=== PATIENT | male | born 1975 | race Caucasian/White ===

== ENCOUNTER 2020-07-27 11:56 | Outpatient (REF) | payer OTHER, SELFPAY ==
[2020-07-27 12:49] LABS: MANUAL DIFF FLAG NO
[2020-07-27 13:02] LABS: Basophils Percent Auto 0.4 % (0-2); Eosinophils Absolute Auto 0.1 X10*3/uL (0.0-0.4); Eosinophils Percent Auto 1.9 % (0-4); Hematocrit 42.8 % (42-52); Hemoglobin 14.6 g/dl (14.0-18.0); Imm Gran Abs Auto 0.04 X10*3/uL (0.00-0.03); Imm Gran Pct Auto 0.5 % (0.0-0.4); Lymphocytes Absolute Auto 2.7 X10*3/uL (1.2-4.9); Lymphocytes Percent Auto 37.3 % (20-40); Mean Corpuscular HGB Conc 34.1 g/dl (31.0-36.0); Mean Corpuscular Hemoglobin 28.8 pg (27.0-33.0); Mean Corpuscular Volume 84.4 fL (80-98); Mean Platelet Volume 9.4 fL (9.4-12.4); Monocytes Absolute Auto 0.5 X10*3/uL (0.1-1.2); Monocytes Percent Auto 7.2 % (2-11); Neutrophils Absolute Auto 3.9 X10*3/uL (2.0-8.3); Neutrophils Percent Auto 52.7 % (45-73); Platelet Count 234 X10*3/uL (160-400); Red Blood Count 5.07 X10*6/uL (4.60-5.80); Red Cell Distribution Width 13.2 % (11.0-16.0); White Blood Count 7.3 X10*3/uL (4.8-10.8)
== END 2020-07-27 11:57 | disposition home or self-care (01) ==
LOC: HO.LABR 11:56
PROVIDERS: PCP Internal Medicine; Visit Provider Clinical Nurse Specialist Psychiatric/Mental Health, Adult
DX: Z79.899 Other long term (current) drug therapy (principal)
CPT/HCPCS: 36415; 85025

== ENCOUNTER 2020-08-26 11:42 | Outpatient (REF) | payer OTHER, SELFPAY ==
[2020-08-26 12:32] LABS: MANUAL DIFF FLAG NO
[2020-08-26 12:43] LABS: Basophils Absolute Auto 0.1 X10*3/uL (0.0-0.2); Basophils Percent Auto 0.6 % (0-2); Eosinophils Absolute Auto 0.1 X10*3/uL (0.0-0.4); Eosinophils Percent Auto 1.5 % (0-4); Hematocrit 42.8 % (42-52); Hemoglobin 14.9 g/dl (14.0-18.0); Imm Gran Abs Auto 0.04 X10*3/uL (0.00-0.03); Imm Gran Pct Auto 0.5 % (0.0-0.4); Lymphocytes Absolute Auto 2.9 X10*3/uL (1.2-4.9); Lymphocytes Percent Auto 36.7 % (20-40); Mean Corpuscular HGB Conc 34.8 g/dl (31.0-36.0); Mean Corpuscular Volume 83.3 fL (80-98); Mean Platelet Volume 9.4 fL (9.4-12.4); Monocytes Absolute Auto 0.4 X10*3/uL (0.1-1.2); Monocytes Percent Auto 5.6 % (2-11); Neutrophils Absolute Auto 4.3 X10*3/uL (2.0-8.3); Neutrophils Percent Auto 55.1 % (45-73); Platelet Count 221 X10*3/uL (160-400); Red Blood Count 5.14 X10*6/uL (4.60-5.80); Red Cell Distribution Width 12.8 % (11.0-16.0); White Blood Count 7.9 X10*3/uL (4.8-10.8)
== END 2020-08-26 11:43 | disposition home or self-care (01) ==
LOC: HO.LAB 11:42
PROVIDERS: PCP Internal Medicine; Visit Provider Internal Medicine
DX: Z79.899 Other long term (current) drug therapy (principal)
CPT/HCPCS: 36415; 85025

== ENCOUNTER 2020-09-26 12:37 | Outpatient (REF) | payer OTHER, SELFPAY ==
[2020-09-26 13:06] LABS: MANUAL DIFF FLAG NO
[2020-09-26 13:22] LABS: Basophils Absolute Auto 0.1 X10*3/uL (0.0-0.2); Basophils Percent Auto 0.7 % (0-2); Eosinophils Absolute Auto 0.1 X10*3/uL (0.0-0.4); Hematocrit 44.1 % (42-52); Hemoglobin 15.5 g/dl (14.0-18.0); Imm Gran Abs Auto 0.04 X10*3/uL (0.00-0.03); Imm Gran Pct Auto 0.5 % (0.0-0.4); Lymphocytes Absolute Auto 2.3 X10*3/uL (1.2-4.9); Lymphocytes Percent Auto 31.9 % (20-40); Mean Corpuscular HGB Conc 35.1 g/dl (31.0-36.0); Mean Corpuscular Hemoglobin 29.4 pg (27.0-33.0); Mean Corpuscular Volume 83.5 fL (80-98); Mean Platelet Volume 9.4 fL (9.4-12.4); Monocytes Absolute Auto 0.4 X10*3/uL (0.1-1.2); Monocytes Percent Auto 5.3 % (2-11); Neutrophils Absolute Auto 4.4 X10*3/uL (2.0-8.3); Neutrophils Percent Auto 60.6 % (45-73); Platelet Count 212 X10*3/uL (160-400); Red Blood Count 5.28 X10*6/uL (4.60-5.80); Red Cell Distribution Width 12.7 % (11.0-16.0); White Blood Count 7.3 X10*3/uL (4.8-10.8)
[2020-09-26 13:40] LABS: Alanine Aminotransferase 47 U/L (0-40); Anion Gap 12 (12-20); Aspartate Amino Transferase 22 U/L (5-37); Blood Urea Nitrogen 15 mg/dL (9-16); Calcium 9.1 mg/dL (8.4-10.2); Carbon Dioxide 27 mmol/L (22-29); Chloride 105 mmol/L (96-108); Cholesterol 182 mg/dL; Estimated Glomerular Filt Rate > 60; Glucose Fasting 151 mg/dL (60-99); HDL Cholesterol 36 mg/dL; LDL Cholesterol Calculated 108 mg/dl; Potassium 4.1 mmol/l (3.3-5.1); Sodium 140 mmol/L (135-145); Triglycerides 194 mg/dL
== END 2020-09-26 12:38 | disposition home or self-care (01) ==
LOC: HO.LABR 12:37
PROVIDERS: PCP Internal Medicine; Visit Provider Clinical Nurse Specialist Psychiatric/Mental Health, Adult
DX: Z00.01 Encounter for general adult medical examination with abnormal findings (principal); E78.1 Pure hyperglyceridemia; R73.01 Impaired fasting glucose; I10 Essential (primary) hypertension; Z79.899 Other long term (current) drug therapy
CPT/HCPCS: 36415; 80048; 80061; 84450; 84460; 85025

== ENCOUNTER 2020-10-28 08:51 | Outpatient (REF) | payer OTHER, SELFPAY ==
[2020-10-28 09:47] LABS: MANUAL DIFF FLAG NO
[2020-10-28 09:54] LABS: Basophils Absolute Auto 0.1 X10*3/uL (0.0-0.2); Basophils Percent Auto 0.6 % (0-2); Eosinophils Absolute Auto 0.1 X10*3/uL (0.0-0.4); Eosinophils Percent Auto 1.4 % (0-4); Imm Gran Abs Auto 0.04 X10*3/uL (0.00-0.03); Imm Gran Pct Auto 0.5 % (0.0-0.4); Lymphocytes Absolute Auto 3.1 X10*3/uL (1.2-4.9); Lymphocytes Percent Auto 36.8 % (20-40); Mean Corpuscular HGB Conc 34.9 g/dl (31.0-36.0); Mean Corpuscular Hemoglobin 29.3 pg (27.0-33.0); Mean Platelet Volume 9.7 fL (9.4-12.4); Monocytes Absolute Auto 0.5 X10*3/uL (0.1-1.2); Monocytes Percent Auto 6.2 % (2-11); Neutrophils Absolute Auto 4.7 X10*3/uL (2.0-8.3); Neutrophils Percent Auto 54.5 % (45-73); Platelet Count 228 X10*3/uL (160-400); Red Blood Count 5.12 X10*6/uL (4.60-5.80); Red Cell Distribution Width 12.6 % (11.0-16.0); White Blood Count 8.5 X10*3/uL (4.8-10.8)
[2020-10-28 10:25] LABS: Estimated Average Glucose 97 mg/dL
== END 2020-10-28 08:52 | disposition home or self-care (01) ==
LOC: HO.LABR 08:51
PROVIDERS: PCP Internal Medicine; Visit Provider Clinical Nurse Specialist Psychiatric/Mental Health, Adult
DX: R73.01 Impaired fasting glucose (principal); Z79.899 Other long term (current) drug therapy
CPT/HCPCS: 36415; 83036; 85025

== ENCOUNTER 2020-11-24 12:51 | Outpatient (REF) | payer OTHER, SELFPAY ==
[2020-11-24 13:48] LABS: MANUAL DIFF FLAG NO
[2020-11-24 13:57] LABS: Basophils Percent Auto 0.5 % (0-2); Eosinophils Absolute Auto 0.1 X10*3/uL (0.0-0.4); Eosinophils Percent Auto 1.2 % (0-4); Hematocrit 41.7 % (42-52); Hemoglobin 14.4 g/dl (14.0-18.0); Imm Gran Abs Auto 0.04 X10*3/uL (0.00-0.03); Imm Gran Pct Auto 0.5 % (0.0-0.4); Lymphocytes Absolute Auto 3.1 X10*3/uL (1.2-4.9); Lymphocytes Percent Auto 40.4 % (20-40); Mean Corpuscular HGB Conc 34.5 g/dl (31.0-36.0); Mean Corpuscular Hemoglobin 28.7 pg (27.0-33.0); Mean Corpuscular Volume 83.1 fL (80-98); Monocytes Absolute Auto 0.5 X10*3/uL (0.1-1.2); Monocytes Percent Auto 7.1 % (2-11); Neutrophils Absolute Auto 3.8 X10*3/uL (2.0-8.3); Neutrophils Percent Auto 50.3 % (45-73); Platelet Count 229 X10*3/uL (160-400); Red Blood Count 5.02 X10*6/uL (4.60-5.80); Red Cell Distribution Width 12.8 % (11.0-16.0); White Blood Count 7.6 X10*3/uL (4.8-10.8)
== END 2020-11-24 12:52 | disposition home or self-care (01) ==
LOC: HO.LABR 12:51
PROVIDERS: PCP Orthopaedic Surgery; Visit Provider Clinical Nurse Specialist Psychiatric/Mental Health, Adult
DX: Z79.899 Other long term (current) drug therapy (principal)
CPT/HCPCS: 36415; 85025

== ENCOUNTER 2020-12-21 11:02 | Outpatient (REF) | payer OTHER, SELFPAY ==
[2020-12-21 11:58] LABS: MANUAL DIFF FLAG NO
[2020-12-21 12:11] LABS: Basophils Absolute Auto 0.1 X10*3/uL (0.0-0.2); Basophils Percent Auto 0.8 % (0-2); Eosinophils Absolute Auto 0.1 X10*3/uL (0.0-0.4); Eosinophils Percent Auto 1.9 % (0-4); Hematocrit 43.3 % (42-52); Hemoglobin 14.9 g/dl (14.0-18.0); Imm Gran Abs Auto 0.02 X10*3/uL (0.00-0.03); Imm Gran Pct Auto 0.3 % (0.0-0.4); Lymphocytes Absolute Auto 3.5 X10*3/uL (1.2-4.9); Mean Corpuscular HGB Conc 34.4 g/dl (31.0-36.0); Mean Corpuscular Hemoglobin 28.9 pg (27.0-33.0); Mean Corpuscular Volume 83.9 fL (80-98); Mean Platelet Volume 9.7 fL (9.4-12.4); Monocytes Absolute Auto 0.5 X10*3/uL (0.1-1.2); Monocytes Percent Auto 6.9 % (2-11); Neutrophils Percent Auto 41.1 % (45-73); Platelet Count 222 X10*3/uL (160-400); Red Blood Count 5.16 X10*6/uL (4.60-5.80); White Blood Count 7.2 X10*3/uL (4.8-10.8)
== END 2020-12-21 11:03 | disposition home or self-care (01) ==
LOC: HO.LABR 11:02
PROVIDERS: PCP Orthopaedic Surgery; Visit Provider Clinical Nurse Specialist Psychiatric/Mental Health, Adult
DX: Z79.899 Other long term (current) drug therapy (principal)
CPT/HCPCS: 36415; 85025

== ENCOUNTER 2021-01-24 11:22 | Outpatient (REF) | payer OTHER, SELFPAY ==
[2021-01-24 13:00] LABS: MANUAL DIFF FLAG NO
[2021-01-24 13:08] LABS: Basophils Absolute Auto 0.1 X10*3/uL (0.0-0.2); Basophils Percent Auto 0.6 % (0-2); Eosinophils Absolute Auto 0.2 X10*3/uL (0.0-0.4); Eosinophils Percent Auto 1.9 % (0-4); Hemoglobin 15.3 g/dl (14.0-18.0); Imm Gran Abs Auto 0.03 X10*3/uL (0.00-0.03); Imm Gran Pct Auto 0.4 % (0.0-0.4); Lymphocytes Absolute Auto 3.9 X10*3/uL (1.2-4.9); Lymphocytes Percent Auto 47.5 % (20-40); Mean Corpuscular HGB Conc 33.3 g/dl (31.0-36.0); Mean Corpuscular Volume 84.1 fL (80-98); Mean Platelet Volume 9.5 fL (9.4-12.4); Monocytes Absolute Auto 0.6 X10*3/uL (0.1-1.2); Monocytes Percent Auto 7.2 % (2-11); Neutrophils Absolute Auto 3.5 X10*3/uL (2.0-8.3); Neutrophils Percent Auto 42.4 % (45-73); Platelet Count 221 X10*3/uL (160-400); Red Blood Count 5.47 X10*6/uL (4.60-5.80); Red Cell Distribution Width 12.7 % (11.0-16.0); White Blood Count 8.2 X10*3/uL (4.8-10.8)
== END 2021-01-24 11:23 | disposition home or self-care (01) ==
LOC: HO.LABR 11:22
PROVIDERS: PCP Internal Medicine; Visit Provider Clinical Nurse Specialist Psychiatric/Mental Health, Adult
DX: Z79.899 Other long term (current) drug therapy (principal)
CPT/HCPCS: 36415; 85025

== ENCOUNTER 2021-02-20 10:56 | Outpatient (REF) | payer OTHER, SELFPAY ==
[2021-02-20 12:12] LABS: MANUAL DIFF FLAG NO
[2021-02-20 12:23] LABS: Basophils Percent Auto 0.4 % (0-2); Eosinophils Absolute Auto 0.1 X10*3/uL (0.0-0.4); Eosinophils Percent Auto 1.9 % (0-4); Hematocrit 45.3 % (42-52); Hemoglobin 15.7 g/dl (14.0-18.0); Imm Gran Abs Auto 0.02 X10*3/uL (0.00-0.03); Imm Gran Pct Auto 0.3 % (0.0-0.4); Lymphocytes Absolute Auto 2.9 X10*3/uL (1.2-4.9); Lymphocytes Percent Auto 39.5 % (20-40); Mean Corpuscular HGB Conc 34.7 g/dl (31.0-36.0); Mean Corpuscular Hemoglobin 28.7 pg (27.0-33.0); Mean Corpuscular Volume 82.8 fL (80-98); Mean Platelet Volume 9.8 fL (9.4-12.4); Monocytes Absolute Auto 0.5 X10*3/uL (0.1-1.2); Monocytes Percent Auto 6.5 % (2-11); Neutrophils Absolute Auto 3.8 X10*3/uL (2.0-8.3); Neutrophils Percent Auto 51.4 % (45-73); Platelet Count 236 X10*3/uL (160-400); Red Blood Count 5.47 X10*6/uL (4.60-5.80); Red Cell Distribution Width 12.9 % (11.0-16.0); White Blood Count 7.4 X10*3/uL (4.8-10.8)
== END 2021-02-20 10:57 | disposition home or self-care (01) ==
LOC: HO.LABR 10:56
PROVIDERS: PCP Internal Medicine; Visit Provider Clinical Nurse Specialist Psychiatric/Mental Health, Adult
DX: Z79.899 Other long term (current) drug therapy (principal)
CPT/HCPCS: 36415; 85025

== ENCOUNTER 2021-03-23 12:47 | Outpatient (REF) | payer OTHER, SELFPAY ==
[2021-03-23 14:01] LABS: MANUAL DIFF FLAG NO
[2021-03-23 14:10] LABS: Basophils Percent Auto 0.5 % (0-2); Eosinophils Absolute Auto 0.1 X10*3/uL (0.0-0.4); Eosinophils Percent Auto 1.1 % (0-4); Hematocrit 41.5 % (42-52); Hemoglobin 14.8 g/dl (14.0-18.0); Imm Gran Abs Auto 0.02 X10*3/uL (0.00-0.03); Imm Gran Pct Auto 0.3 % (0.0-0.4); Lymphocytes Absolute Auto 3.4 X10*3/uL (1.2-4.9); Lymphocytes Percent Auto 44.6 % (20-40); Mean Corpuscular HGB Conc 35.7 g/dl (31.0-36.0); Mean Corpuscular Hemoglobin 29.4 pg (27.0-33.0); Mean Corpuscular Volume 82.3 fL (80-98); Mean Platelet Volume 9.4 fL (9.4-12.4); Monocytes Absolute Auto 0.5 X10*3/uL (0.1-1.2); Monocytes Percent Auto 6.2 % (2-11); Neutrophils Absolute Auto 3.6 X10*3/uL (2.0-8.3); Neutrophils Percent Auto 47.3 % (45-73); Platelet Count 226 X10*3/uL (160-400); Red Blood Count 5.04 X10*6/uL (4.60-5.80); Red Cell Distribution Width 13.1 % (11.0-16.0); White Blood Count 7.6 X10*3/uL (4.8-10.8)
== END 2021-03-23 12:48 | disposition home or self-care (01) ==
LOC: HO.LABR 12:47
PROVIDERS: PCP Internal Medicine; Visit Provider Clinical Nurse Specialist Psychiatric/Mental Health, Adult
DX: Z79.899 Other long term (current) drug therapy (principal)
CPT/HCPCS: 36415; 85025

== ENCOUNTER 2021-04-24 10:21 | Outpatient (REF) | payer OTHER, SELFPAY ==
[2021-04-24 11:14] LABS: MANUAL DIFF FLAG NO
[2021-04-24 11:18] LABS: Basophils Absolute Auto 0.1 X10*3/uL (0.0-0.2); Basophils Percent Auto 0.6 % (0-2); Eosinophils Absolute Auto 0.1 X10*3/uL (0.0-0.4); Eosinophils Percent Auto 1.7 % (0-4); Hematocrit 42.7 % (42-52); Hemoglobin 15.3 g/dl (14.0-18.0); Imm Gran Abs Auto 0.03 X10*3/uL (0.00-0.03); Imm Gran Pct Auto 0.4 % (0.0-0.4); Lymphocytes Absolute Auto 3.3 X10*3/uL (1.2-4.9); Lymphocytes Percent Auto 39.6 % (20-40); Mean Corpuscular HGB Conc 35.8 g/dl (31.0-36.0); Mean Corpuscular Hemoglobin 29.8 pg (27.0-33.0); Mean Corpuscular Volume 83.1 fL (80-98); Mean Platelet Volume 9.6 fL (9.4-12.4); Monocytes Absolute Auto 0.5 X10*3/uL (0.1-1.2); Monocytes Percent Auto 6.3 % (2-11); Neutrophils Absolute Auto 4.2 X10*3/uL (2.0-8.3); Neutrophils Percent Auto 51.4 % (45-73); Platelet Count 208 X10*3/uL (160-400); Red Blood Count 5.14 X10*6/uL (4.60-5.80); Red Cell Distribution Width 13.1 % (11.0-16.0); White Blood Count 8.2 X10*3/uL (4.8-10.8)
== END 2021-04-24 10:22 | disposition home or self-care (01) ==
LOC: HO.LABR 10:21
PROVIDERS: PCP Internal Medicine; Visit Provider Clinical Nurse Specialist Psychiatric/Mental Health, Adult
DX: Z79.899 Other long term (current) drug therapy (principal)
CPT/HCPCS: 36415; 85025

== ENCOUNTER 2021-05-25 13:48 | Outpatient (REF) | payer OTHER, SELFPAY ==
[2021-05-25 13:12] LABS: MANUAL DIFF FLAG NO
[2021-05-25 13:16] LABS: Basophils Absolute Auto 0.1 X10*3/uL (0.0-0.2); Basophils Percent Auto 0.7 % (0-2); Eosinophils Absolute Auto 0.1 X10*3/uL (0.0-0.4); Eosinophils Percent Auto 0.9 % (0-4); Hematocrit 40.5 % (42-52); Imm Gran Abs Auto 0.03 X10*3/uL (0.00-0.03); Imm Gran Pct Auto 0.4 % (0.0-0.4); Lymphocytes Absolute Auto 3.2 X10*3/uL (1.2-4.9); Mean Corpuscular HGB Conc 34.6 g/dl (31.0-36.0); Mean Corpuscular Volume 83.9 fL (80-98); Mean Platelet Volume 9.5 fL (9.4-12.4); Monocytes Absolute Auto 0.5 X10*3/uL (0.1-1.2); Monocytes Percent Auto 6.2 % (2-11); Neutrophils Absolute Auto 3.8 X10*3/uL (2.0-8.3); Neutrophils Percent Auto 49.8 % (45-73); Platelet Count 222 X10*3/uL (160-400); Red Blood Count 4.83 X10*6/uL (4.60-5.80); Red Cell Distribution Width 12.9 % (11.0-16.0); White Blood Count 7.6 X10*3/uL (4.8-10.8)
== END 2021-05-25 13:49 | disposition home or self-care (01) ==
LOC: HO.LABR 13:48
PROVIDERS: PCP Internal Medicine; Visit Provider Clinical Nurse Specialist Psychiatric/Mental Health, Adult
DX: Z79.899 Other long term (current) drug therapy (principal)
CPT/HCPCS: 36415; 85025

== ENCOUNTER 2021-06-23 12:54 | Outpatient (REF) | payer OTHER, SELFPAY ==
[2021-06-23 13:43] LABS: MANUAL DIFF FLAG NO
[2021-06-23 13:47] LABS: Basophils Percent Auto 0.4 % (0-2); Eosinophils Absolute Auto 0.1 X10*3/uL (0.0-0.4); Eosinophils Percent Auto 0.9 % (0-4); Hematocrit 41.2 % (42-52); Hemoglobin 14.8 g/dl (14.0-18.0); Imm Gran Abs Auto 0.03 X10*3/uL (0.00-0.03); Imm Gran Pct Auto 0.4 % (0.0-0.4); Lymphocytes Absolute Auto 2.9 X10*3/uL (1.2-4.9); Lymphocytes Percent Auto 36.9 % (20-40); Mean Corpuscular HGB Conc 35.9 g/dl (31.0-36.0); Mean Corpuscular Hemoglobin 29.7 pg (27.0-33.0); Mean Corpuscular Volume 82.7 fL (80-98); Mean Platelet Volume 9.3 fL (9.4-12.4); Monocytes Absolute Auto 0.5 X10*3/uL (0.1-1.2); Monocytes Percent Auto 6.9 % (2-11); Neutrophils Absolute Auto 4.2 X10*3/uL (2.0-8.3); Neutrophils Percent Auto 54.5 % (45-73); Platelet Count 215 X10*3/uL (160-400); Red Blood Count 4.98 X10*6/uL (4.60-5.80); Red Cell Distribution Width 12.6 % (11.0-16.0); White Blood Count 7.7 X10*3/uL (4.8-10.8)
== END 2021-06-23 12:55 | disposition home or self-care (01) ==
LOC: HO.LABR 12:54
PROVIDERS: PCP Internal Medicine; Visit Provider Clinical Nurse Specialist Psychiatric/Mental Health, Adult
DX: Z79.899 Other long term (current) drug therapy (principal)
CPT/HCPCS: 36415; 85025

== ENCOUNTER 2021-07-25 11:33 | Outpatient (REF) | payer OTHER, SELFPAY ==
[2021-07-25 11:46] LABS: MANUAL DIFF FLAG NO
[2021-07-25 12:16] LABS: Basophils Percent Auto 0.5 % (0-2); Eosinophils Absolute Auto 0.1 X10*3/uL (0.0-0.4); Eosinophils Percent Auto 1.3 % (0-4); Hematocrit 43.2 % (42-52); Imm Gran Abs Auto 0.03 X10*3/uL (0.00-0.03); Imm Gran Pct Auto 0.4 % (0.0-0.4); Lymphocytes Absolute Auto 3.8 X10*3/uL (1.2-4.9); Lymphocytes Percent Auto 50.2 % (20-40); Mean Corpuscular HGB Conc 34.7 g/dl (31.0-36.0); Mean Corpuscular Hemoglobin 29.3 pg (27.0-33.0); Mean Corpuscular Volume 84.4 fL (80-98); Mean Platelet Volume 9.4 fL (9.4-12.4); Monocytes Absolute Auto 0.5 X10*3/uL (0.1-1.2); Monocytes Percent Auto 6.8 % (2-11); Neutrophils Absolute Auto 3.1 X10*3/uL (2.0-8.3); Neutrophils Percent Auto 40.8 % (45-73); Platelet Count 210 X10*3/uL (160-400); Red Blood Count 5.12 X10*6/uL (4.60-5.80); Red Cell Distribution Width 12.8 % (11.0-16.0); White Blood Count 7.7 X10*3/uL (4.8-10.8)
== END 2021-07-25 11:34 | disposition home or self-care (01) ==
LOC: HO.LABR 11:33
PROVIDERS: PCP Internal Medicine; Visit Provider Clinical Nurse Specialist Psychiatric/Mental Health, Adult
DX: Z79.899 Other long term (current) drug therapy (principal)
CPT/HCPCS: 36415; 85025

== ENCOUNTER 2021-08-28 10:07 | Outpatient (REF) | payer OTHER, SELFPAY ==
[2021-08-28 10:24] LABS: MANUAL DIFF FLAG NO
[2021-08-28 11:14] LABS: Basophils Percent Auto 0.5 % (0-2); Eosinophils Absolute Auto 0.1 X10*3/uL (0.0-0.4); Eosinophils Percent Auto 1.1 % (0-4); Hematocrit 42.8 % (42.0-52.0); Imm Gran Abs Auto 0.03 X10*3/uL (0.00-0.03); Imm Gran Pct Auto 0.4 % (0.0-0.4); Lymphocytes Absolute Auto 2.6 X10*3/uL (1.2-4.9); Lymphocytes Percent Auto 33.3 % (20-40); Mean Corpuscular Hemoglobin 29.1 pg (27.0-33.0); Mean Corpuscular Volume 82.9 fL (80.0-98.0); Mean Platelet Volume 9.7 fL (9.4-12.4); Monocytes Absolute Auto 0.5 X10*3/uL (0.1-1.2); Monocytes Percent Auto 6.6 % (2-11); Neutrophils Absolute Auto 4.6 x10*3/uL (2.0-8.3); Neutrophils Percent Auto 58.1 % (45-73); Platelet Count 240 X10*3/uL (160-400); Red Blood Count 5.16 X10*6/uL (4.60-5.80); White Blood Count 7.9 X10*3/uL (4.8-10.8)
[2021-08-28 12:19] LABS: Cholesterol 162 mg/dL; Glucose Fasting 151 mg/dL (60-99); HDL Cholesterol 37 mg/dL; LDL Cholesterol Calculated 95 mg/dl; Triglycerides 152 mg/dL
[2021-08-28 12:47] LABS: TSH reflex Free T4 3.42 uIU/mL (0.32-4.0); Vitamin D 25-OH Total 34.9 ng/mL (>30)
[2021-08-30 19:56] LABS: TS Negative Control Passed; TS Panel A 0; TS Panel B 0; TS Positive Control Passed; TSpotTB Negative (Negative)
== END 2021-08-28 10:08 | disposition home or self-care (01) ==
LOC: HO.LAB 10:07
PROVIDERS: PCP Internal Medicine; Visit Provider Clinical Nurse Specialist Psychiatric/Mental Health, Adult
DX: Z00.01 Encounter for general adult medical examination with abnormal findings (principal); Z11.1 Encounter for screening for respiratory tuberculosis; E78.1 Pure hyperglyceridemia; F20.0 Paranoid schizophrenia; K58.9 Irritable bowel syndrome, unspecified; R00.0 Tachycardia, unspecified; R73.01 Impaired fasting glucose; Z79.899 Other long term (current) drug therapy
CPT/HCPCS: 36415; 80061; 82306; 82947; 84443; 85025; 86481

== ENCOUNTER 2021-09-21 10:16 | Outpatient (REF) | payer OTHER, SELFPAY ==
[2021-09-21 10:27] LABS: MANUAL DIFF FLAG NO
[2021-09-21 10:55] LABS: Basophils Absolute Auto 0.1 X10*3/uL (0.0-0.2); Basophils Percent Auto 0.7 % (0-2); Eosinophils Absolute Auto 0.1 X10*3/uL (0.0-0.4); Eosinophils Percent Auto 1.6 % (0-4); Hematocrit 42.7 % (42.0-52.0); Hemoglobin 14.8 g/dl (14.0-18.0); Imm Gran Abs Auto 0.03 X10*3/uL (0.00-0.03); Imm Gran Pct Auto 0.4 % (0.0-0.4); Lymphocytes Absolute Auto 2.4 X10*3/uL (1.2-4.9); Lymphocytes Percent Auto 29.1 % (20-40); Mean Corpuscular HGB Conc 34.7 g/dl (31.0-36.0); Mean Corpuscular Hemoglobin 29.2 pg (27.0-33.0); Mean Corpuscular Volume 84.4 fL (80.0-98.0); Mean Platelet Volume 9.1 fL (9.4-12.4); Monocytes Absolute Auto 0.5 X10*3/uL (0.1-1.2); Neutrophils Absolute Auto 5.2 x10*3/uL (2.0-8.3); Neutrophils Percent Auto 62.2 % (45-73); Platelet Count 229 X10*3/uL (160-400); Red Blood Count 5.06 X10*6/uL (4.60-5.80); Red Cell Distribution Width 12.8 % (11.0-16.0); White Blood Count 8.3 X10*3/uL (4.8-10.8)
== END 2021-09-21 10:17 | disposition home or self-care (01) ==
LOC: HO.LABR 10:16
PROVIDERS: PCP Internal Medicine; Visit Provider Clinical Nurse Specialist Psychiatric/Mental Health, Adult
DX: Z79.899 Other long term (current) drug therapy (principal)
CPT/HCPCS: 36415; 85025

== ENCOUNTER 2022-05-20 09:01 | Inpatient (IN) | payer OTHER, SELFPAY ==
--- NOTE | ~2022-05-20 | XR_ITS ---
EXAMINATION: XR CHEST CLINICAL INFORMATION: Hypertension. COMPARISON: None TECHNIQUE: 2 views of the chest were obtained. FINDINGS: No significant abnormality is noted involving the heart, lungs, mediastinum, bony thorax or soft tissues. XR/XR chest 2V IMPRESSION: No acute cardiopulmonary process.
--- NOTE | ~2022-05-20 | CT_ITS ---
EXAMINATION: CT HEAD WITHOUT CONTRAST CLINICAL INFORMATION: High blood pressure and dizziness. COMPARISON: No relevant prior imaging. TECHNIQUE: Contiguous axial imaging was performed from the skull base to vertex without intravenous administration of contrast. This CT examination was performed using dose optimization techniques as appropriate, variously including the following: *Automated exposure control *Adjustment of mA and/or kV according to patient size (this includes techniques or standardized protocols for targeted exams where dose is matched to indication/reason for exam; i.e. extremities or head) *Use of iterative reconstruction technique DLP: 761 mGy-cm FINDINGS: There is no acute intracranial hemorrhage or abnormal extra-axial collection. No intracranial mass effect or midline shift. Lateral and third ventricles are normal. No hydrocephalus. Campos-white matter differentiation is preserved and there is no evidence of acute territorial infarct. The calvarium and skull base are intact. Mastoid air cells and middle ear cavities are well aerated. No active paranasal sinus disease. Globes and orbits are grossly symmetric. CT/CT head/brain wo con IMPRESSION: Unremarkable CT scan of the head. No evidence of acute territorial infarct or hemorrhage.
[2022-05-20 09:15] VITALS: BP 157/105; PULSE 124; RESP 18; O2SAT 99
[2022-05-20 09:21] VITALS: BP 157/105; BP 170/110; PULSE 119; PULSE 128; RESP 14; TEMP 36.8; O2SAT 100; O2SAT 99; BMI 27.8
--- NOTE | 2022-05-20 09:34 | ECG_ITS ---
Test Reason : hypertension Blood Pressure : / mmHG Vent. Rate : 123 BPM Atrial Rate : 123 BPM P-R Int : 160 ms QRS Dur : 094 ms QT Int : 310 ms P-R-T Axes : 028 071 -17 degrees QTc Int : 443 ms Sinus tachycardia Cannot rule out Anterior infarct , age undetermined T wave abnormality, consider inferior ischemia Abnormal ECG When compared with ECG of 03-OCT-2001 06:44, Non-specific change in ST segment in Anterior leads Nonspecific T wave abnormality, improved in Lateral leads Referred By: Adamaris Heller Electronically Signed By:ADEN HOLLIS
--- NOTE | 2022-05-20 09:43 | ED_ITS ---
HPI - Psych General Chief Complaint: Recheck/Abnormal Lab/Rx Stated Complaint: HYPERTENSION Time Seen by Provider: 05/20/22 09:34 Source: patient and EMS Mode of arrival: EMS Limitations: other (Poor historian) History of Present Illness HPI Narrative: 47-year-old male with a past medical history of paranoid schizophrenia, delusional disorder, IBS, impaired fasting glucose, hypertriglyceridemia, hypertension and eczema presenting to the ED via EMS after his custodial sent him here for further evaluation treatment for not taking his Blood Pressure medication of Cozaar 25 mg tablet once daily since he was discharged from [facility] on 05/17/2022. Patient reports that he initially went to [facility] on 05/11/2022 for dizziness and feeling off balance on his feet and he reports ?they did not take good care of me they were trying to get rid of me and they started me on a whole bunch of medications that I do not trust?. He reports while he is here in the emergency department he is willing to take his medications. He reports persistent intermittent dizziness and feeling off balance on his feet since 05/11/2022 although a little before that as well he reports. He denies any dizziness at this time, changes in vision, headaches, recent falls or head trauma, being on any blood thinners, nasal congestion/rhinorrhea, sore throat, cough, sputum production, nausea/vomiting/diarrhea constipation, black or bloody stools, chest pain or shortness of breath, dyspnea exertion, orthopnea, palpitations, paresthesias, lower extremity edema or calf tenderness, recent travel or sick contacts that he is aware of, rashes, SI/HI/visual hallucinations of thoughts of self-injury, drug usage or alcohol usage or any other symptoms complaints or concerns at this time. complaint: other (Delusions and not med compliant) Onset (ago): day(s) (For the past few days worse today) Duration: constant and getting worse History of same: Yes Relieving factors: none Exacerbating factors: other (See above) Context: not taking psychiatric medications (Or hypertensive medications) Associated psychiatric symptoms: delusions Associated symptoms: other (Intermittent dizziness and feeling lightheaded on his feet) Related Data Home Medications Medication Instructions Recorded Confirmed clozapine 100 mg tablet 400 mg PO BEDTIME 08/10/20 05/20/22 clozapine 50 mg tablet 50 mg PO BID 08/10/20 05/20/22 bisacodyl 5 mg tablet,delayed 1 tab PO DAILY PRN Constipation 05/20/22 05/20/22 release fludrocortisone 0.1 mg tablet 0.05 mg PO DAILY 05/20/22 05/20/22 losartan 25 mg tablet 1 tab PO DAILY 05/20/22 05/20/22 polyethylene glycol 3350 17 17 g PO DAILY PRN Constipation 05/20/22 05/20/22 gram/dose oral powder sennosides 8.6 mg-docusate sodium 2 tab PO BEDTIME 05/20/22 05/20/22 50 mg tablet (Senna Plus) Previous Rx's Medication Instructions Recorded docusate sodium 100 mg capsule 100 mg PO BID #180 caps 01/03/22 acetaminophen 325 mg tablet 325 mg PO Q6H PRN Pain or fever > 01/08/22 100.4 #30 tabs omeprazole 20 mg capsule,delayed 20 mg PO DAILY PRN heartburn #30 04/18/22 release caps Allergies Allergy/AdvReac Type Severity Reaction Status Date / Time latex Allergy Unknown swelling Verified 08/14/21 14:32 in lips penicillin V Allergy Unknown unknown Verified 08/14/21 14:32 Review of Systems Review of Systems: Constitutional : No Fever, No Chills ENT/Mouth : No Ear Pain, No Nasal Congestion, No sore throat Eyes: No Eye Pain, No Swelling, No Redness Cardiovascular : No Chest Pain, No SOB Respiratory : No Cough, No Sputum, No Dyspnea Gastrointestinal : No ingestions, No Nausea, No Vomiting, No Diarrhea, No H ematochezia, No Melena Genitourinary : No Dysuria, No Urinary Frequency, No Hematuria Musculoskeletal : No Myalgias Skin : No Skin Lesions, No rash Neuro : No Weakness, No Numbness, No Paresthesias, No Dizziness, No Headache Psych : + delusions/paranoia, No Anxiety, No Depression, No SI, No thoughts of self injury, No HI, + auditory hallucinations, no visual hallucinations Heme/Lymph: No Lymphadenopathy Endocrine : No Polyuria, No Polydipsia Yes all other systems are reviewed and are negative PMFSH Past Medical History Attestation statement: The following information was validated with the patient. Source: old records reviewed and nursing notes reviewed Medical History Annual visit for general adult medical examination with abnormal findings Delusional disorder Eczema Hypertriglyceridemia IBS (irritable bowel syndrome) Impaired fasting glucose Paranoid schizophrenia Surgical History No pertinent past surgical history Family History Family History Father Unknown family medical history Mother Breast cancer Maternal Grandfather No problems noted. Maternal Grandmother No problems noted. Paternal Grandfather No problems noted. Paternal Grandmother No problems noted. Brother Substance use disorder Mental health disorder Sister No problems noted. Social History Social History Housing Other:: custodial Alcohol intake: never Patient Tobacco Use Status: Never used Tobacco e-Cigarette/Vaping Use: Never Used Advance Directives: Yes Advance Directives Information Provided: Yes Advance Directives on File: No Guardian: No Current occupational status: disabled Physical Exam Vital Signs: Vital Signs: Last Vital Signs Temp 98.4 F 05/20/22 17:33 Pulse 108 H 05/20/22 17:33 Resp 15 05/20/22 17:33 BP 132/90 H 05/20/22 17:33 Pulse Ox 99 05/20/22 17:33 O2 Del Method 05/20/22 17:33 BMI result Body Mass Index 27.8 vital signs have been reviewed as normal and appeared to be correct. Blood pr essure 157/105. Heart rate 124. Respiration rate normal. Temperature normal. Oxygen saturation normal. Appearance: Alert. Oriented X3. No acute distress. Head: Normal external exam. Normocephalic. Atraumatic. Eyes: PERRLA. EOMI. Conjunctiva and sclera normal. Eyelids normal. ENT: EAC normal. TM's Normal. Pharynx normal. Uvula midline. Moist mucous membranes. No trismus noted. No drooling noted. No muffled voice noted. Neck: Normal inspection. Neck supple. FROM. No adenopathy. Thyroid Normal. No meningeal signs. No neck mass noted. CVS: Normal heart rate and rhythm. Heart sound normal. No murmurs noted. Pulses normal throughout. Respiratory: No respiratory distress. Painless inspiration. Breath sounds normal. No wheezes/rales/rhonchi noted. Chest nontender. No accessory muscle usage noted or decreased air movement noted. Abdomen: Soft and nontender. Bowel sounds normal in all 4 quadrants. No distention noted. No organomegaly noted. No visible injury noted. Back: No CVA tenderness. Full range of motion noted. Skin: Skin warm and dry. Normal skin color. Normal skin turgor. No rashes/lesions/lacerations noted. Extremities: No lower extremity edema. Extremities exhibit normal range of motion. Extremities nontender. Neuro: Oriented X 3. No motor deficit. No sensory deficit. Reflexes normal. CN's II-XII intact bilaterally? Psych: Appearance grossly normal, well-kept, mental status normal, speech and movement normal, speech clear, flat affect. Is cooperative. Although delusions reports that [facility] is trying to harm him with medications that he does not trust. Course Course Course Narrative: 9:35am - 47-year-old male with a past medical history of paranoid schizophrenia, delusional disorder, IBS, impaired fasting glucose, hypertriglyceridemia, hypertension and eczema presenting to the ED via EMS after his custodial sent him here for further evaluation treatment for not taking his Blood Pressure me dication of Cozaar 25 mg tablet once daily since he was discharged from [facility] on 05/17/2022. Patient reports that he initially went to [facility] on 05/11/2022 for dizziness and feeling off balance on his feet and he reports ?they did not take good care of me they were trying to get rid of me and they started me on a whole bunch of medications that I do not trust?. He reports while he is here in the emergency department he is willing to take his medications. He reports persistent intermittent dizziness and feeling off balance on his feet since 05/11/2022 although a little before that as well he reports. Plan: Labs, UA, drug urine screen, [place] swab, CT scan of brain, chest x-ray, EKG and restart the patient on his medications including his blood pressure me dication Cozaar 25 PO daily and Clozaril 50 PO BID and Clozaril 400 mg PO qhs and re-evaluate Reevaluation(s) Reevaluation #1: - labs reviewed and BUN 17. Random glucose 164. Otherwise all other labs are within normal limits. Patient negative for COVID. - CT scan of brain within normal limits no acute processes noted only chronic changes. - chest x-ray within normal limits no acute processes noted. - EKG is sinus tachycardia with ventricular rate of 123 with nonspecific T-wave abnormalities no acute ischemic change are noted. Similar when compared to prior EKG 10/03/2021 - therefore at this time will provide 5 mg of metoprolol IV for the patient's blood pressure and re-evaluate. Time: 12:04 Reevaluation #2: - patient's blood pressure still in the 150s over the 100s after receiving two doses of IV 5 mg of Lopressor and his PO 25 mg of Cozaar - will give 0.2 Clonidine PO at this time and re-evaluate. - patient was evaluated by the care team and she had psych input and they are recommending inpatient bed search. Patient is voluntary. Time: 15:28 Reevaluation #3: - blood pressure now 147/98 although patient continues to be tachycardic although he denies any chest pain shortness of breath/dyspnea on exertion or orthopnea he does not have any lower extremity edema or calf tenderness. He reports that he normally does have tachycardia and white coat syndrome. Reports this is not new. Therefore will continue to monitor as patient is a inpatient bed search voluntary. Will continue to monitor. Time: 16:23 [facility] - Psych Medical Records Attestation: I reviewed the patient's medical records. Lab Data Attestation: I reviewed the patient's lab results. Result diagrams: 05/20/22 09:47 05/20/22 09:47 Labs: Lab Results 05/20/22 05/20/22 05/20/22 Range/Units 09:47 09:47 09:47 WBC 6.9 (4.8-10.8) X10*3/uL RBC 4.97 (4.60-5.80) X10*6/uL Hgb 14.3 (14.0-18.0) g/dl Hct 41.0 L (42.0-52.0) % MCV 82.5 (80.0-98.0) fL MCH 28.8 (27.0-33.0) pg MCHC 34.9 (31.0-36.0) g/dl RDW 13.0 (11.0-16.0) % Plt Count 209 (160-400) X10*3/uL MPV 9.1 L (9.4-12.4) fL Immature Gran % (Auto) 0.6 H (0.0-0.4) % Neut % (Auto) 67.1 (45-73) % Lymph % (Auto) 26.5 (20-40) % Mayes % (Auto) 5.4 (2-11) % Eos % (Auto) 0.0 (0-4) % Baso % (Auto) 0.4 (0-2) % Lymph # (Auto) 1.8 (1.2-4.9) X10*3/uL Mayes # (Auto) 0.4 (0.1-1.2) X10*3/uL Eos # (Auto) 0.0 (0.0-0.4) X10*3/uL Baso # (Auto) 0.0 (0.0-0.2) X10*3/uL Abs Immat Gran (auto) 0.04 H (0.00-0.03) X10*3/uL Absolute Neuts (auto) 4.6 (2.0-8.3) x10*3/uL Absolute Nucleated RBC 0.000 (0.0-0.012) X10*3/uL Nucleated RBC % (auto) 0.0 (0.0-0.2) /100WBC Sodium 141 (135-145) mmol/L Potassium 3.9 (3.3-5.1) mmol/L Chloride 107 (96-108) mmol/L Carbon Dioxide 22 (22-29) mmol/L Anion Gap 16 (12-20) BUN 17 H (9-16) mg/dL Creatinine 0.95 (0.5-1.4) mg/dL Estim Creat Clear Calc 108.3 Estimated GFR > 60 Random Glucose 164 H (60-115) mg/dL Calcium 9.1 (8.4-10.2) mg/dL Magnesium 1.8 (1.6-2.6) mg/dL Total Bilirubin 0.4 (0.0-1.0) mg/dL AST 13 D (5-37) U/L ALT 19 (0-40) U/L Alkaline Phosphatase 81 (39-117) U/L Troponin I High Sens < 3.5 (<3.5-35.0) ng/L B-Natriuretic Peptide < 10 (<100) pg/mL Total Protein 6.9 (6.5-8.0) g/dL Albumin 4.3 (3.5-5.0) g/dL COVID-19 ([facility]) (Negative) COVID-19 Clin Com 05/20/22 Range/Units 09:47 WBC (4.8-10.8) X10*3/uL RBC (4.60-5.80) X10*6/uL Hgb (14.0-18.0) g/dl Hct (42.0-52.0) % MCV (80.0-98.0) fL MCH (27.0-33.0) pg MCHC (31.0-36.0) g/dl RDW (11.0-16.0) % Plt Count (160-400) X10*3/uL MPV (9.4-12.4) fL Immature Gran % (Auto) (0.0-0.4) % Neut % (Auto) (45-73) % Lymph % (Auto) (20-40) % Mayes % (Auto) (2-11) % Eos % (Auto) (0-4) % Baso % (Auto) (0-2) % Lymph # (Auto) (1.2-4.9) X10*3/uL Mayes # (Auto) (0.1-1.2) X10*3/uL Eos # (Auto) (0.0-0.4) X10*3/uL Baso # (Auto) (0.0-0.2) X10*3/uL Abs Immat Gran (auto) (0.00-0.03) X10*3/uL Absolute Neuts (auto) (2.0-8.3) x10*3/uL Absolute Nucleated RBC (0.0-0.012) X10*3/uL Nucleated RBC % (auto) (0.0-0.2) /100WBC Sodium (135-145) mmol/L Potassium (3.3-5.1) mmol/L Chloride (96-108) mmol/L Carbon Dioxide (22-29) mmol/L Anion Gap (12-20) BUN (9-16) mg/dL Creatinine (0.5-1.4) mg/dL Estim Creat Clear Calc Estimated GFR Random Glucose (60-115) mg/dL Calcium (8.4-10.2) mg/dL Magnesium (1.6-2.6) mg/dL Total Bilirubin (0.0-1.0) mg/dL AST (5-37) U/L ALT (0-40) U/L Alkaline Phosphatase (39-117) U/L Troponin I High Sens (<3.5-35.0) ng/L B-Natriuretic Peptide (<100) pg/mL Total Protein (6.5-8.0) g/dL Albumin (3.5-5.0) g/dL COVID-19 ([facility]) Negative (Negative) COVID-19 Clin Com See Note Imaging Data Chest x-ray: Attestation: I personally reviewed and interpreted this imaging study as follows: CT scan - head: Attestation: I personally reviewed and interpreted this imaging study as follows: ECG Data Attestation: I personally reviewed and interpreted this ECG as follows: ECG interpretation date: 05/20/22 ECG interpretation time: 11:24 Prior ECG tracings: available for review Interpretation: - EKG is sinus tachycardia with ventricular rate of 123 with nonspecific T-wave abnormalities no acute ischemic change are noted. Similar when compared to prior EKG 10/03/2021 Critical Care Time Critical Care Time Critical Care Time: Yes Total Critical Care Time: 60 Attestation: I personally attest to this time spent taking care of the patient Discharge Plan Discharge Clinical Impression: Noncompliance with medication regimen, Asymptomatic hypertensive urgency Patient Disposition: Still a Patient Prescriptions: No Action docusate sodium 100 mg capsule 100 mg PO BID Qty: 180 3RF acetaminophen 325 mg tablet 325 mg PO Q6H PRN (Reason: Pain or fever > 100.4) Qty: 30 0RF omeprazole 20 mg capsule,delayed release(DR/EC) 20 mg PO DAILY PRN (Reason: heartburn) Qty: 30 0RF sennosides-docusate sodium [Senna Plus] 8.6-50 mg tablet 2 tab PO BEDTIME losartan 25 mg tablet 1 tab PO DAILY bisacodyl 5 mg tablet,delayed release (DR/EC) 1 tab PO DAILY PRN (Reason: Constipation) polyethylene glycol 3350 17 gram/dose powder 17 g PO DAILY PRN (Reason: Constipation) fludrocortisone 0.1 mg tablet 0.05 mg PO DAILY clozapine 50 mg tablet 50 mg PO BID clozapine 100 mg tablet 400 mg PO BEDTIME
[2022-05-20] MEDS: Losartan Potassium 25 MG TABLET PO (09:52)
[2022-05-20 09:54] LABS: MANUAL DIFF FLAG NO
[2022-05-20 09:55] LABS: Basophils Percent Auto 0.4 % (0-2); Hemoglobin 14.3 g/dl (14.0-18.0); Imm Gran Abs Auto 0.04 X10*3/uL (0.00-0.03); Imm Gran Pct Auto 0.6 % (0.0-0.4); Lymphocytes Absolute Auto 1.8 X10*3/uL (1.2-4.9); Lymphocytes Percent Auto 26.5 % (20-40); Mean Corpuscular HGB Conc 34.9 g/dl (31.0-36.0); Mean Corpuscular Hemoglobin 28.8 pg (27.0-33.0); Mean Corpuscular Volume 82.5 fL (80.0-98.0); Mean Platelet Volume 9.1 fL (9.4-12.4); Monocytes Absolute Auto 0.4 X10*3/uL (0.1-1.2); Monocytes Percent Auto 5.4 % (2-11); Neutrophils Absolute Auto 4.6 x10*3/uL (2.0-8.3); Neutrophils Percent Auto 67.1 % (45-73); Platelet Count 209 X10*3/uL (160-400); Red Blood Count 4.97 X10*6/uL (4.60-5.80); White Blood Count 6.9 X10*3/uL (4.8-10.8)
[2022-05-20 10:10] LABS: COVID-19 Test Negative (Negative)
[2022-05-20 10:18] LABS: B Type Natriuretic Peptide < 10 pg/mL (<100); Troponin-I High Sensitivity < 3.5 ng/L (<3.5-35.0)
[2022-05-20 10:19] LABS: Alanine Aminotransferase 19 U/L (0-40); Albumin Level 4.3 g/dL (3.5-5.0); Alkaline Phosphatase 81 U/L (39-117); Anion Gap 16 (12-20); Aspartate Amino Transferase 13 U/L (5-37); Bilirubin Total 0.4 mg/dL (0.0-1.0); Blood Urea Nitrogen 17 mg/dL (9-16); Calcium 9.1 mg/dL (8.4-10.2); Carbon Dioxide 22 mmol/L (22-29); Chloride 107 mmol/L (96-108); Creatinine Clr Calc Pharmacy 108.3; Estimated Glomerular Filt Rate > 60; Glucose Random 164 mg/dL (60-115); Magnesium 1.8 mg/dL (1.6-2.6); Potassium 3.9 mmol/L (3.3-5.1); Sodium 141 mmol/L (135-145); Total Protein 6.9 g/dL (6.5-8.0)
[2022-05-20 11:06] VITALS: BP 198/113; PULSE 117; RESP 15; O2SAT 98
--- NOTE | 2022-05-20 11:18 | PHA.MEDREC ---
Pharmacy Consult ? Medication Reconciliation Pharmacy has completed the medication reconciliation. Patient took clozapine this AM
--- NOTE | 2022-05-20 11:22 | PC.NURSE ---
Re-checked pt blood pressure, now 198/113, MIKEL Bailon notified, will start an IV for additional medications. Pt resting comfortably in no apparent distress.
[2022-05-20] MEDS: Metoprolol Tartrate 5 MG/5 ML VIAL IVPUSH ×2 (11:42→14:17)
[2022-05-20] MEDS: Fludrocortisone Acetate 0.1 MG TABLET 0.05 MG PO (15:14)
[2022-05-20 15:16] VITALS: BP 152/111; PULSE 106; RESP 16; O2SAT 100
[2022-05-20] MEDS: cloNIDine HCL 0.2 MG TABLET PO (15:43)
[2022-05-20 16:02] VITALS: BP 147/98; PULSE 114; RESP 14; O2SAT 100
[2022-05-20 17:33] VITALS: BP 132/90; PULSE 108; RESP 15; TEMP 36.9; O2SAT 99
[2022-05-20 17:45] LABS: Appearance Urine Clear; Color Urine Yellow; Glucose Urine UA Negative (Negative); Leukocyte Esterase Urine Negative (Negative); Nitrite Urine Negative (Negative); PH 5.5 (5.0-8.0); Specific Gravity - Urine 1.025 (1.005-1.025); Urine Blood Negative (Negative); Urine Ketones 40 mg/dL (Negative); Urine Protein Trace mg/dL (Neg-Trace)
[2022-05-20 18:11] LABS: Amphetamine Screen Urine Not Detected (Not Detect); Barbiturates, Urine Not Detected (Not Detect); Benzodiazepines Screen Urine Not Detected (Not Detect); Cannabinoid Screen Urine Not Detected (Not Detect); Cocaine Screen Urine Not Detected (Not Detect); Fentanyl, urine Not Detected (Not Detect); Opiate Screen Urine Not Detected (Not Detect); Phencyclidine Screen Urine Not Detected (Not Detect)
--- NOTE | 2022-05-20 19:30 | PC.NURSE ---
THIS NURSE HAS NOW ASSUMED CARE OF PT
--- NOTE | 2022-05-20 23:43 | PC.NURSE ---
CHARGE NURSE RIA TEXTED IN MAKEUP EDITOR FOR CLOZAPINE. CLOZAPINE NOT LOADED IN ED ALFREDIT[facility]
[2022-05-21] MEDS: cloZAPine 25 MG TABLET 50 MG PO ×3 (01:10→21:41)
[2022-05-21] MEDS: Docusate Sodium 100 MG CAPSULE PO ×3 (01:11→21:41)
[2022-05-21] MEDS: cloZAPine 100 MG TABLET 400 MG PO ×2 (01:11→21:41)
[2022-05-21] MEDS: Sennosides/Docusate Sodium TABLET 2 TAB PO ×2 (01:12→21:41)
[2022-05-21 04:00] VITALS: BP 144/101; PULSE 90; O2SAT 97
[2022-05-21 09:08] VITALS: BP 136/102; PULSE 115; RESP 18; O2SAT 100
[2022-05-21] MEDS: Fludrocortisone Acetate 0.1 MG TABLET 0.05 MG PO (09:26)
[2022-05-21] MEDS: Losartan Potassium 50 MG TABLET PO (09:28)
[2022-05-21 12:01] VITALS: BP 134/93
--- NOTE | 2022-05-21 12:09 | PC.NURSE ---
PT HAS BEEN CALM AND COOPERATIVE, AMB WITH STEADY GAIT TO BR. TOLERATING PO AND TAKING MEDICATION
[2022-05-21 16:52] VITALS: BP 138/101; PULSE 100; RESP 17; TEMP 36.6; O2SAT 98
[2022-05-21 17:45] VITALS: BP 161/105; RESP 16; TEMP 36.6; O2SAT 100
[2022-05-21 18:00] VITALS: BP 136/100; PULSE 99; RESP 16; TEMP 36.6; O2SAT 98
--- NOTE | 2022-05-21 19:14 | PC.NURSE ---
THI NURSE HAS NOW ASSUMED CARE OF PT
--- NOTE | 2022-05-21 19:28 | PC.NURSE ---
[facility] FLOOR NURSE HERE NOW FOR TRANSPORT TO [facility] FLOOR, SECURITY CALLED FOR ESCORT
--- NOTE | 2022-05-21 21:57 | PC.NURSE ---
Pt is COVID-negative 47-year-old male admitted from [facility] after medication non-adherence and decompensation. Pt reports audio hallucinations he finds helpful, and which informed him of his sister?s , and refers to voices as spirits he is in communion with. He has had psychiatric care in the past but feels he did not have rapport with psychiatric provider. Pt is A&O, pleasant and cooperative. MedicalHx: Hypertension, elevated HR during admission assessment, reports IBS. PsycheHx: F29 Unspecified schizophrenia spectrum. Htn Medication non-adherence care team reports was result of command AH saying not to take medication. On Clozaril. Daryl. Signed CV. Has long hx of mental health treatment.
--- NOTE | 2022-05-21 23:00 | PC.NURSE ---
[employer] supervisor at patient's [facility]: Karla Diaz, .
[2022-05-22 09:11] VITALS: BP 134/85; PULSE 96; RESP 16; TEMP 36.6; O2SAT 100
[2022-05-22 09:16] LABS: Estimated Average Glucose 97 mg/dL
[2022-05-22 09:24] LABS: Alanine Aminotransferase 20 U/L (0-40); Albumin Level 4.5 g/dL (3.5-5.0); Alkaline Phosphatase 81 U/L (39-117); Anion Gap 15 (12-20); Aspartate Amino Transferase 13 U/L (5-37); Bilirubin Total 0.8 mg/dL (0.0-1.0); Blood Urea Nitrogen 15 mg/dL (9-16); Calcium 9.4 mg/dL (8.4-10.2); Carbon Dioxide 26 mmol/L (22-29); Chloride 104 mmol/L (96-108); Cholesterol 183 mg/dL; Creatinine Clr Calc Pharmacy 111.9; Estimated Glomerular Filt Rate > 60; Glucose Fasting 124 mg/dL (60-99); HDL Cholesterol 31 mg/dL; LDL Cholesterol Calculated 97 mg/dl; Sodium 141 mmol/L (135-145); Total Protein 7.4 g/dL (6.5-8.0); Triglycerides 276 mg/dL
[2022-05-22 09:45] LABS: Thyroid Stimulating Hormone 2.39 uIU/mL (0.32-4.0)
[2022-05-22 10:03] LABS: Folate 18.3 ng/mL (> or = 4.0); Vitamin B12 431 pg/mL (200-900)
[2022-05-22 10:20] VITALS: BP 122/75; PULSE 113
[2022-05-22] MEDS: Docusate Sodium 100 MG CAPSULE PO ×2 (10:21→21:27)
[2022-05-22] MEDS: Losartan Potassium 50 MG TABLET PO (10:21)
[2022-05-22] MEDS: cloZAPine 25 MG TABLET 50 MG PO ×2 (10:21→21:26)
[2022-05-22] MEDS: Fludrocortisone Acetate 0.1 MG TABLET 0.05 MG PO (10:22)
[2022-05-22 16:00] VITALS: BP 143/87; PULSE 106; TEMP 36.6; O2SAT 98
[2022-05-22] MEDS: Magnesium Hydrox/Alum Hydrox 30 ML ORAL.SUSP PO (18:35)
[2022-05-22 21:25] VITALS: BP 133/91; PULSE 108; RESP 16; TEMP 36.8; O2SAT 99
[2022-05-22] MEDS: Sennosides/Docusate Sodium TABLET 2 TAB PO (21:26)
[2022-05-22] MEDS: cloZAPine 100 MG TABLET 400 MG PO (21:26)
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
[2022-05-23] VITALS: RESP 14
[2022-05-23 08:00] VITALS: BP 175/98; PULSE 111; RESP 20; TEMP 36.6; O2SAT 98
[2022-05-23 08:46] VITALS: BP 175/98; PULSE 111; RESP 20; TEMP 36.6; O2SAT 98
[2022-05-23] MEDS: Docusate Sodium 100 MG CAPSULE PO ×2 (08:48→22:26)
[2022-05-23] MEDS: cloZAPine 25 MG TABLET 50 MG PO ×2 (08:48→22:26)
[2022-05-23] MEDS: Fludrocortisone Acetate 0.1 MG TABLET 0.05 MG PO (08:48)
[2022-05-23] MEDS: Losartan Potassium 50 MG TABLET PO (08:48)
--- NOTE | 2022-05-23 09:44 | HO.PSYCHPN ---
Subjective Subjective Date of Service: 05/23/22 Reason For Visit: HYPERTENSION PARANOIA Subjective Notes: Conditional Voluntary Healthcare Proxy: No Interim History: THE PATIENT IS PREOCCUPIED WITH THE FACT THAT SPIRITS TOLD HIM HIS SISTER DOES NOT RESPOND TO REASSURANCE. PATIENT HAD RECENT EPISODE OF SYNCOPE WAS PUT ON FLORINEF QUESTION SECONDARY HYPERTENSION FROM THIS PATIENT IN DISTRESS ANXIOUS COOPERATIVE IN INTERVIEW HAS BEEN ON CLOZARIL EXTENDED PERIOD OF TIME Medication Compliance: Yes Side effects from medications: Yes (? HTN FLORINEF) Review of Systems Acute medical concerns: Yes RECENT SYNCOPAL EPISODE QUESTION CONTRIBUTING TO INCREASE PARANOIA NOW HYPERTENSION Mental Status Exam Mental Status Exam Patient Appearance: Appropriate Patient Orientation: Person, Place, Time and Situation Level of Consciousness: Awake Patient Behavior: Appropriate, Guarded and Avoidant Behavior Comments: SAD AND ANXIOUS LOOKING Mood Description: Withdrawn, Constricted, Depressed and Apprehensive Affect Description: Depressed, Anxious, Blunted and Apprehensive Patient Cognition Impaired: No Ability to Follow Directions: Good Delusions: Being Controlled and Paranoid Ideation Thought Content: positive for Suicidal Ideation (NO PLAN) and negative for Homicidal Ideation Depressive Symptoms: Increased Anxiety and Thoughts of /Suicide Judgement: Fair Diagnostics Vital Signs (24Hr): Vital Signs - 24 hr 05/22/22 16:00 05/22/22 10:20 05/22/22 21:25 Temperature 97.9 F 98.3 F Pulse Rate 106 H 113 H 108 H Respiratory Rate 16 Blood Pressure 143/87 H 122/75 133/91 H Pulse Oximetry 98 99 Oxygen Delivery Method Room Air Room Air 05/23/22 00:00 05/23/22 08:46 Temperature 97.8 F Pulse Rate 111 H Respiratory Rate 14 20 Blood Pressure 175/98 H Pulse Oximetry 98 Oxygen Delivery Method Room Air BMI result Body Mass Index 27.8 Labs Results: 05/20/22 09:47 05/22/22 08:08 Labs: Laboratory Results - last 48 hr 05/22/22 05/22/22 05/22/22 08:08 08:08 08:08 Sodium 141 Potassium 4.0 Chloride 104 Carbon Dioxide 26 Anion Gap 15 BUN 15 Creatinine 0.92 Estim Creat Clear Calc 111.9 Estimated GFR > 60 Fasting Glucose 124 H Estimat Average Glucose 97 Hemoglobin A1c % 5.0 Calcium 9.4 Total Bilirubin 0.8 AST 13 ALT 20 Alkaline Phosphatase 81 Total Protein 7.4 Albumin 4.5 Triglycerides 276 Cholesterol 183 LDL Cholesterol, Calc 97 HDL Cholesterol 31 Vitamin B12 431 Folate 18.3 TSH 2.39 Imaging Radiology Impressions: ITS Impressions Chest X-Ray 05/20/22 09:56 IMPRESSION: No acute cardiopulmonary process. Head CT 05/20/22 10:07 IMPRESSION: Unremarkable CT scan of the head. No evidence of acute territorial infarct or hemorrhage. Medications Medications Current Medications Acetaminophen (Acetaminophen 325 Mg Tablet) 325 mg PO Q6H PRN PRN Reason: Pain or fever > 100.4 Acetaminophen (Acetaminophen 325 Mg Tablet) 650 mg PO Q6H PRN PRN Reason: Headache/Pain Mild Scale (1-3) Al Hydroxide/Mg Hydroxide (Magnesium Hydrox/Alum Hydrox 30 Ml Oral.Susp) 30 ml PO Q6H PRN PRN Reason: Heartburn/Nausea Last Admin: 05/22/22 18:35 Dose: 30 ml Bisacodyl (Bisacodyl 5 Mg Tablet.) 5 mg PO DAILY PRN PRN Reason: Constipation Clozapine (Clozapine 25 Mg Tablet) 50 mg PO BID [facility] Last Admin: 05/23/22 08:48 Dose: 50 mg Clozapine (Clozapine 100 Mg Tablet) 400 mg PO BEDTIME [facility] Last Admin: 05/22/22 21:26 Dose: 400 mg Docusate Sodium (Docusate Sodium 100 Mg Capsule) 100 mg PO BID [facility] Last Admin: 05/23/22 08:48 Dose: 100 mg Fludrocortisone Acetate (Fludrocortisone Acetate 0.1 Mg Tablet) 0.05 mg PO DAILY [facility] Last Admin: 05/23/22 08:48 Dose: 0.05 mg Hydroxyzine HCl (Hydroxyzine Hcl 25 Mg Tablet) 25 mg PO Q6H PRN PRN Reason: Anxiety Losartan Potassium (Losartan Potassium 50 Mg Tablet) 50 mg PO DAILY [facility]; Protocol Last Admin: 05/23/22 08:48 Dose: 50 mg Magnesium Hydroxide (Milk Of Magnesia 30 Ml Oral.Susp) 30 ml PO DAILY PRN PRN Reason: Constipation Omeprazole (Omeprazole 20 Mg Capsule.) 20 mg PO DAILY PRN PRN Reason: heartburn Polyethylene Glycol (Polyethylene Glycol 3350 17 Gm Powd.Pack) 17 gm PO DAILY PRN PRN Reason: Constipation Senna/Docusate Sodium (Sennosides/Docusate Sodium Tablet) 2 tab PO BEDTIME [facility] Last Admin: 05/22/22 21:26 Dose: 2 tab Trazodone HCl (Trazodone Hcl 50 Mg Tablet) 50 mg PO BEDTIME PRN PRN Reason: Insomnia Allergies Allergies Allergy/AdvReac Type Severity Reaction Status Date / Time latex Allergy Unknown swelling Verified 08/14/21 14:32 in lips penicillin V Allergy Unknown unknown Verified 08/14/21 14:32 Assessment & Plan Assessment & Plan (1) Paranoid schizophrenia: Status: Acute Code(s): F20.0 - Paranoid schizophrenia Assessment and Plan: CHECK CLOZARIL LEVEL CHECK RESPONSE TO PILAR BALANCING BETWEEN ORTHOSTATIC HYPOTENSION VERSUS FLUID RETENTION (2) Depressive disorder: Status: Acute Code(s): F32.A - Depression, unspecified Plan continue clozaril. check level. collect collateral from outpt provider judi. T'C addition of anti-depressant agent, such as SSRI, SNRI, DNRI. I spent minutes with the patient and/or on the patient floor today, greater than?50% of which was spent counseling/coordinating care. Patient educated on: diagnosis Informed Consent: further education needed Reason for contiued inpatient stay Substantial Risk for: harm to self, rapid decompensation and med/psych decompensation
[2022-05-23 12:00] VITALS: BP 125/82; PULSE 121; RESP 20
[2022-05-23] MEDS: Omeprazole 20 MG CAPSULE.DR PO (12:44)
[2022-05-23] MEDS: Magnesium Hydrox/Alum Hydrox 30 ML ORAL.SUSP PO (12:44)
[2022-05-23 16:00] VITALS: BP 168/102; PULSE 112
[2022-05-23 22:22] VITALS: BP 128/94; PULSE 97; RESP 18; TEMP 36.3; O2SAT 97
[2022-05-23] MEDS: cloZAPine 100 MG TABLET 400 MG PO (22:26)
[2022-05-23] MEDS: Sennosides/Docusate Sodium TABLET 2 TAB PO (22:26)
[2022-05-24 00:43] VITALS: RESP 16
[2022-05-24 04:42] VITALS: RESP 16
[2022-05-24 06:00] VITALS: BP 157/100; PULSE 98; RESP 16; TEMP 36.7; O2SAT 98
[2022-05-24 07:00] VITALS: BMI 28.0
[2022-05-24 08:00] VITALS: RESP 16
[2022-05-24] MEDS: Fludrocortisone Acetate 0.1 MG TABLET 0.05 MG PO (08:42)
[2022-05-24] MEDS: cloZAPine 25 MG TABLET 50 MG PO ×2 (08:42→21:35)
[2022-05-24] MEDS: Docusate Sodium 100 MG CAPSULE PO ×2 (08:42→21:35)
[2022-05-24] MEDS: Losartan Potassium 50 MG TABLET PO (08:42)
[2022-05-24] MEDS: Omeprazole 20 MG CAPSULE.DR PO (08:43)
--- NOTE | 2022-05-24 14:43 | P.PNPSI_ITS ---
Subjective Subjective Date of Service: 05/24/22 Reason For Visit: HYPERTENSION PARANOIA Interim History: calm, cooperative. no change in presentation. depressed and anxious. feels it's all due to his sister's dying. states he was orphaned at 10 and his sister essentially raised him, he would talk to her three times a day, her loss was profoundly felt by him. states he has had ativan in the past for anxiety but did not feel it was very helpful, suspects the dose was too low. says she has also been on abilify, and risperidone. per staff, dep 2. +AH. flat. feeling OK. Mental Status Exam Mental Status Exam Narrative: calm, cooperative. adequately dressed and groomed. no PMA/PMR. speech nml in rate, amount, loudness, tone, latency. thoughts linear and logical. affect constricted, normo-intense, non-labile. mood depressed and anxious. no SI/HI/AVH expressed (has endorsed AH in the past 24H). Diagnostics Vital Signs (24Hr): Vital Signs - 24 hr 05/23/22 16:00 05/23/22 22:22 05/24/22 00:43 Temperature 97.4 F Pulse Rate 112 H 97 Respiratory Rate 18 16 Blood Pressure 168/102 H 128/94 H Pulse Oximetry 97 Oxygen Delivery Method Room Air 05/24/22 04:42 05/24/22 06:00 05/24/22 08:00 Temperature 98.0 F Pulse Rate 98 Respiratory Rate 16 16 16 Blood Pressure 157/100 H Pulse Oximetry 98 Oxygen Delivery Method Room Air BMI result Body Mass Index 28.0 Labs Results: 05/20/22 09:47 05/22/22 08:08 Imaging Radiology Impressions: ITS Impressions Chest X-Ray 05/20/22 09:56 IMPRESSION: No acute cardiopulmonary process. Head CT 05/20/22 10:07 IMPRESSION: Unremarkable CT scan of the head. No evidence of acute territorial infarct or hemorrhage. Medications Medications Current Medications Acetaminophen (Acetaminophen 325 Mg Tablet) 325 mg PO Q6H PRN PRN Reason: Pain or fever > 100.4 Acetaminophen (Acetaminophen 325 Mg Tablet) 650 mg PO Q6H PRN PRN Reason: Headache/Pain Mild Scale (1-3) Al Hydroxide/Mg Hydroxide (Magnesium Hydrox/Alum Hydrox 30 Ml Oral.Susp) 30 ml PO Q6H PRN PRN Reason: Heartburn/Nausea Last Admin: 05/23/22 12:44 Dose: 30 ml Bisacodyl (Bisacodyl 5 Mg Tablet.Dr) 5 mg PO DAILY PRN PRN Reason: Constipation Clozapine (Clozapine 25 Mg Tablet) 50 mg PO BID [facility] Last Admin: 05/24/22 08:42 Dose: 50 mg Clozapine (Clozapine 100 Mg Tablet) 400 mg PO BEDTIME [facility] Last Admin: 05/23/22 22:26 Dose: 400 mg Docusate Sodium (Docusate Sodium 100 Mg Capsule) 100 mg PO BID [facility] Last Admin: 05/24/22 08:42 Dose: 100 mg Fludrocortisone Acetate (Fludrocortisone Acetate 0.1 Mg Tablet) 0.05 mg PO DAILY [facility] Last Admin: 05/24/22 08:42 Dose: 0.05 mg Hydroxyzine HCl (Hydroxyzine Hcl 25 Mg Tablet) 25 mg PO Q6H PRN PRN Reason: Anxiety Losartan Potassium (Losartan Potassium 50 Mg Tablet) 50 mg PO DAILY [facility]; Protocol Last Admin: 05/24/22 08:42 Dose: 50 mg Magnesium Hydroxide (Milk Of Magnesia 30 Ml Oral.Susp) 30 ml PO DAILY PRN PRN Reason: Constipation Omeprazole (Omeprazole 20 Mg Capsule.Dr) 20 mg PO DAILY [facility] Last Admin: 05/24/22 08:43 Dose: 20 mg Polyethylene Glycol (Polyethylene Glycol 3350 17 Gm Powd.Pack) 17 gm PO DAILY PRN PRN Reason: Constipation Senna/Docusate Sodium (Sennosides/Docusate Sodium Tablet) 2 tab PO BEDTIME [facility] Last Admin: 05/23/22 22:26 Dose: 2 tab Trazodone HCl (Trazodone Hcl 50 Mg Tablet) 50 mg PO BEDTIME PRN PRN Reason: Insomnia Allergies Allergies Allergy/AdvReac Type Severity Reaction Status Date / Time latex Allergy Unknown swelling Verified 08/14/21 14:32 in lips penicillin V Allergy Unknown unknown Verified 08/14/21 14:32 Assessment & Plan Assessment & Plan (1) Paranoid schizophrenia: Status: Acute Code(s): F20.0 - Paranoid schizophrenia (2) Depressive disorder: Status: Acute Code(s): F32.A - Depression, unspecified Plan continue clozaril. check level. collect collateral from outpt provider [facility]; awaiting [facility] contract [facility]. T/C addition of anti-depressant agent; such as SSRI, SNRI, DNRI; versus increase in clozaril dosing. I spent ___35___ minutes with the patient and/or on the patient floor today, greater than?50% of which was spent counseling/coordinating care. Reason for contiued inpatient stay Substantial Risk for: inability to function and rapid decompensation
[2022-05-24] MEDS: cloZAPine 100 MG TABLET 400 MG PO (21:35)
[2022-05-24] MEDS: Sennosides/Docusate Sodium TABLET 2 TAB PO (21:36)
[2022-05-24 21:38] VITALS: BP 180/95; PULSE 116; RESP 16; TEMP 36.6; O2SAT 97
[2022-05-25 08:44] VITALS: BP 142/93; PULSE 120; TEMP 36.6; O2SAT 100
[2022-05-25] MEDS: Docusate Sodium 100 MG CAPSULE PO ×2 (09:27→20:09)
[2022-05-25] MEDS: Omeprazole 20 MG CAPSULE.DR PO (09:27)
[2022-05-25] MEDS: Fludrocortisone Acetate 0.1 MG TABLET 0.05 MG PO (09:28)
[2022-05-25] MEDS: Losartan Potassium 50 MG TABLET PO (09:29)
[2022-05-25] MEDS: cloZAPine 25 MG TABLET 50 MG PO ×2 (09:29→20:09)
--- NOTE | 2022-05-25 17:25 | HO.PSYCHPN ---
Subjective Subjective Date of Service: 05/25/22 Reason For Visit: HYPERTENSION PARANOIA Interim History: I spoke with pt's team and evaluated him this evening. Says he found out today she [referring to his sister] is alive and well. I feel better. Reports the voices as usual are lying to me. Says he feels disappointed in his sister because she didnt call him for almost a month, that's depressing. Says he didnt sleep well last night, up until 2am. Says he still feels anxious and depressed daily. Reviewed med hx, has only been on clozapine, ativan, and abilify, no hx of SSRIs. Denies manic or hypomanic episodes. Says clozapine puts me to sleep, has a powerful sedative effect, other than that doesnt do anything for me. Feels like his voices are much more cruel, malicious. Feels his depression stems from the voices. Sleep and energy are not good. Denies SI/SIB/HI, feels safe. Medication Compliance: Yes Side effects from medications: No Attending Groups: Intermittent Review of Systems Acute medical concerns: No Medical Review of Systems: unchanged Mental Status Exam Mental Status Exam Narrative: calm, cooperative.? adequately dressed and groomed.? no PMA/PMR.? speech nml in rate, amount, loudness, tone, latency.? thoughts linear and logical.? affect constricted/ flat, normo-intense, non-labile.? mood depressed and anxious.? no SI/HI/AVH expressed (has endorsed AH in the past 24H). Diagnostics Vital Signs (24Hr): Vital Signs - 24 hr 05/24/22 21:38 05/25/22 08:44 Temperature 97.8 F 97.9 F Pulse Rate 116 H 120 H Respiratory Rate 16 Blood Pressure 180/95 H 142/93 H Pulse Oximetry 97 100 Oxygen Delivery Method Room Air Room Air BMI result Body Mass Index 28.0 Labs Results: 05/20/22 09:47 05/22/22 08:08 Imaging Radiology Impressions: ITS Impressions Chest X-Ray 05/20/22 09:56 IMPRESSION: No acute cardiopulmonary process. Head CT 05/20/22 10:07 IMPRESSION: Unremarkable CT scan of the head. No evidence of acute territorial infarct or hemorrhage. Medications Medications Current Medications Acetaminophen (Acetaminophen 325 Mg Tablet) 650 mg PO Q6H PRN PRN Reason: Headache/Pain Mild Scale (1-3) Al Hydroxide/Mg Hydroxide (Magnesium Hydrox/Alum Hydrox 30 Ml Oral.Susp) 30 ml PO Q6H PRN PRN Reason: Heartburn/Nausea Last Admin: 05/23/22 12:44 Dose: 30 ml Bisacodyl (Bisacodyl 5 Mg Tablet.) 5 mg PO DAILY PRN PRN Reason: Constipation Clozapine (Clozapine 25 Mg Tablet) [address] [facility] Last Admin: 05/25/22 09:29 Dose: 50 mg Clozapine (Clozapine 100 Mg Tablet) [address] [facility] Last Admin: 05/24/22 21:35 Dose: 400 mg Docusate Sodium (Docusate Sodium 100 Mg Capsule) [address] [facility] Last Admin: 05/25/22 09:27 Dose: 100 mg Fludrocortisone Acetate (Fludrocortisone Acetate 0.1 Mg Tablet) 0.[address] [facility] Last Admin: 05/25/22 09:28 Dose: 0.05 mg Hydroxyzine HCl (Hydroxyzine Hcl 25 Mg Tablet) 25 mg PO Q6H PRN PRN Reason: Anxiety Losartan Potassium (Losartan Potassium 50 Mg Tablet) [address] [facility]; Protocol Last Admin: 05/25/22 09:29 Dose: 50 mg Magnesium Hydroxide (Milk Of Magnesia 30 Ml Oral.Susp) 30 ml PO DAILY PRN PRN Reason: Constipation Omeprazole (Omeprazole 20 Mg Capsule.) [address] [facility] Last Admin: 05/25/22 09:27 Dose: 20 mg Polyethylene Glycol (Polyethylene Glycol 3350 17 Gm Powd.Pack) 17 gm PO DAILY PRN PRN Reason: Constipation Senna/Docusate Sodium (Sennosides/Docusate Sodium Tablet) [address] [facility] Last Admin: 05/24/22 21:36 Dose: 2 tab Trazodone HCl (Trazodone Hcl 50 Mg Tablet) 50 mg PO BEDTIME PRN PRN Reason: Insomnia Allergies Allergies Allergy/AdvReac Type Severity Reaction Status Date / Time latex Allergy Unknown swelling Verified 08/14/21 14:32 in lips penicillin V Allergy Unknown unknown Verified 08/14/21 14:32 Assessment & Plan Assessment & Plan (1) Paranoid schizophrenia: Status: Acute Code(s): F20.0 - Paranoid schizophrenia (2) Depressive disorder: Status: Acute Code(s): F32.A - Depression, unspecified Plan continue clozaril. check level. collect collateral from outpt provider [facility]; awaiting return contract from [facility]. T/C addition of anti-depressant agent; such as SSRI, SNRI, DNRI; versus increase in clozaril dosing. 05/25: start lexapro 10 mg daily for depression, anxiety. clozapine level pending. I spent minutes with the patient and/or on the patient floor today, greater than?50% of which was spent counseling/coordinating care. Patient educated on: diagnosis, medication risk/benefits and therapeutic strategies Reason for contiued inpatient stay Substantial Risk for: med/psych decompensation
[2022-05-25] MEDS: Sennosides/Docusate Sodium TABLET 2 TAB PO (20:09)
[2022-05-25] MEDS: cloZAPine 100 MG TABLET 400 MG PO (20:10)
[2022-05-25 20:20] VITALS: BP 150/110; PULSE 107; RESP 18; TEMP 36.8; O2SAT 97
[2022-05-26] MEDS: Fludrocortisone Acetate 0.1 MG TABLET 0.05 MG PO (09:10)
[2022-05-26] MEDS: Escitalopram Oxalate 10 MG TABLET PO (09:10)
[2022-05-26] MEDS: Docusate Sodium 100 MG CAPSULE PO ×2 (09:10→20:30)
[2022-05-26] MEDS: Omeprazole 20 MG CAPSULE.DR PO (09:11)
[2022-05-26] MEDS: Losartan Potassium 50 MG TABLET PO (09:11)
--- NOTE | 2022-05-26 09:55 | P.PNPSI_ITS ---
Subjective Subjective Date of Service: 05/26/22 Reason For Visit: HYPERTENSION PARANOIA Subjective Notes: Conditional Voluntary Guardianship: No Medical Problems Affecting Mental Status: No Interim History: Patient was seen and discussed in rounds today. Records and plans were reviewed. He is on a Brito order. He continues to be anxious but less so after having her that his sister is okay. He is withdrawn. Some anxiety and depression reported. He does have auditory hallucinations. Not attending groups. Mostly isolative. No SI. No complaints. No changes were made today. He is tolerating Lexapro with no complaints or side effects Medication Compliance: Yes Side effects from medications: No Attending Groups: No Review of Systems Review of Systems Constitutional : No Fever, No Chills ENT/Mouth : No Ear Pain, No Nasal Congestion, No sore throat Eyes: No Eye Pain, No Swelling, No Redness Cardiovascular : No Chest Pain, No SOB Respiratory : No Cough, No Sputum, No Dyspnea Gastrointestinal : No ingestions, No Nausea, No Vomiting, No Diarrhea, No Hem atochezia, No Melena Genitourinary : No Dysuria, No Urinary Frequency, No Hematuria Musculoskeletal : No Myalgias Skin : No Skin Lesions, No rash Neuro : No Weakness, No Numbness, No Paresthesias, No Dizziness, No Headache Psych : + delusions/paranoia, No Anxiety, No Depression, No SI, No thoughts of self injury, No HI, + auditory hallucinations, no visual hallucinations Heme/Lymph: No Lymphadenopathy Endocrine : No Polyuria, No Polydipsia Yes all other systems are reviewed and are negative Mental Status Exam Mental Status Exam Narrative: In today's visit he is alert, oriented and pleasant. Normal speech. Good eye contact. Affect is appropriate and constricted. No overt delusions. Reports auditory hallucinations. Cognitively intact. Judgment is intact Diagnostics Vital Signs (24Hr): Vital Signs - 24 hr 05/25/22 20:20 Temperature 98.2 F Pulse Rate 107 H Respiratory Rate 18 Blood Pressure 150/110 H Pulse Oximetry 97 Oxygen Delivery Method Room Air BMI result Body Mass Index 28.0 Labs Results: 05/20/22 09:47 05/22/22 08:08 Imaging Radiology Impressions: ITS Impressions Chest X-Ray 05/20/22 09:56 IMPRESSION: No acute cardiopulmonary process. Head CT 05/20/22 10:07 IMPRESSION: Unremarkable CT scan of the head. No evidence of acute territorial infarct or hemorrhage. Medications Medications Current Medications Acetaminophen (Acetaminophen 325 Mg Tablet) 650 mg PO Q6H PRN PRN Reason: Headache/Pain Mild Scale (1-3) Al Hydroxide/Mg Hydroxide (Magnesium Hydrox/Alum Hydrox 30 Ml Oral.Susp) 30 ml PO Q6H PRN PRN Reason: Heartburn/Nausea Last Admin: 05/23/22 12:44 Dose: 30 ml Bisacodyl (Bisacodyl 5 Mg Tablet.) 5 mg PO DAILY PRN PRN Reason: Constipation Clozapine (Clozapine 25 Mg Tablet) 50 mg PO BID [facility] Last Admin: 05/25/22 20:09 Dose: 50 mg Clozapine (Clozapine 100 Mg Tablet) 400 mg PO BEDTIME [facility] Last Admin: 05/25/22 20:10 Dose: 400 mg Docusate Sodium (Docusate Sodium 100 Mg Capsule) 100 mg PO BID [facility] Last Admin: 05/26/22 09:10 Dose: 100 mg Escitalopram Oxalate (Escitalopram Oxalate 10 Mg Tablet) 10 mg PO DAILY [facility] Last Admin: 05/26/22 09:10 Dose: 10 mg Fludrocortisone Acetate (Fludrocortisone Acetate 0.1 Mg Tablet) 0.05 mg PO DAILY [facility] Last Admin: 05/26/22 09:10 Dose: 0.05 mg Hydroxyzine HCl (Hydroxyzine Hcl 25 Mg Tablet) 25 mg PO Q6H PRN PRN Reason: Anxiety Losartan Potassium (Losartan Potassium 50 Mg Tablet) 50 mg PO DAILY [facility]; Protocol Last Admin: 05/26/22 09:11 Dose: 50 mg Magnesium Hydroxide (Milk Of Magnesia 30 Ml Oral.Susp) 30 ml PO DAILY PRN PRN Reason: Constipation Omeprazole (Omeprazole 20 Mg Capsule.) 20 mg PO DAILY [facility] Last Admin: 05/26/22 09:11 Dose: 20 mg Polyethylene Glycol (Polyethylene Glycol 3350 17 Gm Powd.Pack) 17 gm PO DAILY PRN PRN Reason: Constipation Senna/Docusate Sodium (Sennosides/Docusate Sodium Tablet) 2 tab PO BEDTIME [facility] Last Admin: 05/25/22 20:09 Dose: 2 tab Trazodone HCl (Trazodone Hcl 50 Mg Tablet) 50 mg PO BEDTIME PRN PRN Reason: Insomnia Allergies Allergies Allergy/AdvReac Type Severity Reaction Status Date / Time latex Allergy Unknown swelling Verified 11/15/21 14:32 in lips penicillin V Allergy Unknown unknown Verified 08/14/21 14:32 Assessment & Plan Assessment & Plan (1) Paranoid schizophrenia: Status: Acute Code(s): F20.0 - Paranoid schizophrenia (2) Depressive disorder: Status: Acute Code(s): F32.A - Depression, unspecified Plan continue clozaril. check level. collect collateral from outpt provider [facility]; awaiting return contract from [facility]. T/C addition of anti-depressant agent; such as SSRI, SNRI, DNRI; versus increase in clozaril dosing. 05/25: start lexapro 10 mg daily for depression, anxiety. clozapine level pending. 05/26: Continue current regimen and plans. I spent minutes with the patient and/or on the patient floor today, greater than?50% of which was spent counseling/coordinating care. Reason for contiued inpatient stay Substantial Risk for: med/psych decompensation
[2022-05-26] MEDS: cloZAPine 25 MG TABLET 50 MG PO ×2 (09:57→20:30)
[2022-05-26 10:36] VITALS: BP 131/71; PULSE 90; RESP 16; TEMP 36.9; O2SAT 98
[2022-05-26 18:55] VITALS: BP 181/103; BP 187/110; PULSE 109; RESP 16; TEMP 36.6; O2SAT 99
[2022-05-26] MEDS: Acetaminophen 325 MG TABLET 650 MG PO (19:21)
[2022-05-26] MEDS: cloNIDine HCL 0.1 MG TABLET PO (20:29)
[2022-05-26] MEDS: cloZAPine 100 MG TABLET 400 MG PO (20:30)
[2022-05-26] MEDS: Sennosides/Docusate Sodium TABLET 2 TAB PO (20:30)
[2022-05-26 21:25] VITALS: BP 157/91; BP 161/93
[2022-05-26] MEDS: Ibuprofen 400 MG TABLET PO (22:08)
--- NOTE | 2022-05-27 08:11 | P.PNPSI_ITS ---
Subjective Subjective Date of Service: 05/27/22 Reason For Visit: HYPERTENSION PARANOIA Subjective Notes: Conditional Voluntary Healthcare Proxy: No Guardianship: No Medical Problems Affecting Mental Status: No Interim History: Patient was seen and discussed in rounds today. Records and plans were reviewed. He continues to be somewhat guarded and depressed. Some auditory hallucinations reported. He is responding to internal stimuli. Eating and sleeping adequately. His blood pressures continue to be on the high side and was started on losartan and Klonopin when he was at [facility]. I will raise the losartan to 75 mg. Made today. No SI. No other changes were Medication Compliance: Yes Side effects from medications: No Attending Groups: No Review of Systems Review of Systems Constitutional : No Fever, No Chills ENT/Mouth : No Ear Pain, No Nasal Congestion, No sore throat Eyes: No Eye Pain, No Swelling, No Redness Cardiovascular : No Chest Pain, No SOB Respiratory : No Cough, No Sputum, No Dyspnea Gastrointestinal : No ingestions, No Nausea, No Vomiting, No Diarrhea, No Hematochezia, No Melena Genitourinary : No Dysuria, No Urinary Frequency, No Hematuria Musculoskeletal : No Myalgias Skin : No Skin Lesions, No rash Neuro : No Weakness, No Numbness, No Paresthesias, No Dizziness, No Headache Psych : + delusions/paranoia, No Anxiety, No Depression, No SI, No thoughts of self injury, No HI, + auditory hallucinations, no visual hallucinations Heme/Lymph: No Lymphadenopathy Endocrine : No Polyuria, No Polydipsia Yes all other systems are reviewed and are negative Mental Status Exam Mental Status Exam Narrative: In today's visit he is alert, oriented and pleasant. Normal speech. Good eye contact. Affect is appropriate and constricted. No overt delusions. Reports auditory hallucinations. No SI/HI. Cognitively intact. Judgment is intact Diagnostics Vital Signs (24Hr): Vital Signs - 24 hr 05/26/22 10:36 05/26/22 18:55 05/26/22 18:55 Temperature 98.4 F 97.9 F Pulse Rate 90 109 H Respiratory Rate 16 16 Blood Pressure 131/71 187/110 H 181/103 H Pulse Oximetry 98 99 Oxygen Delivery Method Room Air Room Air 05/26/22 21:25 05/26/22 21:25 Temperature Pulse Rate Respiratory Rate Blood Pressure 161/93 H 157/91 H Pulse Oximetry Oxygen Delivery Method BMI result Body Mass Index 28.0 Labs Results: 05/20/22 09:47 05/22/22 08:08 Imaging Radiology Impressions: ITS Impressions Chest X-Ray 05/20/22 09:56 IMPRESSION: No acute cardiopulmonary process. Head CT 05/20/22 10:07 IMPRESSION: Unremarkable CT scan of the head. No evidence of acute territorial infarct or hemorrhage. Medications Medications Current Medications Acetaminophen (Acetaminophen 325 Mg Tablet) 650 mg PO Q6H PRN PRN Reason: Headache/Pain Mild Scale (1-3) Last Admin: 05/26/22 19:21 Dose: 650 mg Al Hydroxide/Mg Hydroxide (Magnesium Hydrox/Alum Hydrox 30 Ml Oral.Susp) 30 ml PO Q6H PRN PRN Reason: Heartburn/Nausea Last Admin: 05/23/22 12:44 Dose: 30 ml Bisacodyl (Bisacodyl 5 Mg Tablet.) 5 mg PO DAILY PRN PRN Reason: Constipation Clozapine (Clozapine 25 Mg Tablet) 50 mg PO BID [facility] Last Admin: 05/26/22 20:30 Dose: 50 mg Clozapine (Clozapine 100 Mg Tablet) 400 mg PO BEDTIME [facility] Last Admin: 05/26/22 20:30 Dose: 400 mg Docusate Sodium (Docusate Sodium 100 Mg Capsule) 100 mg PO BID [facility] Last Admin: 05/26/22 20:30 Dose: 100 mg Escitalopram Oxalate (Escitalopram Oxalate 10 Mg Tablet) 10 mg PO DAILY [facility] Last Admin: 05/26/22 09:10 Dose: 10 mg Fludrocortisone Acetate (Fludrocortisone Acetate 0.1 Mg Tablet) 0.05 mg PO DAILY [facility] Last Admin: 05/26/22 09:10 Dose: 0.05 mg Hydroxyzine HCl (Hydroxyzine Hcl 25 Mg Tablet) 25 mg PO Q6H PRN PRN Reason: Anxiety Losartan Potassium (Losartan Potassium 50 Mg Tablet) 50 mg PO DAILY [facility]; Protocol Last Admin: 05/26/22 09:11 Dose: 50 mg Magnesium Hydroxide (Milk Of Magnesia 30 Ml Oral.Susp) 30 ml PO DAILY PRN PRN Reason: Constipation Omeprazole (Omeprazole 20 Mg Capsule.) 20 mg PO DAILY [facility] Last Admin: 05/26/22 09:11 Dose: 20 mg Polyethylene Glycol (Polyethylene Glycol 3350 17 Gm Powd.Pack) 17 gm PO DAILY PRN PRN Reason: Constipation Senna/Docusate Sodium (Sennosides/Docusate Sodium Tablet) 2 tab PO BEDTIME [facility] Last Admin: 05/26/22 20:30 Dose: 2 tab Trazodone HCl (Trazodone Hcl 50 Mg Tablet) 50 mg PO BEDTIME PRN PRN Reason: Insomnia Allergies Allergies Allergy/AdvReac Type Severity Reaction Status Date / Time latex Allergy Unknown swelling Verified 08/14/21 14:32 in lips penicillin V Allergy Unknown unknown Verified 08/14/21 14:32 Assessment & Plan Assessment & Plan (1) Paranoid schizophrenia: Status: Acute Code(s): F20.0 - Paranoid schizophrenia (2) Depressive disorder: Status: Acute Code(s): F32.A - Depression, unspecified Plan continue clozaril. check level. collect collateral from outpt provider [facility]; awaiting return contract from [facility]. T/C addition of anti-depressant agent; such as SSRI, SNRI, DNRI; versus increase in clozaril dosing. 05/25: start lexapro 10 mg daily for depression, anxiety. clozapine level pending. 05/26: Continue current regimen and plans. 05/27: Continue current regimen and plans with increase of losartan to 75 mg I spent minutes with the patient and/or on the patient floor today, greater than?50% of which was spent counseling/coordinating care. Guardian/Caregiver educated on: medication risk/benefits Reason for contiued inpatient stay Substantial Risk for: med/psych decompensation
[2022-05-27 08:19] LABS: Neut%MD 49.1 %; Neutrophils Absolute Auto 3.3 x10*3/uL (2.0-8.3); WBCANC 6.8 X10*3/uL
[2022-05-27 08:29] VITALS: BP 139/78; PULSE 98; RESP 14; TEMP 36.6; O2SAT 98
[2022-05-27] MEDS: Omeprazole 20 MG CAPSULE.DR PO (08:40)
[2022-05-27] MEDS: Escitalopram Oxalate 10 MG TABLET PO (08:40)
[2022-05-27] MEDS: Losartan Potassium 25 MG TABLET 75 MG PO (08:40)
[2022-05-27] MEDS: Fludrocortisone Acetate 0.1 MG TABLET 0.05 MG PO (08:40)
[2022-05-27] MEDS: Docusate Sodium 100 MG CAPSULE PO ×2 (08:40→20:50)
[2022-05-27] MEDS: cloZAPine 25 MG TABLET 50 MG PO ×2 (08:40→20:50)
[2022-05-27 20:05] VITALS: BP 172/100; PULSE 100; RESP 16; TEMP 36.6; O2SAT 97
[2022-05-27] MEDS: Sennosides/Docusate Sodium TABLET 2 TAB PO (20:50)
[2022-05-27] MEDS: cloNIDine HCL 0.2 MG TABLET PO (20:50)
[2022-05-27] MEDS: cloZAPine 100 MG TABLET 400 MG PO (20:50)
[2022-05-27 23:00] VITALS: BP 126/81
[2022-05-28 06:00] VITALS: BP 148/82; PULSE 92; RESP 16; TEMP 36.7; O2SAT 97
[2022-05-28] MEDS: Losartan Potassium 25 MG TABLET 75 MG PO (10:00)
[2022-05-28] MEDS: Docusate Sodium 100 MG CAPSULE PO ×2 (10:00→21:12)
[2022-05-28] MEDS: Omeprazole 20 MG CAPSULE.DR PO (10:00)
[2022-05-28] MEDS: cloZAPine 25 MG TABLET 50 MG PO ×2 (10:00→21:12)
[2022-05-28] MEDS: Fludrocortisone Acetate 0.1 MG TABLET 0.05 MG PO (10:00)
[2022-05-28] MEDS: Escitalopram Oxalate 10 MG TABLET PO (10:00)
--- NOTE | 2022-05-28 16:55 | HO.PSYCHPN ---
Subjective Subjective Date of Service: 05/28/22 Reason For Visit: HYPERTENSION PARANOIA Subjective Notes: [place] Warning and Conditional Voluntary Healthcare Proxy: No Guardianship: No Medical Problems Affecting Mental Status: No Interim History: I spoke with pt's team. I evaluated pt and upon interview he reports he is feeling better, says his voices better as he is hearing more positive ones than negative ones. Daytime energy has been low, but says this has been chronic and he does not attribute it to medication. Says he feels much better on the lexapro and that in general I have a feeling of less depression. He spoke with his sister who noticed I sound better. Sleep is excellent. Feels safe. Medication Compliance: Yes Side effects from medications: No Attending Groups: Yes Review of Systems Acute medical concerns: No Medical Review of Systems: unchanged Mental Status Exam Mental Status Exam Narrative: calm, cooperative.? adequately dressed and groomed.? no PMA/PMR.? speech nml in rate, amount, loudness, tone, latency.? thoughts linear and logical.? affect constricted/ flat, normo-intense, non-labile.? mood improving.? no SI/HI. Has AH at baseline. Diagnostics Vital Signs (24Hr): Vital Signs - 24 hr 05/27/22 20:05 05/27/22 23:00 05/28/22 06:00 Temperature 97.9 F 98.1 F Pulse Rate 100 92 Respiratory Rate 16 16 Blood Pressure 172/100 H 126/81 148/82 H Pulse Oximetry 97 97 Oxygen Delivery Method Room Air Room Air BMI result Body Mass Index 28.0 Labs Results: 05/20/22 09:47 05/22/22 08:08 Labs: Laboratory Results - last 48 hr 05/27/22 07:57 Absolute Neuts (auto) 3.3 Imaging Radiology Impressions: ITS Impressions Chest X-Ray 05/20/22 09:56 IMPRESSION: No acute cardiopulmonary process. Head CT 05/20/22 10:07 IMPRESSION: Unremarkable CT scan of the head. No evidence of acute territorial infarct or hemorrhage. Medications Medications Current Medications Acetaminophen (Acetaminophen 325 Mg Tablet) 650 mg PO Q6H PRN PRN Reason: Headache/Pain Mild Scale (1-3) Last Admin: 05/26/22 19:21 Dose: 650 mg Al Hydroxide/Mg Hydroxide (Magnesium Hydrox/Alum Hydrox 30 Ml Oral.Susp) 30 ml PO Q6H PRN PRN Reason: Heartburn/Nausea Last Admin: 05/23/22 12:44 Dose: 30 ml Bisacodyl (Bisacodyl 5 Mg Tablet.Dr) 5 mg PO DAILY PRN PRN Reason: Constipation Clozapine (Clozapine 25 Mg Tablet) 50 mg PO BID [facility] Last Admin: 05/28/22 10:00 Dose: 50 mg Clozapine (Clozapine 100 Mg Tablet) 400 mg PO BEDTIME [facility] Last Admin: 05/27/22 20:50 Dose: 400 mg Docusate Sodium (Docusate Sodium 100 Mg Capsule) 100 mg PO BID [facility] Last Admin: 05/28/22 10:00 Dose: 100 mg Escitalopram Oxalate (Escitalopram Oxalate 10 Mg Tablet) 10 mg PO DAILY [facility] Last Admin: 05/28/22 10:00 Dose: 10 mg Fludrocortisone Acetate (Fludrocortisone Acetate 0.1 Mg Tablet) 0.05 mg PO DAILY [facility] Last Admin: 05/28/22 10:00 Dose: 0.05 mg Hydroxyzine HCl (Hydroxyzine Hcl 25 Mg Tablet) 25 mg PO Q6H PRN PRN Reason: Anxiety Losartan Potassium (Losartan Potassium 25 Mg Tablet) 75 mg PO DAILY [facility]; Protocol Last Admin: 05/28/22 10:00 Dose: 75 mg Magnesium Hydroxide (Milk Of Magnesia 30 Ml Oral.Susp) 30 ml PO DAILY PRN PRN Reason: Constipation Omeprazole (Omeprazole 20 Mg Capsule.) 20 mg PO DAILY [facility] Last Admin: 05/28/22 10:00 Dose: 20 mg Polyethylene Glycol (Polyethylene Glycol 3350 17 Gm Powd.Pack) 17 gm PO DAILY PRN PRN Reason: Constipation Senna/Docusate Sodium (Sennosides/Docusate Sodium Tablet) 2 tab PO BEDTIME [facility] Last Admin: 05/27/22 20:50 Dose: 2 tab Trazodone HCl (Trazodone Hcl 50 Mg Tablet) 50 mg PO BEDTIME PRN PRN Reason: Insomnia Allergies Allergies Allergy/AdvReac Type Severity Reaction Status Date / Time latex Allergy Unknown swelling Verified 08/14/21 14:32 in lips penicillin V Allergy Unknown unknown Verified 08/14/21 14:32 Assessment & Plan Assessment & Plan (1) Paranoid schizophrenia: Status: Acute Code(s): F20.0 - Paranoid schizophrenia (2) Depressive disorder: Status: Acute Code(s): F32.A - Depression, unspecified Plan continue clozaril. check level. collect collateral from outpt provider [facility]; awaiting return contract from [facility]. T/C addition of anti-depressant agent; such as SSRI, SNRI, DNRI; versus increase in clozaril dosing. 05/25: start lexapro 10 mg daily for depression, anxiety. clozapine level pending. 05/26: Continue current regimen and plans. 05/27: Continue current regimen and plans with increase of losartan to 75 mg 05/28: Will continue on lexapro due to reported benefit, HTN despite increase in losartan I spent minutes with the patient and/or on the patient floor today, greater than?50% of which was spent counseling/coordinating care. Patient educated on: diagnosis, medication risk/benefits and therapeutic strategies Reason for contiued inpatient stay Substantial Risk for: med/psych decompensation
[2022-05-28 21:08] VITALS: BP 151/97; PULSE 92; RESP 16; TEMP 36.6; O2SAT 98
[2022-05-28] MEDS: cloZAPine 100 MG TABLET 400 MG PO (21:11)
[2022-05-28] MEDS: Sennosides/Docusate Sodium TABLET 2 TAB PO (21:11)
[2022-05-29 08:45] VITALS: BP 157/99; PULSE 105; RESP 18; TEMP 36.7; O2SAT 96
[2022-05-29] MEDS: Losartan Potassium 25 MG TABLET 75 MG PO (08:46)
[2022-05-29] MEDS: Docusate Sodium 100 MG CAPSULE PO ×2 (08:46→20:07)
[2022-05-29] MEDS: Omeprazole 20 MG CAPSULE.DR PO (08:46)
[2022-05-29] MEDS: cloZAPine 25 MG TABLET 50 MG PO (08:47)
[2022-05-29] MEDS: Fludrocortisone Acetate 0.1 MG TABLET 0.05 MG PO (08:48)
[2022-05-29 14:56] LABS: Norclozapine 623 mcg/L (25-400)
[2022-05-29 20:04] VITALS: BP 186/111; PULSE 114; TEMP 36.4; O2SAT 96
[2022-05-29] MEDS: Sennosides/Docusate Sodium TABLET 2 TAB PO (20:07)
[2022-05-29] MEDS: Escitalopram Oxalate 10 MG TABLET PO (20:08)
[2022-05-29] MEDS: cloNIDine HCL 0.1 MG TABLET PO (20:34)
--- NOTE | 2022-05-29 21:51 | HO.PSYCHPN ---
Subjective Subjective Date of Service: 05/29/22 Reason For Visit: HYPERTENSION PARANOIA Subjective Notes: [place] Warning and Conditional Voluntary Healthcare Proxy: No Guardianship: No Medical Problems Affecting Mental Status: No Interim History: I spoke with pt's team, he had critical lab values of clozapine 1054, norclozapine 623. Will order EKG, hold clozapine dose and lower dose to 25 mg BID and 300mg HS tomorrow, will recheck clozapine level after a few days. Pt is hypertensive, will discontinue fludrocortisone, as pt says he has only had one episode of postural hypotension and does not want to continue on it. Pt says he feels stable, no physical health complaints. Sleep is good. Medication Compliance: Yes Side effects from medications: No Attending Groups: Intermittent Review of Systems Acute medical concerns: No Medical Review of Systems: unchanged Mental Status Exam Mental Status Exam Narrative: calm, cooperative.? adequately dressed and groomed.? no PMA/PMR.? speech nml in rate, amount, loudness, tone, latency.? thoughts linear and logical.? affect constricted/ flat, normo-intense, non-labile.? mood improving.? no SI/HI. Has AH at baseline. Diagnostics Vital Signs (24Hr): Vital Signs - 24 hr 05/29/22 08:45 05/29/22 20:04 Temperature 98.1 F 97.5 F Pulse Rate 105 H 114 H Respiratory Rate 18 Blood Pressure 157/99 H 186/111 H Pulse Oximetry 96 96 Oxygen Delivery Method Room Air Room Air BMI result Body Mass Index 28.0 Labs Results: 05/20/22 09:47 05/22/22 08:08 Labs: Laboratory Results - last 48 hr 05/24/22 11:24 Norclozapine 623 H Imaging Radiology Impressions: ITS Impressions Chest X-Ray 05/20/22 09:56 IMPRESSION: No acute cardiopulmonary process. Head CT 05/20/22 10:07 IMPRESSION: Unremarkable CT scan of the head. No evidence of acute territorial infarct or hemorrhage. Medications Medications Current Medications Acetaminophen (Acetaminophen 325 Mg Tablet) 650 mg PO Q6H PRN PRN Reason: Headache/Pain Mild Scale (1-3) Last Admin: 05/26/22 19:21 Dose: 650 mg Al Hydroxide/Mg Hydroxide (Magnesium Hydrox/Alum Hydrox 30 Ml Oral.Susp) 30 ml PO Q6H PRN PRN Reason: Heartburn/Nausea Last Admin: 05/23/22 12:44 Dose: 30 ml Bisacodyl (Bisacodyl 5 Mg Tablet.Dr) 5 mg PO DAILY PRN PRN Reason: Constipation Clonidine HCl (Clonidine Hcl 0.1 Mg Tablet) 0.1 mg PO BID PRN; Protocol PRN Reason: hyperarousal, high BP Clozapine (Clozapine 25 Mg Tablet) 25 mg PO BID [facility] Clozapine (Clozapine 100 Mg Tablet) 300 mg PO BEDTIME [facility] Docusate Sodium (Docusate Sodium 100 Mg Capsule) 100 mg PO BID [facility] Last Admin: 05/29/22 20:07 Dose: 100 mg Escitalopram Oxalate (Escitalopram Oxalate 10 Mg Tablet) 10 mg PO BEDTIME [facility] Last Admin: 05/29/22 20:08 Dose: 10 mg Hydroxyzine HCl (Hydroxyzine Hcl 25 Mg Tablet) 25 mg PO Q6H PRN PRN Reason: Anxiety Losartan Potassium (Losartan Potassium 25 Mg Tablet) 75 mg PO DAILY [facility]; Protocol Last Admin: 05/29/22 08:46 Dose: 75 mg Magnesium Hydroxide (Milk Of Magnesia 30 Ml Oral.Susp) 30 ml PO DAILY PRN PRN Reason: Constipation Omeprazole (Omeprazole 20 Mg Capsule.Dr) 20 mg PO DAILY [facility] Last Admin: 05/29/22 08:46 Dose: 20 mg Polyethylene Glycol (Polyethylene Glycol 3350 17 Gm Powd.Pack) 17 gm PO DAILY PRN PRN Reason: Constipation Senna/Docusate Sodium (Sennosides/Docusate Sodium Tablet) 2 tab PO BEDTIME [facility] Last Admin: 05/29/22 20:07 Dose: 1 tab Trazodone HCl (Trazodone Hcl 50 Mg Tablet) 50 mg PO BEDTIME PRN PRN Reason: Insomnia Allergies Allergies Allergy/AdvReac Type Severity Reaction Status Date / Time latex Allergy Unknown swelling Verified 08/14/21 14:32 in lips penicillin V Allergy Unknown unknown Verified 08/14/21 14:32 Assessment & Plan Assessment & Plan (1) Paranoid schizophrenia: Status: Acute Code(s): F20.0 - Paranoid schizophrenia (2) Depressive disorder: Status: Acute Code(s): F32.A - Depression, unspecified Plan continue clozaril. check level. collect collateral from outpt provider [facility]; awaiting return contract from [facility]. T/C addition of anti-depressant agent; such as SSRI, SNRI, DNRI; versus increase in clozaril dosing. 05/25: start lexapro 10 mg daily for depression, anxiety. clozapine level pending. 05/26: Continue current regimen and plans. 05/27: Continue current regimen and plans with increase of losartan to 75 mg 05/28: Will continue on lexapro due to reported benefit, HTN despite increase in losartan 05/29: Pt is hypertensive, has critical lab value for clozapine/ norclozapine. Will hold and lower dose to 25 mg BID and 300 mg QHS. Will order EKG. D/C fludrocortisone. Start clonidine 0.1 mg BID PRN for hyperarousal. Otherwise, he reports he is progressing back to baseline. Pt has been on current clozapine dose since at least 2011. Will monitor for worsening psychosis. I spent minutes with the patient and/or on the patient floor today, greater than?50% of which was spent counseling/coordinating care. Patient educated on: diagnosis, medication risk/benefits and therapeutic strategies Reason for contiued inpatient stay Substantial Risk for: med/psych decompensation
--- NOTE | 2022-05-30 | ECG_ITS ---
Test Reason : cp Blood Pressure : / mmHG Vent. Rate : 096 BPM Atrial Rate : 096 BPM P-R Int : 154 ms QRS Dur : 092 ms QT Int : 354 ms P-R-T Axes : 053 066 012 degrees QTc Int : 447 ms Normal sinus rhythm Nonspecific T wave abnormality Abnormal ECG When compared with ECG of 20-MAY-2022 11:24, Nonspecific T wave abnormality has replaced inverted T waves in Inferior leads Heart rate has decreased Referred By: Jannet Bailey Electronically Signed By:ADEN HOLLIS
[2022-05-30] MEDS: Docusate Sodium 100 MG CAPSULE PO ×2 (09:22→21:36)
[2022-05-30] MEDS: Losartan Potassium 25 MG TABLET 75 MG PO (09:22)
[2022-05-30] MEDS: Omeprazole 20 MG CAPSULE.DR PO (09:22)
[2022-05-30 09:25] VITALS: BP 148/100; PULSE 101; RESP 20; TEMP 36.4; O2SAT 97
[2022-05-30 09:45] LABS: Clozapine (Clozaril) 1054
--- NOTE | 2022-05-30 16:42 | P.PNPSI_ITS ---
Subjective Subjective Date of Service: 05/30/22 Reason For Visit: HYPERTENSION PARANOIA Subjective Notes: [place] Warning and Conditional Voluntary Healthcare Proxy: No Guardianship: No Medical Problems Affecting Mental Status: No Interim History: I spoke with pt's team. Will obtain new clozapine level. Will decrease clozapine to 300 mg HS and continue 50 mg BID, pt is asymptomatic despite elevated levels. Pt says he has a hx of being maintained on 300 mg daily but this is remote. He agrees to trial the 300 mg HS, thinks the lower dose may be imperceptible as he says he lives with his voices and has only noticed clozapine helping with sleep. Says he is keeping his mind active, talks to his sister daily now, says she is his best friend. Hates boredom, likes to engage in hobbies.?Tomorrow he will have a [facility] team meeting. Mood is very good, improved immensely since isaac been here. Says right now his voices are therapeutic and healthy.? Medication Compliance: Yes Side effects from medications: No Attending Groups: Intermittent Review of Systems Acute medical concerns: No Medical Review of Systems: unchanged Mental Status Exam Mental Status Exam Narrative: calm, cooperative.? adequately dressed and groomed.? no PMA/PMR.? speech nml in rate, amount, loudness, tone, latency.? thoughts linear and logical.? affect constricted/ flat, normo-intense, non-labile.? mood is good.? no SI/HI. Has AH at baseline. Diagnostics Vital Signs (24Hr): Vital Signs - 24 hr 05/29/22 20:04 05/30/22 09:25 Temperature 97.5 F 97.6 F Pulse Rate 114 H 101 H Respiratory Rate 20 Blood Pressure 186/111 H 148/100 H Pulse Oximetry 96 97 Oxygen Delivery Method Room Air Room Air BMI result Body Mass Index 28.0 Labs Results: 05/20/22 09:47 05/22/22 08:08 Labs: Laboratory Results - last 48 hr 05/24/22 11:24 Clozapine 1054 Norclozapine 623 H Imaging Radiology Impressions: ITS Impressions Chest X-Ray 05/20/22 09:56 IMPRESSION: No acute cardiopulmonary process. Head CT 05/20/22 10:07 IMPRESSION: Unremarkable CT scan of the head. No evidence of acute territorial infarct or hemorrhage. Medications Medications Current Medications Acetaminophen (Acetaminophen 325 Mg Tablet) 650 mg PO Q6H PRN PRN Reason: Headache/Pain Mild Scale (1-3) Last Admin: 05/26/22 19:21 Dose: 650 mg Al Hydroxide/Mg Hydroxide (Magnesium Hydrox/Alum Hydrox 30 Ml Oral.Susp) 30 ml PO Q6H PRN PRN Reason: Heartburn/Nausea Last Admin: 05/23/22 12:44 Dose: 30 ml Bisacodyl (Bisacodyl 5 Mg Tablet.) 5 mg PO DAILY PRN PRN Reason: Constipation Clonidine HCl (Clonidine Hcl 0.1 Mg Tablet) 0.1 mg PO BID PRN; Protocol PRN Reason: hyperarousal, high BP Clozapine (Clozapine 25 Mg Tablet) 25 mg PO BID [facility] Clozapine (Clozapine 100 Mg Tablet) 300 mg PO BEDTIME [facility] Docusate Sodium (Docusate Sodium 100 Mg Capsule) 100 mg PO BID [facility] Last Admin: 05/30/22 09:22 Dose: 100 mg Escitalopram Oxalate (Escitalopram Oxalate 10 Mg Tablet) 10 mg PO BEDTIME [facility] Last Admin: 05/29/22 20:08 Dose: 10 mg Hydroxyzine HCl (Hydroxyzine Hcl 25 Mg Tablet) 25 mg PO Q6H PRN PRN Reason: Anxiety Losartan Potassium (Losartan Potassium 25 Mg Tablet) 75 mg PO DAILY [facility]; Protocol Last Admin: 05/30/22 09:22 Dose: 75 mg Magnesium Hydroxide (Milk Of Magnesia 30 Ml Oral.Susp) 30 ml PO DAILY PRN PRN Reason: Constipation Omeprazole (Omeprazole 20 Mg Capsule.) 20 mg PO DAILY [facility] Last Admin: 05/30/22 09:22 Dose: 20 mg Polyethylene Glycol (Polyethylene Glycol 3350 17 Gm Powd.Pack) 17 gm PO DAILY PRN PRN Reason: Constipation Senna/Docusate Sodium (Sennosides/Docusate Sodium Tablet) 2 tab PO BEDTIME [facility] Last Admin: 05/29/22 20:07 Dose: 1 tab Trazodone HCl (Trazodone Hcl 50 Mg Tablet) 50 mg PO BEDTIME PRN PRN Reason: Insomnia Allergies Allergies Allergy/AdvReac Type Severity Reaction Status Date / Time latex Allergy Unknown swelling Verified 08/14/21 14:32 in lips penicillin V Allergy Unknown unknown Verified 08/14/21 14:32 Assessment & Plan Assessment & Plan (1) Paranoid schizophrenia: Status: Acute Code(s): F20.0 - Paranoid schizophrenia (2) Depressive disorder: Status: Acute Code(s): F32.A - Depression, unspecified Plan continue clozaril. check level. collect collateral from outpt provider [facility]; awaiting return contract from [facility]. T/C addition of anti-depressant agent; such as SSRI, SNRI, DNRI; versus increase in clozaril dosing. 05/25: start lexapro 10 mg daily for depression, anxiety. clozapine level pending. 05/26: Continue current regimen and plans. 05/27: Continue current regimen and plans with increase of losartan to 75 mg 05/28: Will continue on lexapro due to reported benefit, HTN despite increase in losartan 05/29: Pt is hypertensive, has critical lab value for clozapine/ norclozapine. Will hold and lower dose to 25 mg BID and 300 mg QHS. Will order EKG. D/C fludrocortisone. Start clonidine 0.1 mg BID PRN for hyperarousal. Otherwise, he reports he is progressing back to baseline. Pt has been on current clozapine dose since at least 2011. Will monitor for worsening psychosis. 05/30: Will resume clozapine and obtain new level, no adverse effects. Will increase losartan to 100 mg for HTN. I spent minutes with the patient and/or on the patient floor today, greater than?50% of which was spent counseling/coordinating care. Patient educated on: diagnosis, medication risk/benefits and therapeutic s trategies Reason for contiued inpatient stay Substantial Risk for: rapid decompensation and med/psych decompensation
[2022-05-30 19:40] VITALS: BP 179/107; PULSE 112; RESP 16; TEMP 36.7; O2SAT 98
[2022-05-30] MEDS: cloNIDine HCL 0.1 MG TABLET PO ×2 (19:55→21:36)
[2022-05-30 21:17] VITALS: BP 163/103
[2022-05-30] MEDS: Sennosides/Docusate Sodium TABLET 2 TAB PO (21:36)
[2022-05-30] MEDS: Escitalopram Oxalate 10 MG TABLET PO (21:36)
[2022-05-30] MEDS: cloZAPine 100 MG TABLET 300 MG PO (21:37)
[2022-05-30] MEDS: cloZAPine 25 MG TABLET 50 MG PO (21:37)
--- NOTE | 2022-05-30 21:42 | PC.NURSE ---
Pt's BP at 1939 was 179/107. Administered PRN clonidine 0.1. At 2114, BP 163/103. Consulted with provider, and an additional clonidine 0.1 was administered. Effectiveness pending.
[2022-05-31 09:29] VITALS: BP 142/93; PULSE 106; RESP 17; TEMP 36.3; O2SAT 99
[2022-05-31] MEDS: Omeprazole 20 MG CAPSULE.DR PO (09:48)
[2022-05-31] MEDS: cloZAPine 25 MG TABLET 50 MG PO ×2 (09:48→22:09)
[2022-05-31] MEDS: Losartan Potassium 50 MG TABLET 100 MG PO (09:49)
[2022-05-31] MEDS: Docusate Sodium 100 MG CAPSULE PO ×2 (09:49→22:09)
--- NOTE | 2022-05-31 16:50 | HO.PSYCHPN ---
Subjective Subjective Date of Service: 05/31/22 Reason For Visit: HYPERTENSION PARANOIA Subjective Notes: [place] Warning and Conditional Voluntary Healthcare Proxy: No Guardianship: No Medical Problems Affecting Mental Status: No Interim History: I spoke with pt, he reports he has noticed nothing appreciable on lower clozapine dose. Says he had a [facility] meeting today that went well. Sleep is excellent. Has back and neck pain. Says he feels safe. No questions or concerns. Medication Compliance: Yes Side effects from medications: No Attending Groups: Yes Review of Systems Acute medical concerns: No Medical Review of Systems: unchanged Mental Status Exam Mental Status Exam Narrative: calm, cooperative.? adequately dressed and groomed.? no PMA/PMR.? speech nml in rate, amount, loudness, tone, latency.? thoughts linear and logical.? affect constricted/ flat, normo-intense, non-labile.? mood improved.? no SI/HI. Has AH at baseline. Diagnostics Vital Signs (24Hr): Vital Signs - 24 hr 05/30/22 19:40 05/30/22 21:17 05/31/22 09:29 Temperature 98.1 F 97.4 F Pulse Rate 112 H 106 H Respiratory Rate 16 17 Blood Pressure 179/107 H 163/103 H 142/93 H Pulse Oximetry 98 99 Oxygen Delivery Method Room Air Room Air BMI result Body Mass Index 28.0 Labs Results: 05/20/22 09:47 05/22/22 08:08 Labs: Laboratory Results - last 48 hr 05/24/22 11:24 Clozapine 1054 Imaging Radiology Impressions: ITS Impressions Chest X-Ray 05/20/22 09:56 IMPRESSION: No acute cardiopulmonary process. Head CT 05/20/22 10:07 IMPRESSION: Unremarkable CT scan of the head. No evidence of acute territorial infarct or hemorrhage. Medications Medications Current Medications Acetaminophen (Acetaminophen 325 Mg Tablet) 650 mg PO Q6H PRN PRN Reason: Headache/Pain Mild Scale (1-3) Last Admin: 05/26/22 19:21 Dose: 650 mg Al Hydroxide/Mg Hydroxide (Magnesium Hydrox/Alum Hydrox 30 Ml Oral.Susp) 30 ml PO Q6H PRN PRN Reason: Heartburn/Nausea Last Admin: 05/23/22 12:44 Dose: 30 ml Bisacodyl (Bisacodyl 5 Mg Tablet.Dr) 5 mg PO DAILY PRN PRN Reason: Constipation Clonidine HCl (Clonidine Hcl 0.1 Mg Tablet) 0.1 mg PO BID PRN; Protocol PRN Reason: hyperarousal, high BP Last Admin: 05/30/22 21:36 Dose: 0.1 mg Clozapine (Clozapine 100 Mg Tablet) 300 mg PO BEDTIME [facility] Last Admin: 05/30/22 21:37 Dose: 300 mg Clozapine (Clozapine 25 Mg Tablet) 50 mg PO BID [facility] Last Admin: 05/31/22 09:48 Dose: 50 mg Docusate Sodium (Docusate Sodium 100 Mg Capsule) 100 mg PO BID [facility] Last Admin: 05/31/22 09:49 Dose: 100 mg Escitalopram Oxalate (Escitalopram Oxalate 10 Mg Tablet) 10 mg PO BEDTIME [facility] Last Admin: 05/30/22 21:36 Dose: 10 mg Hydroxyzine HCl (Hydroxyzine Hcl 25 Mg Tablet) 25 mg PO Q6H PRN PRN Reason: Anxiety Losartan Potassium (Losartan Potassium 50 Mg Tablet) 100 mg PO DAILY [facility]; Protocol Last Admin: 05/31/22 09:49 Dose: 100 mg Magnesium Hydroxide (Milk Of Magnesia 30 Ml Oral.Susp) 30 ml PO DAILY PRN PRN Reason: Constipation Omeprazole (Omeprazole 20 Mg Capsule.Dr) 20 mg PO DAILY [facility] Last Admin: 05/31/22 09:48 Dose: 20 mg Polyethylene Glycol (Polyethylene Glycol 3350 17 Gm Powd.Pack) 17 gm PO DAILY PRN PRN Reason: Constipation Senna/Docusate Sodium (Sennosides/Docusate Sodium Tablet) 2 tab PO BEDTIME [facility] Last Admin: 05/30/22 21:36 Dose: 2 tab Trazodone HCl (Trazodone Hcl 50 Mg Tablet) 50 mg PO BEDTIME PRN PRN Reason: Insomnia Allergies Allergies Allergy/AdvReac Type Severity Reaction Status Date / Time latex Allergy Unknown swelling Verified 08/14/21 14:32 in lips penicillin V Allergy Unknown unknown Verified 08/14/21 14:32 Assessment & Plan Assessment & Plan (1) Paranoid schizophrenia: Status: Acute Code(s): F20.0 - Paranoid schizophrenia (2) Depressive disorder: Status: Acute Code(s): F32.A - Depression, unspecified Plan continue clozaril. check level. collect collateral from outpt provider [facility]; awaiting return contract from [facility]. T/C addition of anti-depressant agent; such as SSRI, SNRI, DNRI; versus increase in clozaril dosing. 05/25: start lexapro 10 mg daily for depression, anxiety. clozapine level pending. 05/26: Continue current regimen and plans. 05/27: Continue current regimen and plans with increase of losartan to 75 mg 05/28: Will continue on lexapro due to reported benefit, HTN despite increase in losartan 05/29: Pt is hypertensive, has critical lab value for clozapine/ norclozapine. Will hold and lower dose to 25 mg BID and 300 mg QHS. Will order EKG. D/C fludrocortisone. Start clonidine 0.1 mg BID PRN for hyperarousal. Otherwise, he reports he is progressing back to baseline. Pt has been on current clozapine dose since at least 2011. Will monitor for worsening psychosis. 05/30: Will resume clozapine and obtain new level, no adverse effects. Will increase losartan to 100 mg for HTN. 05/31: Pt denies adverse effects on lower clozapine, will monitor, clozapine level pending I spent minutes with the patient and/or on the patient floor today, greater than?50% of which was spent counseling/coordinating care. Patient educated on: diagnosis, medication risk/benefits and therapeutic strategies Reason for contiued inpatient stay Substantial Risk for: med/psych decompensation
[2022-05-31 22:04] VITALS: BP 135/85; PULSE 99; RESP 18; TEMP 36.1; O2SAT 100
[2022-05-31] MEDS: cloZAPine 100 MG TABLET 300 MG PO (22:09)
[2022-05-31] MEDS: Escitalopram Oxalate 10 MG TABLET PO (22:09)
[2022-05-31] MEDS: Sennosides/Docusate Sodium TABLET 2 TAB PO (22:09)
[2022-06-01 10:00] VITALS: BP 138/86; PULSE 102; RESP 16; TEMP 36.4; O2SAT 99
[2022-06-01] MEDS: cloZAPine 25 MG TABLET 50 MG PO ×2 (10:07→23:11)
[2022-06-01] MEDS: Losartan Potassium 50 MG TABLET 100 MG PO (10:08)
[2022-06-01] MEDS: Omeprazole 20 MG CAPSULE.DR PO (10:08)
[2022-06-01] MEDS: Docusate Sodium 100 MG CAPSULE PO ×2 (10:09→23:11)
--- NOTE | 2022-06-01 18:17 | P.PNPSI_ITS ---
Subjective Subjective Date of Service: 06/01/22 Reason For Visit: HYPERTENSION PARANOIA Subjective Notes: [place] Warning and Conditional Voluntary Healthcare Proxy: No Guardianship: No Medical Problems Affecting Mental Status: No Interim History: I spoke with pt. He sees His OP provider Kang Logan on the of this month. Has not noticed a difference on lower clozapine. HTN is improved. I spoke with Kang Logan, he is agreeable with plan for pt to trial lower clozapine dose as pt is pleasant, no behavioral concerns. Medication Compliance: Yes Side effects from medications: No Attending Groups: Intermittent Review of Systems Acute medical concerns: No Medical Review of Systems: unchanged Mental Status Exam Mental Status Exam Narrative: calm, cooperative.? adequately dressed and groomed.? no PMA/PMR.? speech nml in rate, amount, loudness, tone, latency.? thoughts linear and logical.? affect constricted/ flat, normo-intense, non-labile.? mood improved.? no SI/HI. Has AH at baseline. Diagnostics Vital Signs (24Hr): Vital Signs - 24 hr 05/31/22 22:04 06/01/22 10:00 Temperature 96.9 F 97.6 F Pulse Rate 99 102 H Respiratory Rate 18 16 Blood Pressure 135/85 138/86 Pulse Oximetry 100 99 Oxygen Delivery Method Room Air Room Air BMI result Body Mass Index 28.0 Labs Results: 05/20/22 09:47 05/22/22 08:08 Imaging Radiology Impressions: ITS Impressions Chest X-Ray 05/20/22 09:56 IMPRESSION: No acute cardiopulmonary process. Head CT 05/20/22 10:07 IMPRESSION: Unremarkable CT scan of the head. No evidence of acute territorial infarct or hemorrhage. Medications Medications Current Medications Acetaminophen (Acetaminophen 325 Mg Tablet) 650 mg PO Q6H PRN PRN Reason: Headache/Pain Mild Scale (1-3) Last Admin: 05/26/22 19:21 Dose: 650 mg Al Hydroxide/Mg Hydroxide (Magnesium Hydrox/Alum Hydrox 30 Ml Oral.Susp) 30 ml PO Q6H PRN PRN Reason: Heartburn/Nausea Last Admin: 05/23/22 12:44 Dose: 30 ml Bisacodyl (Bisacodyl 5 Mg Tablet.Dr) 5 mg PO DAILY PRN PRN Reason: Constipation Clonidine HCl (Clonidine Hcl 0.1 Mg Tablet) 0.1 mg PO BID PRN; Protocol PRN Reason: hyperarousal, high BP Last Admin: 05/30/22 21:36 Dose: 0.1 mg Clozapine (Clozapine 100 Mg Tablet) 300 mg PO BEDTIME [facility] Last Admin: 05/31/22 22:09 Dose: 300 mg Clozapine (Clozapine 25 Mg Tablet) 50 mg PO BID [facility] Last Admin: 06/01/22 10:07 Dose: 50 mg Docusate Sodium (Docusate Sodium 100 Mg Capsule) 100 mg PO BID [facility] Last Admin: 06/01/22 10:09 Dose: 100 mg Escitalopram Oxalate (Escitalopram Oxalate 10 Mg Tablet) 10 mg PO BEDTIME [facility] Last Admin: 05/31/22 22:09 Dose: 10 mg Hydroxyzine HCl (Hydroxyzine Hcl 25 Mg Tablet) 25 mg PO Q6H PRN PRN Reason: Anxiety Losartan Potassium (Losartan Potassium 50 Mg Tablet) 100 mg PO DAILY [facility]; Protocol Last Admin: 06/01/22 10:08 Dose: 100 mg Magnesium Hydroxide (Milk Of Magnesia 30 Ml Oral.Susp) 30 ml PO DAILY PRN PRN Reason: Constipation Omeprazole (Omeprazole 20 Mg Capsule.Dr) 20 mg PO DAILY [facility] Last Admin: 06/01/22 10:08 Dose: 20 mg Polyethylene Glycol (Polyethylene Glycol 3350 17 Gm Powd.Pack) 17 gm PO DAILY PRN PRN Reason: Constipation Senna/Docusate Sodium (Sennosides/Docusate Sodium Tablet) 2 tab PO BEDTIME [facility] Last Admin: 05/31/22 22:09 Dose: 2 tab Trazodone HCl (Trazodone Hcl 50 Mg Tablet) 50 mg PO BEDTIME PRN PRN Reason: Insomnia Allergies Allergies Allergy/AdvReac Type Severity Reaction Status Date / Time latex Allergy Unknown swelling Verified 08/14/21 14:32 in lips penicillin V Allergy Unknown unknown Verified 08/14/21 14:32 Assessment & Plan Assessment & Plan (1) Paranoid schizophrenia: Status: Acute Code(s): F20.0 - Paranoid schizophrenia (2) Depressive disorder: Status: Acute Code(s): F32.A - Depression, unspecified Plan continue clozaril. check level. collect collateral from outpt provider [facility]; awaiting return contract from [facility]. T/C addition of anti-depressant agent; such as SSRI, SNRI, DNRI; versus increase in clozaril dosing. 05/25: start lexapro 10 mg daily for depression, anxiety. clozapine level pending. 05/26: Continue current regimen and plans. 05/27: Continue current regimen and plans with increase of losartan to 75 mg 05/28: Will continue on lexapro due to reported benefit, HTN despite increase in losartan 05/29: Pt is hypertensive, has critical lab value for clozapine/ norclozapine. Will hold and lower dose to 25 mg BID and 300 mg QHS. Will order EKG. D/C fludrocortisone. Start clonidine 0.1 mg BID PRN for hyperarousal. Otherwise, he reports he is progressing back to baseline. Pt has been on current clozapine dose since at least 2011. Will monitor for worsening psychosis. 05/30: Will resume clozapine and obtain new level, no adverse effects. Will increase losartan to 100 mg for HTN. 05/31: Pt denies adverse effects on lower clozapine, will monitor, clozapine level pending 06/01: No med changes I spent minutes with the patient and/or on the patient floor today, greater than?50% of which was spent counseling/coordinating care. Patient educated on: medication risk/benefits and therapeutic strategies Reason for contiued inpatient stay Substantial Risk for: med/psych decompensation
[2022-06-01] MEDS: hydrOXYzine HCL 25 MG TABLET PO (23:10)
[2022-06-01] MEDS: cloZAPine 100 MG TABLET 300 MG PO (23:10)
[2022-06-01] MEDS: Sennosides/Docusate Sodium TABLET 2 TAB PO (23:10)
[2022-06-01] MEDS: Escitalopram Oxalate 10 MG TABLET PO (23:10)
[2022-06-01 23:16] VITALS: BP 178/105; PULSE 95; RESP 18; TEMP 36.4; O2SAT 98
[2022-06-01] MEDS: cloNIDine HCL 0.1 MG TABLET PO (23:16)
--- NOTE | 2022-06-02 09:15 | P.PNPSI_ITS ---
Subjective Subjective Date of Service: 06/02/22 Reason For Visit: HYPERTENSION PARANOIA Subjective Notes: [place] Warning Healthcare Proxy: No Guardianship: No Medical Problems Affecting Mental Status: No Interim History: I spoke with pt this morning. He reports noticing no changes on decreased clozapine. Says he feels stable, sleep is good. Denies issues or concerns. Medication Compliance: Yes Side effects from medications: No Attending Groups: No Review of Systems Acute medical concerns: No Medical Review of Systems: unchanged Mental Status Exam Mental Status Exam Narrative: calm, cooperative.? adequately dressed and groomed.? no PMA/PMR.? speech nml in rate, amount, loudness, tone, latency.? thoughts linear and logical.? affect constricted/ flat, normo-intense, non-labile.? mood improved.? no SI/HI. Has AH at baseline. Diagnostics Vital Signs (24Hr): Vital Signs - 24 hr 06/01/22 10:00 06/01/22 23:16 Temperature 97.6 F 97.6 F Pulse Rate 102 H 95 Respiratory Rate 16 18 Blood Pressure 138/86 178/105 H Pulse Oximetry 99 98 Oxygen Delivery Method Room Air Room Air BMI result Body Mass Index 28.0 Labs Results: 05/20/22 09:47 05/22/22 08:08 Imaging Radiology Impressions: ITS Impressions Chest X-Ray 05/20/22 09:56 IMPRESSION: No acute cardiopulmonary process. Head CT 05/20/22 10:07 IMPRESSION: Unremarkable CT scan of the head. No evidence of acute territorial infarct or hemorrhage. Medications Medications Current Medications Acetaminophen (Acetaminophen 325 Mg Tablet) 650 mg PO Q6H PRN PRN Reason: Headache/Pain Mild Scale (1-3) Last Admin: 05/26/22 19:21 Dose: 650 mg Al Hydroxide/Mg Hydroxide (Magnesium Hydrox/Alum Hydrox 30 Ml Oral.Susp) 30 ml PO Q6H PRN PRN Reason: Heartburn/Nausea Last Admin: 05/23/22 12:44 Dose: 30 ml Bisacodyl (Bisacodyl 5 Mg Tablet.Dr) 5 mg PO DAILY PRN PRN Reason: Constipation Clonidine HCl (Clonidine Hcl 0.1 Mg Tablet) 0.1 mg PO BID PRN; Protocol PRN Reason: hyperarousal, high BP Last Admin: 06/01/22 23:16 Dose: 0.1 mg Clozapine (Clozapine 100 Mg Tablet) 300 mg PO BEDTIME [facility] Last Admin: 06/01/22 23:10 Dose: 300 mg Clozapine (Clozapine 25 Mg Tablet) 50 mg PO BID [facility] Last Admin: 06/01/22 23:11 Dose: 50 mg Docusate Sodium (Docusate Sodium 100 Mg Capsule) 100 mg PO BID [facility] Last Admin: 06/01/22 23:11 Dose: 100 mg Escitalopram Oxalate (Escitalopram Oxalate 10 Mg Tablet) 10 mg PO BEDTIME [facility] Last Admin: 06/01/22 23:10 Dose: 10 mg Hydroxyzine HCl (Hydroxyzine Hcl 25 Mg Tablet) 25 mg PO Q6H PRN PRN Reason: Anxiety Last Admin: 06/01/22 23:10 Dose: 25 mg Losartan Potassium (Losartan Potassium 50 Mg Tablet) 100 mg PO DAILY [facility]; Protocol Last Admin: 06/01/22 10:08 Dose: 100 mg Magnesium Hydroxide (Milk Of Magnesia 30 Ml Oral.Susp) 30 ml PO DAILY PRN PRN Reason: Constipation Omeprazole (Omeprazole 20 Mg Capsule.Dr) 20 mg PO DAILY [facility] Last Admin: 06/01/22 10:08 Dose: 20 mg Polyethylene Glycol (Polyethylene Glycol 3350 17 Gm Powd.Pack) 17 gm PO DAILY PRN PRN Reason: Constipation Senna/Docusate Sodium (Sennosides/Docusate Sodium Tablet) 2 tab PO BEDTIME [facility] Last Admin: 06/01/22 23:10 Dose: 2 tab Trazodone HCl (Trazodone Hcl 50 Mg Tablet) 50 mg PO BEDTIME PRN PRN Reason: Insomnia Allergies Allergies Allergy/AdvReac Type Severity Reaction Status Date / Time latex Allergy Unknown swelling Verified 08/14/21 14:32 in lips penicillin V Allergy Unknown unknown Verified 08/14/21 14:32 Assessment & Plan Assessment & Plan (1) Paranoid schizophrenia: Status: Acute Code(s): F20.0 - Paranoid schizophrenia (2) Depressive disorder: Status: Acute Code(s): F32.A - Depression, unspecified Plan continue clozaril. check level. collect collateral from outpt provider [facility]; awaiting return contract from [facility]. T/C addition of anti-depressant agent; such as SSRI, SNRI, DNRI; versus increase in clozaril dosing. 05/25: start lexapro 10 mg daily for depression, anxiety. clozapine level pending. 05/26: Continue current regimen and plans. 05/27: Continue current regimen and plans with increase of losartan to 75 mg 05/28: Will continue on lexapro due to reported benefit, HTN despite increase in losartan 05/29: Pt is hypertensive, has critical lab value for clozapine/ norclozapine. Will hold and lower dose to 25 mg BID and 300 mg QHS. Will order EKG. D/C fludro cortisone. Start clonidine 0.1 mg BID PRN for hyperarousal. Otherwise, he reports he is progressing back to baseline. Pt has been on current clozapine dose since at least 2011. Will monitor for worsening psychosis. 05/30: Will resume clozapine and obtain new level, no adverse effects. Will increase losartan to 100 mg for HTN. [address] [address] Psychiatric-Progress Note (In) Signed Patient: Kishan Macias MR#: [id number] : 1975 Acct:[id number] Age/Sex: 47 / M Loc: .[id number] ?? ? Attending Dr: Saleem Almeida cc: ~ Subjective Subjective Date of Service: 06/01/22 Reason For Visit: HYPERTENSION PARANOIA Subjective Notes: [place] Warning and Conditional Voluntary Healthcare Proxy: No Guardianship: No Medical Problems Affecting Mental Status: No Interim History: I spoke with pt. He sees His OP provider Kang Logan on the 15th of this month. Has not noticed a difference on lower clozapine. HTN is improved. I spoke with Kang Logan, he is agreeable with plan for pt to trial lower clozapine dose as pt is pleasant, no behavioral concerns. Medication Compliance: Yes Side effects from medications: No Attending Groups: Intermittent Review of Systems Acute medical concerns: No Medical Review of Systems: unchanged Mental Status Exam Mental Status Exam Narrative: calm, cooperative.? adequately dressed and groomed.? no PMA/PMR.? speech nml in rate, amount, loudness, tone, latency.? thoughts linear and logical.? affect constricted/ flat, normo-intense, non-labile.? mood improved.? no SI/HI. Has AH at baseline. Diagnostics Vital Signs (24Hr): Vital Signs - 24 hr ? 05/31/22 22:04 06/01/22 10:00 Temperature 96.9 F 97.6 F Pulse Rate 99 102 H Respiratory Rate 18 16 Blood Pressure 135/85 138/86 Pulse Oximetry 100 99 Oxygen Delivery Method Room Air Room Air BMI result Body Mass Index ? 28.0? Labs Results: 05/20/22 09:47? 05/22/22 08:08? Imaging Radiology Impressions: ITS Impressions Chest X-Ray? 05/20/22 09:56 IMPRESSION: No acute cardiopulmonary process. Head CT? 05/20/22 10:07 IMPRESSION: Unremarkable CT scan of the head. No evidence of acute territorial infarct or hemorrhage. Medications Medications Current Medications Acetaminophen (Acetaminophen 325 Mg Tablet)? 650 mg PO Q6H PRN PRN Reason: Headache/Pain Mild Scale (1-3) Last Admin: 05/26/22 19:21 Dose:? 650 mg Al Hydroxide/Mg Hydroxide (Magnesium Hydrox/Alum Hydrox 30 Ml Oral.Susp)? 30 ml PO Q6H PRN PRN Reason: Heartburn/Nausea Last Admin: 05/23/22 12:44 Dose:? 30 ml Bisacodyl (Bisacodyl 5 Mg Tablet.)? 5 mg PO DAILY PRN PRN Reason: Constipation Clonidine HCl (Clonidine Hcl 0.1 Mg Tablet)? 0.1 mg PO BID PRN; Protocol PRN Reason: hyperarousal, high BP Last Admin: 05/30/22 21:36 Dose:? 0.1 mg Clozapine (Clozapine 100 Mg Tablet)? 300 mg PO BEDTIME [facility] Last Admin: 05/31/22 22:09 Dose:? 300 mg Clozapine (Clozapine 25 Mg Tablet)? 50 mg PO BID [facility] Last Admin: 06/01/22 10:07 Dose:? 50 mg Docusate Sodium (Docusate Sodium 100 Mg Capsule)? 100 mg PO BID [facility] Last Admin: 06/01/22 10:09 Dose:? 100 mg Escitalopram Oxalate (Escitalopram Oxalate 10 Mg Tablet)? 10 mg PO BEDTIME [facility] Last Admin: 05/31/22 22:09 Dose:? 10 mg Hydroxyzine HCl (Hydroxyzine Hcl 25 Mg Tablet)? 25 mg PO Q6H PRN PRN Reason: Anxiety Losartan Potassium (Losartan Potassium 50 Mg Tablet)? 100 mg PO DAILY [facility]; Protocol Last Admin: 06/01/22 10:08 Dose:? 100 mg Magnesium Hydroxide (Milk Of Magnesia 30 Ml Oral.Susp)? 30 ml PO DAILY PRN PRN Reason: Constipation Omeprazole (Omeprazole 20 Mg Capsule.)? 20 mg PO DAILY [facility] Last Admin: 06/01/22 10:08 Dose:? 20 mg Polyethylene Glycol (Polyethylene Glycol 3350 17 Gm Powd.Pack)? 17 gm PO DAILY PRN PRN Reason: Constipation Senna/Docusate Sodium (Sennosides/Docusate Sodium Tablet)? 2 tab PO BEDTIME [facility] Last Admin: 05/31/22 22:09 Dose:? 2 tab Trazodone HCl (Trazodone Hcl 50 Mg Tablet)? 50 mg PO BEDTIME PRN PRN Reason: Insomnia Allergies Allergies Allergy/AdvReac Type Severity Reaction Status Date / Time latex Allergy Unknown swelling Verified 08/14/21 14:32 ? ? ? in lips ? ? penicillin V Allergy Unknown unknown Verified 08/14/21 14:32 Assessment & Plan Assessment & Plan (1) Paranoid schizophrenia: ?Status:?Acute ?Code(s): F20.0 - Paranoid schizophrenia (2) Depressive disorder: ?Status:?Acute ?Code(s): F32.A - Depression, unspecified Plan continue clozaril.? check level. collect collateral from outpt provider [facility]; awaiting return contract from [facility]. T/C addition of anti-depressant agent; such as SSRI, SNRI, DNRI; versus increase in clozaril dosing. 05/25: start lexapro 10 mg daily for depression, anxiety. clozapine level pending. 05/26:? Continue current regimen and plans. 05/27: Continue current regimen and plans with increase of losartan to 75 mg 05/28: Will continue on lexapro due to reported benefit, HTN despite increase in losartan 05/29: Pt is hypertensive, has critical lab value for clozapine/ norclozapine. Will hold and lower dose to 25 mg BID and 300 mg QHS. Will order EKG. D/C flud rocortisone. Start clonidine 0.1 mg BID PRN for hyperarousal. Otherwise, he reports he is progressing back to baseline. Pt has been on current clozapine dose since at least 2011. Will monitor for worsening psychosis. 05/30: Will resume clozapine and obtain new level, no adverse effects. Will increase losartan to 100 mg for HTN. 05/31: Pt denies adverse effects on lower clozapine, will monitor, clozapine level pending 06/01: No med changes I spent minutes with the patient and/or on the patient floor today, greater than?50% of which was spent counseling/coordinating care. Patient educated on: diagnosis, medication risk/benefits and therapeutic strategies Reason for contiued inpatient stay Substantial Risk for: med/psych decompensation
[2022-06-02 09:45] VITALS: BP 141/94; PULSE 111; RESP 20; TEMP 36.6; O2SAT 97
[2022-06-02] MEDS: Losartan Potassium 50 MG TABLET 100 MG PO (09:55)
[2022-06-02] MEDS: Omeprazole 20 MG CAPSULE.DR PO (09:55)
[2022-06-02] MEDS: cloZAPine 25 MG TABLET 50 MG PO ×2 (09:55→20:25)
[2022-06-02] MEDS: Docusate Sodium 100 MG CAPSULE PO ×2 (09:55→20:25)
[2022-06-02 20:15] VITALS: BP 139/97; PULSE 107; RESP 18; TEMP 36.6; O2SAT 100
[2022-06-02] MEDS: Sennosides/Docusate Sodium TABLET 2 TAB PO (20:25)
[2022-06-02] MEDS: Escitalopram Oxalate 10 MG TABLET PO (20:25)
[2022-06-02] MEDS: cloNIDine HCL 0.1 MG TABLET PO (20:25)
[2022-06-02] MEDS: cloZAPine 100 MG TABLET 300 MG PO (20:25)
[2022-06-03 07:03] LABS: Neut%MD 51.1 %; Neutrophils Absolute Auto 3.4 x10*3/uL (2.0-8.3); WBCANC 6.6 X10*3/uL
[2022-06-03 09:37] LABS: Clozapine (Clozaril) 270 mcg/L; Norclozapine 250 mcg/L (25-400)
[2022-06-03 09:55] VITALS: BP 131/93; PULSE 100; RESP 20; TEMP 36.4; O2SAT 99
[2022-06-03] MEDS: Losartan Potassium 50 MG TABLET 100 MG PO (09:59)
[2022-06-03] MEDS: cloZAPine 25 MG TABLET 50 MG PO ×2 (09:59→21:09)
[2022-06-03] MEDS: Omeprazole 20 MG CAPSULE.DR PO (09:59)
[2022-06-03] MEDS: Docusate Sodium 100 MG CAPSULE PO ×2 (09:59→21:10)
--- NOTE | 2022-06-03 10:58 | HO.PSYCHPN ---
Subjective Subjective Date of Service: 06/03/22 Reason For Visit: HYPERTENSION PARANOIA Interim History: I spoke with pt's team, he is at baseline. I spoke with pt, he is doing fine, nothing to report. New clozapine, norclozapine levels are wnl. Pt would like to continue on 300 mg HS to total 400 mg of clozapine daily. Medication Compliance: Yes Side effects from medications: No Attending Groups: Intermittent Review of Systems Acute medical concerns: No Medical Review of Systems: unchanged Mental Status Exam Mental Status Exam Narrative: calm, cooperative.? adequately dressed and groomed.? no PMA/PMR.? speech nml in rate, amount, loudness, tone, latency.? thoughts linear and logical.? affect constricted/ flat, normo-intense, non-labile.? mood improved.? no SI/HI. Has AH at baseline. Diagnostics Vital Signs (24Hr): Vital Signs - 24 hr 06/02/22 20:15 06/03/22 09:55 Temperature 97.9 F 97.6 F Pulse Rate 107 H 100 Respiratory Rate 18 20 Blood Pressure 139/97 H 131/93 H Pulse Oximetry 100 99 Oxygen Delivery Method Room Air Room Air BMI result Body Mass Index 28.0 Labs Results: 05/20/22 09:47 05/22/22 08:08 Labs: Laboratory Results - last 48 hr 05/30/22 06/03/22 17:43 06:51 Absolute Neuts (auto) 3.4 Clozapine 270 Norclozapine 250 Imaging Radiology Impressions: ITS Impressions Chest X-Ray 05/20/22 09:56 IMPRESSION: No acute cardiopulmonary process. Head CT 05/20/22 10:07 IMPRESSION: Unremarkable CT scan of the head. No evidence of acute territorial infarct or hemorrhage. Medications Medications Current Medications Acetaminophen (Acetaminophen 325 Mg Tablet) 650 mg PO Q6H PRN PRN Reason: Headache/Pain Mild Scale (1-3) Last Admin: 05/26/22 19:21 Dose: 650 mg Al Hydroxide/Mg Hydroxide (Magnesium Hydrox/Alum Hydrox 30 Ml Oral.Susp) 30 ml PO Q6H PRN PRN Reason: Heartburn/Nausea Last Admin: 05/23/22 12:44 Dose: 30 ml Bisacodyl (Bisacodyl 5 Mg Tablet.Dr) 5 mg PO DAILY PRN PRN Reason: Constipation Clonidine HCl (Clonidine Hcl 0.1 Mg Tablet) 0.1 mg PO BID PRN; Protocol PRN Reason: hyperarousal, high BP Last Admin: 06/02/22 20:25 Dose: 0.1 mg Clozapine (Clozapine 100 Mg Tablet) 300 mg PO BEDTIME [facility] Last Admin: 06/02/22 20:25 Dose: 300 mg Clozapine (Clozapine 25 Mg Tablet) 50 mg PO BID [facility] Last Admin: 06/03/22 09:59 Dose: 50 mg Docusate Sodium (Docusate Sodium 100 Mg Capsule) 100 mg PO BID [facility] Last Admin: 06/03/22 09:59 Dose: 100 mg Escitalopram Oxalate (Escitalopram Oxalate 10 Mg Tablet) 10 mg PO BEDTIME [facility] Last Admin: 06/02/22 20:25 Dose: 10 mg Hydroxyzine HCl (Hydroxyzine Hcl 25 Mg Tablet) 25 mg PO Q6H PRN PRN Reason: Anxiety Last Admin: 06/01/22 23:10 Dose: 25 mg Losartan Potassium (Losartan Potassium 50 Mg Tablet) 100 mg PO DAILY [facility]; Protocol Last Admin: 06/03/22 09:59 Dose: 100 mg Magnesium Hydroxide (Milk Of Magnesia 30 Ml Oral.Susp) 30 ml PO DAILY PRN PRN Reason: Constipation Omeprazole (Omeprazole 20 Mg Capsule.Dr) 20 mg PO DAILY [facility] Last Admin: 06/03/22 09:59 Dose: 20 mg Polyethylene Glycol (Polyethylene Glycol 3350 17 Gm Powd.Pack) 17 gm PO DAILY PRN PRN Reason: Constipation Senna/Docusate Sodium (Sennosides/Docusate Sodium Tablet) 2 tab PO BEDTIME [facility] Last Admin: 06/02/22 20:25 Dose: 2 tab Trazodone HCl (Trazodone Hcl 50 Mg Tablet) 50 mg PO BEDTIME PRN PRN Reason: Insomnia Allergies Allergies Allergy/AdvReac Type Severity Reaction Status Date / Time latex Allergy Unknown swelling Verified 08/14/21 14:32 in lips penicillin V Allergy Unknown unknown Verified 08/14/21 14:32 Assessment & Plan Assessment & Plan (1) Paranoid schizophrenia: Status: Acute Code(s): F20.0 - Paranoid schizophrenia (2) Depressive disorder: Status: Acute Code(s): F32.A - Depression, unspecified Plan continue clozaril. check level. collect collateral from outpt provider [facility]; awaiting return contract from [facility]. T/C addition of anti-depressant agent; such as SSRI, SNRI, DNRI; versus increase in clozaril dosing. 05/25: start lexapro 10 mg daily for depression, anxiety. clozapine level pending. 05/26: Continue current regimen and plans. 05/27: Continue current regimen and plans with increase of losartan to 75 mg 05/28: Will continue on lexapro due to reported benefit, HTN despite increase in losartan 05/29: Pt is hypertensive, has critical lab value for clozapine/ norclozapine. Will hold and lower dose to 25 mg BID and 300 mg QHS. Will order EKG. D/C fludrocortisone. Start clonidine 0.1 mg BID PRN for hyperarousal. Otherwise, he reports he is progressing back to baseline. Pt has been on current clozapine dose since at least 2011. Will monitor for worsening psychosis. 05/30: Will resume clozapine and obtain new level, no adverse effects. Will increase losartan to 100 mg for HTN. 05/31: Pt denies adverse effects on lower clozapine, will monitor, clozapine level pending 06/01: No med changes 06/02: Stable, at baseline, discharge tomorrow I spent minutes with the patient and/or on the patient floor today, greater than?50% of which was spent counseling/coordinating care. Patient educated on: diagnosis, medication risk/benefits and therapeutic strategies Reason for contiued inpatient stay Substantial Risk for: stable for discharge
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
[2022-06-03 21:03] VITALS: BP 138/86; PULSE 104; RESP 18; TEMP 36.6; O2SAT 99
[2022-06-03] MEDS: cloZAPine 100 MG TABLET 300 MG PO (21:09)
[2022-06-03] MEDS: Sennosides/Docusate Sodium TABLET 2 TAB PO (21:10)
[2022-06-03] MEDS: Escitalopram Oxalate 10 MG TABLET PO (21:10)
[2022-06-04 09:39] VITALS: BP 140/90; PULSE 107; RESP 16; TEMP 36.6; O2SAT 98
[2022-06-04] MEDS: Losartan Potassium 50 MG TABLET 100 MG PO (09:42)
[2022-06-04] MEDS: Docusate Sodium 100 MG CAPSULE PO (09:43)
[2022-06-04] MEDS: Omeprazole 20 MG CAPSULE.DR PO (09:43)
[2022-06-04] MEDS: cloZAPine 25 MG TABLET 50 MG PO (09:43)
== END 2022-06-04 11:51 | disposition home or self-care (01) | DRG 885 ==
LOC: HO.ED 12:06 → HO.PADLT16 05-21 17:21
PROVIDERS: Physician Assistant Medical; Registered Nurse; Social Worker; Admitting Provider Psychiatry & Neurology Psychiatry; Emergency Provider Emergency Medicine; PCP Internal Medicine; Visit Provider Psychiatry & Neurology Psychiatry
DX: F20.0 Paranoid schizophrenia (principal); I16.0 Hypertensive urgency; F32.A Depression, unspecified; K59.00 Constipation, unspecified; I95.1 Orthostatic hypotension; Z20.822 Contact with and (suspected) exposure to COVID-19; Z91.040 Latex allergy status; Z88.0 Allergy status to penicillin; Z79.899 Other long term (current) drug therapy
CPT/HCPCS: 36415; 70450; 71046; 80053; 80061; 80159; 80307; 81003; 82607; 82746; 83036; 83735; 83880; 84443; 84484; 85025; 85048; 87635; 93005; 99285

== ENCOUNTER 2023-07-12 13:08 | Outpatient (AMB) | payer OTHER, SELFPAY ==
--- NOTE | 2023-07-12 13:15 | MHC.PC.OV ---
Vital Signs 07/12/23 13:16 Height 5 ft 11 in Weight 200 lb BMI 27.9 BP 120/80 Blood Pressure Location Rt brachial Position Sitting Pulse 97 Pulse Source Pulse Oximeter Pulse Oximetry (%) 97 Oxygen Delivery Method Room Air Intake Visit Reasons: Med review Intake Note: pt is here for Med review Allergies latex Allergy (Unknown, Verified 07/12/23 13:57) swelling in lips penicillin V Allergy (Unknown, Verified 07/12/23 13:57) unknown Medication List - Last Reconciled 07/12/23 by Donna Arnold MD amlodipine 5 mg PO DAILY clozapine 300 mg (3 x 100 mg) PO BEDTIME clozapine 50 mg PO BID docusate sodium 100 mg PO BID metoprolol succinate ER 100 mg PO DAILY omeprazole 20 mg PO DAILY polyethylene glycol 3350 17 grams PO DAILY PRN Tobacco use date assessed: 07/12/23 Dental Screening Dental Screen Date: 07/12/23 Did you have a dental visit in the last 12 months?: No Did you have a dental problem in the last 6 months where you did not have access to dental care?: No Was dental information given to patient?: No HPI Med review HPI Details 48-year-old male with paranoid schizophrenia currently under the care of a psychiatrist, here today for follow-up on his hypertension, and hypertriglyceridemia. He has been following a healthy diet, recurred denies eating junk food and soda. He has been feeling well but complains of a recurrent rash may around mouth, would like a refill on his mometasone prescription [facility] Medical History (Updated 07/14/23 @ 02:20 by Donna Arnold MD) Eczema of face Tachycardia Labile hypertension Heartburn Essential hypertension Sinus tachycardia Supine hypertension Depressive disorder Paranoid schizophrenia Delusional disorder Eczema IBS (irritable bowel syndrome) Impaired fasting glucose Hypertriglyceridemia Surgical History No pertinent past surgical history Family History Father Unknown family medical history Mother Breast cancer Maternal Grandfather No problems noted. Maternal Grandmother No problems noted. Paternal Grandfather No problems noted. Paternal Grandmother No problems noted. Brother Substance use disorder Mental health disorder Sister No problems noted. Social History Household Members: Other Household Members Other:: Three other residents of prison. Housing: House Housing Other:: prison Do you presently have visiting nurse or other home services: No Alcohol intake: unknown Patient Tobacco Use Status: Never used Tobacco e-Cigarette/Vaping Use: Never Used Substance Use Type: Marijuana service: No Current occupational status: disabled Sexual orientation: Don't Know Cognitive needs: No Hearing needs: No Vision needs: Yes Questionnaire AUDIT C Alcohol Use Questionnaire (AUDIT-C) 1. How often do you have a drink containing alcohol?: Never Total Score: 0 Review of Systems Const Denies body aches, Denies fatigue, Denies fever(s), Denies headache(s) and Denies weakness ENT Denies headache(s) Card Denies chest pain, Denies lightheadedness and Denies dyspnea Resp Denies chest congestion, Denies cough and Denies dyspnea GI Denies abdominal pain and Denies heartburn (CONTROLLED WITH TAKING OMEPRAZOLE) Musc Denies myalgias and Denies joint swelling Skin/Breast Reports as per HPI Neuro Denies headache(s), Denies Sensory deficit (Neuro) and Denies weakness Endo Denies fatigue, Denies polydipsia and Denies polyuria Physical exam (Primary Care) Vital Signs: Last Vital Signs Pulse 97 07/12/23 13:16 BP 120/80 07/12/23 13:16 Pulse Ox 97 07/12/23 13:16 Oxygen Delivery Method Room Air 07/12/23 13:16 BMI result Body Mass Index 27.9 Tobacco/Smoking Status: Tobacco use Status Tobacco use date assessed 07/12/23 07/12/23 13:18 Patient Tobacco Use Status Never used Tobacco 07/12/23 13:18 e-Cigarette/Vaping Use Never Used 07/12/23 13:18 Thrive Assessment: Date of Thrive Assessment Date Thrive assessed 07/12/23 13:51 Const Other: Alert oriented x3, no acute cardiorespiratory distress 20 normal gait, accompanied by public address technician Orientation/consciousness: patient oriented x3 HENMT Face and sinus: Yes face symmetric Mouth: moist mucous membranes Eyes General: appearance normal, both eyes and all related structures Resp Auscultation: clear to auscultation bilaterally Cardio Other: tachycardia GI Palpation (GI): Soft to palpation, nontender, no guarding and no masses Skin Other: Small scaly patch on sides of mouth Neuro General: patient oriented x3, gait normal, tone normal and moves all extremities Sensory Exam: No Sensory deficit (Neuro) Extrem General: Yes full ROM and Yes normal gait Psych Appearance: grossly normal and well kempt Mental Status: mental status grossly normal Speech and movement: Normal speech and movement present Affect: normal affect Attitude: cooperative Thought process: Normal thought process present Assessment and Plan Assessment & Plan (1) Hypertriglyceridemia: Code(s): E78.1 - Pure hyperglyceridemia Plan: Fasting lipid panel ordered today, advised to continue adhering to healthy eating habits with avoidance of processed foods, junk food, soda, and start doing regular exercise (2) Essential hypertension: Code(s): I10 - Essential (primary) hypertension Plan: Blood pressure at goal of less than 130/80. Continue with current medication. Reinforced importance of following a low sodium diet, getting regular exercise, and lowering stress levels. (3) Eczema of face: Code(s): L30.9 - Dermatitis, unspecified Plan: Prescription sent for mometasone 0.1 cream to apply to affected area on phase once a day for no more than 10 days at a time. (4) Heartburn: Code(s): R12 - Heartburn Plan: Refill sent for omeprazole to take only as needed for heartburn symptoms Blood pressure at goal of less than 130/80. Continue with current medication. Reinforced importance of following a low sodium diet, getting regular exercise, and lowering stress levels. Orders: Orders Basic Metabolic Panel Fasting 07/12/23 E78.1 - Pure hyperglyceridemia, I10 - Essential (primary) hypertension, R73.01 - Impaired fasting glucose Lipid Panel 07/12/23 E78.1 - Pure hyperglyceridemia, I10 - Essential (primary) hypertension, R73.01 - Impaired fasting glucose Alanine Aminotransferase 07/12/23 E78.1 - Pure hyperglyceridemia, I10 - Essential (primary) hypertension, R73.01 - Impaired fasting glucose Aspartate Amino Transferase 07/12/23 E78.1 - Pure hyperglyceridemia, I10 - Essential (primary) hypertension, R73.01 - Impaired fasting glucose Medications: New mometasone 0.1% 1 appl topical DAILY PRN 45 grams 0RF skin irritation Refilled metoprolol succinate ER 100 mg PO DAILY 90 tabs 3RF I10 - Essential (primary) hypertension omeprazole 20 mg PO DAILY 90 caps 3RF amlodipine Schedule next PCP appt for future refills 5 mg PO DAILY 90 tabs 3RF Coding Level of Care Code Est Pt Level 4 (06473) Diagnoses Hypertriglyceridemia E78.1 Essential hypertension I10 Eczema of face L30.9 Heartburn R12
[2023-07-12 13:16] VITALS: BP 120/80; PULSE 97; O2SAT 97; BMI 27.9
== END 2023-07-12 14:12 | disposition home or self-care (01) ==
PROVIDERS: PCP Internal Medicine; Visit Provider Internal Medicine
DX: E78.1 Pure hyperglyceridemia (principal); I10 Essential (primary) hypertension; L30.9 Dermatitis, unspecified; R12 Heartburn
CPT/HCPCS: 99214

== ENCOUNTER 2023-07-12 14:11 | Outpatient (REF) | payer OTHER, SELFPAY ==
[2023-07-12 16:21] LABS: Alanine Aminotransferase 23 U/L (0-40); Anion Gap 16 (12-20); Aspartate Amino Transferase 19 U/L (5-37); Blood Urea Nitrogen 12 mg/dL (9-16); Calcium 9.7 mg/dL (8.4-10.2); Carbon Dioxide 24 mmol/L (22-29); Chloride 105 mmol/L (96-108); Cholesterol 172 mg/dL (<200); Estimated Glomerular Filt Rate > 60; Glucose Fasting 135 mg/dL (60-99); HDL Cholesterol 32 mg/dL (>40); LDL Cholesterol Calculated 98 mg/dL (<100); Sodium 141 mmol/L (135-145); Triglycerides 214 mg/dL (<150)
== END 2023-07-12 14:12 | disposition home or self-care (01) ==
LOC: HO.HMGCLDS 14:11
PROVIDERS: PCP Internal Medicine; Visit Provider Internal Medicine
DX: E78.1 Pure hyperglyceridemia (principal); R73.01 Impaired fasting glucose; I10 Essential (primary) hypertension
CPT/HCPCS: 36415; 80048; 80061; 84450; 84460

== ENCOUNTER 2023-11-25 15:08 | Inpatient (IN) | payer OTHER, SELFPAY ==
--- NOTE | ~2023-11-25 | CT_ITS ---
EXAMINATION: CT HEAD WITHOUT CONTRAST CLINICAL INFORMATION: Auditory hallucinations. Altered mental status. COMPARISON: Head CT dated 05/20/2022. TECHNIQUE: Contiguous axial imaging was performed from the skullbase to vertex without intravenous administration of contrast. This CT examination was performed using dose optimization techniques as appropriate, variously including the following: *Automated exposure control *Adjustment of mA and/or kV according to patient size (this includes techniques or standardized protocols for targeted exams where dose is matched to indication/reason for exam; i.e. extremities or head) *Use of iterative reconstruction technique DLP: 719 mGy-cm. FINDINGS: There is no evidence of acute intracranial hemorrhage or territorial infarction. No abnormal mass effect or midline shift is seen. Campos to white matter differentiation is well preserved. No extra-axial fluid collections are identified. The ventricles are normal size. There is no abnormal attenuation within the brain parenchyma. The osseous structures and soft tissues are normal. The mastoid air cells are well aerated. There is [id number]-[id number] mucosal thickening in the ethmoid air cells and mild left maxillary sinus mucosal thickening with aerosolized secretions. CT/CT head/brain wo IV con IMPRESSION: No acute intracranial pathology.
--- NOTE | 2023-11-25 15:28 | MHC.CARE ---
[facility] called to report pt is an inpatient bedsearch . Pt is not eating, isolating, paranoid, and endorsed AH
--- NOTE | 2023-11-25 15:32 | MHC.CARE ---
Pt sent by [facility] co-response team on section 12, patient will need inpatient level of care. [facility] to fax crisis assessment when completed.
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
--- NOTE | 2023-11-25 16:00 | ECG_ITS ---
Test Reason : HYPERTENSION/ MEDICAL CLEARANCE Blood Pressure : / mmHG Vent. Rate : 080 BPM Atrial Rate : 080 BPM P-R Int : 158 ms QRS Dur : 100 ms QT Int : 410 ms P-R-T Axes : 037 027 010 degrees QTc Int : 472 ms Normal sinus rhythm Normal ECG When compared with ECG of 30-MAY-2022 18:17, No significant changes seen Referred By: Germania Dawkins Electronically Signed By:JOJO DUNCAN
[2023-11-25 16:01] VITALS: BP 138/95; BP 170/110; PULSE 105; PULSE 77; RESP 16; TEMP 36.8; O2SAT 98; O2SAT 99; BMI 26.5
[2023-11-25 16:24] LABS: Appearance Urine Clear; Color Urine Yellow; Glucose Urine UA Negative (Negative); Leukocyte Esterase Urine Negative (Negative); Nitrite Urine Negative (Negative); PH 5.5 (5.0-9.0); Urine Blood Negative (Negative); Urine Ketones Negative (Negative); Urine Protein Negative (Neg-Trace)
[2023-11-25 16:30] LABS: Amphetamine Screen Urine Not Detected (Not Detect); Barbiturates, Urine Not Detected (Not Detect); Benzodiazepines Screen Urine Not Detected (Not Detect); Cannabinoid Screen Urine Not Detected (Not Detect); Cocaine Screen Urine Not Detected (Not Detect); Fentanyl, urine Not Detected (Not Detect); Opiate Screen Urine Not Detected (Not Detect); Phencyclidine Screen Urine Not Detected (Not Detect)
[2023-11-25 16:56] LABS: MANUAL DIFF FLAG NO
[2023-11-25 16:58] LABS: Basophils Absolute Auto 0.1 X10*3/uL (0.0-0.2); Basophils Percent Auto 0.9 % (0-2); Eosinophils Absolute Auto 0.1 X10*3/uL (0.0-0.4); Eosinophils Percent Auto 0.9 % (0-4); Hemoglobin 14.7 g/dl (14.0-18.0); Imm Gran Abs Auto 0.04 X10*3/uL (0.00-0.03); Imm Gran Pct Auto 0.5 % (0.0-0.4); Lymphocytes Absolute Auto 2.2 X10*3/uL (1.2-4.9); Lymphocytes Percent Auto 28.2 % (20-40); Mean Corpuscular HGB Conc 35.9 g/dl (31.0-36.0); Mean Corpuscular Hemoglobin 29.5 pg (27.0-33.0); Mean Corpuscular Volume 82.3 fL (80.0-98.0); Mean Platelet Volume 9.2 fL (9.4-12.4); Monocytes Absolute Auto 0.5 X10*3/uL (0.1-1.2); Monocytes Percent Auto 5.7 % (2-11); Neutrophils Percent Auto 63.8 % (45-73); Platelet Count 212 X10*3/uL (160-400); Red Blood Count 4.98 X10*6/uL (4.60-5.80); White Blood Count 7.8 X10*3/uL (4.8-10.8)
[2023-11-25 17:01] LABS: COVID-19 Test Negative (Negative); IDNOW Serial# 08D9AD1C
[2023-11-25 17:25] LABS: Alanine Aminotransferase 21 U/L (0-40); Albumin Level 4.6 g/dL (3.5-5.0); Alkaline Phosphatase 91 U/L (39-117); Anion Gap 12 (12-20); Aspartate Amino Transferase 15 U/L (5-37); Bilirubin Total 0.3 mg/dL (0.0-1.0); Blood Urea Nitrogen 12 mg/dL (9-16); Calcium 9.6 mg/dL (8.4-10.2); Carbon Dioxide 26 mmol/L (22-29); Chloride 108 mmol/L (96-108); Creatinine Clr Calc Pharmacy 102.3; Estimated Glomerular Filt Rate > 60; Ethanol < 10 mg/dL; Glucose Random 108 mg/dL (60-115); Sodium 142 mmol/L (135-145); Total Protein 7.9 g/dL (6.5-8.0)
[2023-11-25 17:34] LABS: Acetaminophen LAB < 3 mcg/mL (<30); Salicylate < 5.0 mg/dL (15-30)
--- NOTE | 2023-11-25 20:56 | PHA.MEDREC ---
Pharmacy Consult ? Medication Reconciliation Pharmacy has completed the medication reconciliation. Reviewed med rec done by nursing
[2023-11-25] MEDS: Docusate Sodium 100 MG CAPSULE PO (21:35)
[2023-11-25] MEDS: cloZAPine 25 MG TABLET 50 MG PO (21:35)
[2023-11-25] MEDS: cloZAPine 100 MG TABLET 300 MG PO (21:35)
--- NOTE | 2023-11-26 06:47 | PC.NURSE ---
Patient slept through the night, no distress observed/reported, patient was seen by [facility] in the community, disposition is section 12 inpatient bed search, VSS, patient endorsing AH, coherent with no behavior issues, medication compliant, will continue to monitor.
--- NOTE | 2023-11-26 10:07 | PC.NURSE ---
[facility] lat[facility] programmer [facility] where pt is staying [phone]
[2023-11-26] MEDS: cloZAPine 25 MG TABLET 50 MG PO ×2 (10:56→20:46)
[2023-11-26] MEDS: amLODIPine Besylate 5 MG TABLET PO (10:56)
[2023-11-26] MEDS: Metoprolol Succinate ER 100 MG TAB.ER.24H PO (10:56)
[2023-11-26] MEDS: Docusate Sodium 100 MG CAPSULE PO ×2 (10:56→20:46)
[2023-11-26] MEDS: Omeprazole 20 MG CAPSULE.DR PO (10:56)
[2023-11-26 15:55] VITALS: BP 125/83; PULSE 88; TEMP 36.6
[2023-11-26] MEDS: cloZAPine 100 MG TABLET 300 MG PO (20:45)
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
[2023-11-27] MEDS: Omeprazole 20 MG CAPSULE.DR PO (05:58)
[2023-11-27 06:00] VITALS: BP 108/71; PULSE 68; RESP 16; TEMP 36.3; O2SAT 99
[2023-11-27] MEDS: amLODIPine Besylate 5 MG TABLET PO (08:33)
[2023-11-27] MEDS: cloZAPine 25 MG TABLET 50 MG PO ×2 (08:33→21:03)
[2023-11-27] MEDS: Docusate Sodium 100 MG CAPSULE PO ×2 (08:33→21:05)
[2023-11-27] MEDS: Metoprolol Succinate ER 100 MG TAB.ER.24H PO (08:33)
[2023-11-27 09:19] LABS: Estimated Average Glucose 94 mg/dL; Hemoglobin A1c % 4.9 % (<6.0)
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
[2023-11-27 09:26] LABS: Cholesterol 150 mg/dL (<200); HDL Cholesterol 34 mg/dL (>40); LDL Cholesterol Calculated 76 mg/dL (<100); Magnesium 2.1 mg/dL (1.6-2.6); Triglycerides 203 mg/dL (<150)
[2023-11-27 09:40] LABS: Thyroid Stimulating Hormone 2.35 uIU/mL (0.32-4.0)
--- NOTE | 2023-11-27 11:22 | MHC.CLN ---
NUTRITION CONSULT FOR PATIENT REPORTED WEIGHT LOSS OF 20# OVER 2 MONTHS. REVIEW OF WEIGHT HX SHOWS WEIGHT LOSS OF 10#, -5%, X 4 MONTHS. WEIGHT LOSS NOT SIGNIFICANT. REVIEW OF PCP NOTE 07/12/23 SHOWS PATIENT EDUCATED ON HEALTHFUL DIET AND HAD NOT BEEN EATING JUNK AND SODA . NO ADDITIONAL NUTRITION INTERVENTIONS A THIS TIME.
[2023-11-27 15:01] LABS: Folate 14.9 ng/mL (> or = 4.0); Vitamin B12 599 pg/mL (200-900)
[2023-11-27 18:00] VITALS: BP 120/78; PULSE 72; RESP 18; TEMP 36.6; O2SAT 98
[2023-11-27] MEDS: cloZAPine 25 MG TABLET 325 MG PO (21:03)
[2023-11-27] MEDS: traZODone HCL 50 MG TABLET PO (21:05)
[2023-11-28] MEDS: Omeprazole 20 MG CAPSULE.DR PO (06:18)
[2023-11-28 07:00] VITALS: BMI 27.0
[2023-11-28 08:10] VITALS: BP 102/72; PULSE 88; RESP 16; TEMP 36.9; O2SAT 99
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
[2023-11-28] MEDS: Metoprolol Succinate ER 100 MG TAB.ER.24H PO (09:07)
[2023-11-28] MEDS: Docusate Sodium 100 MG CAPSULE PO ×2 (09:07→20:57)
[2023-11-28] MEDS: cloZAPine 25 MG TABLET 50 MG PO ×2 (09:07→20:57)
[2023-11-28] MEDS: amLODIPine Besylate 5 MG TABLET PO (09:07)
[2023-11-28 18:00] VITALS: BP 101/59; PULSE 78; RESP 18; TEMP 36.3; O2SAT 99
[2023-11-28] MEDS: cloZAPine 300 MG, cloZAPine 25 MG 325 MG PO (20:56)
[2023-11-29] MEDS: Omeprazole 20 MG CAPSULE.DR PO (06:03)
[2023-11-29 08:04] VITALS: BP 134/82; PULSE 93; RESP 16; TEMP 36.9; O2SAT 99
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
[2023-11-29] MEDS: Metoprolol Succinate ER 100 MG TAB.ER.24H PO (08:40)
[2023-11-29] MEDS: amLODIPine Besylate 5 MG TABLET PO (08:40)
[2023-11-29] MEDS: Docusate Sodium 100 MG CAPSULE PO ×2 (08:40→20:47)
[2023-11-29] MEDS: cloZAPine 25 MG TABLET 50 MG PO ×2 (08:40→20:47)
[2023-11-29 16:00] VITALS: BP 116/83; PULSE 107; RESP 15; TEMP 36.5; O2SAT 98
[2023-11-29] MEDS: lamoTRIgine 25 MG TABLET PO (20:47)
[2023-11-29] MEDS: cloZAPine 300 MG, cloZAPine 25 MG 325 MG PO (20:47)
[2023-11-30] MEDS: Omeprazole 20 MG CAPSULE.DR PO (05:49)
[2023-11-30 07:30] VITALS: BP 113/82; PULSE 80; RESP 16; TEMP 36.6; O2SAT 100
[2023-11-30] MEDS: cloZAPine 25 MG TABLET 50 MG PO ×2 (08:44→20:44)
[2023-11-30] MEDS: amLODIPine Besylate 5 MG TABLET PO (08:44)
[2023-11-30] MEDS: Metoprolol Succinate ER 100 MG TAB.ER.24H PO (08:44)
[2023-11-30] MEDS: Docusate Sodium 100 MG CAPSULE PO ×2 (08:45→20:44)
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
[2023-11-30 19:53] VITALS: BP 118/77; PULSE 92; RESP 16; TEMP 36.3; O2SAT 97
[2023-11-30] MEDS: cloZAPine 300 MG, cloZAPine 25 MG 325 MG PO (20:43)
[2023-11-30] MEDS: lamoTRIgine 25 MG TABLET PO (20:44)
[2023-12-01] MEDS: Omeprazole 20 MG CAPSULE.DR PO (06:20)
[2023-12-01 06:59] LABS: Clozapine (Clozaril) 814 mcg/L; Norclozapine 368 mcg/L (25-400)
[2023-12-01 08:12] VITALS: BP 108/66; PULSE 78; RESP 16; TEMP 37.1; O2SAT 99
[2023-12-01] MEDS: Metoprolol Succinate ER 100 MG TAB.ER.24H PO (09:22)
[2023-12-01] MEDS: cloZAPine 25 MG TABLET 50 MG PO ×2 (09:22→20:13)
[2023-12-01] MEDS: amLODIPine Besylate 5 MG TABLET PO (09:23)
[2023-12-01] MEDS: Docusate Sodium 100 MG CAPSULE PO ×2 (09:23→20:14)
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
[2023-12-01 18:00] VITALS: BP 114/78; PULSE 64; RESP 18; TEMP 36.5; O2SAT 99
[2023-12-01] MEDS: lamoTRIgine 25 MG TABLET PO (20:14)
[2023-12-01] MEDS: cloZAPine 300 MG, cloZAPine 25 MG 325 MG PO (20:14)
[2023-12-02] MEDS: Omeprazole 20 MG CAPSULE.DR PO (06:09)
[2023-12-02] MEDS: Docusate Sodium 100 MG CAPSULE PO ×2 (08:10→21:33)
[2023-12-02] MEDS: Metoprolol Succinate ER 100 MG TAB.ER.24H PO (08:10)
[2023-12-02] MEDS: amLODIPine Besylate 5 MG TABLET PO (08:10)
[2023-12-02] MEDS: cloZAPine 25 MG TABLET 50 MG PO (08:10)
[2023-12-02 08:14] LABS: Neut%MD 46.8 %; Neutrophils Absolute Auto 3.9 x10*3/uL (2.0-8.3); WBCANC 8.2 X10*3/uL
[2023-12-02 08:22] VITALS: BP 102/73; PULSE 71; RESP 18; TEMP 36.7; O2SAT 100
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
[2023-12-02 18:00] VITALS: BP 112/84; PULSE 79; RESP 18; TEMP 36.4; O2SAT 97
[2023-12-02] MEDS: lamoTRIgine 25 MG TABLET 37.5 MG PO (21:32)
[2023-12-02] MEDS: cloZAPine 300 MG, cloZAPine 25 MG 325 MG PO (21:32)
[2023-12-02] MEDS: risperiDONE 1 MG TABLET PO (21:32)
[2023-12-03] MEDS: Omeprazole 20 MG CAPSULE.DR PO (06:45)
[2023-12-03 08:01] VITALS: BP 102/69; PULSE 88; RESP 16; TEMP 36.7; O2SAT 100
[2023-12-03] MEDS: risperiDONE 1 MG TABLET PO ×2 (08:40→20:57)
[2023-12-03] MEDS: Metoprolol Succinate ER 100 MG TAB.ER.24H PO (08:40)
[2023-12-03] MEDS: amLODIPine Besylate 5 MG TABLET PO (08:40)
[2023-12-03] MEDS: Docusate Sodium 100 MG CAPSULE PO ×2 (08:41→20:58)
[2023-12-03] MEDS: cloZAPine 25 MG TABLET 50 MG PO ×2 (08:41→20:58)
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
--- NOTE | 2023-12-03 13:02 | PC.NURSE ---
pt reports lack of appetite and has not consumed breakfast or lunch. Pt educated on importance of nourishment with no effect. Pt also declined nutritional supplement. Provider EL notified via [employer]
[2023-12-03 17:10] VITALS: BP 110/68; PULSE 78; RESP 18; TEMP 36.6; O2SAT 98
[2023-12-03] MEDS: lamoTRIgine 25 MG TABLET 37.5 MG PO (20:56)
[2023-12-03] MEDS: cloZAPine 300 MG, cloZAPine 25 MG 325 MG PO (20:57)
--- NOTE | 2023-12-04 | ECG_ITS ---
Test Reason : palpitations Blood Pressure : / mmHG Vent. Rate : 097 BPM Atrial Rate : 097 BPM P-R Int : 158 ms QRS Dur : 100 ms QT Int : 386 ms P-R-T Axes : 035 024 028 degrees QTc Int : 490 ms Sinus rhythm with frequent Premature ventricular complexes Nonspecific T wave abnormality Prolonged QT Abnormal ECG When compared with ECG of 25-NOV-2023 16:39, Premature ventricular complexes are now Present Nonspecific T wave abnormality now evident in Anterior leads Referred By: Louise Esquivel Electronically Signed By:Delio Cruz
[2023-12-04] MEDS: Omeprazole 20 MG CAPSULE.DR PO (05:48)
[2023-12-04 08:05] VITALS: BP 111/75; PULSE 83; RESP 16; TEMP 36.5; O2SAT 98
[2023-12-04] MEDS: cloZAPine 25 MG TABLET 50 MG PO ×2 (08:47→20:01)
[2023-12-04] MEDS: Metoprolol Succinate ER 100 MG TAB.ER.24H PO (08:47)
[2023-12-04] MEDS: Docusate Sodium 100 MG CAPSULE PO ×2 (08:47→20:02)
[2023-12-04] MEDS: risperiDONE 2 MG TABLET PO ×2 (08:47→20:02)
[2023-12-04] MEDS: amLODIPine Besylate 5 MG TABLET PO (08:48)
[2023-12-04 13:51] VITALS: BP 112/74; PULSE 82; RESP 18
[2023-12-04] MEDS: hydrOXYzine HCL 25 MG TABLET PO (13:59)
--- NOTE | 2023-12-04 14:22 | PC.NURSE ---
Pt c/o palpitations. Pt anxious and worried and reported this happens sometimes. VS obtained and documented. Covering provider Louise Esquivel made aware. Pt received prn Hydroxyzine and new order received for stat ECG. Cardiology called and notified of stat ECG and pt's c/o palpitations.
--- NOTE | 2023-12-04 14:39 | PC.NURSE ---
ECG obtained with abnormal result. ECG results sent to covering provider Louise Esquivel.
[2023-12-04] MEDS: LORazepam 1 MG TABLET PO (15:07)
--- NOTE | 2023-12-04 15:18 | HO.PSYCHPN ---
Subjective Subjective Date of Service: 12/04/23 Reason For Visit: Delusional disorder Subjective Notes: Conditional Voluntary Healthcare Proxy: No Guardianship: No Medical Problems Affecting Mental Status: No Interim History: met with patient; discussed with team pt reports he's not doing well today; reports voices are very negative; He says voices ruined his meeting with [facility] worker, but was guarded on how so. He reported he ate today and is taking fluids. Pt is quiet, polite, easily engaged, keeping head down, poor eye contact. Denies side-effects from risperdal and agrees to increased dose. Later in day he reported palpitaions which he states he has had in the past but never as long. EKG ordered which showed frequent PVCs and prolonged QT. T/c to crm dynamics developer Dr Cruz to disuccs EKG and plan- consult ordered. labs ordered BMP and magnesium level, one time dose of ativan ordered to decreased anxiety and see if PVCS remit. Clozaril decreased by 25mg at bedtime Medication Compliance: Yes Side effects from medications: Yes (anxiety, pvcs, qt prolong) Attending Groups: Intermittent Review of Systems Acute medical concerns: Yes abnormal EKG cardiology consult pending Medical Review of Systems: unchanged Review of Systems Constitutional: Reports no additional constitutional complaints, Denies chills, Denies fever(s) and Denies night sweats Eyes: Reports no additional eye complaints, Denies blurry vision, Denies change in vision, Denies diplopia, Denies eye discharge, Denies loss of vision and Denies eye pain Denies dizziness Cardiovascular: Reports no additional cardiovascular complaints, Denies chest pain, Denies lightheadedness, Denies Loss of Consciousness and Denies dyspnea Comments: no chest pain, no SOB, no heaviness, nor weakness Respiratory: Reports no additional respiratory complaints and Denies dyspnea Gastrointestinal: Reports no additional gastrointestinal complaints, Denies abdominal pain, Denies melena, Denies hematochezia, Denies change in bowel habits and Denies change in stool character Genitourinary: Reports no additional male genitourinary complaints, Denies hematuria, Denies oliguria, Denies difficulty urinating, Denies dysuria, Denies urinary frequency, Denies urinary hesitancy, Denies urinary incontinence and Denies urinary urgency Musculoskeletal: Reports no additional musculoskeletal complaints, Denies numbness and Denies tingling Denies dizziness, Denies loss of vision, Denies numbness and Denies tingling Psychiatric: Reports auditory hallucinations Endocrine: Reports no additional endocrine complaints Hematologic/Lymphatic: Reports no additional hematologic/lymphatic complaints Allergic/Immunologic: Reports no additional allergic/immunologic complaints Mental Status Exam Mental Status Exam Narrative: Pt is alert and oriented; behavior is polite, guarded, avoidant; patient is not in distress; dressed in casual attire, bald, with adequate hygiene; mood is described as not good and affect congruent, downcast; eye contact avoidant; speech is sparse, though normal rate, volume and prosody and not pressured; psychomotor retardation present; thought process is organized and goal directed; Thought content is on paranoid delusions, tx; otherwise pertinent to relevant topics; denies any SI/HI. present- reports negative voices Patients insight and judgment impaired Patient Appearance: Unkempt Patient Orientation: Person, Place, Time and Situation Level of Consciousness: Awake Patient Behavior: Appropriate and Cooperative Mood Description: Depressed Affect Description: Blunted Patient Cognition Impaired: No Ability to Follow Directions: Good Speech Pattern: Clear and Impoverished Hallucinations: Auditory Delusions: Paranoid Ideation Thought Process: Distracted Judgement: Good Diagnostics Vital Signs (24Hr): Vital Signs - 24 hr 12/03/23 17:10 12/04/23 08:05 12/04/23 13:51 Temperature 97.9 F 97.7 F Pulse Rate 78 83 82 Respiratory Rate 18 16 18 Blood Pressure 110/68 111/75 112/74 Pulse Oximetry 98 98 Oxygen Delivery Method Room Air Room Air BMI result Body Mass Index 27.0 Labs 11/25/23 16:51 11/25/23 16:51 Imaging Radiology Impressions: ITS Impressions Head CT 11/25/23 17:44 IMPRESSION: No acute intracranial pathology. Medications Medications Current Medications Acetaminophen (Acetaminophen 325 Mg Tablet) 650 mg PO Q6H PRN PRN Reason: Headache/Pain Mild Scale (1-3) Al Hydroxide/Mg Hydroxide (Magnesium Hydrox/Alum Hydrox 30 Ml Oral.Susp) 30 ml PO Q6H PRN PRN Reason: Heartburn/Nausea Amlodipine Besylate (Amlodipine Besylate 5 Mg Tablet) 5 mg PO DAILY [facility]; Protocol Last Admin: 12/04/23 08:48 Dose: 5 mg Bisacodyl (Bisacodyl 5 Mg Tablet.) 10 mg PO DAILY PRN PRN Reason: Constipation Clozapine (Clozapine 25 Mg Tablet) 50 mg PO BID [facility] Last Admin: 12/04/23 08:47 Dose: 50 mg Clozapine (Clozapine 100 Mg Tablet) 300 mg PO BEDTIME [facility] Docusate Sodium (Docusate Sodium 100 Mg Capsule) 100 mg PO BID [facility] Last Admin: 12/04/23 08:47 Dose: 100 mg Hydroxyzine HCl (Hydroxyzine Hcl 25 Mg Tablet) 25 mg PO Q6H PRN PRN Reason: Anxiety Last Admin: 12/04/23 13:59 Dose: 25 mg Lamotrigine (Lamotrigine 25 Mg Tablet) 37.5 mg PO BEDTIME [facility] Last Admin: 12/03/23 20:56 Dose: 37.5 mg Magnesium Hydroxide (Milk Of Magnesia 30 Ml Oral.Susp) 30 ml PO DAILY PRN PRN Reason: Constipation Metoprolol Succinate (Metoprolol Succinate Er 100 Mg Tab.Er.24h) 100 mg PO DAILY [facility]; Protocol Last Admin: 12/04/23 08:47 Dose: 100 mg Omeprazole (Omeprazole 20 Mg Capsule.) 20 mg PO DAILY@0630 [facility] Last Admin: 12/04/23 05:48 Dose: 20 mg Risperidone (Risperidone 2 Mg Tablet) 2 mg PO BID [facility] Last Admin: 12/04/23 08:47 Dose: 2 mg Allergies Allergies Allergy/AdvReac Type Severity Reaction Status Date / Time latex Allergy Unknown swelling Verified 07/12/23 13:57 in lips penicillin V Allergy Unknown unknown Verified 07/12/23 13:57 Assessment & Plan Assessment & Plan (1) Schizoaffective disorder, depressive type: Status: Acute Code(s): F25.1 - Schizoaffective disorder, depressive type Assessment and Plan: 11/29- ctp 12/01/23 inc lamotrigine to 37.5mg hs- won't start till 12/01 (2) Essential hypertension: Status: Acute Code(s): I10 - Essential (primary) hypertension (3) IBS (irritable bowel syndrome): Status: Acute Code(s): K58.9 - Irritable bowel syndrome without diarrhea Plan Pt is a 48 yo male with hx of Schizoaffective disorder, depressive type, with forensic history, on [employer].... who was sectioned 12 by [facility] after crisis eval for patient decompensation with increased AH and depressive symptoms. Patient reports he takes his medications regularly and has been on clozapine for several years. Says that until this past fall, around July, he was doing overall well enough however at that time he started to decompensate and began to get more depressed and with increased anxiety. Patient says auditory hallucinations are always present and 90% of the time they are encouraging however they have been saying increasingly critical things; say his sister is going to soon; he knows that he has a psychotic illness but that he thinks the voices are often true; however he also acknowledges that sometimes the voices lie to him. Patient hears multiple voices talking to him simultaneously. He adamantly denies that the voices told him do anything to a child, children, that he never said anything like that, it has not true at all and does not know why it was written down (denies that voices are command or telling him to hurt self, others, kidnap). Patient also endorses paranoid delusional thoughts that people are out to get him, that he has many enemies.... He thinks the supervisor industrial garment from the house is covertly trying to get him kicked out and spreading false ideas about him. Patient endorses depression, with low interest, low energy, poor appetite, significantly increased sleeping... Patient denies any history of manic episodes; denies history of trauma; denies any drug or alcohol abuse; denies any SI or history of SA. Patient is glad he is at the hospital and knows that he needs treatment. Impression: Schizoaffective disorder, depressed type, having presented for depression in the past; Lexapro only antidepressant he is tried which he did not like. Not sure cause of trigger other than COVID infection with subsequent worsening of depressive symptoms which seem to have exacerbated psychotic symptoms (and vice versa). No history of manic episodes however patient may find more relief of depression from mood stabilizer; will consider during this admission. However, to avoid polypharmacy, 1st will try increasing clozapine Hospital course: no change, depressed, AH; open to either lamictal vs [place] for depression; senior technical writer left for EDUARDO Logan to discuss 11/28 pt says same symptoms, depression and AH; agrees to start Lamcital for depression (after senior technical writer discussed risks/side-effects incuding but not limited to SJ). -Later, pt came up to senior technical writer and said reena are telling me to tell you that i'm a pacifist...if someone hits me, i will not [retaliate]. -pt also went up to agitated peer and said he's a pacifist..wont retaliate; pt kept saying this to peer and needed staff to redirect him -discussed with Desmond -other current stressor is that pt was set up for day program in a tough area, which maybe triggered -agrees depression problematic, contributory and agrees w/ Lamictal. Says no hx of inocencia but did not tolerate Lexapro. Says no hx of any sexuality towards children and corroborates patients version of kidnapping charge, that pt was just trying to get self arrested and did not want to actually kidnap child -used to be on Consta and Clozaril togheter; once Consta dc'd some thoughts that maybe pt declined over subsequent years and 2 antipsychotics were helping; 3/4 still depressed. Isolative; bad AH not as intense, but remain; paranoid delusions and AH remain telling him that medical housekeeper is actively trying to get him kicked out of [facility] (which staff deny and said have tried to educate pt of the opposite)' he says he does not want to return to [facility] where he's been for 12+years (though no other options) due to psychotic symptoms) -given psychotic symptoms want to increase meds; during 2021 admission pt was on Clozapine total daily of 500mg but which was Supratherapeutic with norclozapine level of 623. Pt is currently at total daily dose of 425mg and although he denies side-effects, senior technical writer is concerned about increasing dose futher. Discussed Jose's comment that pt used to be on both Clozapine and Risperdal Consta (and how some outpt staff thought he did better when on 2 antipsychotics). Pt agreed that he tolerated both and agreed to add Risperdal 1mg BID PO to see if that helps further with AH. 3/5 AH and paranoid thinking worse today; pt more guarded, less engaged; agrees to increase in Risperdal 3/6 EKG ordered which showed frequent PVCs and prolonged QT. T/c to crm dynamics developer Dr Cruz to disuccs EKG and plan- consult ordered. labs ordered BMP and magnesium level, one time dose of ativan ordered to decreased anxiety and see if PVCS remit. Clozaril decreased by 25mg at bedtime Patient educated on: diagnosis, medication risk/benefits, therapeutic strategies and medical condition Informed Consent: understands Reason for continued inpatient stay Substantial Risk for: harm to self, inability to function, rapid decompensation and med/psych decompensation Time Spent With Patient Time: Total time managing care of this patient today __45__ minutes.
[2023-12-04 16:51] LABS: Anion Gap 10 (12-20); Blood Urea Nitrogen 17 mg/dL (9-16); Calcium 9.4 mg/dL (8.4-10.2); Carbon Dioxide 27 mmol/L (22-29); Chloride 107 mmol/L (96-108); Creatinine Clr Calc Pharmacy 110.7; Estimated Glomerular Filt Rate > 60; Glucose Random 96 mg/dL (60-115); Magnesium 2.1 mg/dL (1.6-2.6); Potassium 4.2 mmol/L (3.3-5.1); Sodium 140 mmol/L (135-145)
[2023-12-04 19:24] VITALS: BP 119/79; PULSE 87; RESP 18; TEMP 36.3; O2SAT 98
[2023-12-04] MEDS: cloZAPine 100 MG TABLET 300 MG PO (20:01)
[2023-12-04] MEDS: lamoTRIgine 25 MG TABLET 37.5 MG PO (20:02)
[2023-12-05] MEDS: Omeprazole 20 MG CAPSULE.DR PO (05:04)
[2023-12-05 06:00] VITALS: BP 111/70; PULSE 92; RESP 18; TEMP 36.7; O2SAT 100
[2023-12-05] MEDS: Metoprolol Succinate ER 100 MG TAB.ER.24H PO (08:34)
[2023-12-05] MEDS: cloZAPine 25 MG TABLET 50 MG PO ×2 (08:34→20:13)
[2023-12-05] MEDS: amLODIPine Besylate 5 MG TABLET PO (08:35)
[2023-12-05] MEDS: Docusate Sodium 100 MG CAPSULE PO ×2 (08:35→20:12)
[2023-12-05] MEDS: risperiDONE 2 MG TABLET PO (08:35)
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
--- NOTE | 2023-12-05 10:11 | P.CONCA_ITS ---
History of Present Illness History of Present Illness Date of Service: 12/05/23 Chief complaint: PVCs Narrative: 48-year-old gentleman who is currently in the inpatient psych facility with schizoaffective disorder and depression. He has PVCs and palpitation. We have been asked to assess him for palpitations. He has been anxious and had EKG performed yesterday which showed frequent premature ventricular complexes and prolonged QT interval of 490 milliseconds. This morning he is denying any significant palpitations. He is saying there from time to time he has had palpitations like these. Does not have any history of coronary disease. He has never seen a lactation consultant before. He has history of impaired fasting glucose and hypertension. He is saying that he is taking Toprol-XL for hypertension along with amlodipine. Blood pressure control is reasonable currently. Denying any chest discomfort shortness of breath. Outside the hospital, he was not physically active PMFSH Past Medical History Medical History (Updated 12/05/23 @ 10:50 by Delio Cruz MD) Schizoaffective disorder, depressive type Eczema of face Tachycardia Labile hypertension Heartburn Essential hypertension Sinus tachycardia Supine hypertension Depressive disorder Paranoid schizophrenia Delusional disorder Eczema IBS (irritable bowel syndrome) Impaired fasting glucose Hypertriglyceridemia Family History Family History Father Unknown family medical history Mother Breast cancer Maternal Grandfather No problems noted. Maternal Grandmother No problems noted. Paternal Grandfather No problems noted. Paternal Grandmother No problems noted. Brother Substance use disorder Mental health disorder Sister No problems noted. Surgical History Surgical History No pertinent past surgical history Social History Social History Household Members: None and Other Household Members Other:: GH, 3 house mates Housing: Other Housing Other:: Do you presently have visiting nurse or other home services: No Alcohol intake: unknown Patient Tobacco Use Status: Never used Tobacco Smoked in Last 30 Days: No e-Cigarette/Vaping Use: Never Used Patient Interested in Nicotine Replacement: No (NA) Patient Given Instructions on How to Stop Smoking: No (NA) Second Hand Smoke Exposure: No (Peers smoke outside) Use of substances other than those prescribed or required for medical reasons: No Substance Use Type: Marijuana Currently Displaying Signs/Symptoms of Drug Intoxication Withdrawal: No Any prior treatment program specific to substance use: No Have you been hit, kicked, punched, or otherwise hurt by someone within the past year? If so, by whom?: No Do you feel safe in your current relationship?: No Current Relationship Is there a partner from a previous relationship who is making you feel unsafe now?: No Are you made to feel afraid or neglected: No Spiritual Healthcare Practices: None Mandaen Healthcare Practices: None Cultural Healthcare Practices: None Advance Directives: No Advance Directives Information Provided: No Do you have thoughts of harming others: None Do you have a plan to hurt others: No Plan Recently lost weight without trying: Yes How much weight loss: 14-23 pounds Eating poorly because of decreased appetite: Yes Nutrition screen score: 5 Nutrition Risks: Poor intake 0-25% >4 days Poor oral hygiene: No service: No Current occupational status: disabled Sexual orientation: Did not discuss Cognitive needs: No Hearing needs: No Vision needs: Yes Meds Allergies Allergy/AdvReac Type Severity Reaction Status Date / Time latex Allergy Unknown swelling Verified 07/12/23 13:57 in lips penicillin V Allergy Unknown unknown Verified 07/12/23 13:57 Active Medications: Current Medications Acetaminophen (Acetaminophen 325 Mg Tablet) 650 mg PO Q6H PRN PRN Reason: Headache/Pain Mild Scale (1-3) Al Hydroxide/Mg Hydroxide (Magnesium Hydrox/Alum Hydrox 30 Ml Oral.Susp) 30 ml PO Q6H PRN PRN Reason: Heartburn/Nausea Amlodipine Besylate (Amlodipine Besylate 5 Mg Tablet) 5 mg PO DAILY [facility]; Protocol Last Admin: 12/05/23 08:35 Dose: 5 mg Bisacodyl (Bisacodyl 5 Mg Tablet.Dr) 10 mg PO DAILY PRN PRN Reason: Constipation Clozapine (Clozapine 25 Mg Tablet) 50 mg PO BID [facility] Last Admin: 12/05/23 08:34 Dose: 50 mg Clozapine (Clozapine 100 Mg Tablet) 300 mg PO BEDTIME [facility] Last Admin: 12/04/23 20:01 Dose: 300 mg Docusate Sodium (Docusate Sodium 100 Mg Capsule) 100 mg PO BID [facility] Last Admin: 12/05/23 08:35 Dose: 100 mg Hydroxyzine HCl (Hydroxyzine Hcl 25 Mg Tablet) 25 mg PO Q6H PRN PRN Reason: Anxiety Last Admin: 12/04/23 13:59 Dose: 25 mg Lamotrigine (Lamotrigine 25 Mg Tablet) 37.5 mg PO BEDTIME [facility] Last Admin: 12/04/23 20:02 Dose: 37.5 mg Magnesium Hydroxide (Milk Of Magnesia 30 Ml Oral.Susp) 30 ml PO DAILY PRN PRN Reason: Constipation Metoprolol Succinate (Metoprolol Succinate Er 100 Mg Tab.Er.24h) 100 mg PO DAILY [facility]; Protocol Last Admin: 12/05/23 08:34 Dose: 100 mg Omeprazole (Omeprazole 20 Mg Capsule.Dr) 20 mg PO DAILY@0630 [facility] Last Admin: 12/05/23 05:04 Dose: 20 mg Risperidone (Risperidone 2 Mg Tablet) 2 mg PO BID [facility] Last Admin: 12/05/23 08:35 Dose: 2 mg Home Medications Medication Instructions Recorded Confirmed Last Taken Type amlodipine 5 mg tablet 5 mg PO DAILY 11/25/23 11/25/23 Unknown History clozapine 100 mg tablet 300 mg PO BEDTIME 11/25/23 11/25/23 11/24/23 21:00 History clozapine 50 mg tablet 50 mg PO BID 11/25/23 11/25/23 11/25/23 08:00 History docusate sodium 100 mg capsule 100 mg PO BID 11/25/23 11/25/23 Unknown History metoprolol succinate 100 mg 100 mg PO DAILY 11/25/23 11/25/23 Unknown History tablet,extended release 24 hr omeprazole 20 mg capsule,delayed 20 mg PO DAILY 11/25/23 11/25/23 Unknown History release Physical Exam 2 Vital Signs: Vital Signs: Last Vital Signs Temp 98.1 F 12/05/23 06:00 Pulse 92 12/05/23 06:00 Resp 18 12/05/23 06:00 BP 111/70 12/05/23 06:00 Pulse Ox 100 12/05/23 06:00 O2 Del Method Room Air 12/05/23 06:00 BMI result Body Mass Index 27.0 GENERAL APPEARANCE: in no acute distress. NECK: no carotid bruit, no jugular venous distention. SKIN: no suspicious lesions, warm and dry. HEART: no murmurs, regular rate and rhythm. LUNGS: clear to auscultation bilaterally. ABDOMEN: soft, nontender. EXTREMITIES: no edema. PERIPHERAL PULSES: equal. NEUROLOGIC: No gross deficits, AAO X 3 Objective Labs and Meds 11/25/23 16:51 12/04/23 16:25 Lab results: Laboratory Results - last 24 hr 12/04/23 16:25 Sodium 140 Potassium 4.2 Chloride 107 Carbon Dioxide 27 Anion Gap 10 L BUN 17 H Creatinine 0.85 Estim Creat Clear Calc 110.7 Estimated GFR > 60 Random Glucose 96 Calcium 9.4 Magnesium 2.1 Assessment and Plan (1) Palpitations: Status: Acute Plan 48-year-old gentleman currently in inpatient psych facility who has been complaining of palpitations. EKG has shown frequent premature ventricular complexes. Currently physical examination is normal. He is does not have any significant PVCs currently. I have advised him to do an echocardiogram to assess the left ventricular function but he is reluctant and does not want to do it. His electrolytes are good on the recent blood workup. If he has recurrent episode of palpitations with PVCs on EKG, would recommend adjusting antianxiety medications 1st and if these continue to happened then increase metoprolol succinate to 150 mg daily. I have advised him to consider doing further testing which he will think about. Signing off. Thank you for allowing me to participate in the care of your patient. Please feel free to contact me if you have any questions. Procedures Date of Service Date of Service: 12/05/23
[2023-12-05 11:17] VITALS: BMI 26.7
[2023-12-05] MEDS: polyethylene glycoL 3350 17 GM POWD.PACK PO (13:31)
[2023-12-05 18:00] VITALS: BP 155/103; PULSE 105; RESP 16; TEMP 36.3; O2SAT 100
--- NOTE | 2023-12-05 18:03 | PC.NURSE ---
Kishan reports feeling better after the miralax from earlier. He was in [place] after dinner and reported eating his burger for supper. This was confirmed by viewing the food tray.
[2023-12-05] MEDS: risperiDONE 2 MG TABLET 4 MG PO (20:11)
[2023-12-05] MEDS: cloZAPine 100 MG TABLET 300 MG PO (20:12)
[2023-12-05] MEDS: lamoTRIgine 25 MG TABLET 37.5 MG PO (20:13)
--- NOTE | 2023-12-06 | ECG_ITS ---
Test Reason : qtc check Blood Pressure : / mmHG Vent. Rate : 090 BPM Atrial Rate : 090 BPM P-R Int : 158 ms QRS Dur : 094 ms QT Int : 378 ms P-R-T Axes : 040 041 014 degrees QTc Int : 462 ms Sinus rhythm with frequent Premature ventricular complexes Otherwise normal ECG When compared with ECG of 04-DEC-2023 14:31, Nonspecific T wave abnormality no longer evident in Anterolateral leads Referred By: Francis Burgos Electronically Signed By:Delio Cruz
[2023-12-06] MEDS: Omeprazole 20 MG CAPSULE.DR PO (05:30)
[2023-12-06 08:11] VITALS: BP 121/90; PULSE 91; RESP 16; TEMP 36.5; O2SAT 100
[2023-12-06] MEDS: cloZAPine 25 MG TABLET 50 MG PO ×2 (09:00→20:26)
[2023-12-06] MEDS: polyethylene glycoL 3350 17 GM POWD.PACK PO (09:00)
[2023-12-06] MEDS: risperiDONE 2 MG TABLET PO (09:00)
[2023-12-06] MEDS: Metoprolol Succinate ER 100 MG TAB.ER.24H PO (09:00)
[2023-12-06] MEDS: Docusate Sodium 100 MG CAPSULE PO ×2 (09:00→20:26)
[2023-12-06] MEDS: amLODIPine Besylate 5 MG TABLET PO (09:00)
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
[2023-12-06] MEDS: risperiDONE 1 MG TABLET PO (11:17)
[2023-12-06 12:00] VITALS: BP 131/92; PULSE 99; RESP 18
[2023-12-06 18:04] VITALS: BP 113/64; PULSE 93; RESP 18; TEMP 36.7; O2SAT 99
[2023-12-06] MEDS: risperiDONE 3 MG TABLET PO (20:26)
[2023-12-06] MEDS: cloZAPine 100 MG TABLET 300 MG PO (20:26)
[2023-12-06] MEDS: lamoTRIgine 25 MG TABLET 37.5 MG PO (20:26)
[2023-12-07] MEDS: Omeprazole 20 MG CAPSULE.DR PO (05:38)
[2023-12-07 08:12] VITALS: BP 116/70; PULSE 89; RESP 16; TEMP 36.4; O2SAT 100
[2023-12-07] MEDS: Metoprolol Succinate ER 100 MG TAB.ER.24H PO (09:31)
[2023-12-07] MEDS: amLODIPine Besylate 5 MG TABLET PO (09:31)
[2023-12-07] MEDS: Docusate Sodium 100 MG CAPSULE PO ×2 (09:31→20:51)
[2023-12-07] MEDS: cloZAPine 25 MG TABLET 50 MG PO ×2 (09:32→20:53)
[2023-12-07] MEDS: risperiDONE 2 MG TABLET PO (09:32)
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
[2023-12-07] MEDS: polyethylene glycoL 3350 17 GM POWD.PACK PO (13:19)
[2023-12-07 17:03] VITALS: BP 102/58; PULSE 89; RESP 16; TEMP 36.8; O2SAT 100
[2023-12-07] MEDS: risperiDONE 3 MG TABLET PO (20:51)
[2023-12-07] MEDS: cloZAPine 100 MG TABLET 300 MG PO (20:51)
[2023-12-07] MEDS: lamoTRIgine 25 MG TABLET 37.5 MG PO (20:51)
[2023-12-08] MEDS: Omeprazole 20 MG CAPSULE.DR PO (06:09)
[2023-12-08 09:30] VITALS: BP 93/60; PULSE 80; TEMP 36.5; O2SAT 99
[2023-12-08] MEDS: risperiDONE 2 MG TABLET PO (09:32)
[2023-12-08] MEDS: amLODIPine Besylate 5 MG TABLET PO (09:32)
[2023-12-08] MEDS: Docusate Sodium 100 MG CAPSULE PO ×2 (09:32→20:15)
[2023-12-08] MEDS: Metoprolol Succinate ER 100 MG TAB.ER.24H PO (09:32)
[2023-12-08] MEDS: cloZAPine 25 MG TABLET 50 MG PO ×2 (09:32→20:15)
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
[2023-12-08 17:24] VITALS: BP 128/78; PULSE 68; RESP 16; TEMP 36.6; O2SAT 98
[2023-12-08] MEDS: cloZAPine 100 MG TABLET 300 MG PO (20:14)
[2023-12-08] MEDS: risperiDONE 3 MG TABLET PO (20:15)
[2023-12-08] MEDS: lamoTRIgine 25 MG TABLET 37.5 MG PO (20:15)
[2023-12-09] MEDS: Omeprazole 20 MG CAPSULE.DR PO (05:04)
[2023-12-09 06:00] VITALS: BP 107/66; PULSE 66; RESP 16; TEMP 36.3; O2SAT 98
[2023-12-09] MEDS: cloZAPine 25 MG TABLET 50 MG PO ×2 (08:56→20:13)
[2023-12-09] MEDS: risperiDONE 2 MG TABLET PO (08:56)
[2023-12-09] MEDS: Docusate Sodium 100 MG CAPSULE PO ×2 (08:57→20:12)
[2023-12-09] MEDS: amLODIPine Besylate 5 MG TABLET PO (08:57)
[2023-12-09] MEDS: Metoprolol Succinate ER 100 MG TAB.ER.24H PO (08:57)
[2023-12-09 09:15] LABS: Neut%MD 48.3 %; Neutrophils Absolute Auto 3.4 x10*3/uL (2.0-8.3); WBCANC 7.1 X10*3/uL
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
[2023-12-09] MEDS: lamoTRIgine 25 MG TABLET 37.5 MG PO (20:12)
[2023-12-09] MEDS: risperiDONE 3 MG TABLET PO (20:12)
[2023-12-09] MEDS: cloZAPine 100 MG TABLET 300 MG PO (20:12)
[2023-12-09 20:35] VITALS: BP 121/86; PULSE 100; RESP 16; TEMP 36.1; O2SAT 97
[2023-12-10] MEDS: Omeprazole 20 MG CAPSULE.DR PO (05:02)
[2023-12-10 07:52] VITALS: BP 100/72; PULSE 83; RESP 16; TEMP 36.1; O2SAT 99
[2023-12-10] MEDS: Docusate Sodium 100 MG CAPSULE PO ×2 (08:14→21:48)
[2023-12-10] MEDS: risperiDONE 2 MG TABLET PO (08:14)
[2023-12-10] MEDS: cloZAPine 25 MG TABLET 50 MG PO ×2 (08:14→21:47)
[2023-12-10] MEDS: Metoprolol Succinate ER 100 MG TAB.ER.24H PO (08:15)
[2023-12-10] MEDS: amLODIPine Besylate 5 MG TABLET PO (08:15)
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
[2023-12-10 16:38] VITALS: BP 124/90; RESP 18; TEMP 35.9; O2SAT 98
[2023-12-10] MEDS: lamoTRIgine 25 MG TABLET 37.5 MG PO (21:46)
[2023-12-10] MEDS: cloZAPine 100 MG TABLET 300 MG PO (21:48)
[2023-12-10] MEDS: risperiDONE 2 MG TABLET 4 MG PO (21:49)
--- NOTE | 2023-12-11 | ECG_ITS ---
Test Reason : QTC CHECK Blood Pressure : / mmHG Vent. Rate : 113 BPM Atrial Rate : 000 BPM P-R Int : 000 ms QRS Dur : 098 ms QT Int : 474 ms P-R-T Axes : 000 052 024 degrees QTc Int : 650 ms Accelerated Junctional rhythm with frequent Premature ventricular complexes Nonspecific ST and T wave abnormality Prolonged QT Abnormal ECG When compared with ECG of 06-DEC-2023 11:37, Junctional rhythm has replaced Sinus rhythm Nonspecific T wave abnormality now evident in Anterolateral leads Referred By: Francis Burgos Electronically Signed By:
--- NOTE | 2023-12-11 | ECG_ITS ---
Test Reason : qtc Blood Pressure : / mmHG Vent. Rate : 101 BPM Atrial Rate : 101 BPM P-R Int : 168 ms QRS Dur : 100 ms QT Int : 376 ms P-R-T Axes : 040 039 003 degrees QTc Int : 487 ms Sinus tachycardia with frequent Premature ventricular complexes Nonspecific T wave abnormality Abnormal ECG When compared with ECG of 11-DEC-2023 14:50, No significant changes seen Referred By: Francis Burgos Electronically Signed By:MIKAEL DELGADILLO MD
[2023-12-11] MEDS: Omeprazole 20 MG CAPSULE.DR PO (05:51)
[2023-12-11 07:55] VITALS: BP 119/78; PULSE 101; RESP 16; TEMP 36.7; O2SAT 100
[2023-12-11] MEDS: cloZAPine 25 MG TABLET 50 MG PO ×2 (08:54→21:21)
[2023-12-11] MEDS: Metoprolol Succinate ER 100 MG TAB.ER.24H PO (08:54)
[2023-12-11] MEDS: amLODIPine Besylate 5 MG TABLET PO (08:54)
[2023-12-11] MEDS: polyethylene glycoL 3350 17 GM POWD.PACK PO (08:55)
[2023-12-11] MEDS: risperiDONE 2 MG TABLET PO (08:55)
[2023-12-11] MEDS: Docusate Sodium 100 MG CAPSULE PO ×2 (08:55→21:20)
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
[2023-12-11 18:00] VITALS: BP 113/74; PULSE 98; RESP 16; TEMP 36.3; O2SAT 98
[2023-12-11] MEDS: risperiDONE 2 MG TABLET 4 MG PO (21:20)
[2023-12-11] MEDS: lamoTRIgine 25 MG TABLET 37.5 MG PO (21:21)
[2023-12-11] MEDS: Lithium Carbonate ER 300 MG TABLET.ER PO (21:21)
[2023-12-11] MEDS: cloZAPine 100 MG TABLET 300 MG PO (21:22)
[2023-12-12] MEDS: Omeprazole 20 MG CAPSULE.DR PO (05:06)
[2023-12-12 07:00] VITALS: BMI 26.8
[2023-12-12 08:00] VITALS: BP 105/66; PULSE 101; RESP 18; TEMP 36.4; O2SAT 100
[2023-12-12] MEDS: amLODIPine Besylate 5 MG TABLET PO (09:31)
[2023-12-12] MEDS: Docusate Sodium 100 MG CAPSULE PO ×2 (09:31→20:54)
[2023-12-12] MEDS: risperiDONE 2 MG TABLET PO (09:31)
[2023-12-12] MEDS: cloZAPine 25 MG TABLET 50 MG PO ×2 (09:31→20:54)
[2023-12-12] MEDS: Metoprolol Succinate ER 100 MG TAB.ER.24H PO (09:31)
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
[2023-12-12 18:00] VITALS: BP 122/76; PULSE 98; RESP 18; TEMP 36.4; O2SAT 99
[2023-12-12] MEDS: cloZAPine 100 MG TABLET 300 MG PO (20:53)
[2023-12-12] MEDS: Lithium Carbonate ER 300 MG TABLET.ER PO (20:53)
[2023-12-12] MEDS: lamoTRIgine 25 MG TABLET 37.5 MG PO (20:54)
[2023-12-12] MEDS: risperiDONE 2 MG TABLET 4 MG PO (20:54)
[2023-12-13] MEDS: Omeprazole 20 MG CAPSULE.DR PO (05:06)
[2023-12-13 08:04] VITALS: BP 111/66; PULSE 96; RESP 14; TEMP 36.1; O2SAT 100
[2023-12-13] MEDS: cloZAPine 25 MG TABLET 50 MG PO ×2 (08:23→21:06)
[2023-12-13] MEDS: risperiDONE 2 MG TABLET PO (08:23)
[2023-12-13] MEDS: Metoprolol Succinate ER 100 MG TAB.ER.24H PO (08:23)
[2023-12-13] MEDS: Docusate Sodium 100 MG CAPSULE PO ×2 (08:23→21:07)
[2023-12-13] MEDS: amLODIPine Besylate 5 MG TABLET PO (08:23)
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
[2023-12-13 18:00] VITALS: BP 140/90; PULSE 90; RESP 18; TEMP 36.3; O2SAT 98
[2023-12-13] MEDS: cloZAPine 100 MG TABLET 300 MG PO (21:06)
[2023-12-13] MEDS: lamoTRIgine 25 MG TABLET 37.5 MG PO (21:07)
[2023-12-13] MEDS: Lithium Carbonate ER 300 MG TABLET.ER PO (21:08)
[2023-12-13] MEDS: Haloperidol Lactate 5 MG/ML VIAL IM (21:50)
[2023-12-14] MEDS: Omeprazole 20 MG CAPSULE.DR PO (06:41)
[2023-12-14 09:11] VITALS: BP 109/76; PULSE 90; RESP 16; TEMP 36.6; O2SAT 99
[2023-12-14] MEDS: Docusate Sodium 100 MG CAPSULE PO ×2 (09:26→20:46)
[2023-12-14] MEDS: Metoprolol Succinate ER 100 MG TAB.ER.24H PO (09:26)
[2023-12-14] MEDS: cloZAPine 25 MG TABLET 50 MG PO ×2 (09:26→20:47)
[2023-12-14] MEDS: amLODIPine Besylate 5 MG TABLET PO (09:27)
[2023-12-14] MEDS: risperiDONE 2 MG TABLET PO (09:27)
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
[2023-12-14 16:18] VITALS: BP 108/72; PULSE 93; RESP 16; TEMP 36.1; O2SAT 99
[2023-12-14] MEDS: lamoTRIgine 25 MG TABLET 37.5 MG PO (20:45)
[2023-12-14] MEDS: risperiDONE 2 MG TABLET 4 MG PO (20:47)
[2023-12-14] MEDS: cloZAPine 100 MG TABLET 300 MG PO (20:47)
[2023-12-14] MEDS: Lithium Carbonate ER 300 MG TABLET.ER PO (20:48)
[2023-12-15] MEDS: Omeprazole 20 MG CAPSULE.DR PO (06:10)
[2023-12-15] MEDS: cloZAPine 25 MG TABLET 50 MG PO ×2 (08:58→20:25)
[2023-12-15] MEDS: amLODIPine Besylate 5 MG TABLET PO (08:59)
[2023-12-15] MEDS: risperiDONE 2 MG TABLET PO (08:59)
[2023-12-15] MEDS: Docusate Sodium 100 MG CAPSULE PO ×2 (08:59→20:24)
[2023-12-15] MEDS: Metoprolol Succinate ER 100 MG TAB.ER.24H PO (08:59)
[2023-12-15 09:00] VITALS: BP 96/67; PULSE 92; RESP 16; TEMP 36.6; O2SAT 99
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
[2023-12-15 18:35] VITALS: BP 128/88; PULSE 110; RESP 16; TEMP 37; O2SAT 97
[2023-12-15] MEDS: risperiDONE 2 MG TABLET 4 MG PO (20:00)
[2023-12-15] MEDS: Lithium Carbonate ER 300 MG TABLET.ER PO (20:23)
[2023-12-15] MEDS: lamoTRIgine 25 MG TABLET 37.5 MG PO (20:24)
[2023-12-15] MEDS: cloZAPine 100 MG TABLET 300 MG PO (20:26)
[2023-12-16] MEDS: Omeprazole 20 MG CAPSULE.DR PO (06:06)
[2023-12-16 07:55] VITALS: BP 105/67; PULSE 98; RESP 16; TEMP 36.7; O2SAT 99
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
[2023-12-16] MEDS: amLODIPine Besylate 5 MG TABLET PO (08:12)
[2023-12-16] MEDS: risperiDONE 2 MG TABLET PO (08:12)
[2023-12-16] MEDS: Docusate Sodium 100 MG CAPSULE PO ×2 (08:12→20:46)
[2023-12-16] MEDS: Metoprolol Succinate ER 100 MG TAB.ER.24H PO (08:12)
[2023-12-16] MEDS: cloZAPine 25 MG TABLET 50 MG PO ×2 (08:12→20:45)
[2023-12-16] MEDS: lamoTRIgine 25 MG TABLET PO ×2 (08:12→20:46)
[2023-12-16 08:48] LABS: Neut%MD 48.4 %; Neutrophils Absolute Auto 3.6 x10*3/uL (2.0-8.3); WBCANC 7.5 X10*3/uL
[2023-12-16 08:57] LABS: Lithium 0.37 mmol/L (0.60-1.20)
[2023-12-16 09:09] LABS: Blood Urea Nitrogen 17 mg/dL (9-16); Creatinine Clr Calc Pharmacy 90.5; Estimated Glomerular Filt Rate > 60
[2023-12-16 09:28] LABS: TSH reflex Free T4 1.57 uIU/mL (0.32-4.0)
[2023-12-16 18:00] VITALS: BP 119/89; PULSE 77; RESP 18; TEMP 36.2; O2SAT 99
[2023-12-16] MEDS: risperiDONE 2 MG TABLET 4 MG PO (20:45)
[2023-12-16] MEDS: cloZAPine 100 MG TABLET 300 MG PO (20:45)
[2023-12-16] MEDS: Lithium Carbonate ER 300 MG TABLET.ER 600 MG PO (20:46)
[2023-12-16] MEDS: polyethylene glycoL 3350 17 GM POWD.PACK PO (20:51)
[2023-12-17] MEDS: Omeprazole 20 MG CAPSULE.DR PO (06:04)
[2023-12-17 08:18] VITALS: BP 104/58; PULSE 91; RESP 16; TEMP 36.3; O2SAT 98
[2023-12-17] MEDS: lamoTRIgine 25 MG TABLET PO ×2 (08:30→20:34)
[2023-12-17] MEDS: cloZAPine 25 MG TABLET 50 MG PO ×2 (08:30→20:34)
[2023-12-17] MEDS: Metoprolol Succinate ER 100 MG TAB.ER.24H PO (08:30)
[2023-12-17] MEDS: Docusate Sodium 100 MG CAPSULE PO ×2 (08:30→20:34)
[2023-12-17] MEDS: risperiDONE 2 MG TABLET PO (08:31)
[2023-12-17] MEDS: amLODIPine Besylate 5 MG TABLET PO (08:31)
[2023-12-17] MEDS: polyethylene glycoL 3350 17 GM POWD.PACK PO (08:32)
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
[2023-12-17 16:34] VITALS: BP 136/90; PULSE 113; RESP 18; TEMP 36.4; O2SAT 98
[2023-12-17] MEDS: Lithium Carbonate ER 300 MG TABLET.ER 600 MG PO (20:33)
[2023-12-17] MEDS: risperiDONE 2 MG TABLET 4 MG PO (20:33)
[2023-12-17] MEDS: cloZAPine 100 MG TABLET 300 MG PO (20:34)
[2023-12-18 08:01] VITALS: BP 112/70; PULSE 102; RESP 16; TEMP 36.5; O2SAT 99
[2023-12-18] MEDS: Docusate Sodium 100 MG CAPSULE PO ×2 (08:29→22:00)
[2023-12-18] MEDS: risperiDONE 2 MG TABLET PO (08:29)
[2023-12-18] MEDS: Omeprazole 20 MG CAPSULE.DR PO (08:29)
[2023-12-18] MEDS: amLODIPine Besylate 5 MG TABLET PO (08:29)
[2023-12-18] MEDS: cloZAPine 25 MG TABLET 50 MG PO ×2 (08:29→22:00)
[2023-12-18] MEDS: lamoTRIgine 25 MG TABLET PO ×2 (08:30→22:00)
[2023-12-18] MEDS: Metoprolol Succinate ER 100 MG TAB.ER.24H PO (08:30)
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
[2023-12-18 18:00] VITALS: BP 124/66; PULSE 98; TEMP 36.3; O2SAT 98
[2023-12-18] MEDS: risperiDONE 2 MG TABLET 4 MG PO (21:58)
[2023-12-18] MEDS: Lithium Carbonate ER 300 MG TABLET.ER 600 MG PO (21:59)
[2023-12-18] MEDS: cloZAPine 100 MG TABLET 300 MG PO (21:59)
[2023-12-18] MEDS: polyethylene glycoL 3350 17 GM POWD.PACK PO (22:06)
[2023-12-19] MEDS: Omeprazole 20 MG CAPSULE.DR PO (05:27)
[2023-12-19 07:00] VITALS: BMI 26.5
[2023-12-19 08:00] VITALS: BP 113/68; PULSE 92; RESP 18; TEMP 36.4; O2SAT 100
[2023-12-19] MEDS: cloZAPine 25 MG TABLET 50 MG PO ×2 (08:12→20:18)
[2023-12-19] MEDS: Metoprolol Succinate ER 100 MG TAB.ER.24H PO (08:12)
[2023-12-19] MEDS: amLODIPine Besylate 5 MG TABLET PO (08:12)
[2023-12-19] MEDS: Docusate Sodium 100 MG CAPSULE PO ×2 (08:12→20:20)
[2023-12-19] MEDS: lamoTRIgine 25 MG TABLET PO ×2 (08:12→20:17)
[2023-12-19] MEDS: risperiDONE 2 MG TABLET PO (08:12)
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
[2023-12-19 18:00] VITALS: BP 118/67; PULSE 96; RESP 18; TEMP 36.6; O2SAT 98
[2023-12-19] MEDS: Lithium Carbonate ER 300 MG TABLET.ER 600 MG PO (20:17)
[2023-12-19] MEDS: risperiDONE 2 MG TABLET 4 MG PO (20:17)
[2023-12-19] MEDS: cloZAPine 100 MG TABLET 300 MG PO (20:18)
[2023-12-19] MEDS: polyethylene glycoL 3350 17 GM POWD.PACK PO (20:34)
[2023-12-20] MEDS: Omeprazole 20 MG CAPSULE.DR PO (05:08)
[2023-12-20 08:29] VITALS: BP 108/60; PULSE 91; RESP 18; TEMP 36.9; O2SAT 99
[2023-12-20] MEDS: amLODIPine Besylate 5 MG TABLET PO (09:10)
[2023-12-20] MEDS: Metoprolol Succinate ER 100 MG TAB.ER.24H PO (09:10)
[2023-12-20] MEDS: risperiDONE 2 MG TABLET PO (09:10)
[2023-12-20] MEDS: cloZAPine 25 MG TABLET 50 MG PO ×2 (09:10→21:14)
[2023-12-20] MEDS: Docusate Sodium 100 MG CAPSULE PO ×2 (09:10→21:13)
[2023-12-20] MEDS: lamoTRIgine 25 MG TABLET PO ×2 (09:10→21:16)
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
[2023-12-20] MEDS: Lithium Carbonate ER 300 MG TABLET.ER 600 MG PO (21:14)
[2023-12-20] MEDS: cloZAPine 100 MG TABLET 300 MG PO (21:15)
[2023-12-20] MEDS: risperiDONE 2 MG TABLET 4 MG PO (21:15)
[2023-12-21] MEDS: Omeprazole 20 MG CAPSULE.DR PO (05:44)
[2023-12-21 08:00] VITALS: BP 122/77; PULSE 94; RESP 18; TEMP 36.9; O2SAT 99
[2023-12-21] MEDS: amLODIPine Besylate 5 MG TABLET PO (09:06)
[2023-12-21] MEDS: lamoTRIgine 25 MG TABLET PO ×2 (09:06→20:58)
[2023-12-21] MEDS: cloZAPine 25 MG TABLET 50 MG PO ×2 (09:06→20:57)
[2023-12-21] MEDS: polyethylene glycoL 3350 17 GM POWD.PACK PO (09:06)
[2023-12-21] MEDS: risperiDONE 2 MG TABLET PO (09:06)
[2023-12-21] MEDS: Docusate Sodium 100 MG CAPSULE PO ×2 (09:06→20:58)
[2023-12-21] MEDS: Metoprolol Succinate ER 100 MG TAB.ER.24H PO (09:06)
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
[2023-12-21 09:54] LABS: Lithium 0.73 mmol/L (0.60-1.20)
[2023-12-21 09:57] LABS: Anion Gap 12 (12-20); Blood Urea Nitrogen 18 mg/dL (9-16); Calcium 9.1 mg/dL (8.4-10.2); Carbon Dioxide 25 mmol/L (22-29); Chloride 109 mmol/L (96-108); Creatinine Clr Calc Pharmacy 92.2; Estimated Glomerular Filt Rate > 60; Glucose Random 183 mg/dL (60-115); Potassium 4.3 mmol/L (3.3-5.1); Sodium 142 mmol/L (135-145)
[2023-12-21 10:13] LABS: TSH reflex Free T4 1.45 uIU/mL (0.32-4.0)
[2023-12-21 18:00] VITALS: BP 136/97; PULSE 93; RESP 18; TEMP 36.4; O2SAT 97
[2023-12-21] MEDS: cloZAPine 100 MG TABLET 300 MG PO (20:57)
[2023-12-21] MEDS: Lithium Carbonate ER 300 MG TABLET.ER 600 MG PO (20:58)
[2023-12-21] MEDS: risperiDONE 2 MG TABLET 4 MG PO (20:58)
[2023-12-22] MEDS: Omeprazole 20 MG CAPSULE.DR PO (06:14)
[2023-12-22 07:50] VITALS: BP 97/69; PULSE 88; RESP 18; TEMP 36.9; O2SAT 100
[2023-12-22] MEDS: cloZAPine 25 MG TABLET 50 MG PO ×2 (08:30→20:45)
[2023-12-22] MEDS: risperiDONE 2 MG TABLET PO (08:30)
[2023-12-22] MEDS: Docusate Sodium 100 MG CAPSULE PO ×2 (08:31→20:43)
[2023-12-22] MEDS: lamoTRIgine 25 MG TABLET PO ×2 (08:31→20:44)
[2023-12-22] MEDS: amLODIPine Besylate 5 MG TABLET PO (08:31)
[2023-12-22] MEDS: Metoprolol Succinate ER 100 MG TAB.ER.24H PO (08:31)
[2023-12-22] MEDS: polyethylene glycoL 3350 17 GM POWD.PACK PO (08:32)
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
[2023-12-22 16:28] VITALS: BP 122/82; PULSE 94; RESP 17; TEMP 36.7; O2SAT 98
[2023-12-22] MEDS: risperiDONE 2 MG TABLET 4 MG PO (20:44)
[2023-12-22] MEDS: Lithium Carbonate ER 300 MG TABLET.ER 600 MG PO (20:45)
[2023-12-22] MEDS: cloZAPine 100 MG TABLET 300 MG PO (20:45)
[2023-12-23] MEDS: Omeprazole 20 MG CAPSULE.DR PO (06:14)
[2023-12-23 08:02] VITALS: BP 153/110; PULSE 90; RESP 18; TEMP 36.8; O2SAT 100
[2023-12-23 08:57] LABS: Neut%MD 55.2 %; Neutrophils Absolute Auto 4.8 x10*3/uL (2.0-8.3); WBCANC 8.7 X10*3/uL
[2023-12-23] MEDS: lamoTRIgine 25 MG TABLET PO ×2 (09:23→20:29)
[2023-12-23] MEDS: Docusate Sodium 100 MG CAPSULE PO ×2 (09:23→20:30)
[2023-12-23] MEDS: Metoprolol Succinate ER 100 MG TAB.ER.24H PO (09:23)
[2023-12-23] MEDS: polyethylene glycoL 3350 17 GM POWD.PACK PO (09:23)
[2023-12-23] MEDS: amLODIPine Besylate 5 MG TABLET PO (09:23)
[2023-12-23] MEDS: risperiDONE 2 MG TABLET PO (09:23)
[2023-12-23] MEDS: cloZAPine 25 MG TABLET 50 MG PO ×2 (09:24→20:29)
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
[2023-12-23 18:00] VITALS: BP 130/78; PULSE 88; RESP 18; TEMP 36.6; O2SAT 98
[2023-12-23] MEDS: Lithium Carbonate ER 300 MG TABLET.ER 600 MG PO (20:28)
[2023-12-23] MEDS: cloZAPine 100 MG TABLET 300 MG PO (20:29)
[2023-12-23] MEDS: risperiDONE 2 MG TABLET 4 MG PO (20:30)
[2023-12-24] MEDS: Omeprazole 20 MG CAPSULE.DR PO (05:16)
[2023-12-24 08:38] VITALS: BP 123/73; PULSE 106; RESP 18; TEMP 37.1; O2SAT 100
[2023-12-24] MEDS: lamoTRIgine 25 MG TABLET PO ×2 (08:45→20:26)
[2023-12-24] MEDS: amLODIPine Besylate 5 MG TABLET PO (08:45)
[2023-12-24] MEDS: cloZAPine 25 MG TABLET 50 MG PO ×2 (08:45→20:26)
[2023-12-24] MEDS: risperiDONE 2 MG TABLET PO (08:45)
[2023-12-24] MEDS: Docusate Sodium 100 MG CAPSULE PO ×2 (08:46→20:25)
[2023-12-24] MEDS: Metoprolol Succinate ER 100 MG TAB.ER.24H PO (08:46)
[2023-12-24] MEDS: polyethylene glycoL 3350 17 GM POWD.PACK PO (08:46)
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
[2023-12-24 16:15] VITALS: BP 103/73; PULSE 85; TEMP 36.7; O2SAT 99
[2023-12-24] MEDS: risperiDONE 2 MG TABLET 4 MG PO (20:24)
[2023-12-24] MEDS: cloZAPine 100 MG TABLET 300 MG PO (20:25)
[2023-12-24] MEDS: Lithium Carbonate ER 300 MG TABLET.ER 600 MG PO (20:27)
[2023-12-25] MEDS: Omeprazole 20 MG CAPSULE.DR PO (06:02)
[2023-12-25 07:55] VITALS: BP 102/73; PULSE 91; RESP 16; TEMP 37.1; O2SAT 98
[2023-12-25] MEDS: lamoTRIgine 25 MG TABLET PO ×2 (08:49→20:58)
[2023-12-25] MEDS: amLODIPine Besylate 5 MG TABLET PO (08:49)
[2023-12-25] MEDS: cloZAPine 25 MG TABLET 50 MG PO ×2 (08:49→20:58)
[2023-12-25] MEDS: Metoprolol Succinate ER 100 MG TAB.ER.24H PO (08:49)
[2023-12-25] MEDS: Docusate Sodium 100 MG CAPSULE PO ×2 (08:49→20:55)
[2023-12-25] MEDS: risperiDONE 2 MG TABLET PO (08:49)
[2023-12-25] MEDS: polyethylene glycoL 3350 17 GM POWD.PACK PO (08:50)
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
[2023-12-25 18:00] VITALS: BP 131/98; PULSE 89; TEMP 36.8; O2SAT 98
[2023-12-25] MEDS: cloZAPine 100 MG TABLET 300 MG PO (20:54)
[2023-12-25] MEDS: Lithium Carbonate ER 300 MG TABLET.ER 600 MG PO (20:55)
[2023-12-25] MEDS: risperiDONE 2 MG TABLET 4 MG PO (20:56)
--- NOTE | 2023-12-26 | ECG_ITS ---
Test Reason : qtc Blood Pressure : / mmHG Vent. Rate : 088 BPM Atrial Rate : 088 BPM P-R Int : 160 ms QRS Dur : 100 ms QT Int : 400 ms P-R-T Axes : 043 042 -13 degrees QTc Int : 484 ms Sinus rhythm with frequent Premature ventricular complexes Nonspecific T wave abnormality Abnormal ECG When compared with ECG of 11-DEC-2023 15:00, No significant change was found Referred By: Francis Burgos Electronically Signed By:Delio Cruz
[2023-12-26] MEDS: Omeprazole 20 MG CAPSULE.DR PO (06:07)
[2023-12-26 08:26] VITALS: BP 104/67; PULSE 89; RESP 18; TEMP 37.1; O2SAT 98
[2023-12-26] MEDS: lamoTRIgine 25 MG TABLET PO ×2 (09:06→21:09)
[2023-12-26] MEDS: Docusate Sodium 100 MG CAPSULE PO ×2 (09:06→21:09)
[2023-12-26] MEDS: risperiDONE 2 MG TABLET PO ×2 (09:06→21:09)
[2023-12-26] MEDS: Metoprolol Succinate ER 100 MG TAB.ER.24H PO (09:06)
[2023-12-26] MEDS: cloZAPine 25 MG TABLET 50 MG PO ×2 (09:06→21:10)
[2023-12-26] MEDS: amLODIPine Besylate 5 MG TABLET PO (09:07)
[2023-12-26 18:00] VITALS: BP 133/86; PULSE 106; RESP 18; TEMP 36.5; O2SAT 98
[2023-12-26] MEDS: risperiDONE 2 MG TABLET 4 MG PO (21:09)
[2023-12-26] MEDS: cloZAPine 100 MG TABLET 300 MG PO (21:10)
[2023-12-26] MEDS: Lithium Carbonate ER 300 MG TABLET.ER 600 MG PO (21:10)
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
[2023-12-27] MEDS: Omeprazole 20 MG CAPSULE.DR PO (06:13)
[2023-12-27 07:57] VITALS: BP 116/80; PULSE 90; RESP 16; TEMP 36.8; O2SAT 100
[2023-12-27] MEDS: Docusate Sodium 100 MG CAPSULE PO (08:20)
[2023-12-27] MEDS: cloZAPine 25 MG TABLET 50 MG PO (08:20)
[2023-12-27] MEDS: amLODIPine Besylate 5 MG TABLET PO (08:21)
[2023-12-27] MEDS: risperiDONE 2 MG TABLET PO (08:21)
[2023-12-27] MEDS: lamoTRIgine 25 MG TABLET PO (08:23)
[2023-12-27] MEDS: Metoprolol Succinate ER 100 MG TAB.ER.24H PO (08:23)
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
== END 2023-12-27 11:00 | disposition home or self-care (01) | DRG 885 ==
LOC: HO.ED 18:25 → HO.PM5 11-26 14:17
PROVIDERS: Clinical Nurse Specialist Psychiatric/Mental Health; Physician Assistant Medical; Admitting Provider Clinical Nurse Specialist Psychiatric/Mental Health, Adult; Emergency Provider Emergency Medicine Emergency Medical Services; Visit Provider Psychiatry & Neurology Psychiatry
DX: F25.1 Schizoaffective disorder, depressive type (principal); I49.3 Ventricular premature depolarization; I10 Essential (primary) hypertension; K58.9 Irritable bowel syndrome, unspecified; Z20.822 Contact with and (suspected) exposure to COVID-19; Z79.899 Other long term (current) drug therapy
CPT/HCPCS: 36415; 70450; 80048; 80053; 80061; 80143; 80159; 80178; 80179; 80307; 81003; 82565; 82607; 82746; 83036; 83735; 84439; 84443; 84520; 85025; 85048; 87635; 93005; 99285; J1630; S9485

== ENCOUNTER → 2023-11-25 16:00 | Outpatient (BNV) | payer OTHER, SELFPAY | PROVIDERS: Admitting Provider Clinical Nurse Specialist Psychiatric/Mental Health, Adult; Emergency Provider Emergency Medicine Emergency Medical Services; Visit Provider Internal Medicine | DX: I10 Essential (primary) hypertension (principal) | CPT/HCPCS: 93010 ==

== ENCOUNTER 2023-11-26 14:07 | Outpatient (BNV) | payer OTHER, SELFPAY | END 2023-12-11 15:00 | PROVIDERS: Admitting Provider Clinical Nurse Specialist Psychiatric/Mental Health, Adult; Emergency Provider Emergency Medicine Emergency Medical Services; Visit Provider Internal Medicine Cardiovascular Disease | DX: R00.0 Tachycardia, unspecified (principal); I45.81 Long QT syndrome | CPT/HCPCS: 93010 ==

== ENCOUNTER 2023-11-26 14:07 | Outpatient (BNV) | payer OTHER, SELFPAY | END 2023-12-04 14:31 | PROVIDERS: Admitting Provider Clinical Nurse Specialist Psychiatric/Mental Health, Adult; Emergency Provider Emergency Medicine Emergency Medical Services; Visit Provider Internal Medicine Cardiovascular Disease | DX: R94.31 Abnormal electrocardiogram [ECG] [EKG] (principal) | CPT/HCPCS: 93010 ==

== ENCOUNTER 2023-11-26 14:07 | Outpatient (BNV) | payer OTHER, SELFPAY | END 2023-12-06 11:37 | PROVIDERS: Admitting Provider Clinical Nurse Specialist Psychiatric/Mental Health, Adult; Emergency Provider Emergency Medicine Emergency Medical Services; Visit Provider Internal Medicine Cardiovascular Disease | DX: I49.3 Ventricular premature depolarization (principal) | CPT/HCPCS: 93010 ==

== ENCOUNTER 2023-11-26 14:07 | Outpatient (BNV) | payer OTHER, SELFPAY | END 2023-12-26 15:05 | PROVIDERS: Admitting Provider Clinical Nurse Specialist Psychiatric/Mental Health, Adult; Emergency Provider Emergency Medicine Emergency Medical Services; Visit Provider Internal Medicine Cardiovascular Disease | DX: I45.81 Long QT syndrome (principal) | CPT/HCPCS: 93010 ==

== ENCOUNTER → 2023-11-26 14:07 | Outpatient (BNV) | payer OTHER, SELFPAY | PROVIDERS: Admitting Provider Clinical Nurse Specialist Psychiatric/Mental Health, Adult; Emergency Provider Emergency Medicine Emergency Medical Services; Visit Provider Internal Medicine Cardiovascular Disease | DX: R00.2 Palpitations (principal) | CPT/HCPCS: 99222 ==

== ENCOUNTER → 2023-11-26 14:07 | Outpatient (BNV) | payer OTHER, SELFPAY | PROVIDERS: Admitting Provider Clinical Nurse Specialist Psychiatric/Mental Health, Adult; Emergency Provider Emergency Medicine Emergency Medical Services; Visit Provider Psychiatry & Neurology Psychiatry | DX: F25.1 Schizoaffective disorder, depressive type (principal); I10 Essential (primary) hypertension; K58.9 Irritable bowel syndrome, unspecified | CPT/HCPCS: 90792; 99231; 99232; 99239 ==

== ENCOUNTER 2024-02-25 13:24 | Inpatient (IN) | payer MEDICARE, OTHER, SELFPAY ==
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
[2024-02-25 13:55] VITALS: BP 130/70; PULSE 79; RESP 16; TEMP 37.1; O2SAT 97; BMI 21.3
--- NOTE | 2024-02-25 14:03 | ED.PSYCH ---
HPI - Psych General Chief Complaint: Psychiatric Symptoms Stated Complaint: SI,HALLUCINATIONS,PARANOIA,REFUSING INTERVENTIONS Time Seen by Provider: 02/25/24 13:29 Source: patient, EMS, RN notes reviewed and old records reviewed Mode of arrival: EMS History of Present Illness ED Provider: Linda Jimenez PA-C HPI Narrative: 48-year-old male with a past medical history of schizoaffective disorder, HTN, depression, IBS, HLD, presenting to the ED via EMS on section 12 for risky behavior and impulsivity, auditory hallucinations and paranoia. Patient reports compliance with home medications. Denies SI/HI. Denies CP/SOB, abdominal pain Related Data Previous Rx's ?Medication ?Instructions ?Recorded amlodipine 5 mg tablet 5 mg PO DAILY 30 days #30 tabs 12/26/23 clozapine 100 mg tablet 300 mg (3 x 100 mg) PO BEDTIME 30 12/26/23 days #90 tabs lamotrigine 25 mg tablet 75 mg (3 x 25 mg) PO TID 30 days 12/26/23 #270 tabs lithium carbonate 300 mg 600 mg (2 x 300 mg) PO BEDTIME 30 12/26/23 tablet,extended release days #60 tabs metoprolol succinate 100 mg 100 mg PO DAILY 30 days #30 tabs 12/26/23 tablet,extended release 24 hr risperidone 2 mg tablet See Rx Instructions .Route 12/26/23 .COMPLEX 30 days #90 tabs Allergies Allergy/AdvReac Type Severity Reaction Status Date / Time latex Allergy Unknown swelling Verified 02/25/24 14:00 in lips penicillin V Allergy Unknown unknown Verified 02/25/24 14:00 Review of Systems Review of Systems: Constitutional: No Fever, No Chills, No Fatigue, No Malaise Eyes: No Eye Pain, No Swelling, No Redness Cardiovascular: No Chest Pain, No SOB Respiratory: No Cough, No Dyspnea Gastrointestinal: No Nausea, No Vomiting, No Abdominal pain Skin: No Skin Lesions, No rash Neuro: No Weakness, No Numbness, No Paresthesias, No Loss of Consciousness, No Dizziness, No Headache Psych: No Anxiety/Panic, No Depression, No SI/HI, +AH, No VH, + Social Issues Yes all other systems are reviewed and are negative Constitutional: Constitutional: Reports as per HPI [facility] Past Medical History Attestation statement: The following information was validated with the patient. Source: old records reviewed Medical History Schizoaffective disorder, depressive type Eczema of face Tachycardia Labile hypertension Heartburn Essential hypertension Sinus tachycardia Supine hypertension Depressive disorder Paranoid schizophrenia Eczema IBS (irritable bowel syndrome) Impaired fasting glucose Hypertriglyceridemia Surgical History No pertinent past surgical history Family History Family History Father Unknown family medical history Mother Breast cancer Maternal Grandfather No problems noted. Maternal Grandmother No problems noted. Paternal Grandfather No problems noted. Paternal Grandmother No problems noted. Brother Substance use disorder Mental health disorder Sister No problems noted. Social History Social History Household Members: None and Other Household Members Other:: , 3 house mates Housing: Other Housing Other:: Do you presently have visiting nurse or other home services: No Alcohol intake: unknown Patient Tobacco Use Status: Never used Tobacco Smoked in Last 30 Days: No e-Cigarette/Vaping Use: Never Used Second Hand Smoke Exposure: No (Peers smoke outside) Use of substances other than those prescribed or required for medical reasons: No Substance Use Type: Marijuana Advance Directives: No Advance Directives Information Provided: Yes service: No Current occupational status: disabled Sexual orientation: Did not discuss Cognitive needs: No Hearing needs: No Vision needs: Yes Physical Exam Vital Signs: Vital Signs: Last Vital Signs Temp 98.7 F 02/25/24 13:55 Pulse 79 02/25/24 13:55 Resp 14 02/25/24 14:13 BP 130/70 02/25/24 13:55 Pulse Ox 97 02/25/24 13:55 O2 Del Method Room Air 02/25/24 13:55 BMI result Body Mass Index 21.3 Const: General: cooperative, healthy appearing and no acute distress Orientation/consciousness: patient oriented x3 Limitations: no limitations HEENT: Head: Yes normal to inspection and Yes atraumatic Ears: hearing grossly normal bilaterally General nose exam: Normal external nose present Face and sinus: Yes normal facial exam Eyes: General: appearance normal, both eyes and all related structures EOM: EOMs intact bilaterally Neck: Neck: Yes normal visual inspection and Yes no meningeal signs Resp: Effort & Inspection: normal respiratory effort and no respiratory distress Auscultation: clear to auscultation bilaterally and no wheezes Cardio: Rate: regular rate Heart sounds: S1 normal heart sound present and S2 normal heart sound present GI: Inspection: Yes normal to inspection Palpation (GI): Soft to palpation, nontender, no guarding and not rigid Skin: Rashes: no rashes Wounds: no wounds Neuro: General: patient oriented x3, tone normal, moves all extremities and no meningeal signs Cranial nerves: Yes CN's II-XII intact bilaterally Gait exam (Neuro): Normal gait present Extrem: General: Yes normal to inspection Psych: Other: Paranoid Thought content: suicidality, no homicidality and Hallucination(s) present auditory Judgement: Good judgement present (Psych) Course Course Course Narrative: -patient currently refusing labs due to hallucinations -1630--ED care transferred to MIKEL Lloyd pending labs and CARE team consult Medical Decision Making Medical Decision Making MDM Narrative: 48-year-old male with a past medical history of schizoaffective disorder, HTN, depression, IBS, HLD, presenting to the ED via EMS on section 12 for risky behavior and impulsivity, auditory hallucinations and paranoia. On exam vital signs stable, NAD, denies SI/HI, paranoid with auditory hallucinations. Concern for schizoaffective disorder. Rule out organic causes. Plan: Labs, tox screen, care team consult Please refer to course for remaining clinical decision making, interpretation of labs/imaging results, and discussions with consultants and/or family members. Differential Diagnosis Differential Diagnoses: The differential diagnosis associated with the presentation includes As above Admission/Observation Consideration of admission/observation: Escalation of care including admission/observation considered Consult Healthcare Provider Management of the patient was discussed with: Boiler Installer Lab Data [facility] Lab Attestation statement: I reviewed the patient's lab results. Independent Historian Clinical information obtained from an independent historian. History obtained from or confirmed by: EMS External Record Review External record reviewed: Inpatient record, Office record, Outpatient record, Prior outpatient labs, Prior outpatient radiology, Primary care record and Outside ED record Tests considered The following testing was considered but not selected: As above Chronic Conditions Patient?s care impacted by: Hypertension and Other (Schizoaffective) Discharge Plan Discharge Clinical Impression: Schizoaffective disorder, Acute paranoia Patient Disposition: Still a Patient Prescriptions: No Action lithium carbonate 300 mg Tablet Extended Release 600 mg PO BEDTIME 30 Days Qty: 60 0RF risperidone 2 mg Tablet See Rx Instructions .ROUTE .COMPLEX 30 Days Qty: 90 0RF Rx Instructions: take 1 tab daily and take 2 tabs at bedtime clozapine 100 mg tablet 300 mg PO BEDTIME 30 Days Qty: 90 0RF metoprolol succinate 100 mg tablet extended release 24 hr 100 mg PO DAILY 30 Days Qty: 30 0RF amlodipine 5 mg tablet 5 mg PO DAILY 30 Days Qty: 30 0RF lamotrigine 25 mg Tablet 75 mg PO TID 30 Days Qty: 270 0RF Interventions: Standish-Suicide Risk Severity Scale Last Done: 02/25/24 14:13 Print Language: Vietnamese
[2024-02-25 14:13] VITALS: RESP 14
--- NOTE | 2024-02-25 14:57 | PC.NURSE ---
patient refusing blood work stating that the auditory hallucinations are telling him no blood work.
--- NOTE | 2024-02-25 15:34 | PC.NURSE ---
patient reports that he is willing to give urine sample but is nervous about giving blood work at this time
[2024-02-25 15:58] LABS: Appearance Urine Clear; Color Urine Yellow; Glucose Urine UA Negative (Negative); Leukocyte Esterase Urine Trace (Negative); Nitrite Urine Negative (Negative); PH 7.5 (5.0-9.0); UMIC TRIGGER UACC YES; Urine Blood Negative (Negative); Urine Ketones Negative (Negative); Urine Protein Negative (Neg-Trace)
[2024-02-25 16:09] LABS: Amphetamine Screen Urine Not Detected (Not Detect); Barbiturates, Urine Not Detected (Not Detect); Benzodiazepines Screen Urine Not Detected (Not Detect); Buprenorphine Scr Not Detected (Not Detect); Cannabinoid Screen Urine Not Detected (Not Detect); Cocaine Screen Urine Not Detected (Not Detect); Fentanyl, urine Not Detected (Not Detect); Methadone Screen, Urine Not Detected (Not Detect); Opiate Screen Urine Not Detected (Not Detect); Oxycodone Screen Urine Not Detected (Not Detect); Phencyclidine Screen Urine Not Detected (Not Detect)
[2024-02-25 16:32] LABS: Bacteria Urine None Seen (None Seen); Hyaline Casts Urine 0-2 /LPF (0-2); RBC Urine 0-2 /HPF (0-2); Squamous Epithelial Cell Urine 0-2 /HPF (0-2); WBC Urine 0-5 /HPF (0-5)
--- NOTE | 2024-02-25 17:17 | PC.NURSE ---
This RN approached patient to request blood work again, patient declined stating that the voices won't let him
--- NOTE | 2024-02-25 19:03 | PC.NURSE ---
patient appears to remain at rest at present iun room, patient appears in no distress.
[2024-02-25 20:49] VITALS: BP 112/80; PULSE 65; RESP 16; TEMP 36.8; O2SAT 98
--- NOTE | 2024-02-25 21:38 | MHC.EDTECH ---
pt continues to refuse all lab work. rn made aware
[2024-02-25 23:49] VITALS: BP 112/79; PULSE 90; RESP 18; TEMP 36.4; O2SAT 98
--- NOTE | 2024-02-26 | ECG_ITS ---
Test Reason : qt interval Blood Pressure : / mmHG Vent. Rate : 071 BPM Atrial Rate : 071 BPM P-R Int : 158 ms QRS Dur : 100 ms QT Int : 398 ms P-R-T Axes : 043 046 -58 degrees QTc Int : 432 ms Sinus rhythm with frequent Premature ventricular complexes Possible Left atrial enlargement Low voltage QRS T wave abnormality, consider lateral ischemia Abnormal ECG When compared with ECG of 26-DEC-2023 15:05, T wave inversion more evident in Lateral leads QT has shortened Referred By: Manjula Metcalf Electronically Signed By:JOJO DUNCAN
--- NOTE | 2024-02-26 07:15 | PC.NURSE ---
Assumed care of patient at 0645, patient appears to be sleeping, respirations even and unlabored, no apparent distress noted. Continue plan of care for S12 inpatient bedsearch
--- NOTE | 2024-02-26 07:42 | PC.NURSE ---
Patient continues to refuse lab work this am, stating the voices are telling me I can't have blood work done .
[2024-02-26 07:58] VITALS: BP 126/84; PULSE 98; RESP 15; TEMP 36.5; O2SAT 99
[2024-02-26] MEDS: amLODIPine Besylate 5 MG TABLET PO (09:34)
[2024-02-26] MEDS: Metoprolol Succinate ER 100 MG TAB.ER.24H PO (09:35)
[2024-02-26] MEDS: risperiDONE 2 MG TABLET PO (09:35)
[2024-02-26] MEDS: lamoTRIgine 25 MG TABLET 75 MG PO ×3 (09:35→21:49)
[2024-02-26 13:15] VITALS: BP 130/86; PULSE 85; RESP 20; TEMP 36.6; O2SAT 98
[2024-02-26 13:28] VITALS: BMI 25.4
[2024-02-26 15:31] LABS: Basophils Absolute Auto 0.1 X10*3/uL (0.0-0.2); Basophils Percent Auto 0.7 % (0-2); Eosinophils Absolute Auto 0.1 X10*3/uL (0.0-0.4); Eosinophils Percent Auto 1.4 % (0-4); Hematocrit 39.8 % (42.0-52.0); Hemoglobin 14.2 g/dl (14.0-18.0); Imm Gran Abs Auto 0.03 X10*3/uL (0.00-0.03); Imm Gran Pct Auto 0.4 % (0.0-0.4); Lymphocytes Absolute Auto 1.6 X10*3/uL (1.2-4.9); Lymphocytes Percent Auto 21.9 % (20-40); MANUAL DIFF FLAG NO; Mean Corpuscular HGB Conc 35.7 g/dl (31.0-36.0); Mean Corpuscular Hemoglobin 29.7 pg (27.0-33.0); Mean Corpuscular Volume 83.3 fL (80.0-98.0); Mean Platelet Volume 8.8 fL (9.4-12.4); Monocytes Absolute Auto 0.6 X10*3/uL (0.1-1.2); Monocytes Percent Auto 7.9 % (2-11); Neutrophils Percent Auto 67.7 % (45-73); Platelet Count 217 X10*3/uL (160-400); Red Blood Count 4.78 X10*6/uL (4.60-5.80); Red Cell Distribution Width 12.9 % (11.0-16.0); White Blood Count 7.3 X10*3/uL (4.8-10.8)
--- NOTE | 2024-02-26 15:32 | PC.ADMIT ---
Pt admitted to M5 from [facility] for acute paranoia, AH, and refusing labs associated with Clozaril use. Kishan resides at a retirement in [place] and the clubhouse manager reported to [facility] he was refusing lab work but was taking his medication (He does have a verified Brito order for Clozapine and Risperidal). Kishan has hx of schizophrenia, SI, depression, anxiety and recent admission to M5 in November. Past hx also significant for arrests, charged for kidnapping, and state hospitalizations in 1999. Medical problems include HTN, eczema, and GERD. He signed a CV with Dr. Burgos once on unit. Cooperative with admission process and paperwork completed. Skin and safety check done with 2 RN's and unremarkable. He presently denies SI/HI/VH. Reports having baseline AH, these voices are helpful, they guide me. Lately, the voices were telling me not to have my blood drawn so I didn't. Once here on M5, he was agreeable to have labs drawn since he felt safe here . VSS and medication compliant. Treatment plan and safety tool reviewed, on q15 min safety checks.
[2024-02-26 16:11] LABS: Lithium 0.36 mmol/L (0.60-1.20)
[2024-02-26 16:30] LABS: Alanine Aminotransferase 12 U/L (0-40); Albumin Level 4.3 g/dL (3.5-5.0); Alkaline Phosphatase 79 U/L (39-117); Anion Gap 12 (12-20); Aspartate Amino Transferase 11 U/L (5-37); Bilirubin Total 0.3 mg/dL (0.0-1.0); Blood Urea Nitrogen 15 mg/dL (9-16); Calcium 9.9 mg/dL (8.4-10.2); Carbon Dioxide 24 mmol/L (22-29); Chloride 110 mmol/L (96-108); Creatinine Clr Calc Pharmacy 87.9; Estimated Glomerular Filt Rate > 60; Glucose Random 113 mg/dL (60-115); Potassium 4.2 mmol/L (3.3-5.1); Sodium 142 mmol/L (135-145); Total Protein 7.3 g/dL (6.5-8.0)
[2024-02-26 16:39] LABS: TSH reflex Free T4 1.89 uIU/mL (0.32-4.0)
[2024-02-26 20:00] VITALS: BP 118/76; PULSE 82; RESP 18; TEMP 36.7; O2SAT 97
[2024-02-26] MEDS: cloZAPine 100 MG TABLET 300 MG PO (21:48)
[2024-02-26] MEDS: risperiDONE 2 MG TABLET 4 MG PO (21:49)
[2024-02-26] MEDS: Lithium Carbonate ER 300 MG TABLET.ER 600 MG PO (21:49)
[2024-02-27 07:00] VITALS: BMI 25.4
[2024-02-27 08:00] VITALS: BP 96/62; PULSE 80; RESP 16; TEMP 37; O2SAT 98
[2024-02-27 09:00] VITALS: BP 100/64
[2024-02-27] MEDS: lamoTRIgine 25 MG TABLET 75 MG PO ×3 (09:12→20:31)
[2024-02-27] MEDS: risperiDONE 2 MG TABLET PO (09:12)
[2024-02-27 09:14] VITALS: BP 96/62
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
[2024-02-27] MEDS: polyethylene glycoL 3350 17 GM POWD.PACK PO (14:55)
[2024-02-27] MEDS: OLANZapine 5 MG TABLET PO (14:56)
[2024-02-27] MEDS: cloZAPine 100 MG TABLET 300 MG PO (20:31)
[2024-02-27] MEDS: Lithium Carbonate ER 300 MG TABLET.ER 600 MG PO (20:31)
[2024-02-27] MEDS: risperiDONE 2 MG TABLET 4 MG PO (20:31)
[2024-02-27] MEDS: traZODone HCL 50 MG TABLET PO (20:31)
[2024-02-27] MEDS: hydrOXYzine HCL 25 MG TABLET PO (20:32)
[2024-02-27 21:52] VITALS: BP 121/67; PULSE 103; TEMP 37; O2SAT 98
[2024-02-28 08:00] VITALS: BP 101/66; PULSE 87; RESP 16; TEMP 36.8; O2SAT 98
[2024-02-28] MEDS: lamoTRIgine 25 MG TABLET 75 MG PO ×3 (08:48→21:12)
[2024-02-28] MEDS: risperiDONE 2 MG TABLET PO (08:48)
[2024-02-28] MEDS: Metoprolol Succinate ER 100 MG TAB.ER.24H PO (08:48)
[2024-02-28] MEDS: amLODIPine Besylate 5 MG TABLET PO (08:48)
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
[2024-02-28 20:00] VITALS: BP 105/71; PULSE 72; RESP 16; TEMP 36.9; O2SAT 97
[2024-02-28] MEDS: risperiDONE 2 MG TABLET 4 MG PO (21:11)
[2024-02-28] MEDS: Lithium Carbonate ER 300 MG TABLET.ER 600 MG PO (21:11)
[2024-02-28] MEDS: Sennosides/Docusate Sodium TABLET 2 TAB PO (21:11)
[2024-02-28] MEDS: cloZAPine 100 MG TABLET 300 MG PO (21:11)
[2024-02-28] MEDS: cloZAPine 25 MG TABLET 50 MG PO (21:12)
[2024-02-29 09:06] VITALS: BP 101/62; PULSE 80; RESP 16; TEMP 37.2; O2SAT 98
[2024-02-29] MEDS: lamoTRIgine 25 MG TABLET 75 MG PO ×3 (09:06→20:55)
[2024-02-29] MEDS: amLODIPine Besylate 5 MG TABLET PO (09:06)
[2024-02-29 09:07] VITALS: BP 101/62
[2024-02-29] MEDS: Metoprolol Succinate ER 100 MG TAB.ER.24H PO (09:07)
[2024-02-29] MEDS: cloZAPine 25 MG TABLET 50 MG PO ×2 (09:07→20:55)
[2024-02-29] MEDS: risperiDONE 2 MG TABLET PO (09:07)
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
[2024-02-29 20:00] VITALS: BP 108/74; PULSE 69; RESP 16; TEMP 37.1; O2SAT 97
[2024-02-29] MEDS: Sennosides/Docusate Sodium TABLET 2 TAB PO (20:55)
[2024-02-29] MEDS: cloZAPine 100 MG TABLET 300 MG PO (20:55)
[2024-02-29] MEDS: risperiDONE 2 MG TABLET 4 MG PO (20:55)
[2024-02-29] MEDS: Lithium Carbonate ER 300 MG TABLET.ER 600 MG PO (20:55)
[2024-02-29] MEDS: polyethylene glycoL 3350 17 GM POWD.PACK PO (21:01)
[2024-03-01 07:34] VITALS: PULSE 81; RESP 16; TEMP 37.1; O2SAT 100
[2024-03-01 08:53] VITALS: BP 102/66
[2024-03-01] MEDS: amLODIPine Besylate 5 MG TABLET PO (08:53)
[2024-03-01] MEDS: lamoTRIgine 25 MG TABLET 75 MG PO ×3 (08:53→20:33)
[2024-03-01 08:54] VITALS: BP 102/66; PULSE 82
[2024-03-01] MEDS: risperiDONE 2 MG TABLET PO (08:54)
[2024-03-01] MEDS: cloZAPine 25 MG TABLET 50 MG PO ×2 (08:54→20:33)
[2024-03-01] MEDS: Metoprolol Succinate ER 100 MG TAB.ER.24H PO (08:54)
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
[2024-03-01] MEDS: polyethylene glycoL 3350 17 GM POWD.PACK PO (13:54)
[2024-03-01] MEDS: Psyllium seed 3.7 GM PACKET PO (19:25)
[2024-03-01 20:00] VITALS: BP 121/73; PULSE 75; RESP 16; TEMP 36.9; O2SAT 98
[2024-03-01] MEDS: Sennosides/Docusate Sodium TABLET 2 TAB PO (20:32)
[2024-03-01] MEDS: risperiDONE 2 MG TABLET 4 MG PO (20:32)
[2024-03-01] MEDS: Lithium Carbonate ER 300 MG TABLET.ER 600 MG PO (20:32)
[2024-03-01] MEDS: cloZAPine 100 MG TABLET 300 MG PO (20:33)
[2024-03-02 08:46] VITALS: BP 93/57; PULSE 75; RESP 18; TEMP 36.7; O2SAT 100
[2024-03-02 08:58] VITALS: BP 93/57; PULSE 75
[2024-03-02] MEDS: Metoprolol Succinate ER 100 MG TAB.ER.24H PO (08:58)
[2024-03-02] MEDS: amLODIPine Besylate 5 MG TABLET PO (08:58)
[2024-03-02] MEDS: cloZAPine 25 MG TABLET 50 MG PO ×2 (08:58→21:03)
[2024-03-02] MEDS: lamoTRIgine 25 MG TABLET 75 MG PO ×3 (08:58→21:03)
[2024-03-02] MEDS: risperiDONE 2 MG TABLET PO (08:58)
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
[2024-03-02 20:00] VITALS: BP 114/62; PULSE 86; RESP 18; TEMP 36.9; O2SAT 99
[2024-03-02] MEDS: risperiDONE 2 MG TABLET 4 MG PO (21:03)
[2024-03-02] MEDS: cloZAPine 100 MG TABLET 300 MG PO (21:03)
[2024-03-02] MEDS: Sennosides/Docusate Sodium TABLET 2 TAB PO (21:03)
[2024-03-02] MEDS: Lithium Carbonate ER 300 MG TABLET.ER 600 MG PO (21:03)
[2024-03-03 08:00] VITALS: BP 92/63; PULSE 84; RESP 16; TEMP 36.8; O2SAT 98
[2024-03-03] MEDS: lamoTRIgine 25 MG TABLET 75 MG PO ×3 (08:46→21:42)
[2024-03-03] MEDS: cloZAPine 25 MG TABLET 50 MG PO ×2 (08:46→21:41)
[2024-03-03] MEDS: risperiDONE 2 MG TABLET PO (08:47)
[2024-03-03 08:48] VITALS: BP 130/57
[2024-03-03 11:09] LABS: Neut%MD 54.6 %; Neutrophils Absolute Auto 4.2 x10*3/uL (2.0-8.3); WBCANC 7.8 X10*3/uL
[2024-03-03 11:34] LABS: Anion Gap 13 (12-20); Blood Urea Nitrogen 18 mg/dL (9-16); Calcium 10.1 mg/dL (8.4-10.2); Carbon Dioxide 25 mmol/L (22-29); Chloride 109 mmol/L (96-108); Creatinine Clr Calc Pharmacy 81.1; Estimated Glomerular Filt Rate > 60; Glucose Random 107 mg/dL (60-115); Potassium 3.7 mmol/L (3.3-5.1); Sodium 143 mmol/L (135-145)
[2024-03-03 11:41] VITALS: BP 117/71
[2024-03-03] MEDS: Metoprolol Succinate ER 100 MG TAB.ER.24H PO (11:41)
[2024-03-03] MEDS: amLODIPine Besylate 5 MG TABLET PO (11:41)
[2024-03-03 11:52] LABS: TSH reflex Free T4 1.75 uIU/mL (0.32-4.0)
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
[2024-03-03 20:00] VITALS: BP 128/81; PULSE 70; RESP 16; TEMP 36.6; O2SAT 98
[2024-03-03] MEDS: cloZAPine 100 MG TABLET 300 MG PO (21:41)
[2024-03-03] MEDS: Sennosides/Docusate Sodium TABLET 2 TAB PO (21:42)
[2024-03-03] MEDS: risperiDONE 2 MG TABLET 4 MG PO (21:42)
[2024-03-03] MEDS: Lithium Carbonate ER 300 MG TABLET.ER 600 MG PO (21:42)
[2024-03-04 05:19] LABS: Clozapine (Clozaril) 335 mcg/L; Norclozapine 298 mcg/L (25-400)
[2024-03-04 08:42] VITALS: BP 116/73; PULSE 80; RESP 16; TEMP 36.6; O2SAT 98
[2024-03-04 08:52] VITALS: BP 116/73; PULSE 80
[2024-03-04] MEDS: Metoprolol Succinate ER 100 MG TAB.ER.24H PO (08:52)
[2024-03-04] MEDS: risperiDONE 2 MG TABLET PO (08:52)
[2024-03-04 08:53] VITALS: BP 116/73
[2024-03-04] MEDS: amLODIPine Besylate 5 MG TABLET PO (08:53)
[2024-03-04] MEDS: polyethylene glycoL 3350 17 GM POWD.PACK PO (08:53)
[2024-03-04] MEDS: cloZAPine 25 MG TABLET 50 MG PO ×2 (08:53→21:27)
[2024-03-04] MEDS: lamoTRIgine 25 MG TABLET 75 MG PO ×3 (08:53→21:28)
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
[2024-03-04 20:00] VITALS: BP 107/74; PULSE 70; RESP 18; TEMP 36.6; O2SAT 98
[2024-03-04] MEDS: Sennosides/Docusate Sodium TABLET 2 TAB PO (21:27)
[2024-03-04] MEDS: cloZAPine 100 MG TABLET 300 MG PO (21:27)
[2024-03-04] MEDS: risperiDONE 2 MG TABLET 4 MG PO (21:28)
[2024-03-04] MEDS: Lithium Carbonate ER 300 MG TABLET.ER 600 MG PO (21:28)
[2024-03-05 07:00] VITALS: BMI 25.9
[2024-03-05 08:29] VITALS: BP 99/65; PULSE 87; RESP 16; TEMP 36.9; O2SAT 98
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
[2024-03-05 08:59] VITALS: BP 99/65; PULSE 87
[2024-03-05] MEDS: lamoTRIgine 25 MG TABLET 75 MG PO ×3 (08:59→21:31)
[2024-03-05] MEDS: Metoprolol Succinate ER 100 MG TAB.ER.24H PO (08:59)
[2024-03-05] MEDS: amLODIPine Besylate 5 MG TABLET PO (08:59)
[2024-03-05] MEDS: cloZAPine 25 MG TABLET 50 MG PO ×2 (09:00→21:31)
[2024-03-05] MEDS: risperiDONE 2 MG TABLET PO (09:00)
[2024-03-05 20:00] VITALS: BP 150/85; PULSE 90; RESP 16; TEMP 36.7; O2SAT 98
[2024-03-05] MEDS: cloZAPine 100 MG TABLET 300 MG PO (21:31)
[2024-03-05] MEDS: Sennosides/Docusate Sodium TABLET 2 TAB PO (21:31)
[2024-03-05] MEDS: Lithium Carbonate ER 300 MG TABLET.ER 600 MG PO (21:31)
[2024-03-05] MEDS: risperiDONE 2 MG TABLET 4 MG PO (21:32)
[2024-03-06 08:00] VITALS: BP 90/63; PULSE 78; RESP 16; TEMP 37.1; O2SAT 98
[2024-03-06] MEDS: cloZAPine 25 MG TABLET 50 MG PO ×2 (08:33→21:28)
[2024-03-06] MEDS: risperiDONE 2 MG TABLET PO (08:34)
[2024-03-06] MEDS: lamoTRIgine 25 MG TABLET 75 MG PO ×3 (08:34→21:28)
[2024-03-06 08:37] VITALS: BP 90/63
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
[2024-03-06 19:16] VITALS: BP 114/72; PULSE 108; TEMP 36.8; O2SAT 98
[2024-03-06] MEDS: cloZAPine 100 MG TABLET 300 MG PO (21:27)
[2024-03-06] MEDS: Sennosides/Docusate Sodium TABLET 2 TAB PO (21:28)
[2024-03-06] MEDS: Lithium Carbonate ER 300 MG TABLET.ER 600 MG PO (21:28)
[2024-03-06] MEDS: risperiDONE 2 MG TABLET 4 MG PO (21:28)
[2024-03-07 08:00] VITALS: BP 106/67; PULSE 98; RESP 16; TEMP 37.1; O2SAT 99
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
[2024-03-07] MEDS: Metoprolol Succinate ER 100 MG TAB.ER.24H PO (10:03)
[2024-03-07] MEDS: cloZAPine 25 MG TABLET 50 MG PO ×2 (10:03→20:47)
[2024-03-07] MEDS: lamoTRIgine 25 MG TABLET 75 MG PO ×3 (10:04→20:47)
[2024-03-07] MEDS: risperiDONE 2 MG TABLET PO (10:08)
[2024-03-07] MEDS: amLODIPine Besylate 5 MG TABLET PO (10:08)
[2024-03-07] MEDS: hydrOXYzine HCL 25 MG TABLET PO (10:08)
[2024-03-07 20:00] VITALS: BP 120/81; PULSE 82; RESP 16; TEMP 36.9; O2SAT 99
[2024-03-07] MEDS: risperiDONE 2 MG TABLET 4 MG PO (20:47)
[2024-03-07] MEDS: cloZAPine 100 MG TABLET 300 MG PO (20:47)
[2024-03-07] MEDS: Sennosides/Docusate Sodium TABLET 2 TAB PO (20:48)
[2024-03-07] MEDS: Lithium Carbonate ER 300 MG TABLET.ER 600 MG PO (20:48)
[2024-03-08 08:00] VITALS: BP 104/71; PULSE 74; RESP 16; TEMP 36.9; O2SAT 99
[2024-03-08] MEDS: lamoTRIgine 25 MG TABLET 75 MG PO ×3 (08:55→21:10)
[2024-03-08] MEDS: risperiDONE 2 MG TABLET PO (08:55)
[2024-03-08] MEDS: cloZAPine 25 MG TABLET 50 MG PO ×2 (08:56→21:11)
[2024-03-08] MEDS: Metoprolol Succinate ER 100 MG TAB.ER.24H PO (08:56)
[2024-03-08] MEDS: amLODIPine Besylate 5 MG TABLET PO (08:56)
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
[2024-03-08 20:00] VITALS: BP 110/74; PULSE 78; RESP 16; TEMP 37; O2SAT 98
[2024-03-08] MEDS: Lithium Carbonate ER 300 MG TABLET.ER 600 MG PO (21:10)
[2024-03-08] MEDS: cloZAPine 100 MG TABLET 300 MG PO (21:10)
[2024-03-08] MEDS: Sennosides/Docusate Sodium TABLET 2 TAB PO (21:10)
[2024-03-08] MEDS: risperiDONE 2 MG TABLET 4 MG PO (21:11)
[2024-03-08] MEDS: hydrOXYzine HCL 25 MG TABLET PO (21:11)
[2024-03-09 09:12] VITALS: BP 111/83; PULSE 83; RESP 20; TEMP 36.4; O2SAT 97
[2024-03-09] MEDS: lamoTRIgine 25 MG TABLET 75 MG PO ×3 (09:18→20:19)
[2024-03-09 09:19] VITALS: BP 111/83
[2024-03-09] MEDS: amLODIPine Besylate 5 MG TABLET PO (09:19)
[2024-03-09 09:20] VITALS: BP 111/83; PULSE 83
[2024-03-09] MEDS: Metoprolol Succinate ER 100 MG TAB.ER.24H PO (09:20)
[2024-03-09] MEDS: hydrOXYzine HCL 25 MG TABLET PO ×2 (09:20→20:20)
[2024-03-09] MEDS: cloZAPine 25 MG TABLET 50 MG PO ×2 (09:20→20:20)
[2024-03-09] MEDS: risperiDONE 2 MG TABLET PO (09:21)
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
[2024-03-09 19:54] VITALS: BP 124/81; PULSE 76; RESP 18; TEMP 37.1; O2SAT 98
[2024-03-09] MEDS: Lithium Carbonate ER 300 MG TABLET.ER 600 MG PO (20:19)
[2024-03-09] MEDS: risperiDONE 2 MG TABLET 4 MG PO (20:20)
[2024-03-09] MEDS: Sennosides/Docusate Sodium TABLET 2 TAB PO (20:20)
[2024-03-09] MEDS: cloZAPine 100 MG TABLET 300 MG PO (20:20)
[2024-03-09] MEDS: traZODone HCL 50 MG TABLET PO (20:20)
[2024-03-10 07:52] VITALS: BP 110/67; PULSE 79; RESP 16; TEMP 36.8; O2SAT 98
[2024-03-10] MEDS: cloZAPine 25 MG TABLET 50 MG PO ×2 (08:36→20:49)
[2024-03-10] MEDS: hydrOXYzine HCL 25 MG TABLET PO ×2 (08:36→20:50)
[2024-03-10] MEDS: risperiDONE 2 MG TABLET PO ×2 (08:36→20:50)
[2024-03-10] MEDS: amLODIPine Besylate 5 MG TABLET PO (08:37)
[2024-03-10] MEDS: lamoTRIgine 25 MG TABLET 75 MG PO ×3 (08:37→20:51)
[2024-03-10] MEDS: Metoprolol Succinate ER 100 MG TAB.ER.24H PO (08:37)
[2024-03-10 08:59] LABS: Neut%MD 60.2 %; Neutrophils Absolute Auto 5.8 x10*3/uL (2.0-8.3); WBCANC 9.6 X10*3/uL
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
[2024-03-10 20:00] VITALS: BP 116/83; PULSE 92; RESP 18; TEMP 36.8; O2SAT 98
[2024-03-10] MEDS: cloZAPine 100 MG TABLET 300 MG PO (20:49)
[2024-03-10] MEDS: Sennosides/Docusate Sodium TABLET 2 TAB PO (20:49)
[2024-03-10] MEDS: Lithium Carbonate ER 300 MG TABLET.ER 600 MG PO (20:50)
[2024-03-10] MEDS: risperiDONE 2 MG TABLET 4 MG PO (20:51)
[2024-03-11 08:00] VITALS: BP 114/74; PULSE 75; RESP 18; TEMP 36.7; O2SAT 98
[2024-03-11 08:42] VITALS: BP 114/74; PULSE 75
[2024-03-11] MEDS: Metoprolol Succinate ER 100 MG TAB.ER.24H PO (08:42)
[2024-03-11 08:43] VITALS: BP 114/74
[2024-03-11] MEDS: hydrOXYzine HCL 25 MG TABLET PO ×2 (08:43→21:11)
[2024-03-11] MEDS: lamoTRIgine 25 MG TABLET 75 MG PO ×3 (08:43→21:12)
[2024-03-11] MEDS: amLODIPine Besylate 5 MG TABLET PO (08:43)
[2024-03-11] MEDS: risperiDONE 2 MG TABLET PO (08:49)
[2024-03-11] MEDS: cloZAPine 25 MG TABLET 50 MG PO ×2 (10:57→21:12)
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
[2024-03-11 19:42] VITALS: BP 120/79; PULSE 90; RESP 18; O2SAT 97
[2024-03-11] MEDS: Sennosides/Docusate Sodium TABLET 2 TAB PO (21:11)
[2024-03-11] MEDS: traZODone HCL 50 MG TABLET PO (21:11)
[2024-03-11] MEDS: risperiDONE 2 MG TABLET 4 MG PO (21:11)
[2024-03-11] MEDS: Lithium Carbonate ER 300 MG TABLET.ER 600 MG PO (21:12)
[2024-03-11] MEDS: cloZAPine 100 MG TABLET 300 MG PO (21:12)
[2024-03-12 08:36] VITALS: BP 98/63; PULSE 80; RESP 16; TEMP 36.7; O2SAT 100
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
[2024-03-12 11:39] VITALS: BP 98/63; PULSE 80
[2024-03-12] MEDS: amLODIPine Besylate 5 MG TABLET PO (11:39)
[2024-03-12] MEDS: hydrOXYzine HCL 25 MG TABLET PO ×2 (11:39→21:42)
[2024-03-12] MEDS: lamoTRIgine 25 MG TABLET 75 MG PO ×3 (11:39→21:43)
[2024-03-12] MEDS: cloZAPine 25 MG TABLET 50 MG PO ×2 (11:39→21:42)
[2024-03-12] MEDS: Metoprolol Succinate ER 100 MG TAB.ER.24H PO (11:39)
[2024-03-12] MEDS: risperiDONE 2 MG TABLET PO (11:40)
[2024-03-12 19:41] VITALS: BP 104/68; PULSE 90; RESP 16; TEMP 36.8; O2SAT 98
[2024-03-12] MEDS: cloZAPine 100 MG TABLET 300 MG PO (21:42)
[2024-03-12] MEDS: risperiDONE 2 MG TABLET 4 MG PO (21:43)
[2024-03-12] MEDS: Lithium Carbonate ER 300 MG TABLET.ER 600 MG PO (21:43)
[2024-03-12] MEDS: Sennosides/Docusate Sodium TABLET 2 TAB PO (21:43)
--- NOTE | 2024-03-13 | ECG_ITS ---
Test Reason : qtc Blood Pressure : / mmHG Vent. Rate : 080 BPM Atrial Rate : 080 BPM P-R Int : 170 ms QRS Dur : 102 ms QT Int : 408 ms P-R-T Axes : 048 044 027 degrees QTc Int : 470 ms Sinus rhythm with frequent Premature ventricular complexes Nonspecific T wave abnormality Prolonged QT Abnormal ECG When compared with ECG of 26-FEB-2024 07:49, Nonspecific T wave abnormality has replaced inverted T waves in Lateral leads Referred By: Francis Burgos Electronically Signed By:JOJO DUNCAN
[2024-03-13 08:00] VITALS: BP 104/69; PULSE 62; RESP 19; TEMP 36.9; O2SAT 100
[2024-03-13 09:04] VITALS: BP 104/69
[2024-03-13] MEDS: amLODIPine Besylate 5 MG TABLET PO (09:04)
[2024-03-13] MEDS: cloZAPine 25 MG TABLET 50 MG PO ×2 (09:04→21:18)
[2024-03-13 09:05] VITALS: PULSE 62
[2024-03-13] MEDS: risperiDONE 2 MG TABLET PO (09:05)
[2024-03-13] MEDS: Metoprolol Succinate ER 100 MG TAB.ER.24H PO (09:05)
[2024-03-13] MEDS: lamoTRIgine 25 MG TABLET 75 MG PO ×3 (09:06→21:19)
[2024-03-13] MEDS: hydrOXYzine HCL 25 MG TABLET PO ×2 (09:06→21:19)
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
[2024-03-13 20:00] VITALS: BP 141/94; PULSE 78; RESP 16; TEMP 36.9; O2SAT 100
[2024-03-13] MEDS: cloZAPine 100 MG TABLET 300 MG PO (21:16)
[2024-03-13] MEDS: Lithium Carbonate ER 300 MG TABLET.ER 600 MG PO (21:17)
[2024-03-13] MEDS: Sennosides/Docusate Sodium TABLET 2 TAB PO (21:17)
[2024-03-13] MEDS: risperiDONE 2 MG TABLET 4 MG PO (21:18)
[2024-03-14 08:00] VITALS: BP 104/72; PULSE 72; RESP 16; TEMP 36.8; O2SAT 99
[2024-03-14] MEDS: hydrOXYzine HCL 25 MG TABLET PO ×2 (08:36→21:13)
[2024-03-14] MEDS: lamoTRIgine 25 MG TABLET 75 MG PO ×3 (08:36→21:12)
[2024-03-14] MEDS: risperiDONE 2 MG TABLET PO (08:36)
[2024-03-14] MEDS: amLODIPine Besylate 5 MG TABLET PO (08:37)
[2024-03-14] MEDS: Metoprolol Succinate ER 100 MG TAB.ER.24H PO (08:37)
[2024-03-14] MEDS: cloZAPine 25 MG TABLET 50 MG PO ×2 (08:37→21:12)
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
[2024-03-14 20:00] VITALS: BP 140/96; PULSE 85; RESP 16; TEMP 37.3; O2SAT 97
[2024-03-14] MEDS: risperiDONE 2 MG TABLET 4 MG PO (21:11)
[2024-03-14] MEDS: cloZAPine 100 MG TABLET 300 MG PO (21:12)
[2024-03-14] MEDS: Lithium Carbonate ER 300 MG TABLET.ER 600 MG PO (21:12)
[2024-03-14] MEDS: Sennosides/Docusate Sodium TABLET 2 TAB PO (21:12)
[2024-03-15 08:00] VITALS: BP 94/55; PULSE 79; RESP 16; TEMP 36.8; O2SAT 99
[2024-03-15 09:04] VITALS: BP 113/78
[2024-03-15] MEDS: Metoprolol Succinate ER 100 MG TAB.ER.24H PO (09:04)
[2024-03-15] MEDS: cloZAPine 25 MG TABLET 50 MG PO ×2 (09:04→21:04)
[2024-03-15] MEDS: hydrOXYzine HCL 25 MG TABLET PO ×2 (09:04→21:04)
[2024-03-15] MEDS: risperiDONE 2 MG TABLET PO (09:04)
[2024-03-15] MEDS: lamoTRIgine 25 MG TABLET 75 MG PO ×3 (09:04→21:04)
[2024-03-15] MEDS: amLODIPine Besylate 5 MG TABLET PO (09:04)
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
[2024-03-15 20:00] VITALS: BP 112/78; PULSE 90; RESP 18; TEMP 37; O2SAT 98
[2024-03-15] MEDS: traZODone HCL 50 MG TABLET PO (21:03)
[2024-03-15] MEDS: Lithium Carbonate ER 300 MG TABLET.ER 600 MG PO (21:04)
[2024-03-15] MEDS: risperiDONE 2 MG TABLET 4 MG PO (21:04)
[2024-03-15] MEDS: Sennosides/Docusate Sodium TABLET 2 TAB PO (21:04)
[2024-03-15] MEDS: cloZAPine 100 MG TABLET 300 MG PO (21:04)
[2024-03-16 09:28] VITALS: BP 107/70; PULSE 79; RESP 16; TEMP 36.7; O2SAT 99
[2024-03-16 09:29] VITALS: BP 107/70
[2024-03-16] MEDS: cloZAPine 25 MG TABLET 50 MG PO (09:29)
[2024-03-16] MEDS: hydrOXYzine HCL 25 MG TABLET PO (09:29)
[2024-03-16] MEDS: amLODIPine Besylate 5 MG TABLET PO (09:29)
[2024-03-16] MEDS: lamoTRIgine 25 MG TABLET 75 MG PO (09:29)
[2024-03-16 09:30] VITALS: BP 107/70; PULSE 79
[2024-03-16] MEDS: polyethylene glycoL 3350 17 GM POWD.PACK PO (09:30)
[2024-03-16] MEDS: Metoprolol Succinate ER 100 MG TAB.ER.24H PO (09:30)
[2024-03-16] MEDS: risperiDONE 2 MG TABLET PO (09:30)
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
== END 2024-03-16 12:37 | disposition home or self-care (01) | DRG 885 ==
LOC: HO.ED 14:23 → HO.PM5 02-26 11:17
PROVIDERS: Physician Assistant; Admitting Provider Clinical Nurse Specialist Psychiatric/Mental Health, Adult; Emergency Provider Emergency Medicine; PCP Internal Medicine; Visit Provider Psychiatry & Neurology Psychiatry
DX: F25.1 Schizoaffective disorder, depressive type (principal); I10 Essential (primary) hypertension; Z91.040 Latex allergy status; Z79.899 Other long term (current) drug therapy
CPT/HCPCS: 36415; 80048; 80053; 80159; 80178; 80307; 81001; 81003; 84443; 85025; 85048; 93005; 99285

== ENCOUNTER → 2024-02-26 07:49 | Outpatient (BNV) | payer MEDICARE, MEDICAID, SELFPAY | PROVIDERS: Admitting Provider Clinical Nurse Specialist Psychiatric/Mental Health, Adult; Emergency Provider Emergency Medicine; PCP Internal Medicine; Visit Provider Internal Medicine | DX: R94.31 Abnormal electrocardiogram [ECG] [EKG] (principal) | CPT/HCPCS: 93010 ==

== ENCOUNTER 2024-02-26 11:14 | Outpatient (BNV) | payer MEDICARE, MEDICAID, SELFPAY | END 2024-03-13 11:23 | PROVIDERS: Admitting Provider Clinical Nurse Specialist Psychiatric/Mental Health, Adult; Emergency Provider Emergency Medicine; PCP Internal Medicine; Visit Provider Internal Medicine | DX: I45.81 Long QT syndrome (principal) | CPT/HCPCS: 93010 ==

== ENCOUNTER → 2024-02-26 11:14 | Outpatient (BNV) | payer MEDICARE, MEDICAID, SELFPAY | PROVIDERS: Admitting Provider Clinical Nurse Specialist Psychiatric/Mental Health, Adult; Emergency Provider Emergency Medicine; PCP Internal Medicine; Visit Provider Psychiatry & Neurology Psychiatry | DX: F25.1 Schizoaffective disorder, depressive type (principal); I10 Essential (primary) hypertension | CPT/HCPCS: 90792; 99231; 99232; 99239 ==

== ENCOUNTER 2024-12-16 11:58 | Inpatient (IN) | payer MEDICARE, MEDICAID, OTHER, SELFPAY ==
[2024-12-16 12:03] VITALS: BP 138/76; PULSE 97; O2SAT 98
[2024-12-16 12:13] VITALS: BP 129/75; PULSE 108; RESP 18; TEMP 536.8; TEMP 998.3; O2SAT 97; BMI 23.4
--- NOTE | 2024-12-16 12:33 | ED_ITS ---
HPI - Psych General Chief Complaint: Psychiatric Symptoms Stated Complaint: from [facility], non med compliant, unable to care for se Time Seen by Provider: 12/16/24 12:09 Source: patient and EMS Mode of arrival: EMS Limitations: no limitations History of Present Illness ED Provider: DERRELL LUCAS Narrative: 49 yo male with PMH of HTN, IBS, elevated triglycerides, schizoaffective disorder and paranoia here with c/o feeling angry at a [facility] staff person now here with stating they lied and said he was near a school. They then report he made SI statements and he is paranoid. He refused his lamictal today. He denies SI/HI MD complaint: feels depressed and other Onset (ago): day(s) History of same: Yes Relieving factors: none Exacerbating factors: medication Context: not taking psychiatric medications Associated psychiatric symptoms: none Associated symptoms: denies other symptoms Treatments prior to arrival: placed on mental health hold Related Data Previous Rx's ?Medication ?Instructions ?Recorded clozapine 100 mg tablet 300 mg (3 x 100 mg) PO BEDTIME 30 03/16/24 days #90 tabs clozapine 50 mg tablet 50 mg PO BID 30 days #60 tabs 03/16/24 hydroxyzine HCl 25 mg tablet 25 mg PO Q6H PRN Anxiety/insomnia 03/16/24 30 days #90 tabs lamotrigine 25 mg tablet 75 mg (3 x 25 mg) PO TID 30 days 03/16/24 #270 tabs lithium carbonate 300 mg 600 mg (2 x 300 mg) PO BEDTIME 30 03/16/24 tablet,extended release days #60 tabs polyethylene glycol 3350 17 gram 17 g PO DAILY 30 days #30 ea 03/16/24 oral powder packet risperidone 2 mg tablet 2 mg PO DAILY 30 days #30 tabs 03/16/24 risperidone 4 mg tablet 4 mg PO BEDTIME 30 days #30 tabs 03/16/24 trazodone 50 mg tablet 50 mg PO BEDTIME PRN Insomnia 30 03/16/24 days #30 tabs amlodipine 5 mg tablet 5 mg PO DAILY 30 days #30 tabs 12/02/24 sennosides 8.6 mg-docusate sodium 2 tab PO BEDTIME PRN constipation 12/02/24 50 mg tablet (Senna Plus) #60 tabs Allergies Allergy/AdvReac Type Severity Reaction Status Date / Time latex Allergy Unknown swelling Verified 12/16/24 12:15 in lips penicillin V Allergy Unknown unknown Verified 12/16/24 12:15 Review of Systems 2 Review of Systems: Constitutional : No Fever, No Chills ENT/Mouth : No Ear Pain, No Nasal Congestion, No sore throat Eyes: No Eye Pain, No Swelling, No Redness Cardiovascular : No Chest Pain, No SOB Respiratory : No Cough, No Sputum, No Dyspnea Gastrointestinal : No Nausea, No Vomiting, No Diarrhea, No Hematochezia, No Melena Genitourinary : No Dysuria, No Urinary Frequency, No Hematuria Musculoskeletal : No Myalgias Skin : No Skin Lesions, No rash Neuro : No Weakness, No Numbness, No Paresthesias, No Dizziness, No Headache Psych : positive Anxiety, no Depression, no SI/HI All other systems reviewed and are negative [facility] Past Medical History Attestation statement: The following information was validated with the patient. Source: old records reviewed Medical History Schizoaffective disorder, depressive type Eczema of face Tachycardia Labile hypertension Heartburn Essential hypertension Sinus tachycardia Supine hypertension Depressive disorder Paranoid schizophrenia Eczema IBS (irritable bowel syndrome) Impaired fasting glucose Hypertriglyceridemia Surgical History No pertinent past surgical history Family History Family History Father Unknown family medical history Mother Breast cancer Maternal Grandfather No problems noted. Maternal Grandmother No problems noted. Paternal Grandfather No problems noted. Paternal Grandmother No problems noted. Brother Substance use disorder Mental health disorder Sister No problems noted. Social History Social History Household Members: Other Household Members Other:: [facility] Housing: Apartment Housing Other:: [facility] Do you presently have visiting nurse or other home services: Yes Alcohol intake: unknown Patient Tobacco Use Status: Never used Tobacco e-Cigarette/Vaping Use: Never Used Second Hand Smoke Exposure: No Substance Use Type: Marijuana Advance Directives: No Advance Directives Information Provided: Yes service: No Current occupational status: disabled Sexual orientation: Don't Know Cognitive needs: No Hearing needs: No Vision needs: Yes Physical Exam 2 Vital Signs: Vital Signs: Last Vital Signs Temp 998.3 F H 12/16/24 12:13 Pulse 108 H 12/16/24 12:13 Resp 18 12/16/24 12:13 BP 129/75 12/16/24 12:13 Pulse Ox 97 12/16/24 12:13 O2 Del Method Room Air 12/16/24 12:13 BMI result Body Mass Index 23.4 Appearance: Alert. Oriented X3. No acute distress. Eyes: Pupils equal, round and reactive to light. ENT: Pharynx normal. Neck: Normal inspection. Neck supple. CVS: Normal heart rate and rhythm. Pulses normal. Respiratory: No respiratory distress. Breath sounds normal. Abdomen: Soft and nontender. Skin: Skin warm and dry. Normal skin color. Normal skin turgor. Extremities: No lower extremity edema. No calf ttp Neuro: Oriented X 3. No motor deficit. No sensory deficit. CN2-12 intact Medical Decision Making Medical Decision Making MDM Narrative: 49 yo male with PMH of HTN, IBS, elevated triglycerides, schizoaffective disorder and paranoia here with c/o reported outpatient issues with SI, paranoia, refusing meds, also ?safety of children though unclear he has no medical complaints will refer to CARE team and medically clear Differential Diagnosis Differential Diagnoses: The differential diagnosis associated with the presentation includes schizoaffective disorder, paranoia Admission/Observation Consideration of admission/observation: Escalation of care including admission/observation considered physician observation started 1pm pending CARE team Consult Healthcare Provider Management of the patient was discussed with: Behavioral Health Provider Lab Data [facility] Lab Attestation statement: I reviewed the patient's lab results. 12/16/24 12:47 12/16/24 12:47 Labs: Lab Results 12/16/24 Range/Units 12:47 WBC 7.8 (4.8-10.8) X10*3/uL RBC 4.60 (4.60-5.80) X10*6/uL Hgb 13.7 L (14.0-18.0) g/dl Hct 37.8 L (42.0-52.0) % MCV 82.2 (80.0-98.0) fL MCH 29.8 (27.0-33.0) pg MCHC 36.2 H (31.0-36.0) g/dl RDW 12.7 (11.0-16.0) % Plt Count 180 (160-400) X10*3/uL MPV 8.9 L (9.4-12.4) fL Immature Gran % (Auto) 0.8 H (0.0-0.4) % Neut % (Auto) 71.5 (45-73) % Lymph % (Auto) 19.5 L (20-40) % [place] % (Auto) 6.4 (2-11) % Eos % (Auto) 1.2 (0-4) % Baso % (Auto) 0.6 (0-2) % Lymph # (Auto) 1.5 (1.2-4.9) X10*3/uL [place] # (Auto) 0.5 (0.1-1.2) X10*3/uL Eos # (Auto) 0.1 (0.0-0.4) X10*3/uL Baso # (Auto) 0.1 (0.0-0.2) X10*3/uL Abs Immat Gran (auto) 0.06 H (0.00-0.03) X10*3/uL Absolute Neuts (auto) 5.6 (2.0-8.3) x10*3/uL Absolute Nucleated RBC 0.000 (0.0-0.012) X10*3/uL Nucleated RBC % (auto) 0.0 (0.0-0.2) /100WBC Independent Historian Clinical information obtained from an independent historian. History obtained from or confirmed by: EMS External Record Review External record reviewed: Inpatient record and Outpatient record Discharge Plan Discharge Clinical Impression: Acute paranoia, Schizoaffective disorder Patient Disposition: Still a Patient Prescriptions: No Action amlodipine 5 mg tablet 5 mg PO DAILY 30 Days Qty: 30 0RF sennosides-docusate sodium [Senna Plus] 8.6-50 mg tablet 2 tab PO BEDTIME PRN (Reason: constipation) Qty: 60 0RF clozapine 50 mg tablet 50 mg PO BID 30 Days Qty: 60 1RF trazodone 50 mg Tablet 50 mg PO BEDTIME PRN (Reason: Insomnia) 30 Days Qty: 30 1RF polyethylene glycol 3350 17 gram Powder In Packet 17 g PO DAILY 30 Days Qty: 30 1RF Rx Instructions: hold for loose stool clozapine 100 mg tablet 300 mg PO BEDTIME 30 Days Qty: 90 0RF risperidone 4 mg tablet 4 mg PO BEDTIME 30 Days Qty: 30 1RF lithium carbonate 300 mg Tablet Extended Release 600 mg PO BEDTIME 30 Days Qty: 60 1RF lamotrigine 25 mg Tablet 75 mg PO TID 30 Days Qty: 270 1RF risperidone 2 mg tablet 2 mg PO DAILY 30 Days Qty: 30 1RF hydroxyzine HCl 25 mg Tablet 25 mg PO Q6H PRN (Reason: Anxiety/insomnia) 30 Days Qty: 90 1RF Print Language: Amharic
[2024-12-16 12:52] LABS: MANUAL DIFF FLAG NO
[2024-12-16 12:54] LABS: Basophils Absolute Auto 0.1 X10*3/uL (0.0-0.2); Basophils Percent Auto 0.6 % (0-2); Eosinophils Absolute Auto 0.1 X10*3/uL (0.0-0.4); Eosinophils Percent Auto 1.2 % (0-4); Hematocrit 37.8 % (42.0-52.0); Hemoglobin 13.7 g/dl (14.0-18.0); Imm Gran Abs Auto 0.06 X10*3/uL (0.00-0.03); Imm Gran Pct Auto 0.8 % (0.0-0.4); Lymphocytes Absolute Auto 1.5 X10*3/uL (1.2-4.9); Lymphocytes Percent Auto 19.5 % (20-40); Mean Corpuscular HGB Conc 36.2 g/dl (31.0-36.0); Mean Corpuscular Hemoglobin 29.8 pg (27.0-33.0); Mean Corpuscular Volume 82.2 fL (80.0-98.0); Mean Platelet Volume 8.9 fL (9.4-12.4); Monocytes Absolute Auto 0.5 X10*3/uL (0.1-1.2); Monocytes Percent Auto 6.4 % (2-11); Neutrophils Absolute Auto 5.6 x10*3/uL (2.0-8.3); Neutrophils Percent Auto 71.5 % (45-73); Platelet Count 180 X10*3/uL (160-400); Red Cell Distribution Width 12.7 % (11.0-16.0); White Blood Count 7.8 X10*3/uL (4.8-10.8)
[2024-12-16 13:06] LABS: Lithium 0.53 mmol/L (0.60-1.20)
[2024-12-16 13:22] LABS: Alanine Aminotransferase 16 U/L (0-40); Albumin Level 4.1 g/dL (3.5-5.0); Alkaline Phosphatase 81 U/L (39-117); Anion Gap 11 (12-20); Aspartate Amino Transferase 29 U/L (5-37); Bilirubin Direct 0.1 mg/dL (0.0-0.5); Bilirubin Total 0.3 mg/dL (0.0-1.0); Blood Urea Nitrogen 15 mg/dL (9-16); Calcium 8.8 mg/dL (8.4-10.2); Carbon Dioxide 21 mmol/L (22-29); Chloride 113 mmol/L (96-108); Estimated Glomerular Filt Rate > 60; Ethanol < 10 mg/dL; Glucose Random 180 mg/dL (60-115); Potassium 3.5 mmol/L (3.3-5.1); Sodium 141 mmol/L (135-145); Total Protein 7.1 g/dL (6.5-8.0)
[2024-12-16 13:34] LABS: TSH reflex Free T4 3.55 uIU/mL (0.32-4.0)
--- NOTE | 2024-12-16 14:11 | ECG_ITS ---
Test Reason : CHECK QT Blood Pressure : */* mmHG Vent. Rate : 86 BPM Atrial Rate : 86 BPM P-R Int : 174 ms QRS Dur : 100 ms QT Int : 402 ms P-R-T Axes : 43 43 9 degrees QTcB Int : 481 ms Sinus rhythm with sinus arrhythmia with frequent Premature ventricular complexes Prolonged QT Abnormal ECG When compared with ECG of 13-Mar-2024 11:23, No significant change was found Referred By: Manjula Metcalf Electronically Signed By: Delio Cruz
--- NOTE | 2024-12-16 14:14 | MHC.CARE ---
Pt seen by [facility] in community, will be inpatient bed search.
--- NOTE | 2024-12-16 14:33 | PC.NURSE ---
med rec completed with pharmacy fill records and with confirmation by pt. per pt, lamictal was changed to 100mg BID rather than 75mg TID. pharmacy records confirm this.
[2024-12-16 15:08] LABS: Appearance Urine Clear; Color Urine Yellow; Glucose Urine UA Negative (Negative); Leukocyte Esterase Urine Negative (Negative); Nitrite Urine Negative (Negative); PH 7.5 (5.0-9.0); Specific Gravity - Urine 1.015 (1.005-1.025); Urine Blood Negative (Negative); Urine Ketones Negative (Negative); Urine Protein Negative (Neg-Trace)
[2024-12-16 15:17] LABS: Amphetamine Screen Urine Not Detected (Not Detect); Barbiturates, Urine Not Detected (Not Detect); Benzodiazepines Screen Urine Not Detected (Not Detect); Buprenorphine Scr Not Detected (Not Detect); Cannabinoid Screen Urine Not Detected (Not Detect); Cocaine Screen Urine Not Detected (Not Detect); Fentanyl, urine Not Detected (Not Detect); Methadone Screen, Urine Not Detected (Not Detect); Opiate Screen Urine Not Detected (Not Detect); Oxycodone Screen Urine Not Detected (Not Detect); Phencyclidine Screen Urine Not Detected (Not Detect)
--- NOTE | 2024-12-16 19:03 | PC.NURSE ---
this rn assumed care of pt, pt resting in bed, no acute distress noted. pt offers no complaints at this time.
[2024-12-16] MEDS: lamoTRIgine 100 MG TABLET PO (21:15)
[2024-12-16] MEDS: Lithium Carbonate ER 300 MG TABLET.ER 600 MG PO (21:15)
[2024-12-16] MEDS: risperiDONE 2 MG TABLET 4 MG PO (21:15)
--- NOTE | 2024-12-16 21:22 | PC.NURSE ---
pt medicated per nov, pt tolerated well. pharmacy to bring up medications not available in [facility].
[2024-12-16] MEDS: cloZAPine 25 MG TABLET 50 MG PO (21:34)
[2024-12-16] MEDS: cloZAPine 100 MG TABLET 300 MG PO (21:34)
--- NOTE | 2024-12-16 22:17 | PC.NURSE ---
verbal report given to Halina MENENDEZ, pt escorted to M3 with security.
[2024-12-16 22:30] VITALS: BP 143/94; PULSE 70; RESP 16; TEMP 36.4; O2SAT 99
[2024-12-17 00:06] VITALS: BMI 25.7
--- NOTE | 2024-12-17 02:58 | PC.ADMIT ---
Kishan Macias, 49 years old male with PMH of HTN, IBS, elevated triglycerides, a paranoia and schizoaffective disorder, presented to the ED with complaints of feeling angry at a prison staff and made some SI statements. Pt arrived on M[facility] unit at 22:20 with admitting diagnosis of Schizoaffective disorder. Pt is alert and oriented x4, on a 12B. No visible skin issues noticed. VSS. Pt is calm, pleasant, and complaint with admission process. pt endorses depression. Pt denied SI/HI/VH but endorses AH, stating I always hear voices but in a positive way. They are very beneficial to me.They are like angels Pt contracted for safety, ambulates independently with steady gait. Pt denied pain. pt's belongings inventoried and secured.
[2024-12-17 07:35] VITALS: BP 97/63; PULSE 74; RESP 16; TEMP 36.8; O2SAT 98
[2024-12-17] MEDS: cloZAPine 25 MG TABLET 50 MG PO ×2 (08:47→20:53)
[2024-12-17] MEDS: lamoTRIgine 100 MG TABLET PO (08:48)
[2024-12-17] MEDS: risperiDONE 2 MG TABLET PO (08:48)
[2024-12-17 08:49] VITALS: BP 110/71
[2024-12-17] MEDS: amLODIPine Besylate 5 MG TABLET PO (08:49)
[2024-12-17 09:07] LABS: Estimated Average Glucose 91 mg/dL; Hemoglobin A1C 101.8161 umol/L; Hemoglobin A1c % 4.8 % (<6.0); Total Hemoglobin (HGBA1C) 3572.9873 umol/L
[2024-12-17 10:12] LABS: Vitamin B12 464 pg/mL (200-900)
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
--- NOTE | 2024-12-17 14:16 | MHC.CLN ---
re; consult pt reports -# wt loss upon admission current wt 83.6kg (12/17/24) previous wt 86.3kg (12/19/23) pt with 3% nonsignificant wt loss x 1 year wt within ibw range BMI normal regular diet continue current care plan
[2024-12-17 16:36] VITALS: BP 120/79
[2024-12-17 16:38] VITALS: PULSE 89
[2024-12-17] MEDS: Metoprolol Succinate ER 100 MG TAB.ER.24H PO (16:38)
[2024-12-17 19:29] VITALS: BP 112/76; PULSE 84; RESP 16; TEMP 37.4; O2SAT 98
[2024-12-17] MEDS: Lithium Carbonate ER 300 MG TABLET.ER 600 MG PO (20:53)
[2024-12-17] MEDS: cloZAPine 100 MG TABLET 300 MG PO (20:53)
[2024-12-17] MEDS: lamoTRIgine 25 MG TABLET 50 MG PO (20:53)
[2024-12-17] MEDS: risperiDONE 2 MG TABLET 4 MG PO (20:53)
[2024-12-18 07:35] VITALS: BP 90/67; PULSE 70; RESP 16; TEMP 36.6; O2SAT 98
[2024-12-18 08:33] LABS: Cholesterol 156 mg/dL (<200); HDL Cholesterol 36 mg/dL (>40); LDL Cholesterol Calculated 88 mg/dL (<100); Magnesium 2.1 mg/dL (1.6-2.6); Triglycerides 163 mg/dL (<150)
[2024-12-18] MEDS: cloZAPine 25 MG TABLET 50 MG PO ×2 (08:40→21:10)
[2024-12-18] MEDS: lamoTRIgine 25 MG TABLET 50 MG PO ×2 (08:41→21:09)
[2024-12-18] MEDS: risperiDONE 2 MG TABLET PO (08:41)
[2024-12-18 08:42] VITALS: BP 102/58; PULSE 81
[2024-12-18] MEDS: Metoprolol Succinate ER 100 MG TAB.ER.24H PO (08:42)
[2024-12-18] MEDS: amLODIPine Besylate 5 MG TABLET PO (08:42)
[2024-12-18 08:51] LABS: Free T4 (Free Thyroxine) 1.04 ng/dL (0.71-1.85); Thyroid Stimulating Hormone 3.92 uIU/mL (0.32-4.0)
--- NOTE | 2024-12-18 12:22 | P.PNPSI_ITS ---
Subjective Subjective Date of Service: 12/18/24 Reason For Visit: Schizoaffective Disorder Interim History: calm, cooperative, pleasant. agreeable to increase lamictal over w/e. agreeable to have clozaril level checked. signed CV. per staff, 12b up 24th. taking meds. slept 8 hours. Mental Status Exam Mental Status Exam Narrative: calm, cooperative. adequately dressed and groomed. PMR. speech nml in rate, amount, loudness, tone, latency. thoughts linear and logical. affect constricted, normo-intense, non-labile. mood not assessed. no SI/SIBI/HI/AVH expressed. Diagnostics Vital Signs (24Hr): Vital Signs - 24 hr 12/17/24 16:36 12/17/24 16:38 12/17/24 19:29 Temperature 99.3 F Pulse Rate 89 84 Respiratory Rate 16 Blood Pressure 120/79 112/76 Pulse Oximetry 98 Oxygen Delivery Method Room Air 12/18/24 07:35 12/18/24 08:42 Temperature 97.8 F Pulse Rate 70 81 Respiratory Rate 16 Blood Pressure 90/67 102/58 L Pulse Oximetry 98 Oxygen Delivery Method Room Air BMI result Body Mass Index 25.7 Labs 12/16/24 12:47 12/16/24 12:47 Labs: Laboratory Results - last 48 hr 12/16/24 12/16/24 12/17/24 12:47 14:58 08:18 WBC 7.8 RBC 4.60 Hgb 13.7 L Hct 37.8 L MCV 82.2 MCH 29.8 MCHC 36.2 H RDW 12.7 Plt Count 180 MPV 8.9 L Immature Gran % (Auto) 0.8 H Neut % (Auto) 71.5 Lymph % (Auto) 19.5 L [place] % (Auto) 6.4 Eos % (Auto) 1.2 Baso % (Auto) 0.6 Lymph # (Auto) 1.5 [place] # (Auto) 0.5 Eos # (Auto) 0.1 Baso # (Auto) 0.1 Abs Immat Gran (auto) 0.06 H Absolute Neuts (auto) 5.6 Absolute Nucleated RBC 0.000 Nucleated RBC % (auto) 0.0 Sodium 141 Potassium 3.5 Chloride 113 H Carbon Dioxide 21 L Anion Gap 11 L BUN 15 Creatinine 0.99 Estim Creat Clear Calc 94.0 Estimated GFR > 60 Random Glucose 180 H Estimat Average Glucose 91 Hemoglobin A1c % 4.8 Calcium 8.8 D Magnesium 2.0 Total Bilirubin 0.3 Direct Bilirubin 0.1 AST 29 ALT 16 Alkaline Phosphatase 81 Total Protein 7.1 Albumin 4.1 Triglycerides Cholesterol LDL Cholesterol, Calc HDL Cholesterol Vitamin B12 464 Folate 13.0 TSH 3.55 Free T4 Urine Color Yellow Urine Appearance Clear Urine pH 7.5 Ur Specific [place] 1.015 Urine Protein Negative Urine Glucose (UA) Negative Urine Ketones Negative Urine Blood Negative Urine Nitrite Negative Ur Leukocyte Esterase Negative Urine Opiates Screen Not Detected Ur Buprenorphine Scrn Not Detected Ur Oxycodone Screen Not Detected Urine Methadone Screen Not Detected Urine Fentanyl Screen Not Detected Ur Barbiturates Screen Not Detected Ur Phencyclidine Scrn Not Detected Ur Amphetamines Screen Not Detected U Benzodiazepines Scrn Not Detected [place] 0.53 L Urine Cocaine Screen Not Detected U Marijuana (THC) Screen Not Detected Ethyl Alcohol < 10 12/18/24 07:38 WBC RBC Hgb Hct MCV MCH MCHC RDW Plt Count MPV Immature Gran % (Auto) Neut % (Auto) Lymph % (Auto) [place] % (Auto) Eos % (Auto) Baso % (Auto) Lymph # (Auto) [place] # (Auto) Eos # (Auto) Baso # (Auto) Abs Immat Gran (auto) Absolute Neuts (auto) Absolute Nucleated RBC Nucleated RBC % (auto) Sodium Potassium Chloride Carbon Dioxide Anion Gap BUN Creatinine Estim Creat Clear Calc Estimated GFR Random Glucose Estimat Average Glucose Hemoglobin A1c % Calcium Magnesium 2.1 Total Bilirubin Direct Bilirubin AST ALT Alkaline Phosphatase Total Protein Albumin Triglycerides 163 H Cholesterol 156 LDL Cholesterol, Calc 88 HDL Cholesterol 36 L Vitamin B12 Folate TSH 3.92 Free T4 1.04 Urine Color Urine Appearance Urine pH Ur Specific [place] Urine Protein Urine Glucose (UA) Urine Ketones Urine Blood Urine Nitrite Ur Leukocyte Esterase Urine Opiates Screen Ur Buprenorphine Scrn Ur Oxycodone Screen Urine Methadone Screen Urine Fentanyl Screen Ur Barbiturates Screen Ur Phencyclidine Scrn Ur Amphetamines Screen U Benzodiazepines Scrn [place] Urine Cocaine Screen U Marijuana (THC) Screen Ethyl Alcohol Medications Medications Current Medications Acetaminophen (Acetaminophen 325 Mg Tablet) 650 mg PO Q6H PRN PRN Reason: Headache/Pain, Scale 1-10 Al Hydroxide/Mg Hydroxide (Magnesium Hydrox/Alum Hydrox 30 Ml Oral.Susp) 30 ml PO Q6H PRN PRN Reason: Heartburn/Nausea Amlodipine Besylate (Amlodipine Besylate 5 Mg Tablet) 5 mg PO DAILY [facility]; Protocol Last Admin: 12/18/24 08:42 Dose: 5 mg Clozapine (Clozapine 25 Mg Tablet) 50 mg PO BID [facility] Last Admin: 12/18/24 08:40 Dose: 50 mg Clozapine (Clozapine 100 Mg Tablet) 300 mg PO BEDTIME [facility] Last Admin: 12/17/24 20:53 Dose: 300 mg Hydroxyzine HCl (Hydroxyzine Hcl 25 Mg Tablet) 25 mg PO Q6H PRN PRN Reason: Anxiety/insomnia Hydroxyzine HCl (Hydroxyzine Hcl 25 Mg Tablet) 25 mg PO Q6H PRN PRN Reason: mild anxiety Lamotrigine (Lamotrigine 25 Mg Tablet) 50 mg PO BID [facility] Stop: 12/19/24 21:01 Last Admin: 12/18/24 08:41 Dose: 50 mg Lamotrigine (Lamotrigine 25 Mg Tablet) 75 mg PO BID [facility] [place] Carbonate ([place] Carbonate Er 300 Mg Tablet.Er) 600 mg PO BEDTIME [facility] Last Admin: 12/17/24 20:53 Dose: 600 mg Magnesium Hydroxide (Milk Of Magnesia 30 Ml Oral.Susp) 30 ml PO DAILY PRN PRN Reason: Constipation Metoprolol Succinate (Metoprolol Succinate Er 100 Mg Tab.Er.24h) 100 mg PO DAILY [facility]; Protocol Last Admin: 12/18/24 08:42 Dose: 100 mg Nicotine Polacrilex (Nicotine Polacrilex 2 Mg Gum) 4 mg [place] Q2H PRN PRN Reason: Nicotine Cravings Risperidone (Risperidone 2 Mg Tablet) 2 mg PO DAILY [facility] Last Admin: 12/18/24 08:41 Dose: 2 mg Risperidone (Risperidone 2 Mg Tablet) 4 mg PO BEDTIME [facility] Last Admin: 12/17/24 20:53 Dose: 4 mg Senna/Docusate Sodium (Sennosides/Docusate Sodium Tablet) 2 tab PO BEDTIME PRN PRN Reason: constipation Trazodone HCl (Trazodone Hcl 50 Mg Tablet) 50 mg PO BEDTIME MRX1 PRN PRN Reason: Insomnia Allergies Allergies Allergy/AdvReac Type Severity Reaction Status Date / Time latex Allergy Unknown swelling Verified 12/16/24 12:15 in lips penicillin V Allergy Unknown unknown Verified 12/16/24 12:15 Assessment & Plan Assessment & Plan (1) Schizoaffective disorder, depressive type: Status: Acute Code(s): F25.1 - Schizoaffective disorder, depressive type Plan 12/17: continue clozapine 50/350, lithium 600 QHS, risperidone 2/4, and medical meds. pt had not had lamictal since saturday evening until last night had 100 and this morning had 100. will restart at 50 BID for now. stabilize, return to alf. 12/18: stable. signed CV. check clozaril level. increase lamictal to 75 BID as of saturday morning; orders have been entered. otherwise continue current mgmt. Reason for continued inpatient stay Substantial Risk for: harm to others, inability to function and rapid decompensation Time Spent With Patient Time: Total time managing care of this patient today _25___ minutes.
[2024-12-18 20:00] VITALS: BP 125/80; PULSE 72; RESP 14; TEMP 36.7; O2SAT 99
[2024-12-18] MEDS: risperiDONE 2 MG TABLET 4 MG PO (21:08)
[2024-12-18] MEDS: Lithium Carbonate ER 300 MG TABLET.ER 600 MG PO (21:08)
[2024-12-18] MEDS: cloZAPine 100 MG TABLET 300 MG PO (21:09)
[2024-12-19 08:35] VITALS: BP 131/96; PULSE 60; RESP 16; TEMP 36.4; O2SAT 99
--- NOTE | 2024-12-19 08:59 | HO.PSYCHPN ---
Subjective Subjective Date of Service: 12/19/24 Reason For Visit: Schizoaffective Disorder Interim History: Patient remains calm and cooperative. I'm doing well all things considered . Medication adherent. Says he has AH that are supportive . Some anxiety. Slept 8 hours. Denies SI. Review of Systems Review of Systems Constitutional : No Fever, No Chills ENT/Mouth : No Ear Pain, No Nasal Congestion, No sore throat Eyes: No Eye Pain, No Swelling, No Redness Cardiovascular : No Chest Pain, No SOB Respiratory : No Cough, No Sputum, No Dyspnea Gastrointestinal : No Nausea, No Vomiting, No Diarrhea, No Hematochezia, No Melena Genitourinary : No Dysuria, No Urinary Frequency, No Hematuria Musculoskeletal : No Myalgias Skin : No Skin Lesions, No rash Neuro : No Weakness, No Numbness, No Paresthesias, No Dizziness, No Headache Psych : positive Anxiety, no Depression, no SI/HI All other systems reviewed and are negative Mental Status Exam Mental Status Exam Narrative: calm, cooperative. adequately dressed and groomed. PMR. speech nml in rate, amount, loudness, tone, latency. thoughts linear and logical. affect constricted, normo-intense, non-labile. mood not assessed. no SI/SIBI/HI/AVH expressed. Diagnostics Vital Signs (24Hr): Vital Signs - 24 hr 12/18/24 20:00 12/19/24 08:35 Temperature 98.1 F 97.6 F Pulse Rate 72 60 Respiratory Rate 14 16 Blood Pressure 125/80 131/96 H Pulse Oximetry 99 99 Oxygen Delivery Method Room Air Room Air BMI result Body Mass Index 25.7 Labs 12/16/24 12:47 12/16/24 12:47 Labs: Laboratory Results - last 48 hr 12/17/24 12/18/24 08:18 07:38 Estimat Average Glucose 91 Hemoglobin A1c % 4.8 Magnesium 2.1 Triglycerides 163 H Cholesterol 156 LDL Cholesterol, Calc 88 HDL Cholesterol 36 L Vitamin B12 464 Folate 13.0 TSH 3.92 Free T4 1.04 Medications Medications Current Medications Acetaminophen (Acetaminophen 325 Mg Tablet) 650 mg PO Q6H PRN PRN Reason: Headache/Pain, Scale 1-10 Al Hydroxide/Mg Hydroxide (Magnesium Hydrox/Alum Hydrox 30 Ml Oral.Susp) 30 ml PO Q6H PRN PRN Reason: Heartburn/Nausea Amlodipine Besylate (Amlodipine Besylate 5 Mg Tablet) 5 mg PO DAILY [facility]; Protocol Last Admin: 12/18/24 08:42 Dose: 5 mg Clozapine (Clozapine 25 Mg Tablet) 50 mg PO BID [facility] Last Admin: 12/18/24 21:10 Dose: 50 mg Clozapine (Clozapine 100 Mg Tablet) 300 mg PO BEDTIME [facility] Last Admin: 12/18/24 21:09 Dose: 300 mg Hydroxyzine HCl (Hydroxyzine Hcl 25 Mg Tablet) 25 mg PO Q6H PRN PRN Reason: Anxiety/insomnia Hydroxyzine HCl (Hydroxyzine Hcl 25 Mg Tablet) 25 mg PO Q6H PRN PRN Reason: mild anxiety Lamotrigine (Lamotrigine 25 Mg Tablet) 50 mg PO BID [facility] Stop: 12/19/24 21:01 Last Admin: 12/18/24 21:09 Dose: 50 mg Lamotrigine (Lamotrigine 25 Mg Tablet) 75 mg PO BID [facility] [place] Carbonate ([place] Carbonate Er 300 Mg Tablet.Er) 600 mg PO BEDTIME [facility] Last Admin: 12/18/24 21:08 Dose: 600 mg Magnesium Hydroxide (Milk Of Magnesia 30 Ml Oral.Susp) 30 ml PO DAILY PRN PRN Reason: Constipation Metoprolol Succinate (Metoprolol Succinate Er 100 Mg Tab.Er.24h) 100 mg PO DAILY [facility]; Protocol Last Admin: 12/18/24 08:42 Dose: 100 mg Nicotine Polacrilex (Nicotine Polacrilex 2 Mg Gum) 4 mg [place] Q2H PRN PRN Reason: Nicotine Cravings Risperidone (Risperidone 2 Mg Tablet) 2 mg PO DAILY [facility] Last Admin: 12/18/24 08:41 Dose: 2 mg Risperidone (Risperidone 2 Mg Tablet) 4 mg PO BEDTIME [facility] Last Admin: 12/18/24 21:08 Dose: 4 mg Senna/Docusate Sodium (Sennosides/Docusate Sodium Tablet) 2 tab PO BEDTIME PRN PRN Reason: constipation Trazodone HCl (Trazodone Hcl 50 Mg Tablet) 50 mg PO BEDTIME MRX1 PRN PRN Reason: Insomnia Allergies Allergies Allergy/AdvReac Type Severity Reaction Status Date / Time latex Allergy Unknown swelling Verified 12/16/24 12:15 in lips penicillin V Allergy Unknown unknown Verified 12/16/24 12:15 Assessment & Plan Assessment & Plan (1) Schizoaffective disorder, depressive type: Status: Acute Code(s): F25.1 - Schizoaffective disorder, depressive type Plan 12/17: continue clozapine 50/350, lithium 600 QHS, risperidone 2/4, and medical meds. pt had not had lamictal since saturday evening until last night had 100 and this morning had 100. will restart at 50 BID for now. stabilize, return to long term. 12/18: stable. signed CV. check clozaril level. increase lamictal to 75 BID as of saturday morning; orders have been entered. otherwise continue current mgmt. 12/19: Continue current management and treatment plan. Reason for continued inpatient stay Substantial Risk for: inability to function and rapid decompensation Time Spent With Patient Time: Total time managing care of this patient today ____ minutes.
[2024-12-19] MEDS: amLODIPine Besylate 5 MG TABLET PO (09:31)
[2024-12-19] MEDS: Metoprolol Succinate ER 100 MG TAB.ER.24H PO (09:31)
[2024-12-19] MEDS: risperiDONE 2 MG TABLET PO (09:31)
[2024-12-19] MEDS: lamoTRIgine 25 MG TABLET 50 MG PO ×2 (09:31→20:48)
[2024-12-19] MEDS: cloZAPine 25 MG TABLET 50 MG PO ×2 (09:31→20:49)
[2024-12-19 19:59] VITALS: BP 113/76; PULSE 90; RESP 16; TEMP 37.1; O2SAT 100
[2024-12-19] MEDS: risperiDONE 2 MG TABLET 4 MG PO (20:47)
[2024-12-19] MEDS: cloZAPine 100 MG TABLET 300 MG PO (20:48)
[2024-12-19] MEDS: Lithium Carbonate ER 300 MG TABLET.ER 600 MG PO (20:49)
[2024-12-20 08:25] VITALS: BP 101/70; PULSE 66; RESP 16; TEMP 37.1; O2SAT 99
[2024-12-20] MEDS: lamoTRIgine 25 MG TABLET 75 MG PO ×2 (09:16→21:13)
[2024-12-20] MEDS: Metoprolol Succinate ER 100 MG TAB.ER.24H PO (09:17)
[2024-12-20] MEDS: amLODIPine Besylate 5 MG TABLET PO (09:17)
[2024-12-20] MEDS: cloZAPine 25 MG TABLET 50 MG PO ×2 (09:17→21:12)
[2024-12-20] MEDS: risperiDONE 2 MG TABLET PO (09:17)
--- NOTE | 2024-12-20 12:08 | P.PNPSI_ITS ---
Subjective Subjective Date of Service: 12/20/24 Reason For Visit: Schizoaffective Disorder Interim History: Patient remains calm and cooperative. No behavioral concerns. Medication adherent. Says he has AH that are supportive . Depression and anxiety. Isolating in his room. Encouraged to go out of room. Slept 8 hours. Denies SI. Review of Systems Review of Systems Constitutional : No Fever, No Chills ENT/Mouth : No Ear Pain, No Nasal Congestion, No sore throat Eyes: No Eye Pain, No Swelling, No Redness Cardiovascular : No Chest Pain, No SOB Respiratory : No Cough, No Sputum, No Dyspnea Gastrointestinal : No Nausea, No Vomiting, No Diarrhea, No Hematochezia, No Melena Genitourinary : No Dysuria, No Urinary Frequency, No Hematuria Musculoskeletal : No Myalgias Skin : No Skin Lesions, No rash Neuro : No Weakness, No Numbness, No Paresthesias, No Dizziness, No Headache Psych : positive Anxiety, no Depression, no SI/HI All other systems reviewed and are negative Mental Status Exam Mental Status Exam Narrative: calm, cooperative. adequately dressed and groomed. PMR. speech nml in rate, amount, loudness, tone, latency. thoughts linear and logical. affect constricted, normo-intense, non-labile. mood not assessed. no SI/SIBI/HI/AVH expressed. Diagnostics Vital Signs (24Hr): Vital Signs - 24 hr 12/19/24 19:59 12/20/24 08:25 Temperature 98.7 F 98.7 F Pulse Rate 90 66 Respiratory Rate 16 16 Blood Pressure 113/76 101/70 Pulse Oximetry 100 99 Oxygen Delivery Method Room Air Room Air BMI result Body Mass Index 25.7 Labs 12/16/24 12:47 12/16/24 12:47 Medications Medications Current Medications Acetaminophen (Acetaminophen 325 Mg Tablet) 650 mg PO Q6H PRN PRN Reason: Headache/Pain, Scale 1-10 Al Hydroxide/Mg Hydroxide (Magnesium Hydrox/Alum Hydrox 30 Ml Oral.Susp) 30 ml PO Q6H PRN PRN Reason: Heartburn/Nausea Amlodipine Besylate (Amlodipine Besylate 5 Mg Tablet) 5 mg PO DAILY [facility]; Protocol Last Admin: 12/20/24 09:17 Dose: 5 mg Clozapine (Clozapine 25 Mg Tablet) 50 mg PO BID [facility] Last Admin: 12/20/24 09:17 Dose: 50 mg Clozapine (Clozapine 100 Mg Tablet) 300 mg PO BEDTIME [facility] Last Admin: 12/19/24 20:48 Dose: 300 mg Hydroxyzine HCl (Hydroxyzine Hcl 25 Mg Tablet) 25 mg PO Q6H PRN PRN Reason: Anxiety/insomnia Hydroxyzine HCl (Hydroxyzine Hcl 25 Mg Tablet) 25 mg PO Q6H PRN PRN Reason: mild anxiety Lamotrigine (Lamotrigine 25 Mg Tablet) 75 mg PO BID [facility] Last Admin: 12/20/24 09:16 Dose: 75 mg [place] Carbonate ([place] Carbonate Er 300 Mg Tablet.Er) 600 mg PO BEDTIME [facility] Last Admin: 12/19/24 20:49 Dose: 600 mg Magnesium Hydroxide (Milk Of Magnesia 30 Ml Oral.Susp) 30 ml PO DAILY PRN PRN Reason: Constipation Metoprolol Succinate (Metoprolol Succinate Er 100 Mg Tab.Er.24h) 100 mg PO DAILY [facility]; Protocol Last Admin: 12/20/24 09:17 Dose: 100 mg Nicotine Polacrilex (Nicotine Polacrilex 2 Mg Gum) 4 mg [place] Q2H PRN PRN Reason: Nicotine Cravings Risperidone (Risperidone 2 Mg Tablet) 2 mg PO DAILY [facility] Last Admin: 12/20/24 09:17 Dose: 2 mg Risperidone (Risperidone 2 Mg Tablet) 4 mg PO BEDTIME [facility] Last Admin: 12/19/24 20:47 Dose: 4 mg Senna/Docusate Sodium (Sennosides/Docusate Sodium Tablet) 2 tab PO BEDTIME PRN PRN Reason: constipation Trazodone HCl (Trazodone Hcl 50 Mg Tablet) 50 mg PO BEDTIME MRX1 PRN PRN Reason: Insomnia Allergies Allergies Allergy/AdvReac Type Severity Reaction Status Date / Time latex Allergy Unknown swelling Verified 12/16/24 12:15 in lips penicillin V Allergy Unknown unknown Verified 12/16/24 12:15 Assessment & Plan Assessment & Plan (1) Schizoaffective disorder, depressive type: Status: Acute Code(s): F25.1 - Schizoaffective disorder, depressive type Plan 12/17: continue clozapine 50/350, lithium 600 QHS, risperidone 2/4, and medical meds. pt had not had lamictal since saturday evening until last night had 100 and this morning had 100. will restart at 50 BID for now. stabilize, return to senior living. 12/18: stable. signed CV. check clozaril level. increase lamictal to 75 BID as of saturday morning; orders have been entered. otherwise continue current mgmt. 12/19: Continue current management and treatment plan. 12/20: continue current management and treatment plan. Reason for continued inpatient stay Substantial Risk for: inability to function and rapid decompensation Time Spent With Patient Time: Total time managing care of this patient today ____ minutes.
[2024-12-20 20:00] VITALS: BP 102/69; PULSE 68; RESP 14; TEMP 36.6; O2SAT 98
[2024-12-20] MEDS: cloZAPine 100 MG TABLET 300 MG PO (21:13)
[2024-12-20] MEDS: Lithium Carbonate ER 300 MG TABLET.ER 600 MG PO (21:13)
[2024-12-20] MEDS: risperiDONE 2 MG TABLET 4 MG PO (21:13)
[2024-12-20] MEDS: Sennosides/Docusate Sodium TABLET 2 TAB PO (21:17)
[2024-12-21 07:46] VITALS: BP 95/64; PULSE 80; RESP 14; TEMP 36.5; O2SAT 99
[2024-12-21] MEDS: amLODIPine Besylate 5 MG TABLET PO (08:33)
[2024-12-21] MEDS: Metoprolol Succinate ER 100 MG TAB.ER.24H PO (08:34)
[2024-12-21] MEDS: lamoTRIgine 25 MG TABLET 75 MG PO ×2 (08:35→20:43)
[2024-12-21] MEDS: risperiDONE 2 MG TABLET PO (08:36)
[2024-12-21] MEDS: cloZAPine 25 MG TABLET 50 MG PO ×2 (08:36→20:43)
[2024-12-21] MEDS: Milk of Magnesia 30 ML ORAL.SUSP PO (09:05)
[2024-12-21] MEDS: Sennosides/Docusate Sodium TABLET 2 TAB PO ×2 (12:01→20:42)
--- NOTE | 2024-12-21 13:09 | HO.PSYCHPN ---
Subjective Subjective Date of Service: 12/21/24 Reason For Visit: Schizoaffective Disorder Interim History: calm, cooperative. discourses at length re his AH and how they are a positive force in his life and how they saved him from [place] by possessing MD there to opine he should be discharged. refutes allegations he was loitering around [employer], says she was only passing by on his way to the store. alleges staff making things up about him to get him expelled from the long term. meds reviewed. per staff, +dep/anx. +AH. decr energy. taking meds. slept 8 hours. Mental Status Exam Mental Status Exam Narrative: calm, cooperative. adequately dressed and groomed. PMR. speech nml in rate, amount, loudness, tone, latency. thoughts linear and logical. affect constricted, normo-intense, non-labile. mood lower than normal. no SI/SIBI/HI/VH expressed. endorses daily AH. Diagnostics Vital Signs (24Hr): Vital Signs - 24 hr 12/20/24 20:00 12/21/24 07:46 Temperature 97.8 F 97.7 F Pulse Rate 68 80 Respiratory Rate 14 14 Blood Pressure 102/69 95/64 Pulse Oximetry 98 99 Oxygen Delivery Method Room Air Room Air BMI result Body Mass Index 25.7 Labs 12/16/24 12:47 12/16/24 12:47 Medications Medications Current Medications Acetaminophen (Acetaminophen 325 Mg Tablet) 650 mg PO Q6H PRN PRN Reason: Headache/Pain, Scale 1-10 Al Hydroxide/Mg Hydroxide (Magnesium Hydrox/Alum Hydrox 30 Ml Oral.Susp) 30 ml PO Q6H PRN PRN Reason: Heartburn/Nausea Amlodipine Besylate (Amlodipine Besylate 5 Mg Tablet) 5 mg PO DAILY [facility]; Protocol Last Admin: 12/21/24 08:33 Dose: 5 mg Clozapine (Clozapine 25 Mg Tablet) 50 mg PO BID [facility] Last Admin: 12/21/24 08:36 Dose: 50 mg Clozapine (Clozapine 25 Mg Tablet) 350 mg PO BEDTIME [facility] Hydroxyzine HCl (Hydroxyzine Hcl 25 Mg Tablet) 25 mg PO Q6H PRN PRN Reason: Anxiety/insomnia Hydroxyzine HCl (Hydroxyzine Hcl 25 Mg Tablet) 25 mg PO Q6H PRN PRN Reason: mild anxiety Lamotrigine (Lamotrigine 25 Mg Tablet) 75 mg PO BID [facility] Last Admin: 12/21/24 08:35 Dose: 75 mg [place] Carbonate ([place] Carbonate Er 300 Mg Tablet.Er) 600 mg PO BEDTIME [facility] Last Admin: 12/20/24 21:13 Dose: 600 mg Magnesium Hydroxide (Milk Of Magnesia 30 Ml Oral.Susp) 30 ml PO DAILY PRN PRN Reason: Constipation Last Admin: 12/21/24 09:05 Dose: 30 ml Metoprolol Succinate (Metoprolol Succinate Er 100 Mg Tab.Er.24h) 100 mg PO DAILY [facility]; Protocol Last Admin: 12/21/24 08:34 Dose: 100 mg Nicotine Polacrilex (Nicotine Polacrilex 2 Mg Gum) 4 mg BUCCAL Q2H PRN PRN Reason: Nicotine Cravings Risperidone (Risperidone 2 Mg Tablet) 2 mg PO DAILY [facility] Last Admin: 12/21/24 08:36 Dose: 2 mg Risperidone (Risperidone 2 Mg Tablet) 4 mg PO BEDTIME [facility] Last Admin: 12/20/24 21:13 Dose: 4 mg Senna/Docusate Sodium (Sennosides/Docusate Sodium Tablet) 2 tab PO BID [facility] Last Admin: 12/21/24 12:01 Dose: 2 tab Trazodone HCl (Trazodone Hcl 50 Mg Tablet) 50 mg PO BEDTIME MRX1 PRN PRN Reason: Insomnia Allergies Allergies Allergy/AdvReac Type Severity Reaction Status Date / Time latex Allergy Unknown swelling Verified 12/16/24 12:15 in lips penicillin V Allergy Unknown unknown Verified 12/16/24 12:15 Assessment & Plan Assessment & Plan (1) Schizoaffective disorder, depressive type: Status: Acute Code(s): F25.1 - Schizoaffective disorder, depressive type Plan 12/17: continue clozapine 50/350, lithium 600 QHS, risperidone 2/4, and medical meds. pt had not had lamictal since saturday evening until last night had 100 and this morning had 100. will restart at 50 BID for now. stabilize, return to long term. 12/18: stable. signed CV. check clozaril level. increase lamictal to 75 BID as of saturday morning; orders have been entered. otherwise continue current mgmt. 12/19: Continue current management and treatment plan. 12/20: continue current management and treatment plan. 12/21: pt had apparently only been getting clozaril 50/300; dosing increased to 50/350, which is what med rec has as outpt regimen. lamictal increased to 75 BID as of yesterday. plan to increase once again tomorrow. reporting longstanding AH ever since [place], denies resolution since. clozaril level pending. Reason for continued inpatient stay Substantial Risk for: harm to others and inability to function Time Spent With Patient Time: Total time managing care of this patient today __35__ minutes.
[2024-12-21 20:40] VITALS: BP 107/75; PULSE 79; RESP 16; TEMP 36.6; O2SAT 99
[2024-12-21] MEDS: risperiDONE 2 MG TABLET 4 MG PO (20:45)
[2024-12-21] MEDS: Lithium Carbonate ER 300 MG TABLET.ER 600 MG PO (20:45)
[2024-12-22 07:58] VITALS: BP 97/62; PULSE 60; RESP 12; TEMP 37.3; O2SAT 99
[2024-12-22] MEDS: amLODIPine Besylate 5 MG TABLET PO (08:07)
[2024-12-22] MEDS: Sennosides/Docusate Sodium TABLET 2 TAB PO ×2 (08:07→21:01)
[2024-12-22] MEDS: lamoTRIgine 25 MG TABLET 75 MG PO ×2 (08:08→21:01)
[2024-12-22] MEDS: cloZAPine 25 MG TABLET 50 MG PO ×2 (08:08→20:59)
[2024-12-22] MEDS: Metoprolol Succinate ER 100 MG TAB.ER.24H PO (08:08)
[2024-12-22] MEDS: risperiDONE 2 MG TABLET PO (08:08)
--- NOTE | 2024-12-22 12:29 | HO.PSYCHPN ---
Subjective Subjective Date of Service: 12/22/24 Reason For Visit: Schizoaffective Disorder Interim History: nothing new. mood remains down. willing to wait for clozapine level. per staff, dep 7 anx 5. AH of [place]. feels intermediate is trying to destroy him. slept 7 hours. Mental Status Exam Mental Status Exam Narrative: calm, cooperative. adequately dressed and groomed. PMR. speech nml in rate, amount, loudness, tone, latency. thoughts linear and logical. affect constricted, normo-intense, non-labile. mood lower than normal. no SI/SIBI/HI/VH expressed. endorses daily AH. Diagnostics Vital Signs (24Hr): Vital Signs - 24 hr 12/21/24 20:40 12/22/24 07:58 Temperature 97.8 F 99.1 F Pulse Rate 79 60 Respiratory Rate 16 12 Blood Pressure 107/75 97/62 Pulse Oximetry 99 99 Oxygen Delivery Method Room Air Room Air BMI result Body Mass Index 25.7 Labs 12/16/24 12:47 12/16/24 12:47 Medications Medications Current Medications Acetaminophen (Acetaminophen 325 Mg Tablet) 650 mg PO Q6H PRN PRN Reason: Headache/Pain, Scale 1-10 Al Hydroxide/Mg Hydroxide (Magnesium Hydrox/Alum Hydrox 30 Ml Oral.Susp) 30 ml PO Q6H PRN PRN Reason: Heartburn/Nausea Amlodipine Besylate (Amlodipine Besylate 5 Mg Tablet) 5 mg PO DAILY [facility]; Protocol Last Admin: 12/22/24 08:07 Dose: 5 mg Clozapine (Clozapine 25 Mg Tablet) 50 mg PO BID [facility] Last Admin: 12/22/24 08:08 Dose: 50 mg Clozapine 300 mg/ Clozapine 50 (mg) 350 mg PO BEDTIME [facility] Last Admin: 12/21/24 20:41 Dose: 350 mg Hydroxyzine HCl (Hydroxyzine Hcl 25 Mg Tablet) 25 mg PO Q6H PRN PRN Reason: Anxiety/insomnia Hydroxyzine HCl (Hydroxyzine Hcl 25 Mg Tablet) 25 mg PO Q6H PRN PRN Reason: mild anxiety Lamotrigine (Lamotrigine 25 Mg Tablet) 75 mg PO BID [facility] Last Admin: 12/22/24 08:08 Dose: 75 mg [place] Carbonate ([place] Carbonate Er 300 Mg Tablet.Er) 600 mg PO BEDTIME [facility] Last Admin: 12/21/24 20:45 Dose: 600 mg Magnesium Hydroxide (Milk Of Magnesia 30 Ml Oral.Susp) 30 ml PO DAILY PRN PRN Reason: Constipation Last Admin: 12/21/24 09:05 Dose: 30 ml Metoprolol Succinate (Metoprolol Succinate Er 100 Mg Tab.Er.24h) 100 mg PO DAILY [facility]; Protocol Last Admin: 12/22/24 08:08 Dose: 100 mg Nicotine Polacrilex (Nicotine Polacrilex 2 Mg Gum) 4 mg BUCCAL Q2H PRN PRN Reason: Nicotine Cravings Risperidone (Risperidone 2 Mg Tablet) 2 mg PO DAILY [facility] Last Admin: 12/22/24 08:08 Dose: 2 mg Risperidone (Risperidone 2 Mg Tablet) 4 mg PO BEDTIME [facility] Last Admin: 12/21/24 20:45 Dose: 4 mg Senna/Docusate Sodium (Sennosides/Docusate Sodium Tablet) 2 tab PO BID [facility] Last Admin: 12/22/24 08:07 Dose: 2 tab Trazodone HCl (Trazodone Hcl 50 Mg Tablet) 50 mg PO BEDTIME MRX1 PRN PRN Reason: Insomnia Allergies Allergies Allergy/AdvReac Type Severity Reaction Status Date / Time latex Allergy Unknown swelling Verified 12/16/24 12:15 in lips penicillin V Allergy Unknown unknown Verified 12/16/24 12:15 Assessment & Plan Assessment & Plan (1) Schizoaffective disorder, depressive type: Status: Acute Code(s): F25.1 - Schizoaffective disorder, depressive type Plan 12/17: continue clozapine 50/350, lithium 600 QHS, risperidone 2/4, and medical meds. pt had not had lamictal since saturday evening until last night had 100 and this morning had 100. will restart at 50 BID for now. stabilize, return to intermediate. 12/18: stable. signed CV. check clozaril level. increase lamictal to 75 BID as of saturday morning; orders have been entered. otherwise continue current mgmt. 12/19: Continue current management and treatment plan. 12/20: continue current management and treatment plan. 12/21: pt had apparently only been getting clozaril 50/300; dosing increased to 50/350, which is what med rec has as outpt regimen. lamictal increased to 75 BID as of yesterday. plan to increase once again tomorrow. reporting longstanding AH ever since [place], denies resolution since. clozaril level pending. 12/22: clozapine level pending. continue current mgmt. daily AH continue. Reason for continued inpatient stay Substantial Risk for: inability to function Time Spent With Patient Time: Total time managing care of this patient today __25__ minutes.
[2024-12-22 20:00] VITALS: BP 115/73; PULSE 75; RESP 16; TEMP 37.1; O2SAT 99
[2024-12-22] MEDS: risperiDONE 2 MG TABLET 4 MG PO (20:59)
[2024-12-22] MEDS: Lithium Carbonate ER 300 MG TABLET.ER 600 MG PO (20:59)
[2024-12-23 08:00] VITALS: BP 104/69; PULSE 84; RESP 16; TEMP 36.6; O2SAT 98
[2024-12-23 08:34] LABS: Neut%MD 55.1 %; Neutrophils Absolute Auto 4.5 x10*3/uL (2.0-8.3); WBCANC 8.2 X10*3/uL
[2024-12-23] MEDS: lamoTRIgine 25 MG TABLET 75 MG PO ×2 (08:49→21:06)
[2024-12-23] MEDS: Sennosides/Docusate Sodium TABLET 2 TAB PO ×2 (08:50→21:06)
[2024-12-23] MEDS: cloZAPine 25 MG TABLET 50 MG PO ×2 (08:50→21:09)
[2024-12-23] MEDS: risperiDONE 2 MG TABLET PO (08:50)
[2024-12-23] MEDS: Metoprolol Succinate ER 100 MG TAB.ER.24H PO (08:50)
[2024-12-23] MEDS: amLODIPine Besylate 5 MG TABLET PO (08:51)
[2024-12-23 11:26] LABS: Clozapine (Clozaril) 1022 mcg/L
[2024-12-23 11:27] LABS: Norclozapine 511 mcg/L (25-400)
--- NOTE | 2024-12-23 13:55 | HO.PSYCHPN ---
Subjective Subjective Date of Service: 12/23/24 Reason For Visit: Schizoaffective Disorder Interim History: no change in presentation, awaiting lab results. per staff, blunted affect. taking meds. sleeping and eating well. dep 8, anx 7 eves. +AH. slept 8 hours. i've been depressed for a long time; i've learned to live with it. Mental Status Exam Mental Status Exam Narrative: calm, cooperative. adequately dressed and groomed. PMR. speech nml in rate, amount, loudness, tone, latency. thoughts linear and logical. affect constricted, normo-intense, non-labile. mood lower than normal. no SI/SIBI/HI/VH expressed. endorses daily AH. Diagnostics Vital Signs (24Hr): Vital Signs - 24 hr 12/22/24 20:00 12/23/24 08:00 Temperature 98.8 F 97.8 F Pulse Rate 75 84 Respiratory Rate 16 16 Blood Pressure 115/73 104/69 Pulse Oximetry 99 98 Oxygen Delivery Method Room Air Room Air BMI result Body Mass Index 25.7 Labs 12/16/24 12:47 12/16/24 12:47 Labs: Laboratory Results - last 48 hr 12/18/24 12/23/24 10:48 08:04 Absolute Neuts (auto) 4.5 Clozapine 1022 A* Norclozapine 511 H Medications Medications Current Medications Acetaminophen (Acetaminophen 325 Mg Tablet) 650 mg PO Q6H PRN PRN Reason: Headache/Pain, Scale 1-10 Al Hydroxide/Mg Hydroxide (Magnesium Hydrox/Alum Hydrox 30 Ml Oral.Susp) 30 ml PO Q6H PRN PRN Reason: Heartburn/Nausea Amlodipine Besylate (Amlodipine Besylate 5 Mg Tablet) 5 mg PO DAILY [facility]; Protocol Last Admin: 12/23/24 08:51 Dose: 5 mg Clozapine (Clozapine 25 Mg Tablet) 50 mg PO BID [facility] Last Admin: 12/23/24 08:50 Dose: 50 mg Clozapine 300 mg/ Clozapine 50 (mg) 350 mg PO BEDTIME [facility] Last Admin: 12/22/24 21:00 Dose: 350 mg Hydroxyzine HCl (Hydroxyzine Hcl 25 Mg Tablet) 25 mg PO Q6H PRN PRN Reason: Anxiety/insomnia Hydroxyzine HCl (Hydroxyzine Hcl 25 Mg Tablet) 25 mg PO Q6H PRN PRN Reason: mild anxiety Lamotrigine (Lamotrigine 25 Mg Tablet) 75 mg PO BID [facility] Last Admin: 12/23/24 08:49 Dose: 75 mg [place] Carbonate ([place] Carbonate Er 300 Mg Tablet.Er) 600 mg PO BEDTIME [facility] Last Admin: 12/22/24 20:59 Dose: 600 mg Magnesium Hydroxide (Milk Of Magnesia 30 Ml Oral.Susp) 30 ml PO DAILY PRN PRN Reason: Constipation Last Admin: 12/21/24 09:05 Dose: 30 ml Metoprolol Succinate (Metoprolol Succinate Er 100 Mg Tab.Er.24h) 100 mg PO DAILY [facility]; Protocol Last Admin: 12/23/24 08:50 Dose: 100 mg Nicotine Polacrilex (Nicotine Polacrilex 2 Mg Gum) 4 mg BUCCAL Q2H PRN PRN Reason: Nicotine Cravings Risperidone (Risperidone 2 Mg Tablet) 2 mg PO DAILY [facility] Last Admin: 12/23/24 08:50 Dose: 2 mg Risperidone (Risperidone 2 Mg Tablet) 4 mg PO BEDTIME [facility] Last Admin: 12/22/24 20:59 Dose: 4 mg Senna/Docusate Sodium (Sennosides/Docusate Sodium Tablet) 2 tab PO BID [facility] Last Admin: 12/23/24 08:50 Dose: 2 tab Trazodone HCl (Trazodone Hcl 50 Mg Tablet) 50 mg PO BEDTIME MRX1 PRN PRN Reason: Insomnia Allergies Allergies Allergy/AdvReac Type Severity Reaction Status Date / Time latex Allergy Unknown swelling Verified 12/16/24 12:15 in lips penicillin V Allergy Unknown unknown Verified 12/16/24 12:15 Assessment & Plan Assessment & Plan (1) Schizoaffective disorder, depressive type: Status: Acute Code(s): F25.1 - Schizoaffective disorder, depressive type Plan 12/17: continue clozapine 50/350, lithium 600 QHS, risperidone 2/4, and medical meds. pt had not had lamictal since saturday evening until last night had 100 and this morning had 100. will restart at 50 BID for now. stabilize, return to senior living. 12/18: stable. signed CV. check clozaril level. increase lamictal to 75 BID as of saturday morning; orders have been entered. otherwise continue current mgmt. 12/19: Continue current management and treatment plan. 12/20: continue current management and treatment plan. 12/21: pt had apparently only been getting clozaril 50/300; dosing increased to 50/350, which is what med [facility] has as outpt regimen. lamictal increased to 75 BID as of yesterday. plan to increase once again tomorrow. reporting longstanding AH ever since [place], denies resolution since. clozaril level pending. 12/22: clozapine level pending. continue current mgmt. daily AH continue. 12/23: clozapine level supra-therapeutic at 1022, norcloz elevated at 511. T/C decreasing dose by 50 mg daily, although pt has no signs of toxicity or excessive dosing (no c/o side effects of any kind, alert and awake throughout the day) and has h/o similarly elevated level. lithium level noted to be sub-therapeutic, will discuss increasing lithium dosing tomorrow. continue current mgmt for now. Reason for continued inpatient stay Substantial Risk for: harm to others and inability to function Time Spent With Patient Time: Total time managing care of this patient today _25___ minutes.
[2024-12-23 20:00] VITALS: BP 109/72; PULSE 92; RESP 16; TEMP 37.1; O2SAT 98
[2024-12-23] MEDS: Lithium Carbonate ER 300 MG TABLET.ER 600 MG PO (21:05)
[2024-12-23] MEDS: risperiDONE 2 MG TABLET 4 MG PO (21:05)
[2024-12-24 07:00] VITALS: BMI 26.0
[2024-12-24 07:56] VITALS: BP 112/67; PULSE 76; RESP 16; TEMP 36.4; O2SAT 99
[2024-12-24] MEDS: lamoTRIgine 25 MG TABLET 75 MG PO (09:23)
[2024-12-24] MEDS: Sennosides/Docusate Sodium TABLET 2 TAB PO (09:23)
[2024-12-24] MEDS: risperiDONE 2 MG TABLET PO (09:23)
[2024-12-24] MEDS: cloZAPine 25 MG TABLET 50 MG PO ×2 (09:23→22:15)
[2024-12-24 09:27] VITALS: BP 100/69
[2024-12-24] MEDS: amLODIPine Besylate 5 MG TABLET PO (09:27)
[2024-12-24 09:28] VITALS: BP 100/69; PULSE 87
[2024-12-24] MEDS: Metoprolol Succinate ER 100 MG TAB.ER.24H PO (09:28)
--- NOTE | 2024-12-24 13:24 | HO.PSYCHPN ---
Subjective Subjective Date of Service: 12/24/24 Reason For Visit: Schizoaffective Disorder Interim History: c/o depression. no change in presentation. labs reviewed, elevated clozapine result reviewed. pt informed of decision to continue current mgmt due to no s/e or toxicity noted. agreeable to increase lamictal to 100 BID for depression and increase lithium to 750 mg QHS for mood/depression. ECT broached, pt declined absolutely. per staff, slept 8 hours. AH helpful. Mental Status Exam Mental Status Exam Narrative: calm, cooperative. adequately dressed and groomed. PMR. speech nml in rate, amount, loudness, tone, latency. thoughts linear and logical. affect constricted, normo-intense, non-labile. mood lower than normal. no SI/SIBI/HI/VH expressed. endorses daily AH. Diagnostics Vital Signs (24Hr): Vital Signs - 24 hr 12/23/24 20:00 12/24/24 07:56 12/24/24 09:27 Temperature 98.7 F 97.6 F Pulse Rate 92 76 Respiratory Rate 16 16 Blood Pressure 109/72 112/67 100/69 Pulse Oximetry 98 99 Oxygen Delivery Method Room Air Room Air 12/24/24 09:28 Temperature Pulse Rate 87 Respiratory Rate Blood Pressure 100/69 Pulse Oximetry Oxygen Delivery Method BMI result Body Mass Index 26.0 Labs 12/16/24 12:47 12/16/24 12:47 Labs: Laboratory Results - last 48 hr 12/18/24 12/23/24 10:48 08:04 Absolute Neuts (auto) 4.5 Clozapine 1022 A* Norclozapine 511 H Medications Medications Current Medications Acetaminophen (Acetaminophen 325 Mg Tablet) 650 mg PO Q6H PRN PRN Reason: Headache/Pain, Scale 1-10 Al Hydroxide/Mg Hydroxide (Magnesium Hydrox/Alum Hydrox 30 Ml Oral.Susp) 30 ml PO Q6H PRN PRN Reason: Heartburn/Nausea Amlodipine Besylate (Amlodipine Besylate 5 Mg Tablet) 5 mg PO DAILY [facility]; Protocol Last Admin: 12/24/24 09:27 Dose: 5 mg Clozapine (Clozapine 25 Mg Tablet) 50 mg PO BID [facility] Last Admin: 12/24/24 09:23 Dose: 50 mg Clozapine 300 mg/ Clozapine 50 (mg) 350 mg PO BEDTIME [facility] Last Admin: 12/23/24 21:09 Dose: 350 mg Hydroxyzine HCl (Hydroxyzine Hcl 25 Mg Tablet) 25 mg PO Q6H PRN PRN Reason: Anxiety/insomnia Hydroxyzine HCl (Hydroxyzine Hcl 25 Mg Tablet) 25 mg PO Q6H PRN PRN Reason: mild anxiety Lamotrigine (Lamotrigine 100 Mg Tablet) 100 mg PO BID [facility] [place] Carbonate ([place] Carbonate Er 300 Mg Tablet.Er) 750 mg PO BEDTIME [facility] Magnesium Hydroxide (Milk Of Magnesia 30 Ml Oral.Susp) 30 ml PO DAILY PRN PRN Reason: Constipation Last Admin: 12/21/24 09:05 Dose: 30 ml Metoprolol Succinate (Metoprolol Succinate Er 100 Mg Tab.Er.24h) 100 mg PO DAILY [facility]; Protocol Last Admin: 12/24/24 09:28 Dose: 100 mg Nicotine Polacrilex (Nicotine Polacrilex 2 Mg Gum) 4 mg BUCCAL Q2H PRN PRN Reason: Nicotine Cravings Risperidone (Risperidone 2 Mg Tablet) 2 mg PO DAILY [facility] Last Admin: 12/24/24 09:23 Dose: 2 mg Risperidone (Risperidone 2 Mg Tablet) 4 mg PO BEDTIME [facility] Last Admin: 12/23/24 21:05 Dose: 4 mg Senna/Docusate Sodium (Sennosides/Docusate Sodium Tablet) 2 tab PO BID [facility] Last Admin: 12/24/24 09:23 Dose: 2 tab Trazodone HCl (Trazodone Hcl 50 Mg Tablet) 50 mg PO BEDTIME MRX1 PRN PRN Reason: Insomnia Allergies Allergies Allergy/AdvReac Type Severity Reaction Status Date / Time latex Allergy Unknown swelling Verified 12/16/24 12:15 in lips penicillin V Allergy Unknown unknown Verified 12/16/24 12:15 Assessment & Plan Assessment & Plan (1) Schizoaffective disorder, depressive type: Status: Acute Code(s): F25.1 - Schizoaffective disorder, depressive type Plan 12/17: continue clozapine 50/350, lithium 600 QHS, risperidone 2/4, and medical meds. pt had not had lamictal since saturday evening until last night had 100 and this morning had 100. will restart at 50 BID for now. stabilize, return to custodial. 12/18: stable. signed CV. check clozaril level. increase lamictal to 75 BID as of saturday morning; orders have been entered. otherwise continue current mgmt. 12/19: Continue current management and treatment plan. 12/20: continue current management and treatment plan. 12/21: pt had apparently only been getting clozaril 50/300; dosing increased to 50/350, which is what med [facility] has as outpt regimen. lamictal increased to 75 BID as of yesterday. plan to increase once again tomorrow. reporting longstanding AH ever since [place], denies resolution since. clozaril level pending. 12/22: clozapine level pending. continue current mgmt. daily AH continue. 12/23: clozapine level supra-therapeutic at 1022, norcloz elevated at 511. T/C decreasing dose by 50 mg daily, although pt has no signs of toxicity or excessive dosing (no c/o side effects of any kind, alert and awake throughout the day) and has h/o similarly elevated level. lithium level noted to be sub-therapeutic, will discuss increasing lithium dosing tomorrow. continue current mgmt for now. 12/24: labs reviewed, with pt, as well as rationale for no change to clozapine dosing. agreeable to increase lamictal back to 100 BID. also amenable to increase lithium to 750 mg QHS due to recent level below 0.60. otherwise continue current mgmt. will check lithium level next saturday jack. Reason for continued inpatient stay Substantial Risk for: inability to function and rapid decompensation Time Spent With Patient Time: Total time managing care of this patient today __25__ minutes.
[2024-12-24 19:30] VITALS: BP 135/92; PULSE 88; RESP 16; TEMP 37.1; O2SAT 98
[2024-12-24] MEDS: lamoTRIgine 100 MG TABLET PO (22:15)
[2024-12-24] MEDS: Lithium Carbonate ER 300 MG TABLET.ER 750 MG PO (22:15)
[2024-12-24] MEDS: risperiDONE 2 MG TABLET 4 MG PO (22:17)
[2024-12-25 08:00] VITALS: BP 101/68; PULSE 84; RESP 12; TEMP 36.4; O2SAT 98
[2024-12-25] MEDS: amLODIPine Besylate 5 MG TABLET PO (08:36)
[2024-12-25] MEDS: cloZAPine 25 MG TABLET 50 MG PO ×2 (08:36→20:54)
[2024-12-25] MEDS: risperiDONE 2 MG TABLET PO (08:36)
[2024-12-25] MEDS: lamoTRIgine 100 MG TABLET PO ×2 (08:37→20:55)
[2024-12-25] MEDS: Metoprolol Succinate ER 100 MG TAB.ER.24H PO (08:37)
--- NOTE | 2024-12-25 12:55 | P.PNPSI_ITS ---
Subjective Subjective Date of Service: 12/25/24 Reason For Visit: Schizoaffective Disorder Interim History: c/o worsened depressed mood, which he attributes to remaining in the hospital. asks for senokot to be PRN, we decrease dose by half as well. no complaints otherwise. informed of plan to check levels next saturday. per staff, +AH. spending time alone in sonesory room. dep/anx 7. slept 8 hours. c/o diarrhea x 2 days. Mental Status Exam Mental Status Exam Narrative: calm, cooperative. adequately dressed and groomed. PMR. speech nml in rate, amount, loudness, tone, latency. thoughts linear and logical. affect constricted, normo-intense, non-labile. mood lower than normal. no SI/SIBI/HI/VH expressed. endorses daily AH. Diagnostics Vital Signs (24Hr): Vital Signs - 24 hr 12/24/24 19:30 12/25/24 08:00 Temperature 98.7 F 97.6 F Pulse Rate 88 84 Respiratory Rate 16 12 Blood Pressure 135/92 H 101/68 Pulse Oximetry 98 98 Oxygen Delivery Method Room Air Room Air BMI result Body Mass Index 26.0 Labs 12/16/24 12:47 12/16/24 12:47 Medications Medications Current Medications Acetaminophen (Acetaminophen 325 Mg Tablet) 650 mg PO Q6H PRN PRN Reason: Headache/Pain, Scale 1-10 Al Hydroxide/Mg Hydroxide (Magnesium Hydrox/Alum Hydrox 30 Ml Oral.Susp) 30 ml PO Q6H PRN PRN Reason: Heartburn/Nausea Amlodipine Besylate (Amlodipine Besylate 5 Mg Tablet) 5 mg PO DAILY [facility]; Protocol Last Admin: 12/25/24 08:36 Dose: 5 mg Clozapine (Clozapine 25 Mg Tablet) 50 mg PO BID [facility] Last Admin: 12/25/24 08:36 Dose: 50 mg Clozapine 300 mg/ Clozapine 50 (mg) 350 mg PO BEDTIME [facility] Last Admin: 12/24/24 22:14 Dose: 350 mg Hydroxyzine HCl (Hydroxyzine Hcl 25 Mg Tablet) 25 mg PO Q6H PRN PRN Reason: Anxiety/insomnia Hydroxyzine HCl (Hydroxyzine Hcl 25 Mg Tablet) 25 mg PO Q6H PRN PRN Reason: mild anxiety Lamotrigine (Lamotrigine 100 Mg Tablet) 100 mg PO BID [facility] Last Admin: 12/25/24 08:37 Dose: 100 mg [place] Carbonate ([place] Carbonate Er 300 Mg Tablet.Er) 750 mg PO BEDTIME [facility] Last Admin: 12/24/24 22:15 Dose: 750 mg Magnesium Hydroxide (Milk Of Magnesia 30 Ml Oral.Susp) 30 ml PO DAILY PRN PRN Reason: Constipation Last Admin: 12/21/24 09:05 Dose: 30 ml Metoprolol Succinate (Metoprolol Succinate Er 100 Mg Tab.Er.24h) 100 mg PO DAILY [facility]; Protocol Last Admin: 12/25/24 08:37 Dose: 100 mg Nicotine Polacrilex (Nicotine Polacrilex 2 Mg Gum) 4 mg BUCCAL Q2H PRN PRN Reason: Nicotine Cravings Risperidone (Risperidone 2 Mg Tablet) 2 mg PO DAILY [facility] Last Admin: 12/25/24 08:36 Dose: 2 mg Risperidone (Risperidone 2 Mg Tablet) 4 mg PO BEDTIME [facility] Last Admin: 12/24/24 22:17 Dose: 4 mg Senna/Docusate Sodium (Sennosides/Docusate Sodium Tablet) 1 tab PO BID PRN PRN Reason: constipation Trazodone HCl (Trazodone Hcl 50 Mg Tablet) 50 mg PO BEDTIME MRX1 PRN PRN Reason: Insomnia Allergies Allergies Allergy/AdvReac Type Severity Reaction Status Date / Time latex Allergy Unknown swelling Verified 12/16/24 12:15 in lips penicillin V Allergy Unknown unknown Verified 12/16/24 12:15 Assessment & Plan Assessment & Plan (1) Schizoaffective disorder, depressive type: Status: Acute Code(s): F25.1 - Schizoaffective disorder, depressive type Plan 12/17: continue clozapine 50/350, lithium 600 QHS, risperidone 2/4, and medical meds. pt had not had lamictal since saturday evening until last night had 100 and this morning had 100. will restart at 50 BID for now. stabilize, [facility] 12/18: stable. signed CV. check clozaril level. increase lamictal to 75 BID as of saturday morning; orders have been entered. otherwise continue current mgmt. 12/19: Continue current management and treatment plan. 12/20: continue current management and treatment plan. 12/21: pt had apparently only been getting clozaril 50/300; dosing increased to 50/350, which is what med rec has as outpt regimen. lamictal increased to 75 BID as of yesterday. plan to increase once again tomorrow. reporting longstanding AH ever since [place], denies resolution since. clozaril level pending. 12/22: clozapine level pending. continue current mgmt. daily AH continue. 12/23: clozapine level supra-therapeutic at 1022, norcloz elevated at 511. T/C decreasing dose by 50 mg daily, although pt has no signs of toxicity or excessive dosing (no c/o side effects of any kind, alert and awake throughout the day) and has h/o similarly elevated level. lithium level noted to be sub- therapeutic, will discuss increasing lithium dosing tomorrow. continue current mgmt for now. 12/24: labs reviewed, with pt, as well as rationale for no change to clozapine dosing. agreeable to increase lamictal back to 100 BID. also amenable to increase lithium to 750 mg QHS due to recent level below 0.60. otherwise continue current mgmt. will check lithium level next saturday jack. 12/25: stable. no side effects or toxicity from clozapine. continue current mgmt for now. Reason for continued inpatient stay Substantial Risk for: inability to function Time Spent With Patient Time: Total time managing care of this patient today _25___ minutes.
[2024-12-25 19:37] VITALS: BP 134/79; PULSE 99; RESP 16; TEMP 36.8; O2SAT 98
[2024-12-25] MEDS: risperiDONE 2 MG TABLET 4 MG PO (20:55)
[2024-12-25] MEDS: Lithium Carbonate ER 300 MG TABLET.ER 750 MG PO (20:55)
[2024-12-26 07:55] VITALS: BP 97/60; PULSE 66; RESP 14; TEMP 36.9; O2SAT 98
[2024-12-26] MEDS: risperiDONE 2 MG TABLET PO (08:52)
[2024-12-26] MEDS: lamoTRIgine 100 MG TABLET PO ×2 (08:53→20:07)
[2024-12-26] MEDS: cloZAPine 25 MG TABLET 50 MG PO ×2 (08:53→20:06)
--- NOTE | 2024-12-26 18:34 | P.PNPSI_ITS ---
Subjective Subjective Date of Service: 12/26/24 Reason For Visit: Schizoaffective Disorder Interim History: no change in presentation. hypotension discussed, pt amenable to decrease norvasc from 5 mg daily to 2.5 mg daily. per staff, flat, withdrawn, guarded. taking meds. holding senna. dep 8 anx 3. in bed all jack shift. slept 8 hours. BP meds held this morning for BP 97/60. Mental Status Exam Mental Status Exam Narrative: calm, cooperative. adequately dressed and groomed. PMR. speech nml in rate, amount, loudness, tone, latency. thoughts linear and logical. affect constricted, normo-intense, non-labile. mood lower than normal. no SI/SIBI/HI/VH expressed. endorses daily AH. Diagnostics Vital Signs (24Hr): Vital Signs - 24 hr 12/25/24 19:37 12/26/24 07:55 Temperature 98.2 F 98.5 F Pulse Rate 99 66 Respiratory Rate 16 14 Blood Pressure 134/79 97/60 Pulse Oximetry 98 98 Oxygen Delivery Method Room Air Room Air BMI result Body Mass Index 26.0 Labs 12/16/24 12:47 12/16/24 12:47 Medications Medications Current Medications Acetaminophen (Acetaminophen 325 Mg Tablet) 650 mg PO Q6H PRN PRN Reason: Headache/Pain, Scale 1-10 Al Hydroxide/Mg Hydroxide (Magnesium Hydrox/Alum Hydrox 30 Ml Oral.Susp) 30 ml PO Q6H PRN PRN Reason: Heartburn/Nausea Amlodipine Besylate (Amlodipine Besylate 2.5 Mg Tablet) 2.5 mg PO DAILY [facility]; Protocol Clozapine (Clozapine 25 Mg Tablet) 50 mg PO BID [facility] Last Admin: 12/26/24 08:53 Dose: 50 mg Clozapine 300 mg/ Clozapine 50 (mg) 350 mg PO BEDTIME [facility] Last Admin: 12/25/24 20:54 Dose: 350 mg Hydroxyzine HCl (Hydroxyzine Hcl 25 Mg Tablet) 25 mg PO Q6H PRN PRN Reason: Anxiety/insomnia Hydroxyzine HCl (Hydroxyzine Hcl 25 Mg Tablet) 25 mg PO Q6H PRN PRN Reason: mild anxiety Lamotrigine (Lamotrigine 100 Mg Tablet) 100 mg PO BID [facility] Last Admin: 12/26/24 08:53 Dose: 100 mg [place] Carbonate ([place] Carbonate Er 300 Mg Tablet.Er) 750 mg PO BEDTIME [facility] Last Admin: 12/25/24 20:55 Dose: 750 mg Magnesium Hydroxide (Milk Of Magnesia 30 Ml Oral.Susp) 30 ml PO DAILY PRN PRN Reason: Constipation Last Admin: 12/21/24 09:05 Dose: 30 ml Metoprolol Succinate (Metoprolol Succinate Er 100 Mg Tab.Er.24h) 100 mg PO DAILY [facility]; Protocol Last Admin: 12/26/24 10:06 Dose: Not Given Nicotine Polacrilex (Nicotine Polacrilex 2 Mg Gum) 4 mg BUCCAL Q2H PRN PRN Reason: Nicotine Cravings Risperidone (Risperidone 2 Mg Tablet) 2 mg PO DAILY [facility] Last Admin: 12/26/24 08:52 Dose: 2 mg Risperidone (Risperidone 2 Mg Tablet) 4 mg PO BEDTIME [facility] Last Admin: 12/25/24 20:55 Dose: 4 mg Senna/Docusate Sodium (Sennosides/Docusate Sodium Tablet) 1 tab PO BID PRN PRN Reason: constipation Trazodone HCl (Trazodone Hcl 50 Mg Tablet) 50 mg PO BEDTIME MRX1 PRN PRN Reason: Insomnia Allergies Allergies Allergy/AdvReac Type Severity Reaction Status Date / Time latex Allergy Unknown swelling Verified 12/16/24 12:15 in lips penicillin V Allergy Unknown unknown Verified 12/16/24 12:15 Assessment & Plan Assessment & Plan (1) Schizoaffective disorder, depressive type: Status: Acute Code(s): F25.1 - Schizoaffective disorder, depressive type Plan 12/17: continue clozapine 50/350, lithium 600 QHS, risperidone 2/4, and medical meds. pt had not had lamictal since saturday evening until last night had 100 and this morning had 100. will restart at 50 BID for now. stabilize, return to senior care. 12/18: stable. signed CV. check clozaril level. increase lamictal to 75 BID as of saturday morning; orders have been entered. otherwise continue current mgmt. 12/19: Continue current management and treatment plan. 12/20: continue current management and treatment plan. 12/21: pt had apparently only been getting clozaril 50/300; dosing increased to 50/350, which is what med rec has as outpt regimen. lamictal increased to 75 BID as of yesterday. plan to increase once again tomorrow. reporting longstanding AH ever since [place], denies resolution since. clozaril level pending. 12/22: clozapine level pending. continue current mgmt. daily AH continue. 12/23: clozapine level supra-therapeutic at 1022, norcloz elevated at 511. T/C decreasing dose by 50 mg daily, although pt has no signs of toxicity or excessive dosing (no c/o side effects of any kind, alert and awake throughout the day) and has h/o similarly elevated level. lithium level noted to be sub- therapeutic, will discuss increasing lithium dosing tomorrow. continue current mgmt for now. 12/24: labs reviewed, with pt, as well as rationale for no change to clozapine dosing. agreeable to increase lamictal back to 100 BID. also amenable to increase lithium to 750 mg QHS due to recent level below 0.60. otherwise continue current mgmt. will check lithium level next saturday jack. 12/25: stable. no side effects or toxicity from clozapine. continue current mgmt for now. 12/26: stable. decrease norvasc to 2.5 mg daily for hypotension. otherwise continue current mgmt. Reason for continued inpatient stay Substantial Risk for: harm to others Time Spent With Patient Time: Total time managing care of this patient today ____ minutes.
[2024-12-26 19:15] VITALS: BP 119/75; PULSE 100; RESP 16; TEMP 37.2; O2SAT 98
[2024-12-26] MEDS: risperiDONE 2 MG TABLET 4 MG PO (20:07)
[2024-12-26] MEDS: Lithium Carbonate ER 300 MG TABLET.ER 750 MG PO (20:08)
[2024-12-27 07:35] VITALS: BP 120/76; PULSE 82; RESP 14; TEMP 36.8; O2SAT 99
[2024-12-27] MEDS: lamoTRIgine 100 MG TABLET PO ×2 (08:27→20:25)
[2024-12-27] MEDS: risperiDONE 2 MG TABLET PO (08:27)
[2024-12-27] MEDS: Metoprolol Succinate ER 100 MG TAB.ER.24H PO (08:27)
[2024-12-27] MEDS: amLODIPine Besylate 2.5 MG TABLET PO (08:27)
[2024-12-27] MEDS: cloZAPine 25 MG TABLET 50 MG PO ×2 (08:27→20:22)
[2024-12-27 20:00] VITALS: BP 115/75; PULSE 91; RESP 16; TEMP 37.7; O2SAT 99
--- NOTE | 2024-12-27 20:02 | HO.PSYCHPN ---
Subjective Subjective Date of Service: 12/27/24 Reason For Visit: Schizoaffective Disorder Interim History: no change in presentation. asking about when he will be committed, how that process would work. informed there are no plans for commitment and he could be leaving late this week. agreeable to new clozaril level tonight. per staff, noted to have said, i love my auditory hallucinations. i am grateful for them. +AH, taking meds. dep 9, anx 3. slept 8 hours. Mental Status Exam Mental Status Exam Narrative: calm, cooperative. adequately dressed and groomed. PMR. speech nml in rate, amount, loudness, tone, latency. thoughts linear and questionably logical. affect constricted, normo-intense, non-labile. mood lower than normal. no SI/SIBI/HI/VH expressed. endorses daily AH. Diagnostics Vital Signs (24Hr): Vital Signs - 24 hr 12/27/24 07:35 Temperature 98.2 F Pulse Rate 82 Respiratory Rate 14 Blood Pressure 120/76 Pulse Oximetry 99 Oxygen Delivery Method Room Air BMI result Body Mass Index 26.0 Labs 12/16/24 12:47 12/16/24 12:47 Medications Medications Current Medications Acetaminophen (Acetaminophen 325 Mg Tablet) 650 mg PO Q6H PRN PRN Reason: Headache/Pain, Scale 1-10 Al Hydroxide/Mg Hydroxide (Magnesium Hydrox/Alum Hydrox 30 Ml Oral.Susp) 30 ml PO Q6H PRN PRN Reason: Heartburn/Nausea Amlodipine Besylate (Amlodipine Besylate 2.5 Mg Tablet) 2.5 mg PO DAILY [facility]; Protocol Last Admin: 12/27/24 08:27 Dose: 2.5 mg Clozapine (Clozapine 25 Mg Tablet) 50 mg PO BID [facility] Last Admin: 12/27/24 08:27 Dose: 50 mg Clozapine 300 mg/ Clozapine 50 (mg) 350 mg PO BEDTIME [facility] Last Admin: 12/26/24 20:07 Dose: 350 mg Hydroxyzine HCl (Hydroxyzine Hcl 25 Mg Tablet) 25 mg PO Q6H PRN PRN Reason: Anxiety/insomnia Hydroxyzine HCl (Hydroxyzine Hcl 25 Mg Tablet) 25 mg PO Q6H PRN PRN Reason: mild anxiety Lamotrigine (Lamotrigine 100 Mg Tablet) 100 mg PO BID [facility] Last Admin: 12/27/24 08:27 Dose: 100 mg [place] Carbonate ([place] Carbonate Er 300 Mg Tablet.Er) 750 mg PO BEDTIME [facility] Last Admin: 12/26/24 20:08 Dose: 750 mg Magnesium Hydroxide (Milk Of Magnesia 30 Ml Oral.Susp) 30 ml PO DAILY PRN PRN Reason: Constipation Last Admin: 12/21/24 09:05 Dose: 30 ml Metoprolol Succinate (Metoprolol Succinate Er 100 Mg Tab.Er.24h) 100 mg PO DAILY [facility]; Protocol Last Admin: 12/27/24 08:27 Dose: 100 mg Nicotine Polacrilex (Nicotine Polacrilex 2 Mg Gum) 4 mg BUCCAL Q2H PRN PRN Reason: Nicotine Cravings Risperidone (Risperidone 2 Mg Tablet) 2 mg PO DAILY [facility] Last Admin: 12/27/24 08:27 Dose: 2 mg Risperidone (Risperidone 2 Mg Tablet) 4 mg PO BEDTIME [facility] Last Admin: 12/26/24 20:07 Dose: 4 mg Senna/Docusate Sodium (Sennosides/Docusate Sodium Tablet) 1 tab PO BID PRN PRN Reason: constipation Trazodone HCl (Trazodone Hcl 50 Mg Tablet) 50 mg PO BEDTIME MRX1 PRN PRN Reason: Insomnia Allergies Allergies Allergy/AdvReac Type Severity Reaction Status Date / Time latex Allergy Unknown swelling Verified 12/16/24 12:15 in lips penicillin V Allergy Unknown unknown Verified 12/16/24 12:15 Assessment & Plan Assessment & Plan (1) Schizoaffective disorder, depressive type: Status: Acute Code(s): F25.1 - Schizoaffective disorder, depressive type Plan 12/17: continue clozapine 50/350, lithium 600 QHS, risperidone 2/4, and medical meds. pt had not had lamictal since saturday evening until last night had 100 and this morning had 100. will restart at 50 BID for now. stabilize, return to jail. 12/18: stable. signed CV. check clozaril level. increase lamictal to 75 BID as of saturday morning; orders have been entered. otherwise continue current mgmt. 12/19: Continue current management and treatment plan. 12/20: continue current management and treatment plan. 12/21: pt had apparently only been getting clozaril 50/300; dosing increased to 50/350, which is what med rec has as outpt regimen. lamictal increased to 75 BID as of yesterday. plan to increase once again tomorrow. reporting longstanding AH ever since [place], denies resolution since. clozaril level pending. 12/22: clozapine level pending. continue current mgmt. daily AH continue. 12/23: clozapine level supra-therapeutic at 1022, norcloz elevated at 511. T/C decreasing dose by 50 mg daily, although pt has no signs of toxicity or excessive dosing (no c/o side effects of any kind, alert and awake throughout the day) and has h/o similarly elevated level. lithium level noted to be sub-therapeutic, will discuss increasing lithium dosing tomorrow. continue current mgmt for now. 12/24: labs reviewed, with pt, as well as rationale for no change to clozapine dosing. agreeable to increase lamictal back to 100 BID. also amenable to increase lithium to 750 mg QHS due to recent level below 0.60. otherwise continue current mgmt. will check lithium level next saturday jack. 12/25: stable. no side effects or toxicity from clozapine. continue current mgmt for now. 12/26: stable. decrease norvasc to 2.5 mg daily for hypotension. otherwise continue current mgmt. 12/27: no change in presentation. recheck clozaril level. continue current mgmt otherwise. check lithium level saturday jack. Reason for continued inpatient stay Substantial Risk for: harm to others and inability to function Time Spent With Patient Time: Total time managing care of this patient today ____ minutes.
[2024-12-27] MEDS: Lithium Carbonate ER 300 MG TABLET.ER 750 MG PO (20:24)
[2024-12-27] MEDS: risperiDONE 2 MG TABLET 4 MG PO (20:25)
[2024-12-27] MEDS: Sennosides/Docusate Sodium TABLET 1 TAB PO (20:33)
[2024-12-28 08:50] VITALS: BP 119/76; PULSE 98; RESP 18; TEMP 36.9; O2SAT 99
[2024-12-28] MEDS: cloZAPine 25 MG TABLET 50 MG PO ×2 (08:51→21:08)
[2024-12-28] MEDS: risperiDONE 2 MG TABLET PO (08:51)
[2024-12-28 08:52] VITALS: BP 119/76; PULSE 98
[2024-12-28] MEDS: Metoprolol Succinate ER 100 MG TAB.ER.24H PO (08:52)
[2024-12-28] MEDS: lamoTRIgine 100 MG TABLET PO ×2 (08:52→21:08)
[2024-12-28] MEDS: amLODIPine Besylate 2.5 MG TABLET PO (08:52)
--- NOTE | 2024-12-28 13:07 | HO.PSYCHPN ---
Subjective Subjective Date of Service: 12/28/24 Reason For Visit: Schizoaffective Disorder Interim History: allows today that AH are not always truthful, but always beneficial. discuss lack of plans for commitment, possibility of discharge by the end of the week. check lithium level tomorrow night. per staff, dep 9 anx 3. +AH. attended group. pleasant. slept 9 hours. Mental Status Exam Mental Status Exam Narrative: calm, cooperative. adequately dressed and groomed. PMR. speech nml in rate, amount, loudness, tone, latency. thoughts linear and questionably logical. affect constricted, normo-intense, non-labile. mood lower than normal. no SI/SIBI/HI/VH expressed. endorses daily AH. Diagnostics Vital Signs (24Hr): Vital Signs - 24 hr 12/27/24 20:00 12/28/24 08:50 12/28/24 08:52 Temperature 99.8 F 98.5 F Pulse Rate 91 98 Respiratory Rate 16 18 Blood Pressure 115/75 119/76 119/76 Pulse Oximetry 99 99 Oxygen Delivery Method Room Air Room Air 12/28/24 08:52 Temperature Pulse Rate 98 Respiratory Rate Blood Pressure 119/76 Pulse Oximetry Oxygen Delivery Method BMI result Body Mass Index 26.0 Labs 12/16/24 12:47 12/16/24 12:47 Medications Medications Current Medications Acetaminophen (Acetaminophen 325 Mg Tablet) 650 mg PO Q6H PRN PRN Reason: Headache/Pain, Scale 1-10 Al Hydroxide/Mg Hydroxide (Magnesium Hydrox/Alum Hydrox 30 Ml Oral.Susp) 30 ml PO Q6H PRN PRN Reason: Heartburn/Nausea Amlodipine Besylate (Amlodipine Besylate 2.5 Mg Tablet) 2.5 mg PO DAILY [facility]; Protocol Last Admin: 12/28/24 08:52 Dose: 2.5 mg Clozapine (Clozapine 25 Mg Tablet) 50 mg PO BID [facility] Last Admin: 12/28/24 08:51 Dose: 50 mg Clozapine 300 mg/ Clozapine 50 (mg) 350 mg PO BEDTIME [facility] Last Admin: 12/27/24 20:22 Dose: 350 mg Hydroxyzine HCl (Hydroxyzine Hcl 25 Mg Tablet) 25 mg PO Q6H PRN PRN Reason: Anxiety/insomnia Hydroxyzine HCl (Hydroxyzine Hcl 25 Mg Tablet) 25 mg PO Q6H PRN PRN Reason: mild anxiety Lamotrigine (Lamotrigine 100 Mg Tablet) 100 mg PO BID [facility] Last Admin: 12/28/24 08:52 Dose: 100 mg [place] Carbonate ([place] Carbonate Er 300 Mg Tablet.Er) 750 mg PO BEDTIME [facility] Last Admin: 12/27/24 20:24 Dose: 750 mg Magnesium Hydroxide (Milk Of Magnesia 30 Ml Oral.Susp) 30 ml PO DAILY PRN PRN Reason: Constipation Last Admin: 12/21/24 09:05 Dose: 30 ml Metoprolol Succinate (Metoprolol Succinate Er 100 Mg Tab.Er.24h) 100 mg PO DAILY [facility]; Protocol Last Admin: 12/28/24 08:52 Dose: 100 mg Nicotine Polacrilex (Nicotine Polacrilex 2 Mg Gum) 4 mg BUCCAL Q2H PRN PRN Reason: Nicotine Cravings Risperidone (Risperidone 2 Mg Tablet) 2 mg PO DAILY [facility] Last Admin: 12/28/24 08:51 Dose: 2 mg Risperidone (Risperidone 2 Mg Tablet) 4 mg PO BEDTIME [facility] Last Admin: 12/27/24 20:25 Dose: 4 mg Senna/Docusate Sodium (Sennosides/Docusate Sodium Tablet) 1 tab PO BID PRN PRN Reason: constipation Last Admin: 12/27/24 20:33 Dose: 1 tab Trazodone HCl (Trazodone Hcl 50 Mg Tablet) 50 mg PO BEDTIME MRX1 PRN PRN Reason: Insomnia Allergies Allergies Allergy/AdvReac Type Severity Reaction Status Date / Time latex Allergy Unknown swelling Verified 12/16/24 12:15 in lips penicillin V Allergy Unknown unknown Verified 12/16/24 12:15 Assessment & Plan Assessment & Plan (1) Schizoaffective disorder, depressive type: Status: Acute Code(s): F25.1 - Schizoaffective disorder, depressive type Plan 12/17: continue clozapine 50/350, lithium 600 QHS, risperidone 2/4, and medical meds. pt had not had lamictal since saturday evening until last night had 100 and this morning had 100. will restart at 50 BID for now. stabilize, return to custodial. 12/18: stable. signed CV. check clozaril level. increase lamictal to 75 BID as of saturday morning; orders have been entered. otherwise continue current mgmt. 12/19: Continue current management and treatment plan. 12/20: continue current management and treatment plan. 12/21: pt had apparently only been getting clozaril 50/300; dosing increased to 50/350, which is what med [facility] has as outpt regimen. lamictal increased to 75 BID as of yesterday. plan to increase once again tomorrow. reporting longstanding AH ever since [place], denies resolution since. clozaril level pending. 12/22: clozapine level pending. continue current mgmt. daily AH continue. 12/23: clozapine level supra-therapeutic at 1022, norcloz elevated at 511. T/C decreasing dose by 50 mg daily, although pt has no signs of toxicity or excessive dosing (no c/o side effects of any kind, alert and awake throughout the day) and has h/o similarly elevated level. lithium level noted to be sub-therapeutic, will discuss increasing lithium dosing tomorrow. continue current mgmt for now. 12/24: labs reviewed, with pt, as well as rationale for no change to clozapine dosing. agreeable to increase lamictal back to 100 BID. also amenable to increase lithium to 750 mg QHS due to recent level below 0.60. otherwise continue current mgmt. will check lithium level next saturday jack. 12/25: stable. no side effects or toxicity from clozapine. continue current mgmt for now. 12/26: stable. decrease norvasc to 2.5 mg daily for hypotension. otherwise continue current mgmt. 12/27: no change in presentation. recheck clozaril level. continue current mgmt otherwise. check lithium level saturday jack. 12/28: no change in presentation. able to allow that AH are not always correct. check lithium level tomorrow night (ordered). Reason for continued inpatient stay Substantial Risk for: harm to others Time Spent With Patient Time: Total time managing care of this patient today __25__ minutes.
[2024-12-28 20:00] VITALS: BP 125/53; PULSE 86; RESP 16; TEMP 36.8; O2SAT 97
[2024-12-28] MEDS: Sennosides/Docusate Sodium TABLET 1 TAB PO (21:08)
[2024-12-28] MEDS: Lithium Carbonate ER 300 MG TABLET.ER 750 MG PO (21:08)
[2024-12-28] MEDS: risperiDONE 2 MG TABLET 4 MG PO (21:09)
[2024-12-29 07:56] VITALS: BP 104/60; PULSE 92; RESP 16; TEMP 36.6; O2SAT 99
[2024-12-29 10:03] VITALS: BP 116/75; PULSE 94
[2024-12-29] MEDS: lamoTRIgine 100 MG TABLET PO ×2 (10:03→20:56)
[2024-12-29] MEDS: amLODIPine Besylate 2.5 MG TABLET PO (10:03)
[2024-12-29] MEDS: cloZAPine 25 MG TABLET 50 MG PO ×2 (10:03→20:56)
[2024-12-29] MEDS: Metoprolol Succinate ER 100 MG TAB.ER.24H PO (10:03)
--- NOTE | 2024-12-29 10:03 | P.PNPSI_ITS ---
Subjective Subjective Date of Service: 12/29/24 Reason For Visit: Schizoaffective Disorder Interim History: Calm. cooperative. medication compliant. presents with paranoid delusions; pt stated, I'm going to [facility]. My voices told me and they are always honest. I think there are people here that are liars . Patient focused on being transferred to another facility despite being told this was not the plan. Patient denies SI, however stated, I very much look forward to dying and going to [facility]. I'm not suicidal. I just want it to accelerate . denies HI/VH. Medication Compliance: Yes Side effects from medications: No Attending Groups: No Mental Status Exam Mental Status Exam Patient Appearance: Appropriate Patient Orientation: Person, Place, Time and Situation Level of Consciousness: Awake and Alert Patient Behavior: Appropriate, Cooperative and Good Eye Contact Mood Description: Calm Affect Description: Blunted Ability to Follow Directions: Good Speech Pattern: Clear and Appropriate Hallucinations: Auditory Delusions: Paranoid Ideation Thought Process: Intact Thought Content: positive for Intact Diagnostics Vital Signs (24Hr): Vital Signs - 24 hr 12/28/24 20:00 12/29/24 07:56 Temperature 98.3 F 97.8 F Pulse Rate 86 92 Respiratory Rate 16 16 Blood Pressure 125/53 L 104/60 Pulse Oximetry 97 99 Oxygen Delivery Method Room Air Room Air BMI result Body Mass Index 26.0 Labs 12/16/24 12:47 12/16/24 12:47 Medications Medications Current Medications Acetaminophen (Acetaminophen 325 Mg Tablet) 650 mg PO Q6H PRN PRN Reason: Headache/Pain, Scale 1-10 Al Hydroxide/Mg Hydroxide (Magnesium Hydrox/Alum Hydrox 30 Ml Oral.Susp) 30 ml PO Q6H PRN PRN Reason: Heartburn/Nausea Amlodipine Besylate (Amlodipine Besylate 2.5 Mg Tablet) 2.5 mg PO DAILY [facility]; Protocol Last Admin: 12/28/24 08:52 Dose: 2.5 mg Clozapine (Clozapine 25 Mg Tablet) 50 mg PO BID [facility] Last Admin: 12/28/24 21:08 Dose: 50 mg Clozapine 300 mg/ Clozapine 50 (mg) 350 mg PO BEDTIME [facility] Last Admin: 12/28/24 21:08 Dose: 350 mg Hydroxyzine HCl (Hydroxyzine Hcl 25 Mg Tablet) 25 mg PO Q6H PRN PRN Reason: Anxiety/insomnia Hydroxyzine HCl (Hydroxyzine Hcl 25 Mg Tablet) 25 mg PO Q6H PRN PRN Reason: mild anxiety Lamotrigine (Lamotrigine 100 Mg Tablet) 100 mg PO BID [facility] Last Admin: 12/28/24 21:08 Dose: 100 mg [place] Carbonate ([place] Carbonate Er 300 Mg Tablet.Er) 750 mg PO BEDTIME [facility] Last Admin: 12/28/24 21:08 Dose: 750 mg Magnesium Hydroxide (Milk Of Magnesia 30 Ml Oral.Susp) 30 ml PO DAILY PRN PRN Reason: Constipation Last Admin: 12/21/24 09:05 Dose: 30 ml Metoprolol Succinate (Metoprolol Succinate Er 100 Mg Tab.Er.24h) 100 mg PO DAILY [facility]; Protocol Last Admin: 12/28/24 08:52 Dose: 100 mg Nicotine Polacrilex (Nicotine Polacrilex 2 Mg Gum) 4 mg BUCCAL Q2H PRN PRN Reason: Nicotine Cravings Risperidone (Risperidone 2 Mg Tablet) 2 mg PO DAILY [facility] Last Admin: 12/28/24 08:51 Dose: 2 mg Risperidone (Risperidone 2 Mg Tablet) 4 mg PO BEDTIME [facility] Last Admin: 12/28/24 21:09 Dose: 4 mg Senna/Docusate Sodium (Sennosides/Docusate Sodium Tablet) 1 tab PO BID PRN PRN Reason: constipation Last Admin: 12/28/24 21:08 Dose: 1 tab Trazodone HCl (Trazodone Hcl 50 Mg Tablet) 50 mg PO BEDTIME MRX1 PRN PRN Reason: Insomnia Allergies Allergies Allergy/AdvReac Type Severity Reaction Status Date / Time latex Allergy Unknown swelling Verified 12/16/24 12:15 in lips penicillin V Allergy Unknown unknown Verified 12/16/24 12:15 Assessment & Plan Assessment & Plan (1) Schizoaffective disorder, depressive type: Status: Acute Code(s): F25.1 - Schizoaffective disorder, depressive type Plan 12/17: continue clozapine 50/350, lithium 600 QHS, risperidone 2/4, and medical meds. pt had not had lamictal since saturday evening until last night had 100 and this morning had 100. will restart at 50 BID for now. stabilize, return to halfway. 12/18: stable. signed CV. check clozaril level. increase lamictal to 75 BID as of saturday morning; orders have been entered. otherwise continue current mgmt. 12/19: Continue current management and treatment plan. 12/20: continue current management and treatment plan. 12/21: pt had apparently only been getting clozaril 50/300; dosing increased to 50/350, which is what med rec has as outpt regimen. lamictal increased to 75 BID as of yesterday. plan to increase once again tomorrow. reporting longstanding AH ever since [place], denies resolution since. clozaril level pending. 12/22: clozapine level pending. continue current mgmt. daily AH continue. 12/23: clozapine level supra-therapeutic at 1022, norcloz elevated at 511. T/C decreasing dose by 50 mg daily, although pt has no signs of toxicity or excessive dosing (no c/o side effects of any kind, alert and awake throughout the day) and has h/o similarly elevated level. lithium level noted to be sub- therapeutic, will discuss increasing lithium dosing tomorrow. continue current mgmt for now. 12/24: labs reviewed, with pt, as well as rationale for no change to clozapine dosing. agreeable to increase lamictal back to 100 BID. also amenable to increase lithium to 750 mg QHS due to recent level below 0.60. otherwise continue current mgmt. will check lithium level next saturday jack. 12/25: stable. no side effects or toxicity from clozapine. continue current mgmt for now. 12/26: stable. decrease norvasc to 2.5 mg daily for hypotension. otherwise continue current mgmt. 12/27: no change in presentation. recheck clozaril level. continue current mgmt otherwise. check lithium level saturday jack. 12/28: no change in presentation. able to allow that AH are not always correct. check lithium level tomorrow night (ordered). 12/29: paranoid delusions. focused on transferred to another hospital. +AH. continue current tx plan. Patient educated on: diagnosis and medication risk/benefits Reason for continued inpatient stay Substantial Risk for: med/psych decompensation Time Spent With Patient Time: Total time managing care of this patient today _10___ minutes.
[2024-12-29] MEDS: risperiDONE 2 MG TABLET PO (10:04)
[2024-12-29 20:00] VITALS: BP 135/85; PULSE 95; RESP 16; TEMP 36.9; O2SAT 99
[2024-12-29] MEDS: Sennosides/Docusate Sodium TABLET 1 TAB PO (20:56)
[2024-12-29] MEDS: risperiDONE 2 MG TABLET 4 MG PO (20:57)
[2024-12-29] MEDS: Lithium Carbonate ER 300 MG TABLET.ER 750 MG PO (20:57)
[2024-12-30 07:56] VITALS: BP 91/64; PULSE 82; RESP 16; TEMP 37.3; O2SAT 98
[2024-12-30 08:17] LABS: Neut%MD 56.4 %; Neutrophils Absolute Auto 4.5 x10*3/uL (2.0-8.3); WBCANC 7.9 X10*3/uL
[2024-12-30 09:23] VITALS: BP 127/75; PULSE 90
[2024-12-30] MEDS: Metoprolol Succinate ER 100 MG TAB.ER.24H PO (09:25)
[2024-12-30] MEDS: cloZAPine 25 MG TABLET 50 MG PO ×2 (09:25→21:10)
[2024-12-30] MEDS: amLODIPine Besylate 2.5 MG TABLET PO (09:25)
[2024-12-30] MEDS: lamoTRIgine 100 MG TABLET PO ×2 (09:25→21:11)
[2024-12-30] MEDS: risperiDONE 2 MG TABLET PO (09:25)
[2024-12-30] MEDS: Sennosides/Docusate Sodium TABLET 1 TAB PO ×2 (09:28→21:19)
--- NOTE | 2024-12-30 19:37 | HO.PSYCHPN ---
Subjective Subjective Date of Service: 12/30/24 Reason For Visit: Schizoaffective Disorder Interim History: no change in presentation. still hearing he will be going to [place]. anticipating lab draw on saturday. per staff, slept 8 hours. dep 4. looking forward to . AH help him out. Mental Status Exam Mental Status Exam Narrative: calm, cooperative. adequately dressed and groomed. PMR. speech nml in rate, amount, loudness, tone, latency. thoughts linear and questionably logical. affect constricted, normo-intense, non-labile. mood lower than normal. no SI/SIBI/HI/VH expressed. endorses daily AH. Diagnostics Vital Signs (24Hr): Vital Signs - 24 hr 12/29/24 20:00 12/30/24 07:56 12/30/24 09:23 Temperature 98.5 F 99.1 F Pulse Rate 95 82 90 Respiratory Rate 16 16 Blood Pressure 135/85 91/64 127/75 Pulse Oximetry 99 98 Oxygen Delivery Method Room Air Room Air BMI result Body Mass Index 26.0 Labs 12/16/24 12:47 12/16/24 12:47 Labs: Laboratory Results - last 48 hr 12/30/24 07:37 Absolute Neuts (auto) 4.5 Medications Medications Current Medications Acetaminophen (Acetaminophen 325 Mg Tablet) 650 mg PO Q6H PRN PRN Reason: Headache/Pain, Scale 1-10 Al Hydroxide/Mg Hydroxide (Magnesium Hydrox/Alum Hydrox 30 Ml Oral.Susp) 30 ml PO Q6H PRN PRN Reason: Heartburn/Nausea Amlodipine Besylate (Amlodipine Besylate 2.5 Mg Tablet) 2.5 mg PO DAILY [facility]; Protocol Last Admin: 12/30/24 09:25 Dose: 2.5 mg Clozapine (Clozapine 25 Mg Tablet) 50 mg PO BID [facility] Last Admin: 12/30/24 09:25 Dose: 50 mg Clozapine 300 mg/ Clozapine 50 (mg) 350 mg PO BEDTIME [facility] Last Admin: 12/29/24 20:56 Dose: 350 mg Hydroxyzine HCl (Hydroxyzine Hcl 25 Mg Tablet) 25 mg PO Q6H PRN PRN Reason: Anxiety/insomnia Lamotrigine (Lamotrigine 100 Mg Tablet) 100 mg PO BID [facility] Last Admin: 12/30/24 09:25 Dose: 100 mg [place] Carbonate ([place] Carbonate Er 300 Mg Tablet.Er) 750 mg PO BEDTIME [facility] Last Admin: 12/29/24 20:57 Dose: 750 mg Magnesium Hydroxide (Milk Of Magnesia 30 Ml Oral.Susp) 30 ml PO DAILY PRN PRN Reason: Constipation Last Admin: 12/21/24 09:05 Dose: 30 ml Metoprolol Succinate (Metoprolol Succinate Er 100 Mg Tab.Er.24h) 100 mg PO DAILY [facility]; Protocol Last Admin: 12/30/24 09:25 Dose: 100 mg Nicotine Polacrilex (Nicotine Polacrilex 2 Mg Gum) 4 mg BUCCAL Q2H PRN PRN Reason: Nicotine Cravings Risperidone (Risperidone 2 Mg Tablet) 2 mg PO DAILY [facility] Last Admin: 12/30/24 09:25 Dose: 2 mg Risperidone (Risperidone 2 Mg Tablet) 4 mg PO BEDTIME [facility] Last Admin: 12/29/24 20:57 Dose: 4 mg Senna/Docusate Sodium (Sennosides/Docusate Sodium Tablet) 1 tab PO BID PRN PRN Reason: constipation Last Admin: 12/30/24 09:28 Dose: 1 tab Trazodone HCl (Trazodone Hcl 50 Mg Tablet) 50 mg PO BEDTIME MRX1 PRN PRN Reason: Insomnia Allergies Allergies Allergy/AdvReac Type Severity Reaction Status Date / Time latex Allergy Unknown swelling Verified 12/16/24 12:15 in lips penicillin V Allergy Unknown unknown Verified 12/16/24 12:15 Assessment & Plan Assessment & Plan (1) Schizoaffective disorder, depressive type: Status: Acute Code(s): F25.1 - Schizoaffective disorder, depressive type Plan 12/17: continue clozapine 50/350, lithium 600 QHS, risperidone 2/4, and medical meds. pt had not had lamictal since saturday evening until last night had 100 and this morning had 100. will restart at 50 BID for now. stabilize, return to correction. 12/18: stable. signed CV. check clozaril level. increase lamictal to 75 BID as of saturday morning; orders have been entered. otherwise continue current mgmt. 12/19: Continue current management and treatment plan. 12/20: continue current management and treatment plan. 12/21: pt had apparently only been getting clozaril 50/300; dosing increased to 50/350, which is what med rec has as outpt regimen. lamictal increased to 75 BID as of yesterday. plan to increase once again tomorrow. reporting longstanding AH ever since [place], denies resolution since. clozaril level pending. 12/22: clozapine level pending. continue current mgmt. daily AH continue. 12/23: clozapine level supra-therapeutic at 1022, norcloz elevated at 511. T/C decreasing dose by 50 mg daily, although pt has no signs of toxicity or excessive dosing (no c/o side effects of any kind, alert and awake throughout the day) and has h/o similarly elevated level. lithium level noted to be sub-therapeutic, will discuss increasing lithium dosing tomorrow. continue current mgmt for now. 12/24: labs reviewed, with pt, as well as rationale for no change to clozapine dosing. agreeable to increase lamictal back to 100 BID. also amenable to increase lithium to 750 mg QHS due to recent level below 0.60. otherwise continue current mgmt. will check lithium level next saturday jack. 12/25: stable. no side effects or toxicity from clozapine. continue current mgmt for now. 12/26: stable. decrease norvasc to 2.5 mg daily for hypotension. otherwise continue current mgmt. 12/27: no change in presentation. recheck clozaril level. continue current mgmt otherwise. check lithium level saturday. 12/28: no change in presentation. able to allow that AH are not always correct. check lithium level tomorrow night (ordered). 12/29: paranoid delusions. focused on transferred to another hospital. +AH. continue current tx plan. 12/30: stable presentation. paranoid delusions, +AH. check lithium saturday. continue current mgmt. Reason for continued inpatient stay Substantial Risk for: harm to others and inability to function Time Spent With Patient Time: Total time managing care of this patient today __25__ minutes.
[2024-12-30 20:00] VITALS: BP 125/60; PULSE 90; RESP 16; TEMP 36.9; O2SAT 99
[2024-12-30] MEDS: Lithium Carbonate ER 300 MG TABLET.ER 750 MG PO (21:09)
[2024-12-30] MEDS: risperiDONE 2 MG TABLET 4 MG PO (21:11)
[2024-12-31 08:00] VITALS: BP 98/68; PULSE 80; RESP 16; TEMP 36.6; O2SAT 100
[2024-12-31 09:27] VITALS: BP 98/68
[2024-12-31] MEDS: amLODIPine Besylate 2.5 MG TABLET PO (09:27)
[2024-12-31] MEDS: risperiDONE 2 MG TABLET PO (09:27)
[2024-12-31] MEDS: cloZAPine 25 MG TABLET 50 MG PO ×2 (09:27→20:55)
[2024-12-31 09:28] VITALS: BP 98/68; PULSE 80
[2024-12-31] MEDS: lamoTRIgine 100 MG TABLET PO ×2 (09:28→20:55)
[2024-12-31] MEDS: Metoprolol Succinate ER 100 MG TAB.ER.24H PO (09:28)
[2024-12-31] MEDS: Sennosides/Docusate Sodium TABLET 1 TAB PO (09:30)
--- NOTE | 2024-12-31 15:30 | HO.PSYCHPN ---
Subjective Subjective Date of Service: 12/31/24 Reason For Visit: Schizoaffective Disorder Interim History: no change in presentation. agreeable to check labs tonight. per staff, not attending groups. dep/anx 10. slept 8 hours. Mental Status Exam Mental Status Exam Narrative: calm, cooperative. adequately dressed and groomed. PMR. speech nml in rate, amount, loudness, tone, latency. thoughts linear and questionably logical. affect constricted, normo-intense, non-labile. mood lower than normal. no SI/SIBI/HI/VH expressed. endorses daily AH. Diagnostics Vital Signs (24Hr): Vital Signs - 24 hr 12/30/24 20:00 12/31/24 08:00 12/31/24 09:27 Temperature 98.5 F 97.9 F Pulse Rate 90 80 Respiratory Rate 16 16 Blood Pressure 125/60 98/68 98/68 Pulse Oximetry 99 100 Oxygen Delivery Method Room Air Room Air 12/31/24 09:28 Temperature Pulse Rate 80 Respiratory Rate Blood Pressure 98/68 Pulse Oximetry Oxygen Delivery Method BMI result Body Mass Index 26.0 Labs 12/16/24 12:47 12/16/24 12:47 Labs: Laboratory Results - last 48 hr 12/30/24 07:37 Absolute Neuts (auto) 4.5 Medications Medications Current Medications Acetaminophen (Acetaminophen 325 Mg Tablet) 650 mg PO Q6H PRN PRN Reason: Headache/Pain, Scale 1-10 Al Hydroxide/Mg Hydroxide (Magnesium Hydrox/Alum Hydrox 30 Ml Oral.Susp) 30 ml PO Q6H PRN PRN Reason: Heartburn/Nausea Amlodipine Besylate (Amlodipine Besylate 2.5 Mg Tablet) 2.5 mg PO DAILY [facility]; Protocol Last Admin: 12/31/24 09:27 Dose: 2.5 mg Clozapine (Clozapine 25 Mg Tablet) 50 mg PO BID [facility] Last Admin: 12/31/24 09:27 Dose: 50 mg Clozapine 300 mg/ Clozapine 50 (mg) 350 mg PO BEDTIME [facility] Last Admin: 12/30/24 21:10 Dose: 350 mg Hydroxyzine HCl (Hydroxyzine Hcl 25 Mg Tablet) 25 mg PO Q6H PRN PRN Reason: Anxiety/insomnia Lamotrigine (Lamotrigine 100 Mg Tablet) 100 mg PO BID [facility] Last Admin: 12/31/24 09:28 Dose: 100 mg [place] Carbonate ([place] Carbonate Er 300 Mg Tablet.Er) 750 mg PO BEDTIME [facility] Last Admin: 12/30/24 21:09 Dose: 750 mg Magnesium Hydroxide (Milk Of Magnesia 30 Ml Oral.Susp) 30 ml PO DAILY PRN PRN Reason: Constipation Last Admin: 12/21/24 09:05 Dose: 30 ml Metoprolol Succinate (Metoprolol Succinate Er 100 Mg Tab.Er.24h) 100 mg PO DAILY [facility]; Protocol Last Admin: 12/31/24 09:28 Dose: 100 mg Nicotine Polacrilex (Nicotine Polacrilex 2 Mg Gum) 4 mg BUCCAL Q2H PRN PRN Reason: Nicotine Cravings Risperidone (Risperidone 2 Mg Tablet) 2 mg PO DAILY [facility] Last Admin: 12/31/24 09:27 Dose: 2 mg Risperidone (Risperidone 2 Mg Tablet) 4 mg PO BEDTIME [facility] Last Admin: 12/30/24 21:11 Dose: 4 mg Senna/Docusate Sodium (Sennosides/Docusate Sodium Tablet) 1 tab PO BID PRN PRN Reason: constipation Last Admin: 12/31/24 09:30 Dose: 1 tab Trazodone HCl (Trazodone Hcl 50 Mg Tablet) 50 mg PO BEDTIME MRX1 PRN PRN Reason: Insomnia Allergies Allergies Allergy/AdvReac Type Severity Reaction Status Date / Time latex Allergy Unknown swelling Verified 12/16/24 12:15 in lips penicillin V Allergy Unknown unknown Verified 12/16/24 12:15 Assessment & Plan Assessment & Plan (1) Schizoaffective disorder, depressive type: Status: Acute Code(s): F25.1 - Schizoaffective disorder, depressive type Plan 12/17: continue clozapine 50/350, lithium 600 QHS, risperidone 2/4, and medical meds. pt had not had lamictal since saturday evening until last night had 100 and this morning had 100. will restart at 50 BID for now. stabilize, return to longterm. 12/18: stable. signed CV. check clozaril level. increase lamictal to 75 BID as of saturday morning; orders have been entered. otherwise continue current mgmt. 12/19: Continue current management and treatment plan. 12/20: continue current management and treatment plan. 12/21: pt had apparently only been getting clozaril 50/300; dosing increased to 50/350, which is what med [facility] has as outpt regimen. lamictal increased to 75 BID as of yesterday. plan to increase once again tomorrow. reporting longstanding AH ever since [place], denies resolution since. clozaril level pending. 12/22: clozapine level pending. continue current mgmt. daily AH continue. 12/23: clozapine level supra-therapeutic at 1022, norcloz elevated at 511. T/C decreasing dose by 50 mg daily, although pt has no signs of toxicity or excessive dosing (no c/o side effects of any kind, alert and awake throughout the day) and has h/o similarly elevated level. lithium level noted to be sub-therapeutic, will discuss increasing lithium dosing tomorrow. continue current mgmt for now. 12/24: labs reviewed, with pt, as well as rationale for no change to clozapine dosing. agreeable to increase lamictal back to 100 BID. also amenable to increase lithium to 750 mg QHS due to recent level below 0.60. otherwise continue current mgmt. will check lithium level next saturday. 12/25: stable. no side effects or toxicity from clozapine. continue current mgmt for now. 12/26: stable. decrease norvasc to 2.5 mg daily for hypotension. otherwise continue current mgmt. 12/27: no change in presentation. recheck clozaril level. continue current mgmt otherwise. check lithium level saturday. 12/28: no change in presentation. able to allow that AH are not always correct. check lithium level tomorrow night (ordered). 12/29: paranoid delusions. focused on transferred to another hospital. +AH. continue current tx plan. 12/30: stable presentation. paranoid delusions, +AH. check lithium saturday. continue current mgmt. 12/31: stable. continue current mgmt. check lithium tonight. Reason for continued inpatient stay Substantial Risk for: harm to others, inability to function and rapid decompensation Time Spent With Patient Time: Total time managing care of this patient today __25__ minutes.
[2024-12-31 20:00] VITALS: BP 140/88; PULSE 97; RESP 16; TEMP 36.8; O2SAT 98
[2024-12-31 20:50] LABS: Lithium 0.52 mmol/L (0.60-1.20)
[2024-12-31] MEDS: risperiDONE 2 MG TABLET 4 MG PO (20:55)
[2024-12-31] MEDS: Lithium Carbonate ER 300 MG TABLET.ER 750 MG PO (20:55)
[2024-12-31 20:56] LABS: Anion Gap 10 (12-20); Blood Urea Nitrogen 19 mg/dL (9-16); Calcium 9.1 mg/dL (8.4-10.2); Carbon Dioxide 25 mmol/L (22-29); Chloride 111 mmol/L (96-108); Creatinine Clr Calc Pharmacy 84.6; Estimated Glomerular Filt Rate > 60; Glucose Random 132 mg/dL (60-115); Potassium 4.2 mmol/L (3.3-5.1); Sodium 142 mmol/L (135-145)
[2025-01-01 07:53] VITALS: BP 101/65; PULSE 70; RESP 16; TEMP 36.8; O2SAT 100
[2025-01-01] MEDS: lamoTRIgine 100 MG TABLET PO ×2 (08:51→21:01)
[2025-01-01] MEDS: amLODIPine Besylate 2.5 MG TABLET PO (08:51)
[2025-01-01] MEDS: Metoprolol Succinate ER 100 MG TAB.ER.24H PO (08:51)
[2025-01-01] MEDS: risperiDONE 2 MG TABLET PO (08:52)
[2025-01-01] MEDS: cloZAPine 25 MG TABLET 50 MG PO ×2 (08:52→21:01)
--- NOTE | 2025-01-01 15:06 | P.PNPSI_ITS ---
Subjective Subjective Date of Service: 01/01/25 Reason For Visit: Schizoaffective Disorder Interim History: no change in presentation. discuss biological bases of spirituality and experience in general. reluctantly agrees to increase dose of lithium to 900 mg at HS. per staff, AH pleasant. anx/dep 10 last NOC. slept all NOC. Mental Status Exam Mental Status Exam Narrative: calm, cooperative. adequately dressed and groomed. PMR. speech nml in rate, amount, loudness, tone, latency. thoughts linear and questionably logical. affect constricted, normo-intense, non-labile. mood lower than normal. no SI/SIBI/HI/VH expressed. endorses daily AH. Diagnostics Vital Signs (24Hr): Vital Signs - 24 hr 12/31/24 20:00 01/01/25 07:53 Temperature 98.2 F 98.3 F Pulse Rate 97 70 Respiratory Rate 16 16 Blood Pressure 140/88 H 101/65 Pulse Oximetry 98 100 Oxygen Delivery Method Room Air Room Air BMI result Body Mass Index 26.0 Labs 12/16/24 12:47 12/31/24 20:33 Labs: Laboratory Results - last 48 hr 12/31/24 20:33 Sodium 142 Potassium 4.2 Chloride 111 H Carbon Dioxide 25 Anion Gap 10 L BUN 19 H Creatinine 1.10 Estim Creat Clear Calc 84.6 Estimated GFR > 60 Random Glucose 132 H Calcium 9.1 [place] 0.52 L Medications Medications Current Medications Acetaminophen (Acetaminophen 325 Mg Tablet) 650 mg PO Q6H PRN PRN Reason: Headache/Pain, Scale 1-10 Al Hydroxide/Mg Hydroxide (Magnesium Hydrox/Alum Hydrox 30 Ml Oral.Susp) 30 ml PO Q6H PRN PRN Reason: Heartburn/Nausea Amlodipine Besylate (Amlodipine Besylate 2.5 Mg Tablet) 2.5 mg PO DAILY [facility]; Protocol Last Admin: 01/01/25 08:51 Dose: 2.5 mg Clozapine (Clozapine 25 Mg Tablet) 50 mg PO BID [facility] Last Admin: 01/01/25 08:52 Dose: 50 mg Clozapine 300 mg/ Clozapine 50 (mg) 350 mg PO BEDTIME [facility] Last Admin: 12/31/24 20:54 Dose: 350 mg Hydroxyzine HCl (Hydroxyzine Hcl 25 Mg Tablet) 25 mg PO Q6H PRN PRN Reason: Anxiety/insomnia Lamotrigine (Lamotrigine 100 Mg Tablet) 100 mg PO BID [facility] Last Admin: 01/01/25 08:51 Dose: 100 mg [place] Carbonate ([place] Carbonate Er 450 Mg Tablet.Er) 900 mg PO BEDTIME [facility] Magnesium Hydroxide (Milk Of Magnesia 30 Ml Oral.Susp) 30 ml PO DAILY PRN PRN Reason: Constipation Last Admin: 12/21/24 09:05 Dose: 30 ml Metoprolol Succinate (Metoprolol Succinate Er 100 Mg Tab.Er.24h) 100 mg PO DAILY [facility]; Protocol Last Admin: 01/01/25 08:51 Dose: 100 mg Nicotine Polacrilex (Nicotine Polacrilex 2 Mg Gum) 4 mg BUCCAL Q2H PRN PRN Reason: Nicotine Cravings Risperidone (Risperidone 2 Mg Tablet) 2 mg PO DAILY [facility] Last Admin: 01/01/25 08:52 Dose: 2 mg Risperidone (Risperidone 2 Mg Tablet) 4 mg PO BEDTIME [facility] Last Admin: 12/31/24 20:55 Dose: 4 mg Senna/Docusate Sodium (Sennosides/Docusate Sodium Tablet) 1 tab PO BID PRN PRN Reason: constipation Last Admin: 12/31/24 09:30 Dose: 1 tab Trazodone HCl (Trazodone Hcl 50 Mg Tablet) 50 mg PO BEDTIME MRX1 PRN PRN Reason: Insomnia Allergies Allergies Allergy/AdvReac Type Severity Reaction Status Date / Time latex Allergy Unknown swelling Verified 12/16/24 12:15 in lips penicillin V Allergy Unknown unknown Verified 12/16/24 12:15 Assessment & Plan Assessment & Plan (1) Schizoaffective disorder, depressive type: Status: Acute Code(s): F25.1 - Schizoaffective disorder, depressive type Plan 12/17: continue clozapine 50/350, lithium 600 QHS, risperidone 2/4, and medical meds. pt had not had lamictal since saturday evening until last night had 100 and this morning had 100. will restart at 50 BID for now. stabilize, return to [facility]. 12/18: stable. signed CV. check clozaril level. increase lamictal to 75 BID as of saturday morning; orders have been entered. otherwise continue current mgmt. 12/19: Continue current management and treatment plan. 12/20: continue current management and treatment plan. 12/21: pt had apparently only been getting clozaril 50/300; dosing increased to 50/350, which is what med [facility] has as outpt regimen. lamictal increased to 75 BID as of yesterday. plan to increase once again tomorrow. reporting longstanding AH ever since [place], denies resolution since. clozaril level pending. 12/22: clozapine level pending. continue current mgmt. daily AH continue. 12/23: clozapine level supra-therapeutic at 1022, norcloz elevated at 511. T/C decreasing dose by 50 mg daily, although pt has no signs of toxicity or excessive dosing (no c/o side effects of any kind, alert and awake throughout the day) and has h/o similarly elevated level. lithium level noted to be sub- therapeutic, will discuss increasing lithium dosing tomorrow. continue current mgmt for now. 12/24: labs reviewed, with pt, as well as rationale for no change to clozapine dosing. agreeable to increase lamictal back to 100 BID. also amenable to increase lithium to 750 mg QHS due to recent level below 0.60. otherwise continue current mgmt. will check lithium level next saturday jack. 12/25: stable. no side effects or toxicity from clozapine. continue current mgmt for now. 12/26: stable. decrease norvasc to 2.5 mg daily for hypotension. otherwise continue current mgmt. 12/27: no change in presentation. recheck clozaril level. continue current mgmt otherwise. check lithium level saturday jack. 12/28: no change in presentation. able to allow that AH are not always correct. check lithium level tomorrow night (ordered). 12/29: paranoid delusions. focused on transferred to another hospital. +AH. continue current tx plan. 12/30: stable presentation. paranoid delusions, +AH. check lithium saturday. continue current mgmt. 12/31: stable. continue current mgmt. check lithium tonight. 01/01: lithium low at 0.52, essentially unchanged from at 600 mg daily. increase lithium again to 900 mg daily as of tonight. no change in Sx. Reason for continued inpatient stay Substantial Risk for: harm to self, harm to others and inability to function Time Spent With Patient Time: Total time managing care of this patient today __25__ minutes.
[2025-01-01 15:29] LABS: Clozapine (Clozaril) 723 mcg/L; Norclozapine 497 mcg/L (25-400)
[2025-01-01 20:00] VITALS: BP 117/72; PULSE 91; RESP 16; TEMP 37.1; O2SAT 94
[2025-01-01] MEDS: Lithium Carbonate ER 450 MG TABLET.ER 900 MG PO (21:01)
[2025-01-01] MEDS: risperiDONE 2 MG TABLET 4 MG PO (21:01)
[2025-01-02 08:00] VITALS: BP 116/79; PULSE 73; RESP 16; TEMP 36.4; O2SAT 97
[2025-01-02] MEDS: cloZAPine 25 MG TABLET 50 MG PO ×2 (08:12→21:34)
[2025-01-02] MEDS: amLODIPine Besylate 2.5 MG TABLET PO (08:13)
[2025-01-02] MEDS: lamoTRIgine 100 MG TABLET PO ×2 (08:13→21:35)
[2025-01-02] MEDS: risperiDONE 2 MG TABLET PO (08:13)
[2025-01-02] MEDS: Metoprolol Succinate ER 100 MG TAB.ER.24H PO (08:14)
--- NOTE | 2025-01-02 15:43 | P.PNPSI_ITS ---
Subjective Subjective Date of Service: 01/02/25 Reason For Visit: Schizoaffective Disorder Interim History: met with pt; discussed with team says telling him he'll be sent to [facility], committed there. Says voices have always steered him well. Does not respond to reality testing. Says eating, sleeping well. Mental Status Exam Mental Status Exam Narrative: calm, cooperative. adequately dressed and groomed. PMR. speech nml in rate, amount, loudness, tone, latency. thoughts linear and questionably logical. affect constricted, normo-intense, non-labile. mood lower than normal. no SI/SIBI/HI; ongoing Diagnostics Vital Signs (24Hr): Vital Signs - 24 hr 01/01/25 20:00 01/02/25 08:00 Temperature 98.7 F 97.5 F Pulse Rate 91 73 Respiratory Rate 16 16 Blood Pressure 117/72 116/79 Pulse Oximetry 94 97 Oxygen Delivery Method Room Air Room Air BMI result Body Mass Index 26.0 Labs 12/16/24 12:47 12/31/24 20:33 Labs: Laboratory Results - last 48 hr 12/27/24 12/31/24 20:02 20:33 Sodium 142 Potassium 4.2 Chloride 111 H Carbon Dioxide 25 Anion Gap 10 L BUN 19 H Creatinine 1.10 Estim Creat Clear Calc 84.6 Estimated GFR > 60 Random Glucose 132 H Calcium 9.1 Clozapine 723 Norclozapine 497 H [place] 0.52 L Medications Medications Current Medications Acetaminophen (Acetaminophen 325 Mg Tablet) 650 mg PO Q6H PRN PRN Reason: Headache/Pain, Scale 1-10 Al Hydroxide/Mg Hydroxide (Magnesium Hydrox/Alum Hydrox 30 Ml Oral.Susp) 30 ml PO Q6H PRN PRN Reason: Heartburn/Nausea Amlodipine Besylate (Amlodipine Besylate 2.5 Mg Tablet) 2.5 mg PO DAILY [facility]; Protocol Last Admin: 01/02/25 08:13 Dose: 2.5 mg Clozapine (Clozapine 25 Mg Tablet) 50 mg PO BID [facility] Last Admin: 01/02/25 08:12 Dose: 50 mg Clozapine 300 mg/ Clozapine 50 (mg) 350 mg PO BEDTIME [facility] Last Admin: 01/01/25 21:01 Dose: 350 mg Hydroxyzine HCl (Hydroxyzine Hcl 25 Mg Tablet) 25 mg PO Q6H PRN PRN Reason: Anxiety/insomnia Lamotrigine (Lamotrigine 100 Mg Tablet) 100 mg PO BID [facility] Last Admin: 01/02/25 08:13 Dose: 100 mg [place] Carbonate ([place] Carbonate Er 450 Mg Tablet.Er) 900 mg PO BEDTIME [facility] Last Admin: 01/01/25 21:01 Dose: 900 mg Magnesium Hydroxide (Milk Of Magnesia 30 Ml Oral.Susp) 30 ml PO DAILY PRN PRN Reason: Constipation Last Admin: 12/21/24 09:05 Dose: 30 ml Metoprolol Succinate (Metoprolol Succinate Er 100 Mg Tab.Er.24h) 100 mg PO DAILY [facility]; Protocol Last Admin: 01/02/25 08:14 Dose: 100 mg Nicotine Polacrilex (Nicotine Polacrilex 2 Mg Gum) 4 mg BUCCAL Q2H PRN PRN Reason: Nicotine Cravings Risperidone (Risperidone 2 Mg Tablet) 2 mg PO DAILY [facility] Last Admin: 01/02/25 08:13 Dose: 2 mg Risperidone (Risperidone 2 Mg Tablet) 4 mg PO BEDTIME [facility] Last Admin: 01/01/25 21:01 Dose: 4 mg Senna/Docusate Sodium (Sennosides/Docusate Sodium Tablet) 1 tab PO BID PRN PRN Reason: constipation Last Admin: 12/31/24 09:30 Dose: 1 tab Trazodone HCl (Trazodone Hcl 50 Mg Tablet) 50 mg PO BEDTIME MRX1 PRN PRN Reason: Insomnia Allergies Allergies Allergy/AdvReac Type Severity Reaction Status Date / Time latex Allergy Unknown swelling Verified 12/16/24 12:15 in lips penicillin V Allergy Unknown unknown Verified 12/16/24 12:15 Assessment & Plan Assessment & Plan (1) Schizoaffective disorder, depressive type: Status: Acute Code(s): F25.1 - Schizoaffective disorder, depressive type Plan 12/17: continue clozapine 50/350, lithium 600 QHS, risperidone 2/4, and medical meds. pt had not had lamictal since saturday evening until last night had 100 and this morning had 100. will restart at 50 BID for now. stabilize, return to [facility]. 12/18: stable. signed CV. check clozaril level. increase lamictal to 75 BID as of saturday morning; orders have been entered. otherwise continue current mgmt. 12/19: Continue current management and treatment plan. 12/20: continue current management and treatment plan. 12/21: pt had apparently only been getting clozaril 50/300; dosing increased to 50/350, which is what [facility] has as outpt regimen. lamictal increased to 75 BID as of yesterday. plan to increase once again tomorrow. reporting longstanding AH ever since [facility], denies resolution since. clozaril level pending. 12/22: clozapine level pending. continue current mgmt. daily AH continue. 12/23: clozapine level supra-therapeutic at 1022, norcloz elevated at 511. T/C decreasing dose by 50 mg daily, although pt has no signs of toxicity or excessive dosing (no c/o side effects of any kind, alert and awake throughout the day) and has h/o similarly elevated level. lithium level noted to be sub- therapeutic, will discuss increasing lithium dosing tomorrow. continue current mgmt for now. 12/24: labs reviewed, with pt, as well as rationale for no change to clozapine dosing. agreeable to increase lamictal back to 100 BID. also amenable to increase lithium to 750 mg QHS due to recent level below 0.60. otherwise continue current mgmt. will check lithium level next saturday jack. 12/25: stable. no side effects or toxicity from clozapine. continue current mgmt for now. 12/26: stable. decrease norvasc to 2.5 mg daily for hypotension. otherwise continue current mgmt. 12/27: no change in presentation. recheck clozaril level. continue current mgmt otherwise. check lithium level saturday jack. 12/28: no change in presentation. able to allow that AH are not always correct. check lithium level tomorrow night (ordered). 12/29: paranoid delusions. focused on transferred to another hospital. +AH. continue current tx plan. 12/30: stable presentation. paranoid delusions, +AH. check lithium saturday. continue current mgmt. 12/31: stable. continue current mgmt. check lithium tonight. 01/01: lithium low at 0.52, essentially unchanged from at 600 mg daily. increase lithium again to 900 mg daily as of tonight. no change in Sx. 01/02 continue current tx plan Patient educated on: diagnosis Informed Consent: does not understand Reason for continued inpatient stay Substantial Risk for: inability to function Time Spent With Patient Time: Total time managing care of this patient today ____ minutes.
[2025-01-02 20:00] VITALS: BP 127/80; PULSE 87; RESP 16; TEMP 37.4; O2SAT 98
[2025-01-02] MEDS: Lithium Carbonate ER 450 MG TABLET.ER 900 MG PO (21:35)
[2025-01-02] MEDS: risperiDONE 2 MG TABLET 4 MG PO (21:36)
[2025-01-03 09:07] VITALS: BP 117/79; PULSE 72; RESP 16; TEMP 36.7; O2SAT 98
[2025-01-03] MEDS: cloZAPine 25 MG TABLET 50 MG PO ×2 (09:08→21:05)
[2025-01-03] MEDS: lamoTRIgine 100 MG TABLET PO ×2 (09:08→21:06)
[2025-01-03] MEDS: Metoprolol Succinate ER 100 MG TAB.ER.24H PO (09:08)
[2025-01-03] MEDS: amLODIPine Besylate 2.5 MG TABLET PO (09:08)
[2025-01-03] MEDS: risperiDONE 2 MG TABLET PO (09:09)
--- NOTE | 2025-01-03 15:02 | P.PNPSI_ITS ---
Subjective Subjective Date of Service: 01/03/25 Reason For Visit: Schizoaffective Disorder Interim History: Met with patient; discussed with team pt remains with telling him he'll be going to [place]; he is not distressed saying he will cope with whatever happens. No SI; remains isolative but cooperative on approach Mental Status Exam Mental Status Exam Narrative: calm, cooperative. adequately dressed and groomed. PMR. speech nml in rate, amount, loudness, tone, latency. thoughts linear and questionably logical. affect constricted, normo-intense, non-labile. mood good though somewhat blunted affect; no SI/SIBI/HI; ongoing Diagnostics Vital Signs (24Hr): Vital Signs - 24 hr 01/02/25 20:00 01/03/25 09:07 Temperature 99.3 F 98.1 F Pulse Rate 87 72 Respiratory Rate 16 16 Blood Pressure 127/80 117/79 Pulse Oximetry 98 98 Oxygen Delivery Method Room Air Room Air BMI result Body Mass Index 26.0 Labs 12/16/24 12:47 12/31/24 20:33 Labs: Laboratory Results - last 48 hr 12/27/24 20:02 Clozapine 723 Norclozapine 497 H Medications Medications Current Medications Acetaminophen (Acetaminophen 325 Mg Tablet) 650 mg PO Q6H PRN PRN Reason: Headache/Pain, Scale 1-10 Al Hydroxide/Mg Hydroxide (Magnesium Hydrox/Alum Hydrox 30 Ml Oral.Susp) 30 ml PO Q6H PRN PRN Reason: Heartburn/Nausea Amlodipine Besylate (Amlodipine Besylate 2.5 Mg Tablet) 2.5 mg PO DAILY [facility]; Protocol Last Admin: 01/03/25 09:08 Dose: 2.5 mg Clozapine (Clozapine 25 Mg Tablet) 50 mg PO BID [facility] Last Admin: 01/03/25 09:08 Dose: 50 mg Clozapine 300 mg/ Clozapine 50 (mg) 350 mg PO BEDTIME [facility] Last Admin: 01/02/25 21:35 Dose: 350 mg Hydroxyzine HCl (Hydroxyzine Hcl 25 Mg Tablet) 25 mg PO Q6H PRN PRN Reason: Anxiety/insomnia Lamotrigine (Lamotrigine 100 Mg Tablet) 100 mg PO BID [facility] Last Admin: 01/03/25 09:08 Dose: 100 mg [place] Carbonate ([place] Carbonate Er 450 Mg Tablet.Er) 900 mg PO BEDTIME [facility] Last Admin: 01/02/25 21:35 Dose: 900 mg Magnesium Hydroxide (Milk Of Magnesia 30 Ml Oral.Susp) 30 ml PO DAILY PRN PRN Reason: Constipation Last Admin: 12/21/24 09:05 Dose: 30 ml Metoprolol Succinate (Metoprolol Succinate Er 100 Mg Tab.Er.24h) 100 mg PO DAILY [facility]; Protocol Last Admin: 01/03/25 09:08 Dose: 100 mg Nicotine Polacrilex (Nicotine Polacrilex 2 Mg Gum) 4 mg BUCCAL Q2H PRN PRN Reason: Nicotine Cravings Risperidone (Risperidone 2 Mg Tablet) 2 mg PO DAILY [facility] Last Admin: 01/03/25 09:09 Dose: 2 mg Risperidone (Risperidone 2 Mg Tablet) 4 mg PO BEDTIME [facility] Last Admin: 01/02/25 21:36 Dose: 4 mg Senna/Docusate Sodium (Sennosides/Docusate Sodium Tablet) 1 tab PO BID PRN PRN Reason: constipation Last Admin: 12/31/24 09:30 Dose: 1 tab Trazodone HCl (Trazodone Hcl 50 Mg Tablet) 50 mg PO BEDTIME MRX1 PRN PRN Reason: Insomnia Allergies Allergies Allergy/AdvReac Type Severity Reaction Status Date / Time latex Allergy Unknown swelling Verified 12/16/24 12:15 in lips penicillin V Allergy Unknown unknown Verified 12/16/24 12:15 Assessment & Plan Assessment & Plan (1) Schizoaffective disorder, depressive type: Status: Acute Code(s): F25.1 - Schizoaffective disorder, depressive type Plan 12/17: continue clozapine 50/350, lithium 600 QHS, risperidone 2/4, and medical meds. pt had not had lamictal since saturday evening until last night had 100 and this morning had 100. will restart at 50 BID for now. stabilize, return to halfway. 12/18: stable. signed CV. check clozaril level. increase lamictal to 75 BID as of saturday morning; orders have been entered. otherwise continue current mgmt. 12/19: Continue current management and treatment plan. 12/20: continue current management and treatment plan. 12/21: pt had apparently only been getting clozaril 50/300; dosing increased to 50/350, which is what med rec has as outpt regimen. lamictal increased to 75 BID as of yesterday. plan to increase once again tomorrow. reporting longstanding AH ever since [place], denies resolution since. clozaril level pending. 12/22: clozapine level pending. continue current mgmt. daily AH continue. 12/23: clozapine level supra-therapeutic at 1022, norcloz elevated at 511. T/C decreasing dose by 50 mg daily, although pt has no signs of toxicity or excessive dosing (no c/o side effects of any kind, alert and awake throughout the day) and has h/o similarly elevated level. lithium level noted to be sub- therapeutic, will discuss increasing lithium dosing tomorrow. continue current mgmt for now. 12/24: labs reviewed, with pt, as well as rationale for no change to clozapine dosing. agreeable to increase lamictal back to 100 BID. also amenable to increase lithium to 750 mg QHS due to recent level below 0.60. otherwise continue current mgmt. will check lithium level next saturday jack. 12/25: stable. no side effects or toxicity from clozapine. continue current mgmt for now. 12/26: stable. decrease norvasc to 2.5 mg daily for hypotension. otherwise continue current mgmt. 12/27: no change in presentation. recheck clozaril level. continue current mgmt otherwise. check lithium level saturday jack. 12/28: no change in presentation. able to allow that AH are not always correct. check lithium level tomorrow night (ordered). 12/29: paranoid delusions. focused on transferred to another hospital. +AH. continue current tx plan. 12/30: stable presentation. paranoid delusions, +AH. check lithium saturday. continue current mgmt. 12/31: stable. continue current mgmt. check lithium tonight. 01/01: lithium low at 0.52, essentially unchanged from at 600 mg daily. increase lithium again to 900 mg daily as of tonight. no change in Sx. 01/02 continue current tx plan Patient educated on: diagnosis Informed Consent: understands and does not understand Reason for continued inpatient stay Substantial Risk for: rapid decompensation Time Spent With Patient Time: Total time managing care of this patient today ____ minutes.
[2025-01-03 19:26] VITALS: BP 97/69; PULSE 82; RESP 16; TEMP 36.9; O2SAT 98
[2025-01-03] MEDS: Lithium Carbonate ER 450 MG TABLET.ER 900 MG PO (21:06)
[2025-01-03] MEDS: risperiDONE 2 MG TABLET 4 MG PO (21:06)
[2025-01-04 07:46] VITALS: BP 96/70; PULSE 83; RESP 16; TEMP 37.1; O2SAT 100
[2025-01-04 08:54] VITALS: BP 106/75; PULSE 88
[2025-01-04] MEDS: Metoprolol Succinate ER 100 MG TAB.ER.24H PO (08:58)
[2025-01-04] MEDS: risperiDONE 2 MG TABLET PO (08:59)
[2025-01-04] MEDS: amLODIPine Besylate 2.5 MG TABLET PO (08:59)
[2025-01-04] MEDS: lamoTRIgine 100 MG TABLET PO ×2 (08:59→21:08)
[2025-01-04] MEDS: cloZAPine 25 MG TABLET 50 MG PO ×2 (08:59→21:08)
--- NOTE | 2025-01-04 14:30 | P.PNPSI_ITS ---
Subjective Subjective Date of Service: 01/04/25 Reason For Visit: Schizoaffective Disorder Interim History: no change in presentation. aware of blood draw [facility]. per staff, pacing. withdrawn. taking medications. not attending groups. slept 8 hours. Mental Status Exam Mental Status Exam Narrative: calm, cooperative. adequately dressed and groomed. PMR. speech nml in rate, amount, loudness, tone, latency. thoughts linear and questionably logical. affect constricted, normo-intense, non-labile. mood lower than normal. no SI/SIBI/HI/VH expressed. endorses daily AH. Diagnostics Vital Signs (24Hr): Vital Signs - 24 hr 01/03/25 19:26 01/04/25 07:46 01/04/25 08:54 Temperature 98.5 F 98.7 F Pulse Rate 82 83 88 Respiratory Rate 16 16 Blood Pressure 97/69 96/70 106/75 Pulse Oximetry 98 100 Oxygen Delivery Method Room Air Room Air BMI result Body Mass Index 26.0 Labs 12/16/24 12:47 12/31/24 20:33 Medications Medications Current Medications Acetaminophen (Acetaminophen 325 Mg Tablet) 650 mg PO Q6H PRN PRN Reason: Headache/Pain, Scale 1-10 Al Hydroxide/Mg Hydroxide (Magnesium Hydrox/Alum Hydrox 30 Ml Oral.Susp) 30 ml PO Q6H PRN PRN Reason: Heartburn/Nausea Amlodipine Besylate (Amlodipine Besylate 2.5 Mg Tablet) 2.5 mg PO DAILY [facility]; Protocol Last Admin: 01/04/25 08:59 Dose: 2.5 mg Clozapine (Clozapine 25 Mg Tablet) 50 mg PO BID [facility] Last Admin: 01/04/25 08:59 Dose: 50 mg Clozapine 300 mg/ Clozapine 50 (mg) 350 mg PO BEDTIME [facility] Last Admin: 01/03/25 21:05 Dose: 350 mg Hydroxyzine HCl (Hydroxyzine Hcl 25 Mg Tablet) 25 mg PO Q6H PRN PRN Reason: Anxiety/insomnia Lamotrigine (Lamotrigine 100 Mg Tablet) 100 mg PO BID [facility] Last Admin: 01/04/25 08:59 Dose: 100 mg [place] Carbonate ([place] Carbonate Er 450 Mg Tablet.Er) 900 mg PO BEDTIME [facility] Last Admin: 01/03/25 21:06 Dose: 900 mg Magnesium Hydroxide (Milk Of Magnesia 30 Ml Oral.Susp) 30 ml PO DAILY PRN PRN Reason: Constipation Last Admin: 12/21/24 09:05 Dose: 30 ml Metoprolol Succinate (Metoprolol Succinate Er 100 Mg Tab.Er.24h) 100 mg PO DAILY [facility]; Protocol Last Admin: 01/04/25 08:58 Dose: 100 mg Nicotine Polacrilex (Nicotine Polacrilex 2 Mg Gum) 4 mg BUCCAL Q2H PRN PRN Reason: Nicotine Cravings Risperidone (Risperidone 2 Mg Tablet) 2 mg PO DAILY [facility] Last Admin: 01/04/25 08:59 Dose: 2 mg Risperidone (Risperidone 2 Mg Tablet) 4 mg PO BEDTIME [facility] Last Admin: 01/03/25 21:06 Dose: 4 mg Senna/Docusate Sodium (Sennosides/Docusate Sodium Tablet) 1 tab PO BID PRN PRN Reason: constipation Last Admin: 12/31/24 09:30 Dose: 1 tab Trazodone HCl (Trazodone Hcl 50 Mg Tablet) 50 mg PO BEDTIME MRX1 PRN PRN Reason: Insomnia Allergies Allergies Allergy/AdvReac Type Severity Reaction Status Date / Time latex Allergy Unknown swelling Verified 12/16/24 12:15 in lips penicillin V Allergy Unknown unknown Verified 12/16/24 12:15 Assessment & Plan Assessment & Plan (1) Schizoaffective disorder, depressive type: Status: Acute Code(s): F25.1 - Schizoaffective disorder, depressive type Plan 12/17: continue clozapine 50/350, lithium 600 QHS, risperidone 2/4, and medical meds. pt had not had lamictal since saturday evening until last night had 100 and this morning had 100. will restart at 50 BID for now. stabilize, return to [facility]. 12/18: stable. signed CV. check clozaril level. increase lamictal to 75 BID as of saturday morning; orders have been entered. otherwise continue current mgmt. 12/19: Continue current management and treatment plan. 12/20: continue current management and treatment plan. 12/21: pt had apparently only been getting clozaril 50/300; dosing increased to 50/350, which is what med rec has as outpt regimen. lamictal increased to 75 BID as of yesterday. plan to increase once again tomorrow. reporting longstanding AH ever since [place], denies resolution since. clozaril level pending. 12/22: clozapine level pending. continue current mgmt. daily AH continue. 12/23: clozapine level supra-therapeutic at 1022, norcloz elevated at 511. T/C decreasing dose by 50 mg daily, although pt has no signs of toxicity or excessive dosing (no c/o side effects of any kind, alert and awake throughout the day) and has h/o similarly elevated level. lithium level noted to be sub- therapeutic, will discuss increasing lithium dosing tomorrow. continue current mgmt for now. 12/24: labs reviewed, with pt, as well as rationale for no change to clozapine dosing. agreeable to increase lamictal back to 100 BID. also amenable to increase lithium to 750 mg QHS due to recent level below 0.60. otherwise continue current mgmt. will check lithium level next saturday. 12/25: stable. no side effects or toxicity from clozapine. continue current mgmt for now. 12/26: stable. decrease norvasc to 2.5 mg daily for hypotension. otherwise continue current mgmt. 12/27: no change in presentation. recheck clozaril level. continue current mgmt otherwise. check lithium level saturday. 12/28: no change in presentation. able to allow that AH are not always correct. check lithium level tomorrow night (ordered). 12/29: paranoid delusions. focused on transferred to another hospital. +AH. continue current tx plan. 12/30: stable presentation. paranoid delusions, +AH. check lithium saturday. continue current mgmt. 12/31: stable. continue current mgmt. check lithium tonight. 01/01: lithium low at 0.52, essentially unchanged from at 600 mg daily. increase lithium again to 900 mg daily as of tonight. no change in Sx. 01/02 continue current tx plan. 01/04: no change in presentation. continue current mgmt. check lithium and labs . likely discharge late in the week. clozapine level returned in the 700s. Reason for continued inpatient stay Substantial Risk for: harm to others and inability to function Time Spent With Patient Time: Total time managing care of this patient today __25__ minutes.
[2025-01-04 19:51] VITALS: BP 113/80; PULSE 88; RESP 16; TEMP 36.8; O2SAT 98
[2025-01-04] MEDS: Lithium Carbonate ER 450 MG TABLET.ER 900 MG PO (21:08)
[2025-01-04] MEDS: risperiDONE 2 MG TABLET 4 MG PO (21:08)
[2025-01-05 07:47] VITALS: BP 95/66; PULSE 61; RESP 16; TEMP 37.1; O2SAT 99
[2025-01-05] MEDS: amLODIPine Besylate 2.5 MG TABLET PO (08:29)
[2025-01-05] MEDS: cloZAPine 25 MG TABLET 50 MG PO ×2 (08:29→21:17)
[2025-01-05] MEDS: risperiDONE 2 MG TABLET PO (08:29)
[2025-01-05] MEDS: Metoprolol Succinate ER 100 MG TAB.ER.24H PO (08:29)
[2025-01-05] MEDS: lamoTRIgine 100 MG TABLET PO ×2 (08:29→21:18)
--- NOTE | 2025-01-05 13:30 | P.PNPSI_ITS ---
Subjective Subjective Date of Service: 01/05/25 Reason For Visit: Schizoaffective Disorder Interim History: no change in presentation. check labs , likely discharge to senior care on . pt pleased to hear it. per staff, no changes, no groups. Mental Status Exam Mental Status Exam Narrative: calm, cooperative. adequately dressed and groomed. PMR. speech nml in rate, amount, loudness, tone, latency. thoughts linear and logical. affect constricted, normo-intense, non-labile. mood lower than normal. no SI/SIBI/HI/VH expressed. endorses daily AH. Diagnostics Vital Signs (24Hr): Vital Signs - 24 hr 01/04/25 19:51 01/05/25 07:47 Temperature 98.3 F 98.7 F Pulse Rate 88 61 Respiratory Rate 16 16 Blood Pressure 113/80 95/66 Pulse Oximetry 98 99 Oxygen Delivery Method Room Air Room Air BMI result Body Mass Index 26.0 Labs 12/16/24 12:47 12/31/24 20:33 Medications Medications Current Medications Acetaminophen (Acetaminophen 325 Mg Tablet) 650 mg PO Q6H PRN PRN Reason: Headache/Pain, Scale 1-10 Al Hydroxide/Mg Hydroxide (Magnesium Hydrox/Alum Hydrox 30 Ml Oral.Susp) 30 ml PO Q6H PRN PRN Reason: Heartburn/Nausea Amlodipine Besylate (Amlodipine Besylate 2.5 Mg Tablet) 2.5 mg PO DAILY [facility]; Protocol Last Admin: 01/05/25 08:29 Dose: 2.5 mg Clozapine (Clozapine 25 Mg Tablet) 50 mg PO BID [facility] Last Admin: 01/05/25 08:29 Dose: 50 mg Clozapine 300 mg/ Clozapine 50 (mg) 350 mg PO BEDTIME [facility] Last Admin: 01/04/25 21:08 Dose: 350 mg Hydroxyzine HCl (Hydroxyzine Hcl 25 Mg Tablet) 25 mg PO Q6H PRN PRN Reason: Anxiety/insomnia Lamotrigine (Lamotrigine 100 Mg Tablet) 100 mg PO BID [facility] Last Admin: 01/05/25 08:29 Dose: 100 mg [place] Carbonate ([place]ri[place] Carbonate Er 450 Mg Tablet.Er) 900 mg PO BEDTIME [facility] Last Admin: 01/04/25 21:08 Dose: 900 mg Magnesium Hydroxide (Milk Of Magnesia 30 Ml Oral.Susp) 30 ml PO DAILY PRN PRN Reason: Constipation Last Admin: 12/21/24 09:05 Dose: 30 ml Metoprolol Succinate (Metoprolol Succinate Er 100 Mg Tab.Er.24h) 100 mg PO DAILY [facility]; Protocol Last Admin: 01/05/25 08:29 Dose: 100 mg Nicotine Polacrilex (Nicotine Polacrilex 2 Mg Gum) 4 mg BUCCAL Q2H PRN PRN Reason: Nicotine Cravings Risperidone (Risperidone 2 Mg Tablet) 2 mg PO DAILY [facility] Last Admin: 01/05/25 08:29 Dose: 2 mg Risperidone (Risperidone 2 Mg Tablet) 4 mg PO BEDTIME [facility] Last Admin: 01/04/25 21:08 Dose: 4 mg Senna/Docusate Sodium (Sennosides/Docusate Sodium Tablet) 1 tab PO BID PRN PRN Reason: constipation Last Admin: 12/31/24 09:30 Dose: 1 tab Trazodone HCl (Trazodone Hcl 50 Mg Tablet) 50 mg PO BEDTIME MRX1 PRN PRN Reason: Insomnia Allergies Allergies Allergy/AdvReac Type Severity Reaction Status Date / Time latex Allergy Unknown swelling Verified 12/16/24 12:15 in lips penicillin V Allergy Unknown unknown Verified 12/16/24 12:15 Assessment & Plan Assessment & Plan (1) Schizoaffective disorder, depressive type: Status: Acute Code(s): F25.1 - Schizoaffective disorder, depressive type Plan 12/17: continue clozapine 50/350, lithium 600 QHS, risperidone 2/4, and medical meds. pt had not had lamictal since saturday evening until last night had 100 and this morning had 100. will restart at 50 BID for now. stabilize, return to senior care. 12/18: stable. signed CV. check clozaril level. increase lamictal to 75 BID as of saturday morning; orders have been entered. otherwise continue current mgmt. 12/19: Continue current management and treatment plan. 12/20: continue current management and treatment plan. 12/21: pt had apparently only been getting clozaril 50/300; dosing increased to 50/350, which is what med rec has as outpt regimen. lamictal increased to 75 BID as of yesterday. plan to increase once again tomorrow. reporting longstanding AH ever since [place], denies resolution since. clozaril level pending. 12/22: clozapine level pending. continue current mgmt. daily AH continue. 12/23: clozapine level supra-therapeutic at 1022, norcloz elevated at 511. T/C decreasing dose by 50 mg daily, although pt has no signs of toxicity or excessive dosing (no c/o side effects of any kind, alert and awake throughout the day) and has h/o similarly elevated level. lithium level noted to be sub- therapeutic, will discuss increasing lithium dosing tomorrow. continue current mgmt for now. 12/24: labs reviewed, with pt, as well as rationale for no change to clozapine dosing. agreeable to increase lamictal back to 100 BID. also amenable to increase lithium to 750 mg QHS due to recent level below 0.60. otherwise continue current mgmt. will check lithium level next saturday. 12/25: stable. no side effects or toxicity from clozapine. continue current mgmt for now. 12/26: stable. decrease norvasc to 2.5 mg daily for hypotension. otherwise continue current mgmt. 12/27: no change in presentation. recheck clozaril level. continue current mgmt otherwise. check lithium level saturday jack. 12/28: no change in presentation. able to allow that AH are not always correct. check lithium level tomorrow night (ordered). 12/29: paranoid delusions. focused on transferred to another hospital. +AH. continue current tx plan. 12/30: stable presentation. paranoid delusions, +AH. check lithium saturday. continue current mgmt. 12/31: stable. continue current mgmt. check lithium tonight. 01/01: lithium low at 0.52, essentially unchanged from at 600 mg daily. increase lithium again to 900 mg daily as of tonight. no change in Sx. 01/02 continue current tx plan. 01/04: no change in presentation. continue current mgmt. check lithium and labs weds jack. likely discharge late in the week. clozapine level returned in the 700s. 01/05: labs weds jack. likely D/C . stable, no change in presentation. Reason for continued inpatient stay Substantial Risk for: inability to function Time Spent With Patient Time: Total time managing care of this patient today _25___ minutes.
[2025-01-05 20:00] VITALS: BP 126/81; PULSE 82; RESP 16; TEMP 36.9; O2SAT 98
[2025-01-05] MEDS: risperiDONE 2 MG TABLET 4 MG PO (21:17)
[2025-01-05] MEDS: Lithium Carbonate ER 450 MG TABLET.ER 900 MG PO (21:18)
[2025-01-06 07:29] VITALS: BP 102/68; PULSE 85; RESP 16; TEMP 36.9; O2SAT 100
[2025-01-06] MEDS: cloZAPine 25 MG TABLET 50 MG PO ×2 (08:02→21:06)
[2025-01-06] MEDS: amLODIPine Besylate 2.5 MG TABLET PO (08:02)
[2025-01-06] MEDS: Metoprolol Succinate ER 100 MG TAB.ER.24H PO (08:02)
[2025-01-06] MEDS: risperiDONE 2 MG TABLET PO (08:03)
[2025-01-06] MEDS: lamoTRIgine 100 MG TABLET PO ×2 (08:03→21:06)
[2025-01-06 08:09] LABS: Neut%MD 56.8 %; Neutrophils Absolute Auto 4.4 x10*3/uL (2.0-8.3); WBCANC 7.8 X10*3/uL
--- NOTE | 2025-01-06 10:52 | P.PNPSI_ITS ---
Subjective Subjective Date of Service: 01/06/25 Reason For Visit: Schizoaffective Disorder Interim History: no change in presentation. plan to check labs tonight and discharge tomorrow as long as everything looking good reviewed. per staff, taking meds. AH telling him he's going to [place]. time is the greatest educator. concerned MD is pulling the wool over his eyes. Mental Status Exam Mental Status Exam Narrative: calm, cooperative. adequately dressed and groomed. PMR. speech nml in rate, amount, loudness, tone, latency. thoughts linear and logical. affect constricted, normo-intense, non-labile. mood lower than normal. no SI/SIBI/HI/VH expressed. endorses daily AH. Diagnostics Vital Signs (24Hr): Vital Signs - 24 hr 01/05/25 20:00 01/06/25 07:29 Temperature 98.4 F 98.4 F Pulse Rate 82 85 Respiratory Rate 16 16 Blood Pressure 126/81 102/68 Pulse Oximetry 98 100 Oxygen Delivery Method Room Air Room Air BMI result Body Mass Index 26.0 Labs 12/16/24 12:47 12/31/24 20:33 Labs: Laboratory Results - last 48 hr 01/06/25 07:54 Absolute Neuts (auto) 4.4 Medications Medications Current Medications Acetaminophen (Acetaminophen 325 Mg Tablet) 650 mg PO Q6H PRN PRN Reason: Headache/Pain, Scale 1-10 Al Hydroxide/Mg Hydroxide (Magnesium Hydrox/Alum Hydrox 30 Ml Oral.Susp) 30 ml PO Q6H PRN PRN Reason: Heartburn/Nausea Amlodipine Besylate (Amlodipine Besylate 2.5 Mg Tablet) 2.5 mg PO DAILY [facility]; Protocol Last Admin: 01/06/25 08:02 Dose: 2.5 mg Clozapine (Clozapine 25 Mg Tablet) 50 mg PO BID [facility] Last Admin: 01/06/25 08:02 Dose: 50 mg Clozapine 300 mg/ Clozapine 50 (mg) 350 mg PO BEDTIME [facility] Last Admin: 01/05/25 21:17 Dose: 350 mg Hydroxyzine HCl (Hydroxyzine Hcl 25 Mg Tablet) 25 mg PO Q6H PRN PRN Reason: Anxiety/insomnia Lamotrigine (Lamotrigine 100 Mg Tablet) 100 mg PO BID [facility] Last Admin: 01/06/25 08:03 Dose: 100 mg [place] Carbonate ([place] Carbonate Er 450 Mg Tablet.Er) 900 mg PO BEDTIME [facility] Last Admin: 01/05/25 21:18 Dose: 900 mg Magnesium Hydroxide (Milk Of Magnesia 30 Ml Oral.Susp) 30 ml PO DAILY PRN PRN Reason: Constipation Last Admin: 12/21/24 09:05 Dose: 30 ml Metoprolol Succinate (Metoprolol Succinate Er 100 Mg Tab.Er.24h) 100 mg PO DAILY [facility]; Protocol Last Admin: 01/06/25 08:02 Dose: 100 mg Nicotine Polacrilex (Nicotine Polacrilex 2 Mg Gum) 4 mg BUCCAL Q2H PRN PRN Reason: Nicotine Cravings Risperidone (Risperidone 2 Mg Tablet) 2 mg PO DAILY [facility] Last Admin: 01/06/25 08:03 Dose: 2 mg Risperidone (Risperidone 2 Mg Tablet) 4 mg PO BEDTIME [facility] Last Admin: 01/05/25 21:17 Dose: 4 mg Senna/Docusate Sodium (Sennosides/Docusate Sodium Tablet) 1 tab PO BID PRN PRN Reason: constipation Last Admin: 12/31/24 09:30 Dose: 1 tab Trazodone HCl (Trazodone Hcl 50 Mg Tablet) 50 mg PO BEDTIME MRX1 PRN PRN Reason: Insomnia Allergies Allergies Allergy/AdvReac Type Severity Reaction Status Date / Time latex Allergy Unknown swelling Verified 12/16/24 12:15 in lips penicillin V Allergy Unknown unknown Verified 12/16/24 12:15 Assessment & Plan Assessment & Plan (1) Schizoaffective disorder, depressive type: Status: Acute Code(s): F25.1 - Schizoaffective disorder, depressive type Plan 12/17: continue clozapine 50/350, lithium 600 QHS, risperidone 2/4, and medical meds. pt had not had lamictal since saturday evening until last night had 100 and this morning had 100. will restart at 50 BID for now. stabilize, return to nursing home. 12/18: stable. signed CV. check clozaril level. increase lamictal to 75 BID as of saturday morning; orders have been entered. otherwise continue current mgmt. 12/19: Continue current management and treatment plan. 12/20: continue current management and treatment plan. 12/21: pt had apparently only been getting clozaril 50/300; dosing increased to 50/350, which is what med rec has as outpt regimen. lamictal increased to 75 BID as of yesterday. plan to increase once again tomorrow. reporting longstanding AH ever since [place], denies resolution since. clozaril level pending. 12/22: clozapine level pending. continue current mgmt. daily AH continue. 12/23: clozapine level supra-therapeutic at 1022, norcloz elevated at 511. T/C decreasing dose by 50 mg daily, although pt has no signs of toxicity or excessive dosing (no c/o side effects of any kind, alert and awake throughout the day) and has h/o similarly elevated level. lithium level noted to be sub- therapeutic, will discuss increasing lithium dosing tomorrow. continue current mgmt for now. 12/24: labs reviewed, with pt, as well as rationale for no change to clozapine dosing. agreeable to increase lamictal back to 100 BID. also amenable to increase lithium to 750 mg QHS due to recent level below 0.60. otherwise continue current mgmt. will check lithium level next saturday. 12/25: stable. no side effects or toxicity from clozapine. continue current mgmt for now. 12/26: stable. decrease norvasc to 2.5 mg daily for hypotension. otherwise continue current mgmt. 12/27: no change in presentation. recheck clozaril level. continue current mgmt otherwise. check lithium level saturday. 12/28: no change in presentation. able to allow that AH are not always correct. check lithium level tomorrow night (ordered). 12/29: paranoid delusions. focused on transferred to another hospital. +AH. continue current tx plan. 12/30: stable presentation. paranoid delusions, +AH. check lithium saturday. continue current mgmt. 12/31: stable. continue current mgmt. check lithium tonight. 01/01: lithium low at 0.52, essentially unchanged from at 600 mg daily. increase lithium again to 900 mg daily as of tonight. no change in Sx. 01/02 continue current tx plan. 01/04: no change in presentation. continue current mgmt. check lithium and labs weds jack. likely discharge late in the week. clozapine level returned in the 700s. 01/05: labs weds jack. likely D/C . stable, no change in presentation. 01/06: check labs tonight. likely DC tomorrow. stable. Reason for continued inpatient stay Substantial Risk for: harm to others and rapid decompensation Time Spent With Patient Time: Total time managing care of this patient today __25__ minutes.
[2025-01-06 19:31] LABS: Lithium 0.78 mmol/L (0.60-1.20)
[2025-01-06 19:37] LABS: Anion Gap 9 (12-20); Blood Urea Nitrogen 14 mg/dL (9-16); Calcium 9.5 mg/dL (8.4-10.2); Carbon Dioxide 24 mmol/L (22-29); Chloride 111 mmol/L (96-108); Creatinine Clr Calc Pharmacy 91.2; Estimated Glomerular Filt Rate > 60; Glucose Random 120 mg/dL (60-115); Potassium 4.1 mmol/L (3.3-5.1); Sodium 140 mmol/L (135-145)
[2025-01-06 20:00] VITALS: BP 144/86; PULSE 90; RESP 17; TEMP 36.9; O2SAT 98
[2025-01-06] MEDS: Lithium Carbonate ER 450 MG TABLET.ER 900 MG PO (21:06)
[2025-01-06] MEDS: risperiDONE 2 MG TABLET 4 MG PO (21:07)
[2025-01-07 07:35] VITALS: BP 113/76; PULSE 64; RESP 16; TEMP 36.8; O2SAT 97
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
[2025-01-07] MEDS: cloZAPine 25 MG TABLET 50 MG PO (08:42)
[2025-01-07 08:43] VITALS: BP 119/78; PULSE 99
[2025-01-07] MEDS: Metoprolol Succinate ER 100 MG TAB.ER.24H PO (08:43)
[2025-01-07] MEDS: amLODIPine Besylate 2.5 MG TABLET PO (08:43)
[2025-01-07] MEDS: risperiDONE 2 MG TABLET PO (08:43)
[2025-01-07] MEDS: lamoTRIgine 100 MG TABLET PO (08:43)
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
== END 2025-01-07 11:37 | disposition home or self-care (01) | DRG 885 ==
LOC: HO.ED 14:03 → HO.PADLT16 20:40
PROVIDERS: Emergency Medicine; Admitting Provider Clinical Nurse Specialist Psychiatric/Mental Health, Adult; Emergency Provider Emergency Medicine; PCP Internal Medicine; Visit Provider Psychiatry & Neurology Psychiatry
DX: F25.1 Schizoaffective disorder, depressive type (principal); R45.851 Suicidal ideations; Z79.899 Other long term (current) drug therapy
CPT/HCPCS: 36415; 80048; 80061; 80076; 80159; 80178; 80307; 81003; 82607; 82746; 83036; 83735; 84439; 84443; 85025; 85048; 93005; 99285

== ENCOUNTER → 2024-12-16 14:11 | Outpatient (BNV) | payer MEDICARE, SELFPAY | PROVIDERS: Admitting Provider Clinical Nurse Specialist Psychiatric/Mental Health, Adult; Emergency Provider Emergency Medicine; PCP Internal Medicine; Visit Provider Internal Medicine Cardiovascular Disease | DX: I49.3 Ventricular premature depolarization (principal); I49.9 Cardiac arrhythmia, unspecified | CPT/HCPCS: 93010 ==

== ENCOUNTER → 2024-12-16 20:29 | Outpatient (BNV) | payer MEDICARE, SELFPAY | PROVIDERS: Admitting Provider Clinical Nurse Specialist Psychiatric/Mental Health, Adult; Emergency Provider Emergency Medicine; PCP Internal Medicine; Visit Provider Psychiatry & Neurology Psychiatry | DX: F25.1 Schizoaffective disorder, depressive type (principal) | CPT/HCPCS: 90792; 99231; 99232 ==

== ENCOUNTER 2025-01-15 10:57 | Emergency (ER) | payer MEDICARE, MEDICAID, SELFPAY ==
[2025-01-15 10:59] VITALS: BP 136/77; BP 148/88; PULSE 72; PULSE 95; RESP 16; TEMP 36.1; O2SAT 100; BMI 26.5
--- NOTE | 2025-01-15 12:03 | ED_ITS ---
HPI - Psych General Chief Complaint: Psychiatric Symptoms Stated Complaint: HI per ems Time Seen by Provider: 01/15/25 11:12 Source: patient and EMS Mode of arrival: EMS Limitations: no limitations History of Present Illness ED Provider: Carlie Alvarado NP HPI Narrative: patient is a 49-year-old male presents emergency department via EMS for evaluation, he is coming from a correction. Evidently he got into a dispute with correction staff. He states that last night he had threatened to burn the house down, he has dates that the correction staff members are persecuting him, trying to get him out of the correction. He feels he is otherwise getting along with other members/ residents of the correction. He does endorse that he was in the hospital approximately 1 week ago, believes that there may have been dosage changes to his medications, and states that he continues to feel worse with his symptoms and no better. He states I want to be hospitalized , he feels that this is better help his mood. He denies any suicidal ideations. He denies any auditory or visual hallucinations. He denies any recreational drug or alcohol usage. He offers no physical complaints at this time. Related Data Home Medications ?Medication ?Instructions ?Recorded ?Confirmed lamotrigine 100 mg tablet 100 mg PO BID 12/16/24 01/15/25 metoprolol succinate 100 mg 100 mg PO DAILY 12/17/24 01/15/25 tablet,extended release 24 hr Previous Rx's ?Medication ?Instructions ?Recorded hydroxyzine HCl 25 mg tablet 25 mg PO Q6H PRN Anxiety/insomnia 03/16/24 30 days #90 tabs risperidone 2 mg tablet 2 mg PO DAILY 30 days #30 tabs 03/16/24 risperidone 4 mg tablet 4 mg PO BEDTIME 30 days #30 tabs 03/16/24 trazodone 50 mg tablet 50 mg PO BEDTIME PRN Insomnia 30 03/16/24 days #30 tabs sennosides 8.6 mg-docusate sodium 2 tab PO BEDTIME PRN constipation 12/02/24 50 mg tablet (Senna Plus) #60 tabs amlodipine 2.5 mg tablet 2.5 mg PO DAILY 30 days #30 tabs 01/07/25 clozapine 25 mg tablet 50 mg (2 x 25 mg) PO DAILY 30 days 01/07/25 #60 tabs clozapine 50 mg tablet 400 mg (8 x 50 mg) PO BEDTIME 30 01/07/25 days #240 tabs lithium carbonate 450 mg 900 mg (2 x 450 mg) PO BEDTIME 30 01/07/25 tablet,extended release days #60 tabs Allergies Allergy/AdvReac Type Severity Reaction Status Date / Time latex Allergy Unknown swelling Verified 01/15/25 11:03 in lips penicillin V Allergy Unknown unknown Verified 01/15/25 11:03 Review of Systems 2 Review of Systems: Yes all other systems are reviewed and are negative [facility] Past Medical History Attestation statement: The following information was validated with the patient. Source: old records reviewed Medical History Acute paranoia Schizoaffective disorder, depressive type Eczema of face Tachycardia Labile hypertension Heartburn Essential hypertension Sinus tachycardia Supine hypertension Depressive disorder Paranoid schizophrenia Eczema IBS (irritable bowel syndrome) Impaired fasting glucose Hypertriglyceridemia Surgical History No pertinent past surgical history Family History Family History Father Unknown family medical history Mother Breast cancer Maternal Grandfather No problems noted. Maternal Grandmother No problems noted. Paternal Grandfather No problems noted. Paternal Grandmother No problems noted. Brother Substance use disorder Mental health disorder Sister No problems noted. Social History Social History Household Members: Other Household Members Other:: correction Housing: Other Housing Other:: [facility] Do you presently have visiting nurse or other home services: Yes Unable to assess alcohol history related to: Unable to respond and Unknown Alcohol intake: never Patient Tobacco Use Status: Never used Tobacco Smoked in Last 30 Days: No e-Cigarette/Vaping Use: Never Used Second Hand Smoke Exposure: No Use of substances other than those prescribed or required for medical reasons: No Substance Use Type: Marijuana Advance Directives: No Advance Directives Information Provided: No Do you have a plan to hurt others: Specific service: No Current occupational status: disabled Sexual orientation: Unable to collect Cognitive needs: No Hearing needs: No Vision needs: Yes Physical Exam 2 Vital Signs: Vital Signs: Last Vital Signs Temp 97.8 F 01/16/25 06:43 Pulse 66 01/16/25 06:43 Resp 16 01/16/25 06:43 BP 121/86 01/16/25 06:43 Pulse Ox 99 01/16/25 06:43 O2 Del Method Room Air 01/16/25 06:43 BMI result Body Mass Index 26.5 Appearance: Alert.?Oriented to person, place and time. No acute distress.?Normal affect. Eyes: Pupils equal, round and reactive to light.? ENT: Pharynx normal.?? Neck: Normal inspection.? Neck supple.?? CVS: Heart sounds normal. Normal heart rate and rhythm.? Pulses normal.?? Respiratory: No respiratory distress.? Lung sounds clear to auscultation bilaterally?? Abdomen: Soft and non-tender. Normoactive bowel sounds. Skin: Skin warm and dry.? Normal skin color.? Extremities: No lower extremity edema.? Neuro: Moves all extremities spontaneously. Sensation intact bilaterally. CN II- XII intact. No focal neuro deficits. Ambulates with normal steady gait. Course Reevaluation(s) Reevaluation #1: Time: 07:41 Date: 01/16/25 Provider: Walter Rider MD Patient in physician observation for psychiatric evaluation.? No acute events reported overnight. No current complaints. VS stable.? Patient is in bed search status/pending CARE team evaluation. Will continue to monitor. Time: 07:41 Reevaluation #2: Patient will be transferred to [facility]) via ambulance, this end the emergency room observation Time: 07:47 Medications Administered Generic Name Dose Route Start Last Admin Trade Name Elizabeth PRN Reason Stop Dose Admin Clozapine 400 mg 01/15/25 21:00 01/15/25 20:53 Clozapine 100 Mg Tablet PO 400 mg BEDTIME ALFONSO Administration Lamotrigine 100 mg 01/15/25 21:00 01/15/25 20:52 Lamotrigine 100 Mg Tablet PO 100 mg BID ALFONSO Administration [place] Carbonate 900 mg 01/15/25 21:00 01/15/25 20:52 [place] Carbonate Er 450 Mg Tablet.Er PO 900 mg BEDTIME ALFONSO Administration Risperidone 4 mg 01/15/25 21:00 01/15/25 20:52 Risperidone 2 Mg Tablet PO 4 mg BEDTIME ALFONSO Administration Medical Decision Making Medical Decision Making MDM Narrative: patient is a 49-year-old male with past medical history of hypertension, IBS, elevated triglycerides, schizoaffective disorder and paranoia who presents emergency department via EMS with reported homicidal ideations, and threatening to burn down the correction that he resides in due to his anger towards correction staff, he feels as though he is being persecuted by them. he states that despite a recent hospitalization where there may have been dosage changes to his medications, he continues to feel worse and stating that he would benefit from hospitalization. He offers no physical complaints in his physical examination at this time is benign. On review of medical record, he had Recent inpatient hospitalization here at [facility] from 12/17/2024-01/07/2025, appears to have had dosage changes to Clozaril, Lamictal, and lithium. Regardless, he reports not noticing symptomatic improvement. Will obtain serum labs for medical clearance in addition to lithium and Clozaril levels and refer to care team for safe disposition planning Differential Diagnosis Differential Diagnoses: The differential diagnosis associated with the presentation includes (See narrative above and below for further detail) Admission/Observation Consideration of admission/observation: Escalation of care including admission/observation considered Patient is being observed in the Emergency Department for homicidal ideations. Observation time was started at 12:18 on 01/15/2025.?The patient is currently stable and non-toxic appearing. Observation is being initiated in the Emergency Department to allow time to help differentiate if the patient's mood and homicidal ideationsy is due to Substance Induced Mood Disorder and Anxiety versus Major Depressive Disorder, Bipolar [place], Bipolar Depression, and Schizophrenia. The patient will receive frequent psychiatric assessments from the provider as well as from nursing staff. The patient will also be monitored for the need of PRN agitation medications such as Haldol, Ativan, and Benadryl. Consult Healthcare Provider Management of the patient was discussed with: Behavioral Health Provider (CARE team) Lab Data [facility] Lab Attestation statement: I reviewed the patient's lab results. 01/15/25 12:30 01/15/25 12:30 Labs: Lab Results 01/15/25 01/15/25 Range/Units 12:30 20:06 WBC 8.4 (4.8-10.8) X10*3/uL RBC 4.81 (4.60-5.80) X10*6/uL Hgb 14.3 (14.0-18.0) g/dl Hct 40.5 L (42.0-52.0) % MCV 84.2 (80.0-98.0) fL MCH 29.7 (27.0-33.0) pg MCHC 35.3 (31.0-36.0) g/dl RDW 12.9 (11.0-16.0) % Plt Count 220 (160-400) X10*3/uL MPV 8.9 L (9.4-12.4) fL Immature Gran % (Auto) 0.8 H (0.0-0.4) % Neut % (Auto) 76.1 H (45-73) % Lymph % (Auto) 16.8 L (20-40) % [place] % (Auto) 5.0 (2-11) % Eos % (Auto) 0.7 (0-4) % Baso % (Auto) 0.6 (0-2) % Lymph # (Auto) 1.4 (1.2-4.9) X10*3/uL [place] # (Auto) 0.4 (0.1-1.2) X10*3/uL Eos # (Auto) 0.1 (0.0-0.4) X10*3/uL Baso # (Auto) 0.1 (0.0-0.2) X10*3/uL Abs Immat Gran (auto) 0.07 H (0.00-0.03) X10*3/uL Absolute Neuts (auto) 6.4 (2.0-8.3) x10*3/uL Absolute Nucleated RBC 0.000 (0.0-0.012) X10*3/uL Nucleated RBC % (auto) 0.0 (0.0-0.2) /100WBC Sodium 143 (135-145) mmol/L Potassium 4.2 (3.3-5.1) mmol/L Chloride 112 H (96-108) mmol/L Carbon Dioxide 24 (22-29) mmol/L Anion Gap 11 L (12-20) BUN 10 (9-16) mg/dL Creatinine 0.86 (0.5-1.4) mg/dL Estim Creat Clear Calc 108.2 Estimated GFR > 60 Random Glucose 120 H (60-115) mg/dL Calcium 9.4 (8.4-10.2) mg/dL Total Bilirubin 0.4 (0.0-1.0) mg/dL AST 16 (5-37) U/L ALT 25 (0-40) U/L Alkaline Phosphatase 94 (39-117) U/L Total Protein 7.5 (6.5-8.0) g/dL Albumin 4.6 (3.5-5.0) g/dL Urine Color Yellow Urine Appearance Clear Urine pH 6.5 (5.0-9.0) Ur Specific [place] 1.020 (1.005-1.025) Urine Protein Negative (Neg-Trace) mg/dL Urine Glucose (UA) Negative (Negative) mg/dL Urine Ketones Trace (Negative) mg/dL Urine Blood Negative (Negative) Urine Nitrite Negative (Negative) Ur Leukocyte Esterase Negative (Negative) Salicylates < 5.0 L (15-30) mg/dL Urine Opiates Screen Not Detected (Not Detect) Ur Buprenorphine Scrn Not Detected (Not Detect) ng/mL Ur Oxycodone Screen Not Detected (Not Detect) ng/mL Urine Methadone Screen Not Detected (Not Detect) ng/mL Urine Fentanyl Screen Not Detected (Not Detect) Acetaminophen < 3 (<30) mcg/mL Ur Barbiturates Screen Not Detected (Not Detect) Ur Phencyclidine Scrn Not Detected (Not Detect) Ur Amphetamines Screen Not Detected (Not Detect) U Benzodiazepines Scrn Not Detected (Not Detect) [place] 0.88 (0.60-1.20) mmol/L Urine Cocaine Screen Not Detected (Not Detect) U Marijuana (THC) Screen Not Detected (Not Detect) Ethyl Alcohol < 10 mg/dL Independent Historian Clinical information obtained from an independent historian. History obtained from or confirmed by: EMS External Record Review External record reviewed: Inpatient record and Outpatient record Chronic Conditions Patient?s care impacted by: Other ( see narrative above) Discharge Plan Discharge Clinical Impression: Auditory hallucinations, Schizoaffective disorder, depressive type Patient Disposition: Xfer Psychiatric Hosp Transfer Details: TO: [facility], [address] [place] [address], [id number], DR BLACK[place]URN ACCEPTING Prescriptions: No Action sennosides-docusate sodium [Senna Plus] 8.6-50 mg tablet 2 tab PO BEDTIME PRN (Reason: constipation) Qty: 60 0RF lamotrigine 100 mg tablet 100 mg PO BID metoprolol succinate 100 mg tablet extended release 24 hr 100 mg PO DAILY amlodipine 2.5 mg Tablet 2.5 mg PO DAILY 30 Days Qty: 30 0RF Protocol: Hold for SBP< HOLD for SBP < : 90 clozapine 25 mg Tablet 50 mg PO DAILY 30 Days Qty: 60 0RF clozapine 50 mg Tablet 400 mg PO BEDTIME 30 Days Qty: 240 0RF lithium carbonate 450 mg Tablet Extended Release 900 mg PO BEDTIME 30 Days Qty: 60 0RF trazodone 50 mg Tablet 50 mg PO BEDTIME PRN (Reason: Insomnia) 30 Days Qty: 30 1RF risperidone 4 mg tablet 4 mg PO BEDTIME 30 Days Qty: 30 1RF risperidone 2 mg tablet 2 mg PO DAILY 30 Days Qty: 30 1RF hydroxyzine HCl 25 mg Tablet 25 mg PO Q6H PRN (Reason: Anxiety/insomnia) 30 Days Qty: 90 1RF Referrals: Donna Arnold MD [Primary Care Provider] - Interventions: Christian-Suicide Risk Severity Scale Last Done: 01/15/25 15:41 Print Language: Italian
--- OUTSIDE RECORDS SUMMARY | 2025-01-15 12:23 | XMS_ITS | Clinical Summary ---
Author Organization [employer] Address [address] [place] [address] Care Team Providers Care Perforator Name Role Phone Delgado Ross MD Primary Care Prov ider Allergies Active Allergy Reactions Criticality Noted Date Comments Latex 12/11/2024 Penicillin G 12/11/2024 Medications cloZAPine (Clozaril) 100 MG tablet Take 150 mg by mouth 2 times daily. 12/01/2024 Active docusate sodium (Colace) 100 MG capsule Take 100 mg by mouth 2 times daily. 09/17/2024 Active hydrOXYzine HCl (Atarax) 25 MG tablet Take 25 mg by mouth every 8 (eight) hours if needed for anxiety. 10/13/2024 Active lamoTRIgine (LaMICtal) 100 MG tablet Take 100 mg by mouth 2 times daily. 11/12/2024 Active lithium ER (Lithobid) 300 MG 12 hr tablet Take 300 mg by mouth 2 times daily. 12/01/2024 Active risperiDONE (RisperDAL) 2 MG tablet Take 2 mg by mouth Once per day. 12/01/2024 Active risperiDONE (RisperDAL) 4 MG tablet Take 4 mg by mouth Once per day. 12/01/2024 Active Stool Softener/Laxati ve 50-8.6 MG tablet Take 2 tablets by mouth Once per day. 06/11/2024 Active traZODone (Desyrel) 50 MG tablet Take 50 mg by mouth at bedtime. 11/09/2024 Active amLODIPine (Norvasc) 5 MG tablet Take 1 tablet (5 mg) by mouth Once per day. 90 tablet 12/11/2024 Active metoprolol succinate XL (Toprol-XL) 100 MG 24 hr tablet Take 1 tablet (100 mg) by mouth Once per day. 90 tablet 12/11/2024 Active Active Problems Problem Noted Date Diagnosed Date Encounter for medical examination to establish c are 12/11/2024 Assessment & Plan (12/11/2024 10:28 AM EDT): Last PCP visit >5 yrs ER: psych unit October 2023/December 2023 Hospitalization: PMHx: HTN, shcizophrenia, IBS-C, Pshx:- All: PNC/latex Meds: as above Other schizophrenia 12/11/2024 Assessment & Plan (12/11/2024 10:19 AM EDT): Patient [place] living [place] [facility] [place], he had 2 admissions on 2023 due to schizophrenia, followed by psych, no suicidal/homicidal ideas Primary hypertension 12/11/2024 Assessment & Plan (12/11/2024 10:20 AM EDT): On amlodipine and metoprolol, encouraged low sodium diet and exercise as tolerated, follow up in 3 months Encounters Date Type Department Care Team Description 12/11/2024 9:45 AM EDT Telemedicine [facility] [address] [place] [address] Delgado Ross MD Encounter for medical examination to establish care (Primary Dx); Other schizophrenia ([facility] Primary hypertension 12/11/2024 Travel 12/09/2024 Telephone [facility] [address] [place] [address] Delgado Ross MD chart prep 12/07/2024 Telephone [facility] MEDICINE [address] [place], [place] [phone] Petros Quintana MD Appointment Request from Last 3 Months Family History Medical History Relation Name Comments No Known Problems Father Breast cancer Mother Relation Name Status Comments Father Mother Social History Tobacco Use Types Packs/Day Years Used Date Smoking Tobacco: Never Passive Smoke Exposure: Never Smokeless Tobacco: Never Tobacco Cessation:Counseling Given: Not Answered Alcohol Use Standard Drinks/Week Comments Never 0 (1 standard drink = 0.6 oz pur e alcohol) Depression Answer Date Recorded Patient Health Questionnaire-9 Score 0 12/11/2024 Patient Health Questionnaire-9 Score 0 12/11/2024 Last PHQ-9: Questionnaire Data Not on file 0 12/11/2024 Housing Stability Answer Date Recorded What is your housing situation today? I have frankie figueroa 12/11/[address] you li ve. Do you have problems with any of the following? None of the above 12/11/2024 Food Insecurity Answer Date Recorded Within the past 12 months, y ou worried that your food would run out before you got money to buy more: Never True 12/11/2024 Within the past 12 months,th e food you bought just didn't last and you didn't have enough money to get more: Never True Transportation Answer Date Recorded In the past 12 months, has l ack of transportation kept you from medical appts, meetings, work or from getting things needed for daily living? No 12/11/2024 Utilities Answer Date Recorded In the past 12 months, has t he electric, gas, oil or water company threatened to shut off services in your home? No 12/11/2024 Depression Answer Date Recorded Patient Health Questionnaire-2 Score 0 12/11/2024 Internet Access Answer Date Recorded Internet Access Q1 Yes 12/11/2024 Internet Access Q2 Not on file 12/11/2024 Sex and Gender Information Value Date Recorded Sex Assigned at Male 07/30/2022 10:30 AM EDT Legal Sex Male 10:30 AM EDT Gender Identity Male 12/11/2024 8:43 AM EDT Sexual Orientation Straight 12/11/2024 8: 43 AM EDT Plan of Treatment Health Maintenance Due Date Last Done Comments CT Colonography 1973 Colonoscopy 1973 Colorectal Cancer Screening 1973 FIT DNA/Cologuard 1973 FIT 1973 FOBT 1973 HIV Screening 1973 Lipid Panel 1973 Sigmoidoscopy 1973 Family Planning (PISQ) 1988 Hepatitis C Screening 1991 DTaP/Tdap/Td Vaccines (1 - Tdap) 1992 Hepatitis B Vaccines (1 of 3 - 19+ 3-dose series) 1992 Pneumococcal Vaccine: 50+ Years (1 of 1 - PCV) 2023 Zoster Vaccines (1 of 2) 2023 COVID-19 Vaccine (1 - 2023-2 5 season) 2024 Influenza Vaccine (#1) 2024 Alcohol/Substance Use Screening 12/11/2025 12/11/2024 Depression Screening 12/11/2025 12/11/2024, 12/11/2024 SDOH Screening 12/11/2025 12/11/2024 Tobacco Screening 12/11/2025 12/11/2024 RSV Patients and Patients Aged 60 years or older (1 - 1-dose 75+ series) 2048 HIB Vaccines Aged Out No longer eligi ble based on patient's age to complete this topic HPV Vaccines Aged Out No longer eligi ble based on patient's age to complete this topic Hepatitis A Vaccines Aged Out No long er eligible based on patient's age to complete this topic IPV Vaccines Aged Out No longer eligi ble based on patient's age to complete this topic Meningococcal Vaccine Aged Out No hsane serina eligible based on patient's age to complete this topic RSV under 20 months Aged Out No longe r eligible based on patient's age to complete this topic Rotavirus Vaccines Aged Out No longer eligible based on patient's age to complete [place] [id number] [facility] FULL Care Teams Perforator Relationship Specialty Start Date End Date MiramontesDelgado Edwards MD [address] [place] [id number] PCP - General Internal Medicine 12/11/24
--- OUTSIDE RECORDS SUMMARY | 2025-01-15 12:23 | XMS_ITS | Encounter Summary ---
Author Organization [employer] Address [address] [place] [address] Care Team Providers Care Application Chemist Name Role Phone Delgado Ross MD Primary Care Prov ider Reason for Visit * Reason Onset Date Comments Appointment Request 12/07/2024 Encounter Details Date Type Department Care Team ([facility] st Contact Info) Description 12/07/2024 Telephone [facility] [address] [place], [place] [phone] Petros Quintana MD [address] [place] [address] Appointment Request Social History Tobacco Use Types Packs/Day Years Used Date Smoking Tobacco: Never Assessed Depression Answer Date Recorded Patient Health Questionnaire-9 [...] Orientation Straight 12/11/2024 8: 43 AM EDT documented as of this encounter Miscellaneous Notes * Telephone Encounter - Shena Iqbal - 12/07/2024 10:14 AM EDT Outgoing call to Kristine with [facility] to book METAL FLOW COORDINATOR appt. Pt currently residing at residential program ([facility]) and is out of Meds. Patient booked for 12/10/[address] Miramontes. DX : Social Anxiety [place]o Affective Disorder Bipolar Reflux Hyperlipoidemia Please contact Kristine for Appt at [phone]. * Telephone Encounter - Dioni Lawrence - 12/07/2024 8:55 AM EDT TC from caller requesting NEW PATIENT visit . DX : Social Anxiety [place] Affective Disorder Bipolar Reflux Hyperlipoidemia Medical Concern: Almost out of Medication Insurance name : [employer] Location : [place] Demographic information updated Contact pt at [phone] documented in this encounter Plan of Treatment Not on file documented as of this encounter Visit Diagnoses Not on filedocumented in this encounter Care Teams Application Chemist Relationship Specialty Start Date End Date Delgado Ross MD [address] [place] [address] PCP - General Internal Medicine 12/11/24 documented as of this encounter
[2025-01-15 12:35] LABS: MANUAL DIFF FLAG NO
[2025-01-15 12:39] LABS: Basophils Absolute Auto 0.1 X10*3/uL (0.0-0.2); Basophils Percent Auto 0.6 % (0-2); Eosinophils Absolute Auto 0.1 X10*3/uL (0.0-0.4); Eosinophils Percent Auto 0.7 % (0-4); Hematocrit 40.5 % (42.0-52.0); Hemoglobin 14.3 g/dl (14.0-18.0); Imm Gran Abs Auto 0.07 X10*3/uL (0.00-0.03); Imm Gran Pct Auto 0.8 % (0.0-0.4); Lymphocytes Absolute Auto 1.4 X10*3/uL (1.2-4.9); Lymphocytes Percent Auto 16.8 % (20-40); Mean Corpuscular HGB Conc 35.3 g/dl (31.0-36.0); Mean Corpuscular Hemoglobin 29.7 pg (27.0-33.0); Mean Corpuscular Volume 84.2 fL (80.0-98.0); Mean Platelet Volume 8.9 fL (9.4-12.4); Monocytes Absolute Auto 0.4 X10*3/uL (0.1-1.2); Neutrophils Absolute Auto 6.4 x10*3/uL (2.0-8.3); Neutrophils Percent Auto 76.1 % (45-73); Platelet Count 220 X10*3/uL (160-400); Red Blood Count 4.81 X10*6/uL (4.60-5.80); Red Cell Distribution Width 12.9 % (11.0-16.0); White Blood Count 8.4 X10*3/uL (4.8-10.8)
[2025-01-15 12:47] LABS: Amphetamine Screen Urine Not Detected (Not Detect); Barbiturates, Urine Not Detected (Not Detect); Benzodiazepines Screen Urine Not Detected (Not Detect); Buprenorphine Scr Not Detected (Not Detect); Cannabinoid Screen Urine Not Detected (Not Detect); Cocaine Screen Urine Not Detected (Not Detect); Fentanyl, urine Not Detected (Not Detect); Methadone Screen, Urine Not Detected (Not Detect); Opiate Screen Urine Not Detected (Not Detect); Oxycodone Screen Urine Not Detected (Not Detect); Phencyclidine Screen Urine Not Detected (Not Detect)
[2025-01-15 13:06] LABS: Alanine Aminotransferase 25 U/L (0-40); Albumin Level 4.6 g/dL (3.5-5.0); Anion Gap 11 (12-20); Aspartate Amino Transferase 16 U/L (5-37); Bilirubin Total 0.4 mg/dL (0.0-1.0); Blood Urea Nitrogen 10 mg/dL (9-16); Calcium 9.4 mg/dL (8.4-10.2); Carbon Dioxide 24 mmol/L (22-29); Chloride 112 mmol/L (96-108); Creatinine Clr Calc Pharmacy 108.2; Estimated Glomerular Filt Rate > 60; Ethanol < 10 mg/dL; Glucose Random 120 mg/dL (60-115); Potassium 4.2 mmol/L (3.3-5.1); Sodium 143 mmol/L (135-145); Total Protein 7.5 g/dL (6.5-8.0)
--- NOTE | 2025-01-15 14:11 | PC.NURSE ---
Report received from SHON Law. Awaiting pt. arrival.
[2025-01-15 14:35] LABS: Acetaminophen LAB < 3 mcg/mL (<30); Salicylate < 5.0 mg/dL (15-30)
[2025-01-15 14:59] LABS: Lithium 0.88 mmol/L (0.60-1.20)
--- NOTE | 2025-01-15 15:38 | ECG_ITS ---
Test Reason : CHECK PROLONGED QT Blood Pressure : */* mmHG Vent. Rate : 96 BPM Atrial Rate : 77 BPM P-R Int : 176 ms QRS Dur : 98 ms QT Int : 370 ms P-R-T Axes : 31 47 10 degrees QTcB Int : 467 ms Sinus rhythm with marked sinus arrhythmia with frequent Premature ventricular complexes Nonspecific T wave abnormality Prolonged QT Abnormal ECG When compared with ECG of 16-Dec-2024 16:20, No significant change was found Referred By: Carlie Alvarado Electronically Signed By: MIKAEL DELGADILLO MD
[2025-01-15 15:46] VITALS: BP 109/71; PULSE 85; RESP 16; TEMP 37.1; O2SAT 100
[2025-01-15 16:12] VITALS: BP 109/71; PULSE 85; RESP 17; TEMP 37.1; O2SAT 99
--- NOTE | 2025-01-15 17:07 | PC.NURSE ---
Felix from [facility] School Admissions Representative called and asked for pt. update. Provided number .
--- NOTE | 2025-01-15 17:08 | PC.NURSE ---
Pt. is a& ox4, cooperative, reviewed medication list, informed RN that pt. is unable to recall if he takes trazadone and hydroxyzine. Left those medication in med rec. unconfirmed.
[2025-01-15 18:41] LABS: Alkaline Phosphatase 94 U/L (39-117)
[2025-01-15 18:43] VITALS: BP 109/71; PULSE 85; RESP 17; TEMP 37.1; O2SAT 99
--- NOTE | 2025-01-15 19:18 | HE.PHANOTE ---
Spoke with Andie Lee RN, who was able to confirm with patient that he last took his Clozapine 01/14/25 in the evening.
--- NOTE | 2025-01-15 19:19 | PC.NURSE ---
Spoke to Diana from [facility], pt. to be admitted and have a room tomorrow, and will f/u then.
--- NOTE | 2025-01-15 19:23 | MHC.CARE ---
2 Kishan Macias accepted to [address] [address] for 01/16/25 ETA 12p, accepting is Dr. Conte
--- NOTE | 2025-01-15 20:11 | PC.NURSE ---
Spoke to Jen from facility [facility] and updated her on pt and pt. meds. Will be notified tomorrow to f/u for transport.
[2025-01-15 20:20] LABS: Appearance Urine Clear; Color Urine Yellow; Glucose Urine UA Negative (Negative); Leukocyte Esterase Urine Negative (Negative); Nitrite Urine Negative (Negative); PH 6.5 (5.0-9.0); Urine Blood Negative (Negative); Urine Ketones Trace mg/dL (Negative); Urine Protein Negative (Neg-Trace)
[2025-01-15] MEDS: lamoTRIgine 100 MG TABLET PO (20:52)
[2025-01-15] MEDS: Lithium Carbonate ER 450 MG TABLET.ER 900 MG PO (20:52)
[2025-01-15] MEDS: risperiDONE 2 MG TABLET 4 MG PO (20:52)
[2025-01-15] MEDS: cloZAPine 100 MG TABLET 400 MG PO (20:53)
--- NOTE | 2025-01-15 23:18 | PC.NURSE ---
Took over care from Andie, pt sleeping.
--- NOTE | 2025-01-16 03:33 | PC.NURSE ---
pt sleeping, no sing of distress.
[2025-01-16 06:43] VITALS: BP 121/86; PULSE 66; RESP 16; TEMP 36.6; O2SAT 99
[2025-01-16] MEDS: risperiDONE 2 MG TABLET PO (09:20)
[2025-01-16] MEDS: Metoprolol Succinate ER 100 MG TAB.ER.24H PO (09:20)
[2025-01-16] MEDS: amLODIPine Besylate 2.5 MG TABLET PO (09:20)
[2025-01-16] MEDS: cloZAPine 25 MG TABLET 50 MG PO (09:20)
[2025-01-16] MEDS: lamoTRIgine 100 MG TABLET PO (09:20)
--- NOTE | 2025-01-16 09:23 | PC.NURSE ---
assumed care of pt at 0645. pt ate breakfast and is laying in bed. no apparent distress. med compliant. continue with plan of care for transfer to [facility] per care team.
[2025-01-16 09:38] VITALS: BP 130/92; PULSE 82; RESP 16; TEMP 36.8; O2SAT 98
[2025-01-19 14:38] LABS: Clozapine (Clozaril) 1221 mcg/L; Norclozapine 579 mcg/L (25-400)
== END 2025-01-16 09:46 ==
PROVIDERS: Nurse Practitioner Family; Emergency Provider Emergency Medicine; PCP Internal Medicine
DX: F25.1 Schizoaffective disorder, depressive type (principal); R45.850 Homicidal ideations; R94.31 Abnormal electrocardiogram [ECG] [EKG]; I49.8 Other specified cardiac arrhythmias; Z51.81 Encounter for therapeutic drug level monitoring; Z79.899 Other long term (current) drug therapy
CPT/HCPCS: 36415; 80053; 80143; 80159; 80178; 80179; 80307; 81003; 85025; 93005; 99285; S9485

== ENCOUNTER → 2025-01-15 15:38 | Outpatient (BNV) | payer MEDICARE, MEDICAID, SELFPAY | PROVIDERS: Emergency Provider Emergency Medicine; PCP Internal Medicine; Visit Provider Internal Medicine Cardiovascular Disease | DX: I49.3 Ventricular premature depolarization (principal) | CPT/HCPCS: 93010 ==

== ENCOUNTER 2025-04-01 10:21 | Emergency (ER) | payer MEDICARE, MEDICAID, SELFPAY ==
--- NOTE | ~2025-04-01 | CT_ITS ---
EXAMINATION: CT HEAD WITHOUT CONTRAST CLINICAL INFORMATION: Fall, head trauma COMPARISON: November 25, 2023 TECHNIQUE: Contiguous axial imaging was performed from the skull base to vertex without intravenous administration of contrast. This CT examination was performed using dose optimization techniques as appropriate, variously including the following: *Automated exposure control *Adjustment of mA and/or kV according to patient size (this includes techniques or standardized protocols for targeted exams where dose is matched to indication/reason for exam; i.e. extremities or head) *Use of iterative reconstruction technique DLP: 895 mGY*cm FINDINGS: There is no acute ischemic change. There is no intracranial hemorrhage. There is no mass-effect or midline shift. Basal cisterns and ventricles are within normal limits for age/cerebral volume. Orbits are symmetrical and unremarkable. Paranasal sinuses and mastoid air cells are pneumatized. There are no bony abnormalities. CT/CT head/brain wo IV con IMPRESSION: No acute intracranial abnormality. Electronically signed by: Adonay Daigle MD 04/01/2025 12:02 PM EDT
--- NOTE | ~2025-04-01 | XR_ITS ---
EXAMINATION: XR CHEST CLINICAL INFORMATION: weak, off balance COMPARISON: May 20, 2022. TECHNIQUE: 2 views of the chest were obtained. FINDINGS: No consolidation, or pneumothorax. Questionable opacity in the posterior costophrenic angle seen on the lateral projection versus artifactual summation of the soft tissues. Cardiomediastinal silhouette size is normal. Calcified plaque thoracic aortic arch. Multilevel thoracic spondylosis. XR/XR chest 2V IMPRESSION: Questionable bilateral small pleural effusions versus artifactual summation soft tissues. No overt interstitial edema or acute airspace disease. Electronically signed by: Delmar Rodriguez MD 04/01/2025 11:22 AM EDT
--- NOTE | ~2025-04-01 | CT_ITS ---
EXAMINATION: CT CERVICAL SPINE WITHOUT CONTRAST CLINICAL INFORMATION: Fall, head trauma COMPARISON: None available. TECHNIQUE: Axial imaging was performed from the base of the skull through T2 without IV contrast. Coronal and sagittal reformatted images were generated from the original axial data set. ALARA: The examination used one or more of the following radiation dose reduction techniques: Automated exposure control, iterative reconstruction, and/or adjustment of mA and/or KV. DLP: 458 mGY*cm FINDINGS: Mild sclerosis and osteophytes are seen at the atlantodental articulation. No fracture lines are evident. Multilevel degenerative changes are present with uncovertebral osteophytes and mild disc space narrowing with anterior osteophytes most pronounced at C4-5. Shotty jugular chain lymph nodes are present. CT/CT cervical spine wo IV con IMPRESSION: Degenerative disc disease and uncovertebral arthropathy. No acute abnormality. Electronically signed by: Adonay Daigle MD 04/01/2025 12:08 PM EDT
--- NOTE | ~2025-04-01 | XR_ITS ---
EXAMINATION: XR SHOULDER, LEFT CLINICAL INFORMATION: pain, multiple falls COMPARISON: None available. TECHNIQUE: AP, Grashey, scapular Y-view of the left shoulder. FINDINGS: The AC joint is intact. There is no dislocation. There are no degenerative changes. No fracture line is evident. XR/XR shoulder LT min 2V IMPRESSION: Unremarkable left shoulder Electronically signed by: Adonay Daigle MD 04/01/2025 01:59 PM EDT
[2025-04-01 10:28] VITALS: BP 117/73; PULSE 89; RESP 15; TEMP 36.7; O2SAT 96; BMI 24.6
[2025-04-01 10:29] VITALS: BP 117/73; BP 118/72; PULSE 82; PULSE 85; RESP 18; TEMP 36.7; O2SAT 96; O2SAT 98; BMI 24.6
--- NOTE | 2025-04-01 10:31 | ED_ITS ---
HPI - General Adult General Chief complaint: Fall Stated complaint: from halfway, weakness/falls Time Seen by Provider: 04/01/25 10:31 Source: patient, EMS, RN notes reviewed and old records reviewed Mode of arrival: EMS Limitations: no limitations History of Present Illness ED Provider: Dick HPI narrative: Patient is a 50-year-old male with history of schizoaffective disorder, HTN, IBS, hypertriglyceridemia, eczema presenting to the emergency department from his halfway after 2 falls yesterday. Staff reported to EMS that patient has been weak and unsteady since Saturday. Patient also endorsing that he feels off balance, denies dizziness or lightheadedness. He states that he fell twice while walking up the stairs. He denies headache, vision changes, dizziness or lightheadedness. States he was recently started on clonazepam. Complains of pain to left upper arm and shoulder with abduction. He is not anticoagulated. Denies neck or back pain, denies chest or abdominal pain. Denies syncope. MD complaint: weak, falls Related Data Home Medications ?Medication ?Instructions ?Recorded ?Confirmed lamotrigine 100 mg tablet 100 mg PO BID 12/16/2401/15 metoprolol succinate 100 mg 100 mg PO DAILY 12/17/24 0 01/15/25 tablet,extended release 24 hr Previous Rx's ?Medication ?Instructions ?Recorded hydroxyzine HCl 25 mg tablet 25 mg PO Q6H PRN Anxiety/ insomnia 03/16/24 30 days #90 tabs risperidone 2 mg tablet 2 mg PO DAILY 30 days #30 ta bs 03/16/24 risperidone 4 mg tablet 4 mg PO BEDTIME 30 days #30 tabs 03/16/24 trazodone 50 mg tablet 50 mg PO BEDTIME PRN Insomni a 30 03/16/24 days #30 tabs sennosides 8.6 mg-docusate sodium 2 tab PO BEDTIME PRN constipation 12/02/24 50 mg tablet (Senna Plus) #60 tabs amlodipine 2.5 mg tablet 2.5 mg PO DAILY 30 days #30 tabs 01/07/25 clozapine 25 mg tablet 50 mg (2 x 25 mg) PO DAILY 3 0 days 01/07/25 #60 tabs clozapine 50 mg tablet 400 mg (8 x 50 mg) PO BEDTIM E 30 01/07/25 days #240 tabs lithium carbonate 450 mg 900 mg (2 x 450 mg) PO BEDTI ME 30 01/07/25 tablet,extended release days #60 tabs Allergies Allergy/AdvReac Type Severity Reaction Status Date / Time latex Allergy Unknown swelling Verified 04/01/25 10:31 in lips penicillin V Allergy Unknown unknown Verified 04/01/25 10:31 Review of Systems 2 Review of Systems: Yes all other systems are reviewed and are negative Constitutional: Constitutional: Reports as per HPI [facility] Past Medical History Medical History Acute paranoia Schizoaffective disorder, depressive type Eczema of face Tachycardia Labile hypertension Heartburn Essential hypertension Sinus tachycardia Supine hypertension Depressive disorder Paranoid schizophrenia Eczema IBS (irritable bowel syndrome) Impaired fasting glucose Hypertriglyceridemia Surgical History No pertinent past surgical history Family History Family History Father Unknown family medical history Mother Breast cancer Maternal Grandfather No problems noted. Maternal Grandmother No problems noted. Paternal Grandfather No problems noted. Paternal Grandmother No problems noted. Brother Substance use disorder Mental health disorder Sister No problems noted. Social History Social History Household Members: Other Household Members Other:: halfway Housing: Other Housing Other:: [facility] Do you presently have visiting nurse or other home services: Yes Unable to assess alcohol history related to: Unable to respond and Unknown Alcohol intake: never Patient Tobacco Use Status: Never used Tobacco Smoked in Last 30 Days: No e-Cigarette/Vaping Use: Never Used Second Hand Smoke Exposure: No Use of substances other than those prescribed or required for medical reasons: No Substance Use Type: Marijuana Advance Directives: No Advance Directives Information Provided: Yes Do you have a plan to hurt others: No Plan service: No Current occupational status: disabled Sexual orientation: Unable to collect Cognitive needs: No Hearing needs: No Vision needs: Yes Physical Exam ED Vital Signs: Vital Signs - 24 hr 04/01/25 10:28 04/01/25 10:29 Temperature 98.1 F 98.1 F Pulse Rate 89 82 Respiratory Rate 15 18 Blood Pressure 117/73 117/73 Pulse Oximetry 96 96 Oxygen Delivery Method Room Air Room Air BMI result Body Mass Index 24.6 Vital signs have been reviewed and appear to be correct. Blood pressure normal. Heart rate normal. Respiratory rate normal. Temperature normal. Oxygen saturation normal. Const General: cooperative, healthy appearing and no acute distress Orientation/consciousness: oriented to person, oriented to place, oriented to time and patient oriented x3 Limitations: no limitations [facility] Head: Yes normocephalic, Yes atraumatic, No Conner's sign and No periorbital ecchymosis Ears: hearing grossly normal bilaterally, external ears normal, TM's normal bilaterally and EAC's normal General nose exam: Normal external nose present, Normal nasal mucous membranes and turbinates present and Normal septum present Face and sinus: Yes face symmetric Mouth: oropharynx normal and moist mucous membranes Throat: Yes uvula midline Eyes Pupils: Equal, round and reactive pupils present EOM: EOMs intact bilaterally Neck Neck: Yes normal visual inspection, Yes full ROM, Yes trachea midline and Yes supple Chest Chest palpation & inspection: normal inspection of the chest and normal palpation of entire chest wall Resp Effort & Inspection: normal respiratory effort and able to speak in complete sentences Auscultation: clear to auscultation bilaterally Cardio Rate: regular rate Rhythm: regular rhythm Heart sounds: S1 normal heart sound present and S2 normal heart sound present GI Palpation (GI): Soft to palpation and nontender Auscultation: normoactive bowel sounds General: Yes no CVA tenderness Back/Spine/Pelvis Back: no CVA tenderness Skin General skin exam: elasticity normal and turgor normal Neuro General: oriented to person, oriented to place, oriented to time, patient oriented x3, gait normal, tone normal, moves all extremities, Normal light touch and pain sensation, no focal motor deficits, CN's II-XI intact bilaterally and deep tendon reflexes 2+ bilaterally Cranial nerves: Yes Equal, round and reactive pupils present Cognition (Neuro): normal cognition Motor exam (neuro): 5/5 motor strength present throughout, Normal motor muscle tone present throughout and Motor abnormalities not present Coordination: [id number] test normal, [id number] test normal and Romberg test negative Extrem General: Yes full ROM, Yes no pedal edema and Yes no calf tenderness Left upper extremity: shoulder/upper arm Details: inspection abnormal and normal ROM (pain with abduction); no tenderness, no ecchymosis and no crepitus Psych Mental Status: mental status grossly normal Affect: normal affect Thought process: Normal thought process present Medical Decision Making Medical Decision Making [facility] Narrative: Patient is a 50-year-old male with history of schizoaffective disorder, HTN, IBS, hypertriglyceridemia, eczema presenting to the emergency department from his halfway after 2 falls yesterday. On exam patient is awake, A+Ox3, VS WNL, afebrile, normal neurological exam without focal deficits, physical exam findings as above. Given reported symptoms and physical exam findings, initial differential includes but is not limited to ICH, skull or cervical fracture or subluxation, cardiac arrhythmia, electrolyte abnormality, anemia, UTI, pneumonia, left shoulder strain, sprain, fracture. Labs notable for 2.4 point drop in Hgb since visit in December of this year, patient denies any hematochezia or melena, no leukocytosis, no significant electrolyte abnormalities, negative troponin. Urinalysis is without evidence of infection. Viral serology negative. Ethanol and urine drug screen negative. Urine drug screen also negative for benzodiazepines, unsure if patient is actually taking Klonopin currently. CT head and C-spine notable for no evidence of ICH, skull or cervical vertebral fracture or subluxation. Left shoulder x-ray is without evidence of fracture. My interpretation is in agreement with the radiologist's interpretation. EKG shows sinus rhythm with frequent PVCs. Results discussed with patient and all questions answered. Given the symptoms have been going on since Saturday, do not suspect acute stroke. Advised patient to follow up with PCP for recheck of H&H within this week. Return for any additional falls or injuries. Advised him to ensure adequate fluid intake, especially fluids with electrolytes. Return precautions discussed. Patient verbalized understanding of and agreement with plan. Differential Diagnosis Differential Diagnoses: The differential diagnosis associated with the presentation includes as per [facility] Admission/Observation Consideration of admission/observation: Escalation of care including admission/observation considered Patient would have been admitted to the hospital had their work up had any findings where hospital admission was appropriate and their clinical presentation warranted hospital admission. Lab Data [facility] Lab Attestation statement: I reviewed the patient's lab results. as per [facility] 04/01/25 10:54 04/01/25 10:54 Labs: Lab Results 07/12/2204/01/25 04/01/25 Range/Units 10:49 10:54 13:00 WBC 10.8 (4.8-10.8) X10*3/uL RBC 4.06 L (4.60-5.80) X10*6/uL Hgb 11.9 L (14.0-18.0) g/dl Hct 34.6 L (42.0-52.0) % MCV 85.2 (80.0-98.0) fL MCH 29.3 (27.0-33.0) pg MCHC 34.4 (31.0-36.0) g/dl RDW 11.9 (11.0-16.0) % Plt Count 210 (160-400) X10*3/uL MPV 9.1 L (9.4-12.4) fL Immature Gran % (Auto) 0.5 H (0.0-0.4) % Neut % (Auto) 73.4 H (45-73) % Lymph % (Auto) 16.5 L (20-40) % Harford % (Auto) 7.6 (2-11) % Eos % (Auto) 1.5 (0-4) % Baso % (Auto) 0.5 (0-2) % Lymph # (Auto) 1.8 (1.2-4.9) X10*3/uL [place] # (Auto) 0.8 (0.1-1.2) X10*3/uL Eos # (Auto) 0.2 (0.0-0.4) X10*3/uL Baso # (Auto) 0.1 (0.0-0.2) X10*3/uL Abs Immat Gran (auto) 0.05 H (0.00-0.03) X10*3/uL Absolute Neuts (auto) 8.0 (2.0-8.3) x10*3/uL Absolute Nucleated RBC 0.000 (0.0-0.012) X10*3/uL Nucleated RBC % (auto) 0.0 (0.0-0.2) /100WBC Sodium 139 (135-145) mmol/L Potassium 3.8 (3.3-5.1) mmol/L Chloride 110 H (96-108) mmol/L Carbon Dioxide 24 (22-29) mmol/L Anion Gap 9 L (12-20) BUN 14 (9-16) mg/dL Creatinine 0.99 (0.5-1.4) mg/dL Estim Creat Clear Calc 92.9 Estimated GFR > 60 Random Glucose 126 H (60-115) mg/dL Calcium 8.6 D (8.4-10.2) mg/dL Magnesium 1.9 (1.6-2.6) mg/dL Total Bilirubin 0.4 (0.0-1.0) mg/dL AST 12 (5-37) U/L ALT 12 (0-40) U/L Alkaline Phosphatase 69 (39-117) U/L Troponin I High Sens < 2.7 (<3.5-35.0) ng/L Total Protein 6.1 L (6.5-8.0) g/dL Albumin 3.7 (3.5-5.0) g/dL Urine Color Yellow Urine Appearance Clear Urine pH 8.5 (5.0-9.0) Ur Specific Jennings 1.020 (1.005-1.025) Urine Protein Trace (Neg-Trace) mg/dL Urine Glucose (UA) Negative (Negative) mg/dL Urine Ketones Negative (Negative) mg/dL Urine Blood Negative (Negative) Urine Nitrite Negative (Negative) Ur Leukocyte Esterase Negative (Negative) Urine Opiates Screen Not Detected (Not Detect) Ur Buprenorphine Scrn Not Detected (Not Detect) ng/mL Ur Oxycodone Screen Not Detected (Not Detect) ng/mL Urine Methadone Screen Not Detected (Not Detect) ng/mL Urine Fentanyl Screen Not Detected (Not Detect) Ur Barbiturates Screen Not Detected (Not Detect) Ur Phencyclidine Scrn Not Detected (Not Detect) Ur Amphetamines Screen Not Detected (Not Detect) U Benzodiazepines Scrn Not Detected (Not Detect) Urine Cocaine Screen Not Detected (Not Detect) U Marijuana (THC) Screen Not Detected (Not Detect) Ethyl Alcohol < 10 mg/dL Influenza Type A (PCR) NEGATIVE (Negative) Influenza Type B (PCR) NEGATIVE (Negative) RSV RNA Qual (PCR) NEGATIVE (Negative) SARS-CoV-2 RNA (RT-PCR) NEGATIVE (Negative) Independent Interpretation I performed an independent interpretation of an: EKG (sinus rhythm with PVCs, rate 82, normal MO interval, slightly prolonged QTc, no significant change from prior), Plain X-Ray and CT Scan Interpretation: No acute fracture or dislocation of left shoulder on x-ray. CT head and C-spine is without evidence of ICH, skull or cervical vertebral fracture subluxation. Radiology Impression Discussion of test interpretation with radiology: I have reviewed the radiologist's reading. Radiologist Impression: XR/XR shoulder LT min 2V IMPRESSION: Unremarkable left shoulder External Record Review External record reviewed: Inpatient record, Office record and Outpatient record Discharge Plan Discharge Clinical Impression: Anemia Qualifiers: Anemia type: unspecified type Qualified Code(s): D64.9 - Anemia, unspecified Patient Disposition: Home, Self-Care Instructions: Anemia (ED) Additional Instructions: You were evaluated in the emergency department today for feeling off balance and frequent falls. Your CT scans did not show evidence of any injuries or bleeding to your brain, skull or cervical spine. Your x-ray did not show any fractures to your left shoulder. Your pain is likely related to a muscle strain. Your hemoglobin level was noted to be lower today than your previous visit in December, and this could be contributing to your symptoms. We recommend that you follow up with your primary care provider within the next week for a recheck of your levels. You can use Tylenol 650 mg every 6 hours as needed for your shoulder pain. We recommend that you avoid NSAIDs (ibuprofen, Motrin, Aleve, etc.) as this can increase your risk of bleeding. Return to the emergency department if you have additional falls, persistent dizziness, severe headache, changes in vision blood in your stool or black stool, or any other new or concerning symptoms. Prescriptions: No Action sennosides-docusate sodium [Senna Plus] 8.6-50 mg tablet 2 tab PO BEDTIME PRN (Reason: constipation) Qty: 60 0RF lamotrigine 100 mg tablet 100 mg PO BID metoprolol succinate 100 mg tablet extended release 24 hr 100 mg PO DAILY amlodipine 2.5 mg Tablet 2.5 mg PO DAILY 30 Days Qty: 30 0RF Protocol: Hold for SBP< HOLD for SBP < : 90 clozapine 25 mg Tablet 50 mg PO DAILY 30 Days Qty: 60 0RF clozapine 50 mg Tablet 400 mg PO BEDTIME 30 Days Qty: 240 0RF lithium carbonate 450 mg Tablet Extended Release 900 mg PO BEDTIME 30 Days Qty: 60 0RF trazodone 50 mg Tablet 50 mg PO BEDTIME PRN (Reason: Insomnia) 30 Days Qty: 30 1RF risperidone 4 mg tablet 4 mg PO BEDTIME 30 Days Qty: 30 1RF risperidone 2 mg tablet 2 mg PO DAILY 30 Days Qty: 30 1RF hydroxyzine HCl 25 mg Tablet 25 mg PO Q6H PRN (Reason: Anxiety/insomnia) 30 Days Qty: 90 1RF Print Language: Monegasque
--- NOTE | 2025-04-01 10:36 | ECG_ITS ---
Test Reason : fall Blood Pressure : */* mmHG Vent. Rate : 82 BPM Atrial Rate : 82 BPM P-R Int : 164 ms QRS Dur : 100 ms QT Int : 406 ms P-R-T Axes : 38 33 -6 degrees QTcB Int : 474 ms Sinus rhythm with frequent Premature ventricular complexes Possible Left atrial enlargement Nonspecific T wave abnormality Prolonged QT Abnormal ECG When compared with ECG of 15-Jan-2025 15:53, No significant change was found Referred By: Teresita Jennings Electronically Signed By: MIKAEL DELGADILLO MD
[2025-04-01 10:57] LABS: MANUAL DIFF FLAG NO
[2025-04-01 11:14] LABS: Hematocrit 34.6 % (42.0-52.0); Hemoglobin 11.9 g/dl (14.0-18.0); Imm Gran Abs Auto 0.05 X10*3/uL (0.00-0.03); Imm Gran Pct Auto 0.5 % (0.0-0.4); Lymphocytes Absolute Auto 1.8 X10*3/uL (1.2-4.9); Mean Corpuscular HGB Conc 34.4 g/dl (31.0-36.0); Mean Corpuscular Hemoglobin 29.3 pg (27.0-33.0); Mean Corpuscular Volume 85.2 fL (80.0-98.0); NRBC Abs Auto 0.000 X10*3/uL (0.0-0.012); NRBC Pct Auto 0.0 /100WBC (0.0-0.2); Platelet Count 210 X10*3/uL (160-400); Red Blood Count 4.06 X10*6/uL (4.60-5.80); White Blood Count 10.8 X10*3/uL (4.8-10.8)
[2025-04-01 11:16] LABS: Alanine Aminotransferase 12 U/L (0-40); Albumin Level 3.7 g/dL (3.5-5.0); Alkaline Phosphatase 69 U/L (39-117); Anion Gap 9 (12-20); Aspartate Amino Transferase 12 U/L (5-37); Blood Urea Nitrogen 14 mg/dL (9-16); Calcium 8.6 mg/dL (8.4-10.2); Carbon Dioxide 24 mmol/L (22-29); Chloride 110 mmol/L (96-108); Creatinine Clr Calc Pharmacy 92.9; Estimated Glomerular Filt Rate > 60; Magnesium 1.9 mg/dL (1.6-2.6); Potassium 3.8 mmol/L (3.3-5.1); Sodium 139 mmol/L (135-145); Total Protein 6.1 g/dL (6.5-8.0)
[2025-04-01 11:24] LABS: Troponin-I High Sensitivity < 2.7 ng/L (<3.5-35.0)
--- OUTSIDE RECORDS SUMMARY | 2025-04-01 11:31 | XMS_ITS | Encounter Summary ---
Author Organization [employer] Address [address] [place] [address] Care Team Providers Care Property Economist Name Role Phone Delgado Ross MD Primary Care Prov ider Encounter Details Date Type Department Care Team (Late st Contact Info) Description 02/08/2025 Telephone [facility] [address] [place], [place] [phone] Kristine Cabrera, PharmD [address] [place], [place] [phone] Social History Tobacco Use Types Packs/Day Years Used Date Smoking Tobacco: Never Passive Smoke Exposure: Never Smokeless Tobacco: Never Alcohol Use Standard Drinks/Week Comments Never 0 [...] AM EDT documented as of this encounter Plan of Treatment Not on file documented as of this encounter Visit Diagnoses Not on filedocumented in this encounter Additional Health Concerns Assessment Noted Time PHQ-9 Depression Total Score: 0 12/12/19 25 9:14 AM EDT documented as of this encounter Care Teams Property Economist Relationship Specialty Start Date End Date Delgado Ross MD [address] [place] [id number] PCP - General Internal Medicine 12/11/24 documented as of this encounter
[2025-04-01 11:32] LABS: Resp Syncy Virus RNA Qual PCR NEGATIVE (Negative); SARS COV2 PCR INHOUSE NEGATIVE (Negative)
[2025-04-01 13:06] LABS: Appearance Urine Clear; Glucose Urine UA Negative (Negative); PH 8.5 (5.0-9.0); Specific Gravity - Urine 1.020 (1.005-1.025)
[2025-04-01 13:19] LABS: Cannabinoid Screen Urine Not Detected (Not Detect)
--- NOTE | 2025-04-01 17:01 | PC.NURSE ---
nursing home and [facility] called for discharge and report
[2025-04-01 17:43] VITALS: BP 117/73; PULSE 82; RESP 18; TEMP 36.7; O2SAT 96
== END 2025-04-01 17:35 | disposition home or self-care (01) ==
PROVIDERS: Registered Nurse Emergency; Emergency Provider Emergency Medicine Emergency Medical Services; PCP Internal Medicine
DX: S09.90XA Unspecified injury of head, initial encounter (principal); D64.9 Anemia, unspecified; R94.31 Abnormal electrocardiogram [ECG] [EKG]; M25.512 Pain in left shoulder; M54.2 Cervicalgia; R51.9 Headache, unspecified; X58.XXXA Exposure to other specified factors, initial encounter; W19.XXXA Unspecified fall, initial encounter; Z91.81 History of falling; Y93.9 Activity, unspecified; Y92.9 Unspecified place or not applicable; Y99.8 Other external cause status; Z03.818 Encounter for observation for suspected exposure to other biological agents ruled out; Z51.81 Encounter for therapeutic drug level monitoring; Z79.899 Other long term (current) drug therapy
CPT/HCPCS: 70450; 71046; 72125; 73030; 80053; 80307; 81003; 83735; 84484; 85025; 87637; 93005; 99284

== ENCOUNTER → 2025-04-01 10:36 | Outpatient (BNV) | payer MEDICARE, MEDICAID, SELFPAY | PROVIDERS: Emergency Provider Emergency Medicine Emergency Medical Services; PCP Internal Medicine; Visit Provider Radiology Diagnostic Radiology | DX: Z04.3 Encounter for examination and observation following other accident (principal); M50.30 Other cervical disc degeneration, unspecified cervical region; M46.92 Unspecified inflammatory spondylopathy, cervical region; S09.90XA Unspecified injury of head, initial encounter; R53.1 Weakness; R26.81 Unsteadiness on feet; M25.512 Pain in left shoulder | CPT/HCPCS: 71046 ==

== ENCOUNTER → 2025-04-01 10:36 | Outpatient (BNV) | payer MEDICARE, MEDICAID, SELFPAY | PROVIDERS: Emergency Provider Emergency Medicine Emergency Medical Services; PCP Internal Medicine; Visit Provider Internal Medicine Cardiovascular Disease | DX: I49.3 Ventricular premature depolarization (principal) | CPT/HCPCS: 93010 ==

== ENCOUNTER 2025-04-27 11:45 | Outpatient (AMB) | payer MEDICARE, MEDICAID, SELFPAY ==
--- OUTSIDE RECORDS SUMMARY | 2025-04-27 12:48 | XMS_ITS | Encounter Summary ---
Author Organization [employer] Address [address] [place] [address] Care Team Providers Care Edge Bander Operator Name Role Phone Unavailable Primary Care Provider Unavailabl e Encounter Details Date Type Department Care Team (Late st Contact Info) Description 03/05/2025 Lab Requisition [facility] - Main Lab [address] [facility] [place] [address] Maxine Rodarte, [address] [phone] Social History Tobacco Use Types Packs/Day Years Used Date Smoking Tobacco: Never Assessed Sex and Gender Information Value Date Recorded Sex Assigned at Not on file Legal Sex Male 9:25 PM EST Gender Identity Not on file Sexual Orientation Not on file documented as of this encounter Plan of Treatment Not on file documented as of this encounter Visit Diagnoses Not on filedocumented in this encounter
--- OUTSIDE RECORDS SUMMARY | 2025-04-27 12:48 | XMS_ITS | Encounter Summary ---
Author Organization [employer] Address [address] [facility] [address] [place] [address] Care Team Providers Care Hydramatic Mechanic Name Role Phone Delgado Ross MD Primary Care Prov ider Encounter Details Date Type Department Care Team (Late st Contact Info) Description 02/08/2025 Telephone [facility] [address] [place], [place] [phone] Kristine Cabrera, PharmD [address] [place], [place] [phone] Social History Tobacco Use Types Packs/Day Years [...] t he electric, gas, oil or water [employer] threatened to shut off services in your [...] as of this encounter Plan of Treatment Upcoming Encounters Date Type Department Care Team (Late st Contact Info) Description 06/21/2025 11:15 AM EDT Office Visit [facility] [address] [place] [address] Delgado Ross MD [address] [place] [address] documented as of this encounter Visit Diagnoses Not on filedocumented in this encounter Additional Health Concerns Assessment Noted Time PHQ-9 Depression Total Score: 0 12/12/19 9:14 AM EDT documented as of this encounter Care Teams Hydramatic Mechanic Relationship Specialty Start Date End Date Delgado Ross MD [address] [place] [address] PCP - General Internal Medicine 12/11/24 documented as of this encounter
[2025-04-27 12:54] VITALS: BP 111/83; PULSE 90; TEMP 36.6; O2SAT 100; BMI 23.7
--- NOTE | 2025-04-27 12:54 | MHC.OFFWIV ---
Intake Vital Signs 04/27/25 12:54 Height 5 ft 11 in Weight 170 lb BMI 23.7 BP 111/83 Blood Pressure Location Lt brachial Position Sitting Pulse 90 Pulse Source Pulse Oximeter Temp 97.9 F Temp Source Oral Pulse Oximetry (%) 100 Oxygen Delivery Method Room Air Intake Visit Reasons: EP trouble balancing, difficulty concentrating Intake Note: presents with gait being off, dizziness, frequent falls, fatigue Patient Tobacco Use Status: Never used Tobacco Allergies latex Allergy (Unknown, Verified 04/27/25 12:58) swelling in lips penicillin V Allergy (Unknown, Verified 04/27/25 12:58) unknown Do you need a note to return to daycare/school/sports/work: No HPI HPI Comments History of Present Illness Details History - The patient is a 50-year-old male presenting with dizziness and falls. - The patient reports experiencing dizziness and weakness, particularly in the mornings, leading to seven or eight falls over the past week. - He denies any head injury or loss of consciousness during these falls. He is not on a blood thinner. - The patient was previously diagnosed with a right ear infection and was treated with neomycin ear drops, which he completed a week ago. - Despite treatment, dizziness persists Physical Exam General: Cooperative, healthy appearing, comfortable, no acute distress and well developed Orientation: Patient oriented x3 Limitations: No limitations Head: Normal to inspection Ears: External ears normal bilaterally, TM's with impacted cerumen bilaterally Face and sinus: Normal facial exam Neck: Normal visual inspection and Yes full ROM Respiratory: Normal respiratory effort and able to speak in complete sentences. Skin: No rashes or lesions noted Neuro: Patient oriented x3 Extremities: normal to inspection [facility] Medical History Acute paranoia Schizoaffective disorder, depressive type Eczema of face Tachycardia Labile hypertension Heartburn Essential hypertension Sinus tachycardia Supine hypertension Depressive disorder Paranoid schizophrenia Eczema IBS (irritable bowel syndrome) Impaired fasting glucose Hypertriglyceridemia Surgical History No pertinent past surgical history Family History Father Unknown family medical history Mother Breast cancer Maternal Grandfather No problems noted. Maternal Grandmother No problems noted. Paternal Grandfather No problems noted. Paternal Grandmother No problems noted. Brother Substance use disorder Mental health disorder Sister No problems noted. Social History Household Members: Other Household Members Other:: residential Housing: Other Housing Other:: [facility] Do you presently have visiting nurse or other home services: Yes Unable to assess alcohol history related to: Unable to respond and Unknown Alcohol intake: never Patient Tobacco Use Status: Never used Tobacco e-Cigarette/Vaping Use: Never Used Second Hand Smoke Exposure: No Substance Use Type: Marijuana service: No Current occupational status: disabled Sexual orientation: Unable to collect Cognitive needs: No Hearing needs: No Vision needs: Yes Review of Systems Const All systems reviewed & are unremarkable except as noted in HPI and below Physical Exam Vital Signs: Last Vital Signs Temp 97.9 F 04/27/25 12:54 Pulse 90 04/27/25 12:54 BP 111/83 04/27/25 12:54 Pulse Ox 100 04/27/25 12:54 Oxygen Delivery Method Room Air 04/27/25 12:54 BMI result Body Mass Index 23.7 Office Procedures Cerumen Removal From which ear canal was the cerumen removed: bilateral Removal: irrigation Notes: patient tolerated procedure well, no complications and ear canal clear (right side only, pt didn't have time to wait for left side today, scooped some out but he will return tomorrow) [id number] Irrigation/Lavage Assessment & Plan Assessment & Plan (1) Bilateral impacted cerumen: Code(s): H61.23 - Impacted cerumen, bilateral Plan: Plan Patient was informed and verbally consented to the use of an ambient scribe for clinic note documentation during this visit. - Dizziness likely 2/2 bilateral cerumen impaction - Plan to perform ear irrigation to address wax buildup, which may alleviate dizziness. - Right TM is clear after irrigation with no signs of infection noted - Left TM still has cerumen, patient does not have time today to stay for us to irrigated so he will return tomorrow for ear irrigation. I was able to scoop a small amount of cerumen out. Orders: Orders AMB Cerumen Removal Today H61.23 - Impacted cerumen, bilateral Coding Level of Care Code New Pt Level 3 (29237) Diagnoses Bilateral impacted cerumen H61.23 CPT Codes Office Procedure - CPT: 62644-Otl Irrigation/Lavage ([id number])
== END 2025-04-27 14:00 | disposition home or self-care (01) ==
PROVIDERS: PCP Internal Medicine; Visit Provider Physician Assistant
DX: H61.21 Impacted cerumen, right ear (principal)

== ENCOUNTER → 2025-04-27 11:45 | Outpatient (BNVA) | payer MEDICARE, MEDICAID, SELFPAY | PROVIDERS: PCP Internal Medicine; Visit Provider Physician Assistant | DX: H61.23 Impacted cerumen, bilateral (principal) | CPT/HCPCS: 69210; 99202 ==

== ENCOUNTER 2025-04-28 09:17 | Outpatient (AMB) | payer MEDICARE, MEDICAID, SELFPAY ==
--- OUTSIDE RECORDS SUMMARY | 2025-04-28 09:46 | XMS_ITS | Encounter Summary ---
Author Organization [employer] Address [address] [place] [address] Care Team Providers Care Shadowgraph Scale Operator Name Role Phone Unavailable Primary Care Provider Unavailabl e Encounter Details Date Type Department Care Team (Late st Contact Info) Description 03/05/2025 Lab Requisition [facility] - Main Lab [address] [facility] [place] [address] Maxine Rodarte, [address] [address] Social History Tobacco Use Types [...]
--- OUTSIDE RECORDS SUMMARY | 2025-04-28 09:46 | XMS_ITS | Encounter Summary ---
Author Organization [employer] Address [address] [facility] [address] [place] [address] Care Team Providers Care Silk Top Hat Body Maker Name Role Phone Delgado Ross MD Primary Care Prov ider Encounter Details Date Type Department Care Team (Late st Contact Info) Description 02/08/2025 Telephone [facility] [address] [place], [place] [phone] Kristine Cabrera, PharmD [address] [place], [place] [phone] Social History Tobacco Use Types Packs/Day Years [...] t he electric, gas, oil or water [employer] threatened to shut off services in your [...] Description 06/21/2025 11:15 AM EDT Office Visit [facility] [address] [place] [address] Delgado Ross MD [address] [place] [address] documented as of this encounter Visit Diagnoses Not on filedocumented in this encounter Additional Health Concerns Assessment Noted Time PHQ-9 Depression Total Score: 0 12/12/19 9:14 AM EDT documented as of this encounter Care Teams Silk Top Hat Body Maker Relationship Specialty Start Date End Date Delgado Ross MD [address] [place] [address] PCP - General Internal Medicine 12/11/24 documented as of this encounter
--- NOTE | 2025-04-28 10:39 | AM.OFFWIN_ITS ---
Intake Vital Signs 04/28/25 10:40 Height 5 ft 11 in Weight 168 lb BMI 23.4 BP 102/70 Blood Pressure Location Rt brachial Position Sitting Pulse 70 Pulse Source Pulse Oximeter Temp 98.3 F Temp Source Oral Pulse Oximetry (%) 97 Oxygen Delivery Method Room Air Intake Visit Reasons: EP trouble balancing Intake Note: pt is here for trouble balancing, was here a few days ago and states he is not doing any better Patient Tobacco Use Status: Never used Tobacco Allergies latex Allergy (Unknown, Verified 04/28/25 10:40) swelling in lips penicillin V Allergy (Unknown, Verified 04/28/25 10:40) unknown Do you need a note to return to daycare/school/sports/work: Yes HPI HPI Comments History of Present Illness Details History - The patient is a 50-year-old male pres enting with earwax impaction and dizziness. - Reports dizziness fell twice this morn ing due to imbalance. - Dizziness described as off balance, no t vertiginous. - History of dehydration causing vertigo , diagnosed 5-10 years ago. - Blood pressure 102/70 mmHg; fluid inta ke self reported as insufficient. - Does get dizzy when laying down but no t worse when turning head left or right Physical Exam Physical Exam General: Cooperative, healthy appearing, comfortable, no acute distress and well developed Orientation: Patient oriented x3 Limitations: No limitations Head: Normal to inspection Ears: External ears normal bilaterally, TM's with impacted cerumen left Face and sinus: Normal facial exam Neck: Normal visual inspection and Yes full ROM Respiratory: Normal respiratory effort and able to speak in complete sentences. Skin: No rashes or lesions noted Neuro: Patient oriented x3 Extremities: normal to inspection [facility] Medical History Acute paranoia Schizoaffective disorder, depressive type Eczema of face Tachycardia Labile hypertension Heartburn Essential hypertension Sinus tachycardia Supine hypertension Depressive disorder Paranoid schizophrenia Eczema IBS (irritable bowel syndrome) Impaired fasting glucose Hypertriglyceridemia Surgical History No pertinent past surgical history Family History Father Unknown family medical history Mother Breast cancer Maternal Grandfather No problems noted. Maternal Grandmother No problems noted. Paternal Grandfather No problems noted. Paternal Grandmother No problems noted. Brother Substance use disorder Mental health disorder Sister No problems noted. Social History Household Members: Other Household Members Other:: long term Housing: Other Housing Other:: [facility] Do you presently have visiting nurse or other home services: Yes Unable to assess alcohol history related to: Unable to respond and Unknown Alcohol intake: never Patient Tobacco Use Status: Never used Tobacco e-Cigarette/Vaping Use: Never Used Second Hand Smoke Exposure: No Substance Use Type: Marijuana service: No Current occupational status: disabled Sexual orientation: Unable to collect Cognitive needs: No Hearing needs: No Vision needs: Yes Review of Systems Const All systems reviewed & are unremarkable except as noted in HPI and below Physical Exam Vital Signs: Last Vital Signs Temp 98.3 F 04/28/25 10:40 Pulse 70 04/28/25 10:40 BP 102/70 04/28/25 10:40 Pulse Ox 97 04/28/25 10:40 Oxygen Delivery Method Room Air 04/28/25 10:40 BMI result Body Mass Index 23.4 Office Procedures Cerumen Removal From which ear canal was the cerumen removed: left Removal: irrigation Notes: patient tolerated procedure well, no complications and ear canal clear [id number] Irrigation/Lavage Assessment & Plan Assessment & Plan (1) Dizziness: Code(s): R42 - Dizziness and giddiness Plan: Plan Patient was informed and verbally consented to the use of an ambient scribe for clinic note documentation during this visit. 1. Earwax Impaction - Flushed left ear to remove wax. - Checked for infection post-procedure, no infection noted. 2. Dizziness - Increase fluid intake with water and electrolytes, alternating throughout the day. - if after hydrating well, dizziness persists or gets worse, you should go to the emergency room for a thorough evaluation. (2) Impacted cerumen, left ear: Code(s): H61.22 - Impacted cerumen, left ear Plan: as above Orders: Orders AMB Cerumen Removal Today H61.22 - Impacted cerumen, left ear Coding Level of Care Code New Pt Level 4 (13562) Diagnoses Dizziness R42 Impacted cerumen, left ear H61.22 CPT Codes Office Procedure - CPT: 76727-Ymw Irrigation/Lavage ([id number])
[2025-04-28 10:40] VITALS: BP 102/70; PULSE 70; TEMP 36.8; O2SAT 97; BMI 23.4
== END 2025-04-28 11:30 | disposition home or self-care (01) ==
PROVIDERS: PCP Internal Medicine; Visit Provider Physician Assistant
DX: R42 Dizziness and giddiness (principal); H61.22 Impacted cerumen, left ear

== ENCOUNTER → 2025-04-28 09:17 | Outpatient (BNVA) | payer MEDICARE, MEDICAID, SELFPAY | PROVIDERS: PCP Internal Medicine; Visit Provider Physician Assistant | DX: H61.22 Impacted cerumen, left ear (principal); R42 Dizziness and giddiness | CPT/HCPCS: 69209; 99212 ==

== ENCOUNTER 2025-05-25 14:50 | Inpatient (IN) | payer MEDICARE, MEDICAID, OTHER, SELFPAY ==
[2025-05-25 15:01] VITALS: BP 111/67; BP 144/88; PULSE 72; PULSE 74; RESP 18; TEMP 37.1; O2SAT 100; O2SAT 98; BMI 25.1
--- NOTE | 2025-05-25 15:04 | ECG_ITS ---
Test Reason : RO QTC Blood Pressure : */* mmHG Vent. Rate : 69 BPM Atrial Rate : 69 BPM P-R Int : 170 ms QRS Dur : 100 ms QT Int : 452 ms P-R-T Axes : 55 39 19 degrees QTcB Int : 484 ms Sinus rhythm with frequent Premature ventricular complexes Possible Left atrial enlargement Nonspecific T wave abnormality Prolonged QT Abnormal ECG When compared with ECG of 01-Apr-2025 10:40, No significant change was found Referred By: Germania Dawkins Electronically Signed By: JOJO DUNCAN
--- NOTE | 2025-05-25 15:04 | ED.GENADULT ---
HPI - General Adult General Chief complaint: Psychiatric Symptoms Stated complaint: SI Time Seen by Provider: 05/25/25 15:04 Source: patient and EMS Mode of arrival: EMS Limitations: no limitations History of Present Illness ED Provider: Germania Dawkins PA-C HPI narrative: Patient is a 50 year old assigned male at with a history of eczema, IBS, and schizoaffective disorder presenting to the emergency department today with suicidal ideation. Patient states that over the last few days he has had some significant life stressors and is having thoughts of killing himself. Patient states that he has plans of drowning in his tub or slitting his wrists. Patient denies any other complaints at this time. Related Data Home Medications ?Medication ?Instructions ?Recorded ?Confirmed lamotrigine 100 mg tablet 100 mg PO BID 12/16/24 05/25/25 metoprolol succinate 100 mg 100 mg PO DAILY 12/17/24 05/25/25 tablet,extended release 24 hr cholecalciferol (vitamin D3) 50 50 mcg PO DAILY 05/25/25 05/25/25 mcg (2,000 unit) capsule clonazepam 0.5 mg tablet 0.5 mg PO DAILY PRN Anxiety 05/25/25 05/25/25 clozapine 25 mg tablet 25 mg PO DAILY 05/25/25 05/25/25 multivitamin with folic acid 400 1 tab PO DAILY 05/25/25 05/25/25 mcg tablet (Daily-Sade (with folic acid)) sertraline 50 mg tablet 50 mg PO DAILY 05/25/25 05/25/25 Previous Rx's ?Medication ?Instructions ?Recorded risperidone 2 mg tablet 2 mg PO DAILY 30 days #30 tabs 03/16/24 risperidone 4 mg tablet 4 mg PO BEDTIME 30 days #30 tabs 03/16/24 clozapine 50 mg tablet 400 mg (8 x 50 mg) PO BEDTIME 30 01/07/25 days #240 tabs lithium carbonate 450 mg 900 mg (2 x 450 mg) PO BEDTIME 30 01/07/25 tablet,extended release days #60 tabs Allergies Allergy/AdvReac Type Severity Reaction Status Date / Time latex Allergy Unknown swelling Verified 05/25/25 15:07 in lips penicillin V Allergy Unknown unknown Verified 05/25/25 15:07 Review of Systems Constitutional: Constitutional: Reports as per HPI Eyes: Eyes: Reports as per HPI ENT: Reports as per HPI Cardiovascular: Cardiovascular: Reports as per HPI Respiratory: Respiratory: Reports as per HPI Gastrointestinal: Gastrointestinal: Reports as per HPI Genitourinary: Genitourinary: Reports as per HPI Musculoskeletal: Musculoskeletal: Reports as per HPI Integumentary/Breasts: Skin/Breast: Reports as per HPI Neurologic: Reports as per HPI Psychiatric: Psychiatric: Denies homicidal ideation and Reports suicidal ideation Endocrine: Endocrine: Reports as per HPI Hematologic/Lymphatic: Hematologic/Lymphatic: Reports as per HPI Allergic/Immunologic: Allergic/Immunologic: Reports as per HPI [facility] Past Medical History Attestation statement: The following information was validated with the patient. Source: old records reviewed and nursing notes reviewed Medical History Acute paranoia Schizoaffective disorder, depressive type Eczema of face Tachycardia Labile hypertension Heartburn Essential hypertension Sinus tachycardia Supine hypertension Depressive disorder Paranoid schizophrenia Eczema IBS (irritable bowel syndrome) Impaired fasting glucose Hypertriglyceridemia Surgical History No pertinent past surgical history Family History Family History Father Unknown family medical history Mother Breast cancer Maternal Grandfather No problems noted. Maternal Grandmother No problems noted. Paternal Grandfather No problems noted. Paternal Grandmother No problems noted. Brother Substance use disorder Mental health disorder Sister No problems noted. Social History Social History Household Members: Other Household Members Other:: nursing home Housing: Other Housing Other:: [facility] Do you presently have visiting nurse or other home services: Yes Unable to assess alcohol history related to: Unable to respond and Unknown Alcohol intake: never Patient Tobacco Use Status: Never used Tobacco Smoked in Last 30 Days: No e-Cigarette/Vaping Use: Never Used Second Hand Smoke Exposure: No Use of substances other than those prescribed or required for medical reasons: No Substance Use Type: Marijuana Advance Directives: No Advance Directives Information Provided: No service: No Current occupational status: disabled Sexual orientation: Unable to collect Cognitive needs: No Hearing needs: No Vision needs: Yes Physical Exam ED Vital Signs: Vital Signs - 24 hr 05/25/25 15:01 05/25/25 20:21 05/26/25 06:29 Temperature 98.7 F 99.1 F Pulse Rate 74 67 Respiratory Rate 18 16 16 Blood Pressure 111/67 96/76 Pulse Oximetry 100 96 Oxygen Delivery Method Room Air Room Air 05/26/25 08:10 Temperature 98 F Pulse Rate 63 Respiratory Rate 14 Blood Pressure Pulse Oximetry 100 Oxygen Delivery Method Room Air BMI result Body Mass Index 25.1 Const General: cooperative, no acute distress, alert and awake Nutritional Appearance: well nourished Orientation/consciousness: patient oriented x3 HENMT Head: Yes normal to inspection and Yes atraumatic Ears: hearing grossly normal bilaterally and external ears normal General nose exam: Normal external nose present, no nasal discharge noted and no epistaxis Face and sinus: Yes normal facial exam, No abrasion and No laceration Mouth: Normal oral and palatal mucosa present, no drooling and no muffled voice Eyes General: appearance normal, both eyes and all related structures Periorbital: periorbital findings normal Eyelids: Yes eyelids normal Conjunctivae: conjunctivae normal Pupils: Equal, round and reactive pupils present EOM: EOMs intact bilaterally Neck Neck: Yes normal visual inspection and Yes full ROM Resp Effort & Inspection: normal respiratory effort and able to speak in complete sentences Neuro General: patient oriented x3, moves all extremities and CN's II-XI intact bilaterally Cranial nerves: Yes Equal, round and reactive pupils present Cognition (Neuro): normal cognition Extrem General: Yes normal to inspection, Yes full ROM and Yes capillary refill normal Psych Appearance: grossly normal Mental Status: mental status grossly normal Affect: Sad affect present Attitude: cooperative Thought content: Suicidality present Course Reevaluation(s) Reevaluation #1: Patient is inpatient level of care we will continue to monitor while in ED Time: 08:51 Medications Administered Generic Name Dose Route Start Last Admin Trade Name Freq PRN Reason Stop Dose Admin Clozapine 25 mg 05/26/25 09:00 05/26/25 10:47 Clozapine 25 Mg Tablet PO 25 mg DAILY ALFONSO Administration Lamotrigine 100 mg 05/26/25 09:00 05/26/25 10:47 Lamotrigine 100 Mg Tablet PO 100 mg BID ALFONSO Administration Metoprolol Succinate 100 mg 05/26/25 09:00 05/26/25 10:46 Metoprolol Succinate Er 100 Mg Tab.Er.24h PO 100 mg DAILY ALFONSO Administration Protocol Risperidone 2 mg 05/26/25 09:00 05/26/25 10:46 Risperidone 2 Mg Tablet PO 2 mg DAILY ALFONSO Administration Sertraline HCl 50 mg 05/26/25 09:00 05/26/25 10:47 Sertraline Hcl 50 Mg Tablet PO 50 mg DAILY ALFONSO Administration Medical Decision Making Medical Decision Making [facility] Narrative: Patient is a 50 year old assigned male at with a history of eczema, IBS, and schizoaffective disorder presenting to the emergency department today with suicidal ideation. Patient's physical exam was as noted in the physical exam portion of this note. Patient's blood work was unremarkable. I explained my physical exam findings as well as all test results to the patient. I answered all questions asked by the patient. Patient in observation pending CARE team evaluation starting at 1505 on 05/25/2025. Differential Diagnosis Differential Diagnoses: The differential diagnosis associated with the presentation includes Suicidal ideation Depression Admission/Observation Consideration of admission/observation: Escalation of care including admission/observation considered Patient's disposition will be determined pending CARE team evaluation. Lab Data [facility] Lab Attestation statement: I reviewed the patient's lab results. My interpretation of these results are in the MDM Rationale portion of this note. 05/25/25 15:48 05/25/25 15:48 Labs: Lab Results 05/25/25 05/25/25 Range/Units 15:48 16:35 WBC 7.7 (4.8-10.8) X10*3/uL RBC 4.42 L (4.60-5.80) X10*6/uL Hgb 12.6 L (14.0-18.0) g/dl Hct 37.8 L (42.0-52.0) % MCV 85.5 (80.0-98.0) fL MCH 28.5 (27.0-33.0) pg MCHC 33.3 (31.0-36.0) g/dl RDW 13.5 (11.0-16.0) % Plt Count 248 (160-400) X10*3/uL MPV 9.0 L (9.4-12.4) fL Immature Gran % (Auto) 0.4 (0.0-0.4) % Neut % (Auto) 72.6 (45-73) % Lymph % (Auto) 17.5 L (20-40) % [place] % (Auto) 5.6 (2-11) % Eos % (Auto) 3.1 (0-4) % Baso % (Auto) 0.8 (0-2) % Lymph # (Auto) 1.3 (1.2-4.9) X10*3/uL [place] # (Auto) 0.4 (0.1-1.2) X10*3/uL Eos # (Auto) 0.2 (0.0-0.4) X10*3/uL Baso # (Auto) 0.1 (0.0-0.2) X10*3/uL Abs Immat Gran (auto) 0.03 (0.00-0.03) X10*3/uL Absolute Neuts (auto) 5.6 (2.0-8.3) x10*3/uL Absolute Nucleated RBC 0.000 (0.0-0.012) X10*3/uL Nucleated RBC % (auto) 0.0 (0.0-0.2) /100WBC Sodium 142 (135-145) mmol/L Potassium 4.1 (3.3-5.1) mmol/L Chloride 113 H (96-108) mmol/L Carbon Dioxide 22 (22-29) mmol/L Anion Gap 11 L (12-20) BUN 13 (9-16) mg/dL Creatinine 1.17 (0.5-1.4) mg/dL Estim Creat Clear Calc 78.6 Estimated GFR > 60 Random Glucose 106 (60-115) mg/dL Calcium 9.1 (8.4-10.2) mg/dL Total Bilirubin 0.2 (0.0-1.0) mg/dL AST 17 (5-37) U/L ALT 16 (0-40) U/L Alkaline Phosphatase 85 (39-117) U/L Total Protein 6.7 (6.5-8.0) g/dL Albumin 4.2 (3.5-5.0) g/dL Urine Color Yellow Urine Appearance Clear Urine pH 7.0 (5.0-9.0) Ur Specific [place] 1.015 (1.005-1.025) Urine Protein Negative (Neg-Trace) mg/dL Urine Glucose (UA) Negative (Negative) mg/dL Urine Ketones Negative (Negative) mg/dL Urine Blood Negative (Negative) Urine Nitrite Negative (Negative) Ur Leukocyte Esterase Negative (Negative) Salicylates < 5.0 L (15-30) mg/dL Urine Opiates Screen Not Detected (Not Detect) Ur Buprenorphine Scrn Not Detected (Not Detect) ng/mL Ur Oxycodone Screen Not Detected (Not Detect) ng/mL Urine Methadone Screen Not Detected (Not Detect) ng/mL Urine Fentanyl Screen Not Detected (Not Detect) Acetaminophen < 3 (<30) mcg/mL Ur Barbiturates Screen Not Detected (Not Detect) Ur Phencyclidine Scrn Not Detected (Not Detect) Ur Amphetamines Screen Not Detected (Not Detect) U Benzodiazepines Scrn Not Detected (Not Detect) Urine Cocaine Screen Not Detected (Not Detect) U Marijuana (THC) Screen Not Detected (Not Detect) Ethyl Alcohol < 10 mg/dL COVID-19 (BASSAM) Negative (Negative) COVID-19 Clin Com See Note Independent Historian Clinical information obtained from an independent historian. History obtained from or confirmed by: EMS (EMS provided additional history and confirmed the history provided by the patient. ) Discharge Plan Discharge Clinical Impression: Suicidal ideation Patient Disposition: Admitted As Inpatient
--- NOTE | 2025-05-25 15:25 | PC.NURSE ---
patient presented to the emergency room via ems. patient states he has been having increased life stressers. patient states that he had plans to slit his wrists. patient was changed into hospital attire prior to coming into pod. patient is alert and oriented x3, ambulatory with steady gait. patient denies HI. patient oriented to unit and room. patient came back out to nurses station requesting RN to hold his glasses, he states he does not feel safe with them at the moment. glasses placed in plastic bag with label
--- NOTE | 2025-05-25 15:56 | MHC.EDTECH ---
This tech obtained/ sent Labs/ Nasal swab. 2nd attempted to obtained a urine patient doesnt have to go. Attempted to do ekg machine was inuse in the ER.
[2025-05-25 15:58] LABS: MANUAL DIFF FLAG NO
[2025-05-25 16:05] LABS: Hematocrit 37.8 % (42.0-52.0); Hemoglobin 12.6 g/dl (14.0-18.0); Imm Gran Abs Auto 0.03 X10*3/uL (0.00-0.03); Imm Gran Pct Auto 0.4 % (0.0-0.4); Lymphocytes Absolute Auto 1.3 X10*3/uL (1.2-4.9); Mean Corpuscular HGB Conc 33.3 g/dl (31.0-36.0); Mean Corpuscular Hemoglobin 28.5 pg (27.0-33.0); Mean Corpuscular Volume 85.5 fL (80.0-98.0); NRBC Abs Auto 0.000 X10*3/uL (0.0-0.012); NRBC Pct Auto 0.0 /100WBC (0.0-0.2); Platelet Count 248 X10*3/uL (160-400); Red Blood Count 4.42 X10*6/uL (4.60-5.80); White Blood Count 7.7 X10*3/uL (4.8-10.8)
[2025-05-25 16:14] LABS: COVID-19 Test Negative (Negative); IDNOW Serial# 55D5AD1C
[2025-05-25 16:15] LABS: Acetaminophen LAB < 3 mcg/mL (<30); Alanine Aminotransferase 16 U/L (0-40); Albumin Level 4.2 g/dL (3.5-5.0); Alkaline Phosphatase 85 U/L (39-117); Anion Gap 11 (12-20); Aspartate Amino Transferase 17 U/L (5-37); Blood Urea Nitrogen 13 mg/dL (9-16); Calcium 9.1 mg/dL (8.4-10.2); Carbon Dioxide 22 mmol/L (22-29); Chloride 113 mmol/L (96-108); Creatinine Clr Calc Pharmacy 78.6; Estimated Glomerular Filt Rate > 60; Potassium 4.1 mmol/L (3.3-5.1); Salicylate < 5.0 mg/dL (15-30); Sodium 142 mmol/L (135-145); Total Protein 6.7 g/dL (6.5-8.0)
--- OUTSIDE RECORDS SUMMARY | 2025-05-25 16:23 | XMS_ITS | Encounter Summary ---
Author Organization [employer] Address [address] [facility] [address] [place] [address] Care Team Providers Care Rn Burn Name Role Phone Delgado Ross MD Primary Care Prov ider Reason for Visit * Reason Onset Date Comments Appointment Request 12/07/2024 Encounter Details Date Type Department Care Team (Late st Contact Info) Description 12/07/2024 Telephone [facility] MEDICINE [address] [place], [place] [phone] Petros Quintana MD [address] [place], [place] [phone] Appointment Request Social History Tobacco Use Types [...] AM EDT Outgoing call to Kristine with [facility] to book 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 Pt currently residing at residential program ([facility]) and is out of Meds. Patient booked for 12/10/[address] Miramontes. DX : Social Anxiety Scitzo Affective Disorder Bipolar Reflux Hyperlipoidemia Please contact Kristine for Appt at [phone]. * Telephone Encounter - Dioni Lawrence - 12/07/2024 8:55 AM EDT TC from caller requesting NEW PATIENT visit . DX : Social Anxiety Scitzo Affective Disorder Bipolar Reflux Hyperlipoidemia Medical Concern: Almost out of Medication Insurance name : [employer] Location : [place] Demographic information updated Contact pt at [phone] documented in this encounter Plan of Treatment Upcoming Encounters Date Type Department Care Team (Late st Contact Info) Description 06/21/2025 11:15 AM EDT Office Visit [facility] MED & PEDS [address] [place] [address] Delgado Ross MD [address] [place] [address] documented as of this encounter Visit Diagnoses Not on filedocumented in this encounter Care Teams Rn Burn Relationship Specialty Start Date End Date MiramontesDelgado Edwards MD [address] [place] [id number] PCP - General Internal Medicine 12/11/24 documented as of this encounter
--- OUTSIDE RECORDS SUMMARY | 2025-05-25 16:23 | XMS_ITS | Encounter Summary ---
Author Organization [facility] Address [address] [place] [address] Care Team Providers Care Filter Tender Jelly Name Role Phone Physician, No Pcp Primary Care Provider Unavaila ble Encounter Details Date Type Department Care Team (Late st Contact Info) Description 03/05/2025 Lab Requisition [facility] - Main Lab [address] [facility] [place] [address] Maxine Rodarte, [facility] [address] [place] [address] Social History Tobacco Use Types Packs/Day [...] on filedocumented in this encounter Care Teams Filter Tender Jelly Relationship Specialty Start Date End Date Physician, No Pcp PCP - General 04/30/25 documented as of this encounter
--- OUTSIDE RECORDS SUMMARY | 2025-05-25 16:23 | XMS_ITS | Encounter Summary ---
Author Organization [employer] Address [address] [facility] 7[address] [place] [address] Care Team Providers Care Machine Clothing Worker Name Role Phone Delgado Ross MD Primary Care Prov ider Encounter Details Date Type Department Care Team (Late st Contact Info) Description 02/08/2025 Telephone [facility] MEDICINE [address] [place], [place] [phone] Kristine Cabrera, PharmD [address] [place], [place] [phone] Social History Tobacco Use Types Packs/Day Years [...] t he electric, gas, oil or water Zeer threatened to shut off services in your [...] 06/21/2025 11:15 AM EDT Office Visit [facility] MED & PEDS [address] [place] [address] Delgado Ross MD [address] [place] [address] documented as of this encounter Visit Diagnoses Not on filedocumented in this encounter Additional Health Concerns Assessment Noted Time PHQ-9 Depression Total Score: 0 12/12/19 9:14 AM EDT documented as of this encounter Care Teams Machine Clothing Worker Relationship Specialty Start Date End Date Delgado Ross MD [address] [place] [address] PCP - General Internal Medicine 12/11/24 documented as of this encounter
--- OUTSIDE RECORDS SUMMARY | 2025-05-25 16:23 | XMS_ITS | Clinical Summary ---
Author Organization [employer] Address [address] [facility] 7[address] [place] [address] Care Team Providers Care Ends Breakage Clerk Name Role Phone Delgado Ross MD Primary Care Prov ider Allergies Active Allergy Reactions Criticality Noted Date Comments Latex 12/11/2024 Penicillin G 12/11/2024 Medications docusate sodium (Colace) 100 MG capsule Take 100 mg by mouth 2 times daily. 09/17/2024 Active lamoTRIgine (LaMICtal) 100 MG tablet Take 100 mg by mouth 2 times daily. 11/12/2024 Active risperiDONE (RisperDAL) 2 MG tablet Take 2 mg by mouth in the morning. 12/01/2024 Active risperiDONE (RisperDAL) 4 MG tablet Take 4 mg by mouth in the evening. 12/01/2024 Active Stool Softener/Laxati ve 50-8.6 MG tablet Take 2 tablets by mouth Once per day. 06/11/2024 Active metoprolol succinate XL (Toprol-XL) 100 MG 24 hr tablet Take 1 tablet (100 mg) by mouth Once per day. 90 tablet 12/11/2024 Active amLODIPine (Norvasc) 2.5 MG tablet Take 1 tablet by mouth Once per day. 02/04/2025 Active lithium ER (Eskalith) 450 MG 12 hr tablet Take 2 tablets by mouth Once per day. 02/04/2025 Active cloZAPine (Clozaril) 200 MG tablet Take 2 tablets by mouth Once per day. 02/05/2025 Active cloZAPine (Clozaril) 50 MG tablet Take 1 tablet by mouth Once per day. 06/22/2018 Active LORazepam (Ativan) 1 MG tablet Take 1 tablet by mouth if needed in the morning and at bedtime for anxiety. 02/04/2025 Active Active Problems Problem Noted Date Diagnosed Date Encounter for medical examination to establish c are 12/11/2024 Assessment & Plan (12/11/2024 10:28 AM EDT): Last PCP visit >5 yrs ER: psych unit October 2023/December 2023 Hospitalization: PMHx: HTN, shcizophrenia, IBS-C, Pshx:- All: PNC/latex Meds: as above Other schizophrenia 12/11/2024 Assessment & Plan (12/11/2024 10:19 AM EDT): Patient currently living in a [facility], he had 2 admissions on 2023 due to schizophrenia, followed by psych, no suicidal/homicidal ideas Primary hypertension 12/11/2024 Assessment & Plan (12/11/2024 10:20 AM EDT): On amlodipine and metoprolol, encouraged low sodium diet and exercise as tolerated, follow up in 3 months Family History Medical History Relation Name Comments [...] 8: 43 AM EDT Plan of Treatment Upcoming Encounters Date Type Department Care Team ([facility] st Contact Info) Description 06/21/2025 11:15 AM EDT Office Visit [facility] MED & PEDS [address] [place] [address] Delgado Ross MD [address] [place] [address] Health Maintenance Due Date Last Done Comments CT Colonography 1973 Colonoscopy 1973 Colorectal Cancer Screening 1973 FIT DNA/Cologuard 1973 FIT 1973 FOBT 1973 HIV Screening 1973 Lipid Panel 1973 Sigmoidoscopy 1973 Disability Screening 1973 Family Planning (PISQ) 1988 Hepatitis C Screening 1991 DTaP/Tdap/Td Vaccines (1 - Tdap) 1992 Hepatitis B Vaccines (1 of 3 - 19+ 3-dose series) 1992 Pneumococcal Vaccine: 50+ Years (1 of 1 - PCV) 2023 Zoster Vaccines (1 of 2) 2023 COVID-19 Vaccine (3 - 2023-2 5 season) 2024 11/16/2020, 10/26/2020 Influenza Vaccine (#1) 2025 Alcohol/Substance Use Screening 12/11/2025 12/11/2024 Depression Screening [...] patient's age to complete this topic Meningococcal B Vaccine Aged Out No l onger eligible based on patient's age to complete this topic Meningococcal Vaccine Aged Out No shane serina eligible based on patient's age to complete this topic RSV under 20 months Aged Out No longe r eligible based on patient's age to complete this topic Rotavirus Vaccines Aged Out No longer eligible based on patient's age to complete [place] [id number] [facility] Care Teams Ends Breakage Clerk Relationship Specialty Start Date End Date MiramontesDelgado Edwards MD [address] [place] [phone] PCP - General Internal Medicine 12/11/24
--- OUTSIDE RECORDS SUMMARY | 2025-05-25 16:23 | XMS_ITS | Clinical Summary ---
Author Organization [address] Address [address] [place] [phone] Phone Care Team Providers Care Mechanical Engineering Lecturer Name Role Phone Physician, No Pcp Primary Care Provider Unavaila ble Allergies Active Allergy Reactions Criticality Noted Date Comments Latex 04/30/2025 Penicillin 04/30/2025 Medications cloZAPine (CLOZARIL) 100 mg tablet Take 1 tablet (100 mg total) by mouth 1 (one) time each day. 03/18/2025 Active cloZAPine (CLOZARIL) 200 mg tablet Take 2 tablets (400 mg total) by mouth at bedtime. 04/21/2025 Active docusate sodium (COLACE) 100 mg capsule Take 1 capsule (100 mg total) by mouth 2 (two) times a day. 03/18/2025 Active clonazePAM (KlonoPIN) 0.5 mg tablet Take 1 tablet (0.5 mg total) by mouth if needed. 04/21/2025 Active lamoTRIgine (LaMICtal) 100 mg tablet Take 1 tablet (100 mg total) by mouth 2 (two) times a day. 04/13/2025 Active lithium (ESKALITH) 450 mg CR tablet Take 2 tablets (900 mg total) by mouth at bedtime. 04/13/2025 Active metoprolol succinate (TOPROL-XL) 100 mg 24 hr tablet Take 1 tablet (100 mg total) by mouth 1 (one) time each day. 04/13/2025 Active risperiDONE (RisperDAL) 4 mg tablet Take 1 tablet (4 mg total) by mouth at bedtime. 04/13/2025 Active risperiDONE (RisperDAL) 2 mg tablet Take 1 tablet (2 mg total) by mouth 1 (one) time each day. 04/13/2025 Active Stool Softener-Laxati ve 8.6-50 mg per tablet Take 2 tablets by mouth if needed. 06/11/2024 Active Encounters Date Type Department Care Team Description 04/30/2025 11:24 AM EDT - 04/30/2025 5:12 PM EDT Emergency [facility] Emergency [address] [place] [address] Rudy Jenkins MD [place] (Primary Dx) Discharge Disposition: Home or Self Care 03/05/2025 Lab Requisition [facility] - Main Lab [address] [facility] [place] [address] Maxine Rodarte FNP from Last 3 Months Medical History Medical History Date Comments Cancer (CMS/HCC V24, CMS/[facility] V28) GERD (gastroesophageal reflux disease) Hypertension IBS (irritable bowel syndrome) Psychiatric disorder Social History Tobacco Use Types Packs/Day Years Used Date Smoking Tobacco: Never Smokeless Tobacco: Never Tobacco Cessation:Counseling Given: Not Answered Alcohol Use Standard Drinks/Week Comments Not Currently 0 (1 standard drink = 0.6 oz pur e alcohol) Sex and Gender Information Value Date Recorded Sex Assigned at Not on file Legal Sex Male 9:25 PM EST Gender Identity Not on file Sexual Orientation Not on file Obstetrics History Last Filed Vital Signs Vital Sign Reading Time Taken Comments Blood Pressure 94/80 04/30/2025 4:44 PM EDT Pulse 75 04/30/2025 4:44 PM EDT Temperature 36.8 C (98.2 F) 04/30/2025 11:27 AM EDT Respiratory Rate 17 04/30/2025 4:44 PM EDT Oxygen Saturation 98% 04/30/2025 4:44 PM EDT Inhaled Oxygen Concentration - - Weight 77.1 kg (170 lb) 04/30/2025 11:27 AM EDT Height 180.3 cm (5' 11 ) 04/30/2025 11:27 AM EDT Body Mass Index 23.71 04/30/2025 11:27 AM EDT Plan of Treatment Health Maintenance Due Date Last Done Comments DTaP,Tdap,and Td Vaccines (1 - Tdap) 1992 Hepatitis B Vaccines (1 of 3 - 19+ 3-dose series) 1992 Pneumococcal Vaccine: 50+ Ye ars (1 of 1 - PCV) 2023 Zoster Vaccines (1 of 2) 2023 COVID-19 Vaccine (1 - 2023-2 5 season) 2024 Depression Screening 09/30/2024 Cholesterol Screening (Lipid Panel) 04/30/2025 Colorectal Cancer Screening: Colonoscopy 04/30/2025 HIV Screening 04/30/2025 Hepatitis C Screening 04/30/2025 Social Influencers of Health Screening 04/30/2025 Influenza Vaccine (#1) 2025 Hypertension/CHF/CAD Annual BMP Blood Test 04/30/2026 04/30/2025 HIB Vaccines Aged Out No longer eligi [...] on patient's age to complete this topic MMR Vaccines Aged Out No longer eligi ble based on patient's age to complete this topic Meningococcal ACWY Vaccine Aged Out N o longer eligible based on patient's age to complete this topic Meningococcal B Vaccine Aged Out No l onger eligible based on patient's age to complete this topic RSV Immunization Patients Un leonor 20 months Aged Out No longer eligible b ased on patient's age to complete this topic Varicella Vaccines Aged Out No longer eligible based on patient's age to complete this topic Procedures Procedure Name Priority Date/Time Associated Diagnosis Comments THYROID STIMULATING HORMONE WITH REFLEX TO FREE T4 AND FREE T3 STAT Add-on 04/30/2025 1:21 PM EDT ACETAMINOPHEN LEVEL STAT 04/30/2025 1 :21 PM EDT SALICYLATE LEVEL STAT 04/30/2025 1:21 PM EDT ETHANOL STAT 04/30/2025 1:21 PM EDT CBC WITH AUTO DIFFERENTIAL STAT 04/30/2025 1:21 PM EDT COMPREHENSIVE METABOLIC PANEL STAT 04/30/2025 1:21 PM EDT CBC AND DIFFERENTIAL STAT 04/30/2025 1:21 PM EDT DRUG ABUSE SCREEN 8A PANEL, URINE STAT 04/30/2025 1:16 PM EDT URINALYSIS WITH REFLEX MICROSCOPIC STAT 04/30/2025 1:16 PM EDT URINALYSIS WITH REFLEX MICROSCOPIC STAT 04/30/2025 1:16 PM EDT from Last 3 Months Results * Thyroid stimulating hormone with reflex to free t4 and free t3 (04/30/2025 1:21 PM EDT) [facility] TSH 2.51 0.40 - 4.00 mcIU/mL LAB CHEMISTRY METHOD 04/30/2025 5:38 PM EDT [facility] Blood Venous blood specimen / Unknown Venipuncture / Unknown 04/30/2025 1:21 PM EDT 04/30/2025 1:40 PM EDT us Rudy Jenkins MD LAB BLOOD ORDERABLES Final Resul t [facility] [address] [place] [address], * (ABNORMAL) CBC auto differential (04/30/2025 1:21 PM EDT) [facility] WBC 9.4 4.8 - 10.8 K/mcL LAB HEMETOLOGY METHOD 04/30/2025 1:50 PM EDT [facility] RBC 4.50 4.50 - 5.50 M/mcL LAB HEMETOLOGY METHOD 04/30/2025 1:50 PM EDT [facility] Hemoglobin 12.5(L) 13.5 - 17.5 g/dL LAB HEMETOLOGY METHOD 04/30/2025 1:50 PM EDT [facility] Hematocrit 38.0(L) 42.0 - 54.0 % LAB HEMETOLOGY METHOD 04/30/2025 1:50 PM EDT [facility] MCV 84.6 79.0 - 98.0 FL LAB HEMETOLOGY METHOD 04/30/2025 1:50 PM EDT [facility] MCH 27.8 27.0 - 32.0 pcg LAB HEMETOLOGY METHOD 04/30/2025 1:50 PM EDT [facility] MCHC 32.9 32.0 - 37.0 g/dL LAB HEMETOLOGY METHOD 04/30/2025 1:50 PM EDT [facility] RDW 12.6 11.0 - 15.0 % LAB HEMETOLOGY METHOD 04/30/2025 1:50 PM EDT [facility] Platelets 221 130 - 400 K/mcL LAB HEMETOLOGY METHOD 04/30/2025 1:50 PM EDT [facility] MPV 9.3 7.0 - 11.0 FL LAB HEMETOLOGY METHOD 04/30/2025 1:50 PM EDT [facility] NRBC 0.0 <1.0 % LAB HEMETOLOGY METHOD 04/30/2025 1:50 PM EDT [facility] NRBC Absolute 0.00 <0.10 K/mcL LAB HEMETOLOGY METHOD 04/30/2025 1:50 PM EDT [facility] Neutrophils Relative 74.3 % LAB HEMETOLOGY METHOD 04/30/2025 1:50 PM EDT [facility] Lymphocytes Relative 16.0 % LAB HEMETOLOGY METHOD 04/30/2025 1:50 PM EDT [facility] Monocytes Relative 6.7 % LAB HEMETOLOGY METHOD 04/30/2025 1:50 PM EDT [facility] Eosinophils Relative 1.8 % LAB HEMETOLOGY METHOD 04/30/2025 1:50 PM EDT [facility] Basophils Relative 0.6 % LAB HEMETOLOGY METHOD 04/30/2025 1:50 PM EDT [facility] Immature Granulocytes Relative 0.6 % LAB HEMETOLOGY METHOD 04/30/2025 1:50 PM EDT [facility] Neutrophils Absolute 6.97 1.50 - 7.00 K/mcL LAB HEMETOLOGY METHOD 04/30/2025 1:50 PM EDT [facility] Lymphocytes Absolute 1.50 1.00 - 5.00 K/mcL LAB HEMETOLOGY METHOD 04/30/2025 1:50 PM EDT [facility] Monocytes Absolute 0.63 0.20 - 1.00 K/mcL LAB HEMETOLOGY METHOD 04/30/2025 1:50 PM EDT [facility] Eosinophils Absolute 0.17 0.00 - 0.50 K/mcL LAB HEMETOLOGY METHOD 04/30/2025 1:50 PM EDT [facility] Basophils Absolute 0.06 0.00 - 0.20 K/mcL LAB HEMETOLOGY METHOD 04/30/2025 1:50 PM EDT [facility] Immature Granulocytes Absolute 0.06(H) 0.00 - 0.03 K/mcL LAB HEMETOLOGY METHOD 04/30/2025 1:50 PM EDT [facility] Blood Venous blood specimen / Unknown Venipuncture / Unknown 04/30/2025 1:21 PM EDT 04/30/2025 1:40 PM EDT us Rudy Jenkins MD LAB BLOOD ORDERABLES Final Resul t [facility] [address] [place] [address], * Ethanol (04/30/2025 1:21 PM EDT) Ethanol Level <3 0 - 10 mg/dL LAB CHEMISTRY METHOD 04/30/2025 2:29 PM EDT [facility] Blood Venous blood specimen / Unknown Venipuncture / Unknown 04/30/2025 1:21 PM EDT 04/30/2025 1:40 PM EDT us Rudy Jenkins MD LAB BLOOD ORDERABLES Final Resul t Performing Organization Address City/[facility]/ZIP Co de Phone Number [facility] [address] [place] [address], [place] [phone] * (ABNORMAL) Acetaminophen level (04/30/2025 1:21 PM EDT) Acetaminophen Level <2.0(L) 10.0 - 30.0 mcg/mL LAB CHEMISTRY METHOD 04/30/2025 2:18 PM EDT [facility] Blood Venous blood specimen / Unknown Venipuncture / Unknown 04/30/2025 1:21 PM EDT 04/30/2025 1:40 PM EDT us Rudy Jenkins MD LAB BLOOD ORDERABLES Final Resul t Performing Organization Address [facility] de Phone Number [facility] [address] [place] [address], [place] [phone] * (ABNORMAL) Salicylate level (04/30/2025 1:21 PM EDT) Salicylate Level <1.7(L) 2.0 - 29.0 mg/dL LAB CHEMISTRY METHOD 04/30/2025 2:18 PM EDT [facility] Blood Venous blood specimen / Unknown Venipuncture / Unknown 04/30/2025 1:21 PM EDT 04/30/2025 1:40 PM EDT us Rudy Jenkins MD LAB BLOOD ORDERABLES Final Resul t Performing Organization Address City/[facility]/ZIP Co de Phone Number [facility] [address] [place] [address], * (ABNORMAL) Comprehensive metabolic panel (04/30/2025 1:21 PM EDT) Sodium 139 133 - 145 mmol/L LAB CHEMISTRY METHOD 04/30/2025 2:17 PM [facility] Potassium 3.7 3.5 - 5.5 mmol/L LAB CHEMISTRY METHOD 04/30/2025 2:17 PM [facility] Chloride 107 96 - 110 mmol/L LAB CHEMISTRY METHOD 04/30/2025 2:17 PM [facility] CO2 26 21 - 32 mmol/L LAB CHEMISTRY METHOD 04/30/2025 2:17 PM [facility] Anion Gap 6 3 - 11 LAB CHEMISTRY METHOD 04/30/2025 2:17 PM [facility] Glucose 102(H) 70 - 100 mg/dL LAB CHEMISTRY METHOD 04/30/2025 2:17 PM [facility] BUN 9 5 - 25 mg/dL LAB CHEMISTRY METHOD 04/30/2025 2:17 PM [facility] Creatinine 1.13 0.70 - 1.30 mg/dL LAB CHEMISTRY METHOD 04/30/2025 2:17 PM [facility] eGFR 78 >=60 mL/min/1. 73m2 LAB CHEMISTRY METHOD 04/30/2025 2:17 PM [facility] Comment:Calculation based on the Chronic Kidney Disease Epidemiology Collaboration (CKD-EPI) equation refit without adjustment for race. BUN/Creatinine Ratio 8.0 LAB CHEMISTRY METHOD 04/30/2025 2:17 PM [facility] Calcium 9.1 8.5 - 10.5 mg/dL LAB CHEMISTRY METHOD 04/30/2025 2:17 PM [facility] AST (SGOT) 10 10 - 42 unit/L LAB CHEMISTRY [facility]25 [facility] ALT (SGPT) 13 10 - 60 unit/L LAB CHEMISTRY METHOD 04/30/2025 2:17 PM EDT [facility] Alkaline Phosphatase 99 42 - 121 unit/L LAB CHEMISTRY METHOD 04/30/2025 2:17 PM EDT [facility] Total Protein 6.6 6.0 - 8.0 g/dL LAB CHEMISTRY METHOD 04/30/2025 2:17 PM EDT [facility] Albumin 3.6 3.2 - 5.0 g/dL LAB CHEMISTRY METHOD 04/30/2025 2:17 PM EDT [facility] Total Bilirubin 0.5 0.0 - 1.4 mg/dL LAB CHEMISTRY METHOD 04/30/2025 2:17 PM EDT [facility] Blood Venous blood specimen / Unknown Venipuncture / Unknown 04/30/2025 1:21 PM EDT 04/30/2025 1:40 PM EDT us Rudy Jenkins MD LAB BLOOD ORDERABLES Final Resul t [facility] [address] [place] [address], * (ABNORMAL) Urinalysis with reflex microscopic (04/30/2025 1:16 PM EDT) Specific [place] Urine 1.010 1.003 - 1.030 LAB URINALYSIS - AUTOMATED METHOD 04/30/2025 2:39 PM EDT [facility] pH, Urine 7.5 5.0 - 8.0 pH LAB URINALYSIS - AUTOMATED METHOD 04/30/2025 2:39 PM EDT [facility] Leukocytes, Urine Negative Negative LAB URINALYSIS - AUTOMATED METHOD 04/30/2025 2:39 PM EDT [facility] Nitrite, Urine Negative Negative LAB URINALYSIS - AUTOMATED METHOD 04/30/2025 2:39 PM EDT [facility] Protein, Urine Negative <=Trace mg/dL LAB URINALYSIS - AUTOMATED METHOD 04/30/2025 2:39 PM EDT [facility] Glucose, Urine Negative Negative mg/dL LAB URINALYSIS - AUTOMATED METHOD 04/30/2025 2:39 PM EDT [facility] Ketones, Urine 15(A) Negative mg/dL LAB URINALYSIS - AUTOMATED METHOD 04/30/2025 2:39 PM EDT [facility] Urobilinogen, Urine 0.2 0.2 - 1.0 mg/dL LAB URINALYSIS - AUTOMATED METHOD 04/30/2025 2:39 PM EDT [facility] Bilirubin, Urine Negative Negative LAB URINALYSIS - AUTOMATED METHOD 04/30/2025 2:39 PM EDT [facility] Blood, Urine Negative Negative LAB URINALYSIS - AUTOMATED METHOD 04/30/2025 2:39 PM EDT [facility] Urine Urine specimen obtained by clean catch procedure / Unknown Non-blood Collection / Unknown 04/30/2025 1:16 PM EDT 04/30/2025 2:19 PM EDT us Rudy Jenkins MD LAB URINE ORDERABLES Final Resul t [facility] [address] [place] [address], * Drug abuse screen 8a panel, urine (04/30/2025 1:16 PM EDT) Amphetamine Screen, Ur Negative Negative LAB CHEMISTRY METHOD 04/30/2025 2:58 PM EDT [facility] Comment:Certain OTC medicati ons containing ephedrine, phenylephrine, pseudoephedrine and phenylpropanolamine can cause false positive results. Barbiturate Screen, Ur Negative Negative LAB CHEMISTRY METHOD 04/30/2025 2:58 PM EDT [facility] Benzodiazepine Screen, Ur Negative Negative LAB CHEMISTRY METHOD 04/30/2025 2:58 PM EDT [facility] Cocaine Screen, Ur Negative Negative LAB CHEMISTRY METHOD 04/30/2025 2:58 PM EDT [facility] Opiate Screen, Ur Negative Negative LAB CHEMISTRY METHOD 04/30/2025 2:58 PM EDT [facility] Cannabinoid (THC) Screen, Ur Negative Negative LAB CHEMISTRY METHOD 04/30/2025 2:58 PM EDT [facility] Comment:Specimens from patie nts taking pantoprazole sodium (Protonix) have been shown to produce false positive results. Oxycodone Screen, Ur Negative Negative LAB CHEMISTRY METHOD 04/30/2025 2:58 PM EDT [facility] Fentanyl, Ur Negative Negative LAB CHEMISTRY METHOD 04/30/2025 2:58 PM EDT [facility] Urine Urine specimen obtained by clean catch procedure / Unknown Non-blood Collection / Unknown 04/30/2025 1:16 PM EDT 04/30/2025 2:19 PM EDT Narrative [facility] - 04/30/2025 2:58 PM EDT Assay cutoffs: Amphetamines 1000 ng/mL Barbiturates 200 ng/mL Benzodiazepines 200 ng/mL Cocaine 300 ng/mL Fentanyl 1 ng/mL Opiates 300 ng/mL Oxycodone 100 ng/mL THC 50 ng/mL Semi-quantitative assay for screening purposes only. Unconfirmed screening result should not be used for non-medical purposes. *ALTERNATE METHOD CONFIRMATION DONE UPON REQUEST ONLY* us Rudy Jenkins MD LAB URINE ORDERABLES Final Resul t [facility] [address] [place] [address], from Last 3 Months Insurance MEDICAID - [place] Care Teams Mechanical Engineering Lecturer Relationship Specialty Start Date End Date Physician, No Pcp PCP - General 04/30/25
[2025-05-25 16:45] LABS: Appearance Urine Clear; Glucose Urine UA Negative (Negative); PH 7.0 (5.0-9.0); Specific Gravity - Urine 1.015 (1.005-1.025)
[2025-05-25 16:58] LABS: Cannabinoid Screen Urine Not Detected (Not Detect)
[2025-05-25 20:21] VITALS: RESP 16
--- NOTE | 2025-05-25 21:30 | PC.NURSE ---
RE: med rec This RN completed med rec with medical record history and patient verbal confirmation Pt verifies that his Clozaril dose is 400mg at bedtime and 25 mg in the a Pt also verifies that his dose of clonazepam is 0.5 mg daily PRN for anxiety
[2025-05-26 06:29] VITALS: BP 96/76; PULSE 67; RESP 16; TEMP 37.3; O2SAT 96
[2025-05-26 08:10] VITALS: PULSE 63; RESP 14; TEMP 36.6; O2SAT 100
[2025-05-26] MEDS: Metoprolol Succinate ER 100 MG TAB.ER.24H PO (10:46)
--- NOTE | 2025-05-26 10:58 | PC.NURSE ---
Last took clozaril at correction 05/24/25 100mg in am per Tess MENENDEZ for correction. [facility] phone number [phone]. CHD RN Tess - [phone]
[2025-05-26 11:41] VITALS: BP 108/68; PULSE 96; RESP 16; TEMP 37.2; O2SAT 96
--- NOTE | 2025-05-26 17:12 | PC.NURSE ---
Addendum entered by Asha Jasso RN 05/26/25 19:30: Correction: Byron Pulido RN at [facility] last clozaril was 05/25/2025 at 0900 Original Note: Kishan was admitted to M3 at 1120 from [facility] on CV for treatment of schizoaffective disorder with SI.? Kishan lives in [facility] skilled nursing and is welcome to return. On arrival to the unit he states, ? I?m too overwhelmed. I can?t answer questions or sign things.? He did share that his sister had a stroke 2 months ago and he has been unable to reach her or get any information on her wellbeing. ?She is my only friend in the world. I?m worried about her and I feel alone. I have no one else.? Crisis eval notes recent exacerbation of psychosis, voices telling him to get arrested, following commands including arrest for shoplifting. Mood is depressed. Affect is anxious. He confirms recent auditory hallucinations. He endorses ideation to harm self with no current plan or intent. ?I?ve never been suicidal before.? Appetite is poor with? recent 15 lb wt loss over 2 months Sleep is reportedly poor.? He denies Substance Issues and Tox Screen is negative.? He has a red rash on the center of his chest and denies other physical complaint Safety Checks are q 15 minutes. Byron Pulido RN at [facility] pt last took Clozaril 100mg 02/22/2025 at 0900.
[2025-05-26 20:00] VITALS: BP 109/78; PULSE 69; RESP 16; TEMP 37; O2SAT 99
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
[2025-05-27 07:42] VITALS: BP 127/80; PULSE 76; RESP 20; TEMP 36.9; O2SAT 99
[2025-05-27 08:45] VITALS: BP 127/80; PULSE 76
[2025-05-27] MEDS: Metoprolol Succinate ER 100 MG TAB.ER.24H PO (08:45)
--- NOTE | 2025-05-27 18:07 | P.PNPSI_ITS ---
Subjective Subjective Date of Service: 05/27/25 Reason For Visit: SI with plan to cut wrist Subjective Notes: [place] Warning and Conditional Voluntary Healthcare Proxy: No Medical Problems Affecting Mental Status: No Interim History: Medical record and nursing notes reviewed; case discussed during rounds with team/nursing staff, and met with patient for supportive therapy/psychoeducation, as well as medication management. Patient reports slept well, appetite good. Medication compliant except hydrocortisone for rahs on front chest. He said he feel better today as he was able to contact his sister. She is doing okay. Denies suicidal thoughts but reports he still have suicidal thought as up to last night. Denies hearing voices but also reports Latuda was last time he seeing voices. Reports severe and 99/10 and depression 8/10. Encourage him to be out and attended groups for coping skills. He said he will try later on. He does not want to have medication changes, and he believes his current medication working. He isolated in room this morning, pleasant upon approach. Appeared to be anxious, depressed, isolated himself. Continue to monitor. Medication Compliance: Yes (Except for hydrocortisone for rash) Side effects from medications: No Attending Groups: No Review of Systems Acute medical concerns: No Medical Review of Systems: unchanged Review of Systems Review of Systems Constitutional: Denies fatigue and Denies fever(s) Cardiovascular: Denies chest pain and Denies dyspnea Respiratory: Denies dyspnea Gastrointestinal: Denies abdominal pain Psychiatric: denies suicidal ideation Endocrine: Denies fatigue Yes all other systems are reviewed and are negative Mental Status Exam Mental Status Exam Narrative: Patient is alert and oriented; behavior is cooperative,moderate to severe anxiety and deppression, patient is not in distress; dressed in hospital attire with kempt hair, adequate hygiene; mood is described as better and affect congruent; eye contact appropriate; Speech is normal rate, volume and prosody and not pressured; no psychomotor agitation/retardation present; thought process is organized and goal directed; Thought content is on treatment, pertinent to relevant topics and without any delusional content, however, appears to be paranoid; denies anySI/ SIB/HI. Report intermittently AH but not now. Patient's insight and judgment poor. Diagnostics Vital Signs (24Hr): Vital Signs - 24 hr 05/26/25 20:00 05/27/25 07:42 05/27/25 08:45 Temperature 98.6 F 98.4 F Pulse Rate 69 76 76 Respiratory Rate 16 20 Blood Pressure 109/78 127/80 127/80 Pulse Oximetry 99 99 Oxygen Delivery Method Room Air Room Air BMI result Body Mass Index 25.1 Labs 05/25/25 15:48 05/25/25 15:48 Medications Medications Current Medications Acetaminophen (Acetaminophen 325 Mg Tablet) 650 mg PO Q6H PRN PRN Reason: Headache/Pain, Scale 1-10 Al Hydroxide/Mg Hydroxide (Magnesium Hydrox/Alum Hydrox 30 Ml Oral.Susp) 30 ml PO Q6H PRN PRN Reason: Heartburn/Nausea Clonazepam (Clonazepam 0.5 Mg Tablet) 0.5 mg PO DAILY PRN PRN Reason: Anxiety Last Admin: 05/26/25 20:46 Dose: 0.5 mg Clozapine (Clozapine 100 Mg Tablet) 400 mg PO BEDTIME [facility] Last Admin: 05/26/25 20:41 Dose: 400 mg Clozapine (Clozapine 100 Mg Tablet) 100 mg PO DAILY [facility] Last Admin: 05/27/25 08:46 Dose: 100 mg Hydrocortisone (Hydrocortisone 1 % Ointment 28.35 Gm Tube) 1 appl TOPICAL BID [facility]; Protocol Last Admin: 05/27/25 08:47 Dose: Not Given Hydroxyzine HCl (Hydroxyzine Hcl 25 Mg Tablet) 25 mg PO Q6H PRN PRN Reason: mild anxiety Lamotrigine (Lamotrigine 100 Mg Tablet) 100 mg PO BID [facility] Last Admin: 05/27/25 08:45 Dose: 100 mg Huguley Carbonate (Huguley Carbonate Er 450 Mg Tablet.Er) 900 mg PO BEDTIME [facility] Last Admin: 05/26/25 20:42 Dose: 900 mg Magnesium Hydroxide (Milk Of Magnesia 30 Ml Oral.Susp) 30 ml PO DAILY PRN PRN Reason: Constipation Metoprolol Succinate (Metoprolol Succinate Er 100 Mg Tab.Er.24h) 100 mg PO DAILY [facility]; Protocol Last Admin: 05/27/25 08:45 Dose: 100 mg Nicotine (Nicotine 21 Mg Patch.Td24) 21 mg TRANSDERMA DAILY PRN PRN Reason: nicotine craving Nicotine Polacrilex (Nicotine Polacrilex 2 Mg Gum) 2 mg BUCCAL Q2H PRN PRN Reason: Nicotine Cravings Risperidone (Risperidone 2 Mg Tablet) 2 mg PO DAILY [facility] Last Admin: 05/27/25 08:45 Dose: 2 mg Risperidone (Risperidone 2 Mg Tablet) 4 mg PO BEDTIME [facility] Last Admin: 05/26/25 20:42 Dose: 4 mg Sertraline HCl (Sertraline Hcl 50 Mg Tablet) 50 mg PO DAILY [facility] Last Admin: 05/27/25 08:45 Dose: 50 mg Trazodone HCl (Trazodone Hcl 50 Mg Tablet) 50 mg PO BEDTIME MRX1 PRN PRN Reason: Insomnia Allergies Allergies Allergy/AdvReac Type Severity Reaction Status Date / Time latex Allergy Unknown swelling Verified 05/25/25 15:07 in lips penicillin V Allergy Unknown unknown Verified 05/25/25 15:07 Assessment & Plan Assessment & Plan (1) Schizoaffective disorder, depressive type: Status: Acute Code(s): F25.1 - Schizoaffective disorder, depressive type (2) Essential hypertension: Status: Acute Code(s): I10 - Essential (primary) hypertension (3) Hypertriglyceridemia: Status: Acute Code(s): E78.1 - Pure hyperglyceridemia Plan HPI: patient is a 50 years old single male with history of schizoaffective who was assessed by [facility] crisis increasing in experience hallucinations and paranoid, reports his psychiatric symptoms have been increased over the past few months. Reports his sister have stroke 2 months ago. 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 Reports increase anxiety and paranoid in relation to his upcoming court date and feeling as if his securities attorney's is trying to frame him Formulation/clinical reasoning: Increase in stress, depression, increase in suicidal thoughts-which is new presentation/behavior, increase in command hallucination telling him to kill himself, increasing stress due to housing issues which need to confirm with the residential. Given history of schizoaffective, with many history of inpatient admissions included [facility] hospitalization. Given the above information, patient would be benefit in restrictive environment, not be safe at a residential for medication management/adjustment, therapeutic environment for coping skills, refer patient back to residential with outpatient services. Hospital course: 05/26/25: Continue with home medications included Clozaril total of 500 mg in divided dose. Nursing staff confirmed with the residential, patient has been compliant with medications. He currently feeling overwhelmed, anxious. Would not be appropriate to address any medication change today. We will revisit tomorrow. 05/27/25: Patient reports slept well, appetite good. He said he feel better today as he was able to contact his sister. She is doing okay. Denies suicidal thoughts but reports he still have suicidal thought as up to last night. Denies hearing voices but also reports Latuda was last time he seeing voices. Reports severe and 99/10 and depression 8/10. Encourage him to be out and attended groups for coping skills. He said he will try later on. He does not want to have medication changes, and he believes his current medication working. He isolated in room this morning, pleasant upon approach. Appeared to be anxious, depressed, isolated himself. No chagnes today. Continue iwth current tx plan. Continue to monitor rash on front chest if it is side effects from Lamictal. Plan Patient on 15 minute checks for safety. Admitted to [facility]. CV. Work with treatment team to do collateral with residential staff. Medication changes/adjustment Patient educated on: diagnosis, medication risk/benefits and therapeutic strategies Informed Consent: further education needed Reason for continued inpatient stay Substantial Risk for: med/psych decompensation Time Spent With Patient Time: Total time managing care of this patient today ____ minutes.
[2025-05-27 20:00] VITALS: BP 89/59; PULSE 75; RESP 18; TEMP 36.8; O2SAT 100
[2025-05-27 21:00] VITALS: BP 106/71; PULSE 78; RESP 18
[2025-05-28 07:20] VITALS: BP 101/72; PULSE 74; RESP 17; TEMP 36.4; O2SAT 97
[2025-05-28 08:36] VITALS: BP 101/72; PULSE 74
[2025-05-28] MEDS: Metoprolol Succinate ER 100 MG TAB.ER.24H PO (08:36)
--- NOTE | 2025-05-28 09:58 | P.PNPSI_ITS ---
Subjective Subjective Date of Service: 05/28/25 Reason For Visit: SI with plan to cut wrist Subjective Notes: Conditional Voluntary Healthcare Proxy: No Medical Problems Affecting Mental Status: No Interim History: Medical record and nursing notes reviewed; case discussed during rounds with team/nursing staff, and met with patient for supportive therapy/psychoeducation, as well as medication management. Patient slept for 8 hours, was medication compliant, no side effects. However he reports feeling dizzy and weak. He thinks he he has blood sugar issues- diabetes. Inform patient that blood pressure runs low, encouraged to ambulates, increase p.o. fluid intake. He requests to having some labs work done which was ordered. Also he preferred to get blood sugar checked twice a day for a couple of days. His plan of the day is I may go to groups today patient encourage to do so which he observed attended OT groups eating snack. He asked when he will be discharged. Informed him that potential next week. Reports anxiety and depression in moderate to severe. Denies hearing bad voices, only hear good voices to talk to you, and they advised me what to do in a good way . Denies suicidal thoughts. Medication Compliance: Yes Side effects from medications: No Attending Groups: Intermittent Review of Systems Acute medical concerns: No Medical Review of Systems: unchanged Review of Systems Review of Systems Constitutional: Denies fatigue and Denies fever(s) Cardiovascular: Denies chest pain and Denies dyspnea Respiratory: Denies dyspnea Gastrointestinal: Denies abdominal pain Psychiatric: denies suicidal ideation Endocrine: Denies fatigue Yes all other systems are reviewed and are negative Mental Status Exam Mental Status Exam Narrative: Patient is alert and oriented; behavior is cooperative,moderate to severe anxiety and deppression, patient is not in distress; dressed in hospital attire with kempt hair, adequate hygiene; mood is described as better and affect congruent; eye contact appropriate; Speech is normal rate, volume and prosody and not pressured; no psychomotor agitation/retardation present; thought process is organized and goal directed; Thought content is on treatment, pertinent to relevant topics and without any delusional content, however, appears to be paranoid; denies anySI/ SIB/HI. Report intermittently AH but not now. Patient's insight and judgment poor. Diagnostics Vital Signs (24Hr): Vital Signs - 24 hr 05/27/25 20:00 05/27/25 21:00 05/28/25 07:20 Temperature 98.3 F 97.5 F Pulse Rate 75 78 74 Respiratory Rate 18 18 17 Blood Pressure 89/59 L 106/71 101/72 Pulse Oximetry 100 97 Oxygen Delivery Method Room Air Room Air 05/28/25 08:36 Temperature Pulse Rate 74 Respiratory Rate Blood Pressure 101/72 Pulse Oximetry Oxygen Delivery Method BMI result Body Mass Index 25.1 Labs 05/25/25 15:48 05/25/25 15:48 Medications Medications Current Medications Acetaminophen (Acetaminophen 325 Mg Tablet) 650 mg PO Q6H PRN PRN Reason: Headache/Pain, Scale 1-10 Al Hydroxide/Mg Hydroxide (Magnesium Hydrox/Alum Hydrox 30 Ml Oral.Susp) 30 ml PO Q6H PRN PRN Reason: Heartburn/Nausea Clonazepam (Clonazepam 0.5 Mg Tablet) 0.5 mg PO DAILY PRN PRN Reason: Anxiety Last Admin: 05/27/25 21:08 Dose: 0.5 mg Clozapine (Clozapine 100 Mg Tablet) 400 mg PO BEDTIME [facility] Last Admin: 05/27/25 21:07 Dose: 400 mg Clozapine (Clozapine 100 Mg Tablet) 100 mg PO DAILY [facility] Last Admin: 05/28/25 08:36 Dose: 100 mg Hydrocortisone (Hydrocortisone 1 % Ointment 28.35 Gm Tube) 1 appl TOPICAL BID [facility]; Protocol Last Admin: 05/28/25 08:42 Dose: Not Given Hydroxyzine HCl (Hydroxyzine Hcl 25 Mg Tablet) 25 mg PO Q6H PRN PRN Reason: mild anxiety Lamotrigine (Lamotrigine 100 Mg Tablet) 100 mg PO BID [facility] Last Admin: 05/28/25 08:36 Dose: 100 mg [place] Carbonate ([place] Carbonate Er 450 Mg Tablet.Er) 900 mg PO BEDTIME [facility] Last Admin: 05/27/25 21:08 Dose: 900 mg Magnesium Hydroxide (Milk Of Magnesia 30 Ml Oral.Susp) 30 ml PO DAILY PRN PRN Reason: Constipation Metoprolol Succinate (Metoprolol Succinate Er 100 Mg Tab.Er.24h) 100 mg PO DAILY [facility]; Protocol Last Admin: 05/28/25 08:36 Dose: 100 mg Nicotine (Nicotine 21 Mg Patch.Td24) 21 mg TRANSDERMA DAILY PRN PRN Reason: nicotine craving Nicotine Polacrilex (Nicotine Polacrilex 2 Mg Gum) 2 mg BUCCAL Q2H PRN PRN Reason: Nicotine Cravings Risperidone (Risperidone 2 Mg Tablet) 2 mg PO DAILY [facility] Last Admin: 05/28/25 08:36 Dose: 2 mg Risperidone (Risperidone 2 Mg Tablet) 4 mg PO BEDTIME [facility] Last Admin: 05/27/25 21:08 Dose: 4 mg Sertraline HCl (Sertraline Hcl 50 Mg Tablet) 50 mg PO DAILY [facility] Last Admin: 05/28/25 08:36 Dose: 50 mg Trazodone HCl (Trazodone Hcl 50 Mg Tablet) 50 mg PO BEDTIME [facility] PRN PRN Reason: Insomnia Allergies Allergies Allergy/AdvReac Type Severity Reaction Status Date / Time latex Allergy Unknown swelling Verified 05/25/25 15:07 in lips penicillin V Allergy Unknown unknown Verified 05/25/25 15:07 Assessment & Plan Assessment & Plan (1) Schizoaffective disorder, depressive type: Status: Acute Code(s): F25.1 - Schizoaffective disorder, depressive type (2) Essential hypertension: Status: Acute Code(s): I10 - Essential (primary) hypertension (3) Hypertriglyceridemia: Status: Acute Code(s): E78.1 - Pure hyperglyceridemia Plan HPI: patient is a 50 years old single male with history of schizoaffective who was assessed by [facility] crisis increasing in experience hallucinations and paranoid, reports his psychiatric symptoms have been increased over the past few months. Reports his sister have stroke 2 months ago. 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 Reports increase anxiety and paranoid in relation to his upcoming court date and feeling as if his assistant district attorney's is trying to frame him Formulation/clinical reasoning: Increase in stress, depression, increase in suicidal thoughts-which is new presentation/behavior, increase in command hallucination telling him to kill himself, increasing stress due to housing issues which need to confirm with the assisted. Given history of schizoaffective, with many history of inpatient admissions included [facility] hospitalization. Given the above information, patient would be benefit in restrictive environment, not be safe at a assisted for medication management/adjustment, therapeutic environment for coping skills, refer patient back to assisted with outpatient services. Hospital course: 05/26/25: Continue with home medications included Clozaril total of 500 mg in divided dose. Nursing staff confirmed with the assisted, patient has been compliant with medications. He currently feeling overwhelmed, anxious. Would not be appropriate to address any medication change today. We will revisit tomorrow. 05/27/25: Patient reports slept well, appetite good. He said he feel better today as he was able to contact his sister. She is doing okay. Denies suicidal thoughts but reports he still have suicidal thought as up to last night. Denies hearing voices but also reports Latuda was last time he seeing voices. Reports severe and 99/10 and depression /10. Encourage him to be out and attended groups for coping skills. He said he will try later on. He does not want to have medication changes, and he believes his current medication working. He isolated in room this morning, pleasant upon approach. Appeared to be anxious, depressed, isolated himself. No chagnes today. Continue iwth current tx plan. Continue to monitor rash on front chest if it is side effects from Lamictal. 05/28/25: Patient slept for 8 hours, was medication compliant, no side effects. However he reports feeling dizzy and weak. He thinks he he has blood sugar issues-diabetes. Inform patient that blood pressure runs low, encouraged to ambulates, increase p.o. fluid intake. He requests to having some labs work done which was ordered. Also he preferred to get blood sugar checked twice a day for a couple of days. His plan of the day is I may go to groups today patient encourage to do so which he observed attended OT groups eating snack. He asked when he will be discharged. Informed him that potential next week. Reports anxiety and depression in moderate to severe. Denies hearing bad voices, only hear good voices to talk to you, and they advised me what to do in a good way . Denies suicidal thoughts. Less paranoid, anxious, depressed, but pleasant and cooperative. Small area of rash on front chest which he reports has been there for couple of weeks. Denies any rashes from other parts of the body. Advised patient to apply hydrocortisone. Lab works included Clozaril level ordered for 05/29/25: The follow-up over the weekends. Part of care b.i.d. for couple of days per patient request. Can discontinue on Saturday if not necessary. Plan Patient on 15 minute checks for safety. Admitted to [facility]. CV. Work with treatment team to do collateral with assisted staff. Medication changes/adjustment Patient educated on: diagnosis, medication risk/benefits and therapeutic strategies Informed Consent: understands Reason for continued inpatient stay Substantial Risk for: med/psych decompensation Time Spent With Patient Time: Total time managing care of this patient today ____ minutes.
--- NOTE | 2025-05-28 14:03 | MHC.CLN ---
Addendum entered by Tammi Gomez RD 05/28/25 14:24: REVIEW OF PO INTAKE TODAY SHOWS PO 75-100% AT BREAKFAST AND LUNCH TODAY. Original Note: CONSULT PER NURSING ADM, POOR APPETITE WITH 15# WEIGHT LOSS X 2 MONTHS. REVIEW OF WEIGHT HX SHOWS WEIGHT PRIOR ADM 12/17/24=83.6 KG. CURRENT WEIGHT 05/25=81.6 KG. SHOWS APPROX 4# WEIGHT LOSS X 5 MONTHS. DIET=REGULAR. NO ADDITIONAL NUTRITION INTERVENTIONS AT THIS TIME. PLEASE CONSULT RD IF POOR PO DURING ADM.
[2025-05-28 17:24] LABS: Glucose, Whole Blood 92 mg/dL (60-115)
[2025-05-28 19:55] VITALS: BP 110/77; PULSE 67; TEMP 36.9; O2SAT 99
[2025-05-29 07:50] VITALS: BP 107/70; PULSE 69; RESP 14; TEMP 36.6; O2SAT 99
[2025-05-29] MEDS: Metoprolol Succinate ER 100 MG TAB.ER.24H PO (08:10)
[2025-05-29 08:14] LABS: Glucose, Whole Blood 93 mg/dL (60-115)
[2025-05-29 09:50] LABS: Hemoglobin A1C 101.2801 umol/L; Total Hemoglobin (HGBA1C) 3406.4542 umol/L
[2025-05-29 09:54] LABS: Alanine Aminotransferase 19 U/L (0-40); Albumin Level 4.2 g/dL (3.5-5.0); Alkaline Phosphatase 82 U/L (39-117); Anion Gap 11 (12-20); Aspartate Amino Transferase 16 U/L (5-37); Blood Urea Nitrogen 15 mg/dL (9-16); Calcium 8.9 mg/dL (8.4-10.2); Carbon Dioxide 25 mmol/L (22-29); Chloride 110 mmol/L (96-108); Creatinine Clr Calc Pharmacy 91.1; Estimated Glomerular Filt Rate > 60; Potassium 4.1 mmol/L (3.3-5.1); Sodium 142 mmol/L (135-145); Total Protein 6.7 g/dL (6.5-8.0)
[2025-05-29 10:11] LABS: Thyroid Stimulating Hormone 4.16 uIU/mL (0.32-4.0)
[2025-05-29 10:24] LABS: Folate 8.7 ng/mL (> or = 4.0); Vitamin B12 463 pg/mL (200-900)
[2025-05-29 11:14] LABS: Free T4 (Free Thyroxine) 1.12 ng/dL (0.71-1.85)
--- NOTE | 2025-05-29 14:18 | HO.PSYCHPN ---
Subjective Subjective Date of Service: 05/29/25 Reason For Visit: SI with plan to cut wrist Subjective Notes: Conditional Voluntary Interim History: Keeping to self. Patient reports feeling anxious and depressed d/t upcoming court date. Patient stated, I'm depressed about my situation and that my sister had a stroke 2 months ago . Pt reports auditory hallucinations that are being positive. denies SI/HI/VH. Continue current tx plan. Medication Compliance: Yes Side effects from medications: No Attending Groups: No Mental Status Exam Mental Status Exam Patient Appearance: Appropriate Patient Orientation: Person, Place, Time and Situation Level of Consciousness: Awake and Alert Patient Behavior: Appropriate and Cooperative Mood Description: Depressed and Anxious Affect Description: Depressed and Anxious Ability to Follow Directions: Good Speech Pattern: Clear Memory Description: Intact Hallucinations: Auditory Thought Process: Intact Thought Content: positive for Intact Diagnostics Vital Signs (24Hr): Vital Signs - 24 hr 05/28/25 19:55 05/29/25 07:50 Temperature 98.5 F 97.9 F Pulse Rate 67 69 Respiratory Rate 14 Blood Pressure 110/77 107/70 Pulse Oximetry 99 99 Oxygen Delivery Method Room Air Room Air BMI result Body Mass Index 25.1 Labs 05/25/25 15:48 05/29/25 08:33 Labs: Laboratory Results - last 48 hr 05/28/25 05/29/25 05/29/25 17:18 08:09 08:33 Sodium 142 Potassium 4.1 Chloride 110 H Carbon Dioxide 25 Anion Gap 11 L BUN 15 Creatinine 1.01 Estim Creat Clear Calc 91.1 Estimated GFR > 60 POC Glucose 92 93 Random Glucose 115 Estimat Average Glucose Hemoglobin A1c % Calcium 8.9 Total Bilirubin 0.3 AST 16 ALT 19 Alkaline Phosphatase 82 Total Protein 6.7 Albumin 4.2 Vitamin B12 463 Folate 8.7 TSH 4.16 H Free T4 1.12 05/29/25 08:34 Sodium Potassium Chloride Carbon Dioxide Anion Gap BUN Creatinine Estim Creat Clear Calc Estimated GFR POC Glucose Random Glucose Estimat Average Glucose 94 Hemoglobin A1c % 4.9 Calcium Total Bilirubin AST ALT Alkaline Phosphatase Total Protein Albumin Vitamin B12 Folate TSH Free T4 Medications Medications Current Medications Acetaminophen (Acetaminophen 325 Mg Tablet) 650 mg PO Q6H PRN PRN Reason: Headache/Pain, Scale 1-10 Al Hydroxide/Mg Hydroxide (Magnesium Hydrox/Alum Hydrox 30 Ml Oral.Susp) 30 ml PO Q6H PRN PRN Reason: Heartburn/Nausea Clonazepam (Clonazepam 0.5 Mg Tablet) 0.5 mg PO DAILY PRN PRN Reason: Anxiety Last Admin: 05/27/25 21:08 Dose: 0.5 mg Clozapine (Clozapine 100 Mg Tablet) 400 mg PO BEDTIME [facility] Last Admin: 05/28/25 21:26 Dose: 400 mg Clozapine (Clozapine 100 Mg Tablet) 100 mg PO DAILY [facility] Last Admin: 05/29/25 08:11 Dose: 100 mg Hydrocortisone (Hydrocortisone 1 % Ointment 28.35 Gm Tube) 1 appl TOPICAL BID [facility]; Protocol Last Admin: 05/29/25 08:13 Dose: Not Given Hydroxyzine HCl (Hydroxyzine Hcl 25 Mg Tablet) 25 mg PO Q6H PRN PRN Reason: mild anxiety Lamotrigine (Lamotrigine 100 Mg Tablet) 100 mg PO BID [facility] Last Admin: 05/29/25 08:10 Dose: 100 mg [place] Carbonate ([place] Carbonate Er 450 Mg Tablet.Er) 900 mg PO BEDTIME [facility] Last Admin: 05/28/25 21:27 Dose: 900 mg Magnesium Hydroxide (Milk Of Magnesia 30 Ml Oral.Susp) 30 ml PO DAILY PRN PRN Reason: Constipation Metoprolol Succinate (Metoprolol Succinate Er 100 Mg Tab.Er.24h) 100 mg PO DAILY [facility]; Protocol Last Admin: 05/29/25 08:10 Dose: 100 mg Nicotine (Nicotine 21 Mg Patch.Td24) 21 mg TRANSDERMA DAILY PRN PRN Reason: nicotine craving Nicotine Polacrilex (Nicotine Polacrilex 2 Mg Gum) 2 mg BUCCAL Q2H PRN PRN Reason: Nicotine Cravings Olanzapine (Olanzapine 5 Mg Tablet) 5 mg PO BID PRN PRN Reason: agitation Risperidone (Risperidone 2 Mg Tablet) 2 mg PO DAILY [facility] Last Admin: 05/29/25 08:11 Dose: 2 mg Risperidone (Risperidone 2 Mg Tablet) 4 mg PO BEDTIME [facility] Last Admin: 05/28/25 21:27 Dose: 4 mg Sertraline HCl (Sertraline Hcl 50 Mg Tablet) 50 mg PO DAILY [facility] Last Admin: 05/29/25 08:10 Dose: 50 mg Trazodone HCl (Trazodone Hcl 50 Mg Tablet) 50 mg PO BEDTIME MRX1 PRN PRN Reason: Insomnia Allergies Allergies Allergy/AdvReac Type Severity Reaction Status Date / Time latex Allergy Unknown swelling Verified 05/25/25 15:07 in lips penicillin V Allergy Unknown unknown Verified 05/25/25 15:07 Assessment & Plan Assessment & Plan (1) Schizoaffective disorder, depressive type: Status: Acute Code(s): F25.1 - Schizoaffective disorder, depressive type (2) Essential hypertension: Status: Acute Code(s): I10 - Essential (primary) hypertension (3) Hypertriglyceridemia: Status: Acute Code(s): E78.1 - Pure hyperglyceridemia Plan HPI: patient is a 50 years old single male with history of schizoaffective who was assessed by [facility] crisis increasing in experience hallucinations and paranoid, reports his psychiatric symptoms have been increased over the past few months. Reports his sister have stroke 2 months ago. 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 Reports increase anxiety and paranoid in relation to his upcoming court date and feeling as if his trust and estates attorney's is trying to frame him Formulation/clinical reasoning: Increase in stress, depression, increase in suicidal thoughts-which is new presentation/behavior, increase in command hallucination telling him to kill himself, increasing stress due to housing issues which need to confirm with the halfway. Given history of schizoaffective, with many history of inpatient admissions included [facility] hospitalization. Given the above information, patient would be benefit in restrictive environment, not be safe at a halfway for medication management/adjustment, therapeutic environment for coping skills, refer patient back to halfway with outpatient services. Hospital course: 05/26/25: Continue with home medications included Clozaril total of 500 mg in divided dose. Nursing staff confirmed with the halfway, patient has been compliant with medications. He currently feeling overwhelmed, anxious. Would not be appropriate to address any medication change today. We will revisit tomorrow. 05/27/25: Patient reports slept well, appetite good. He said he feel better today as he was able to contact his sister. She is doing okay. Denies suicidal thoughts but reports he still have suicidal thought as up to last night. Denies hearing voices but also reports Latuda was last time he seeing voices. Reports severe and /10 and depression 05/09. Encourage him to be out and attended groups for coping skills. He said he will try later on. He does not want to have medication changes, and he believes his current medication working. He isolated in room this morning, pleasant upon approach. Appeared to be anxious, depressed, isolated himself. No chagnes today. Continue iw current tx plan. Continue to monitor rash on front chest if it is side effects from Lamictal. 05/28/25: Patient slept for 8 hours, was medication compliant, no side effects. However he reports feeling dizzy and weak. He thinks he he has blood sugar issues-diabetes. Inform patient that blood pressure runs low, encouraged to ambulates, increase p.o. fluid intake. He requests to having some labs work done which was ordered. Also he preferred to get blood sugar checked twice a day for a couple of days. His plan of the day is I may go to groups today patient encourage to do so which he observed attended OT groups eating snack. He asked when he will be discharged. Informed him that potential next week. Reports anxiety and depression in moderate to severe. Denies hearing bad voices, only hear good voices to talk to you, and they advised me what to do in a good way . Denies suicidal thoughts. Less paranoid, anxious, depressed, but pleasant and cooperative. Small area of rash on front chest which he reports has been there for couple of weeks. Denies any rashes from other parts of the body. Advised patient to apply hydrocortisone. Lab works included Clozaril level ordered for 05/29/25: The follow-up over the weekends. Part of care b.i.d. for couple of days per patient request. Can discontinue on Saturday if not necessary. 05/29:Keeping to self. Patient reports feeling anxious and depressed d/t upcoming court date. Patient stated, I'm depressed about my situation and that my sister had a stroke 2 months ago . Pt reports auditory hallucinations that are being positive. denies SI/HI/VH. Continue current tx plan. Plan Patient on 15 minute checks for safety. Admitted to [facility]. CV. Work with treatment team to do collateral with halfway staff. Medication changes/adjustment Patient educated on: diagnosis and medication risk/benefits Reason for continued inpatient stay Substantial Risk for: med/psych decompensation Time Spent With Patient Time: Total time managing care of this patient today _20___ minutes.
[2025-05-29 19:40] VITALS: BP 115/83; PULSE 78; RESP 16; TEMP 36.2; O2SAT 100
[2025-05-30 07:57] VITALS: BP 116/71; PULSE 70; RESP 14; TEMP 36.4; O2SAT 100
--- NOTE | 2025-05-30 08:31 | P.PNPSI_ITS ---
Subjective Subjective Date of Service: 05/30/25 Reason For Visit: SI with plan to cut wrist Interim History: Keeping to self. in room most of day. Patient believes his depression is improving but his anxiety is high.He reports sleeping well. Patient reports he will try to attend groups today. Auditory hallucinations continue to be positive. denies SI/HI/VH. Continue current tx plan. Medication Compliance: Yes Side effects from medications: No Attending Groups: No Mental Status Exam Mental Status Exam Patient Appearance: Appropriate Patient Orientation: Person, Place, Time and Situation Level of Consciousness: Awake and Alert Patient Behavior: Appropriate and Cooperative Mood Description: Depressed and Anxious Affect Description: Blunted Ability to Follow Directions: Good Speech Pattern: Clear Memory Description: Intact Hallucinations: Auditory Thought Process: Intact Thought Content: positive for Intact Diagnostics Vital Signs (24Hr): Vital Signs - 24 hr 05/29/25 19:40 05/30/25 07:57 Temperature 97.2 F 97.6 F Pulse Rate 78 70 Respiratory Rate 16 14 Blood Pressure 115/83 116/71 Pulse Oximetry 100 100 Oxygen Delivery Method Room Air Room Air BMI result Body Mass Index 25.1 Labs 05/25/25 15:48 05/29/25 08:33 Labs: Laboratory Results - last 48 hr 05/28/25 05/29/25 05/29/25 17:18 08:09 08:33 Sodium 142 Potassium 4.1 Chloride 110 H Carbon Dioxide 25 Anion Gap 11 L BUN 15 Creatinine 1.01 Estim Creat Clear Calc 91.1 Estimated GFR > 60 POC Glucose 92 93 Random Glucose 115 Estimat Average Glucose Hemoglobin A1c % Calcium 8.9 Total Bilirubin 0.3 AST 16 ALT 19 Alkaline Phosphatase 82 Total Protein 6.7 Albumin 4.2 Vitamin B12 463 Folate 8.7 TSH 4.16 H Free T4 1.12 05/29/25 08:34 Sodium Potassium Chloride Carbon Dioxide Anion Gap BUN Creatinine Estim Creat Clear Calc Estimated GFR POC Glucose Random Glucose Estimat Average Glucose 94 Hemoglobin A1c % 4.9 Calcium Total Bilirubin AST ALT Alkaline Phosphatase Total Protein Albumin Vitamin B12 Folate TSH Free T4 Medications Medications Current Medications Acetaminophen (Acetaminophen 325 Mg Tablet) 650 mg PO Q6H PRN PRN Reason: Headache/Pain, Scale 1-10 Al Hydroxide/Mg Hydroxide (Magnesium Hydrox/Alum Hydrox 30 Ml Oral.Susp) 30 ml PO Q6H PRN PRN Reason: Heartburn/Nausea Clonazepam (Clonazepam 0.5 Mg Tablet) 0.5 mg PO DAILY PRN PRN Reason: Anxiety Last Admin: 05/27/25 21:08 Dose: 0.5 mg Clozapine (Clozapine 100 Mg Tablet) 400 mg PO BEDTIME ALFONSO Last Admin: 05/29/25 22:25 Dose: 400 mg Clozapine (Clozapine 100 Mg Tablet) 100 mg PO DAILY [facility] Last Admin: 05/29/25 08:11 Dose: 100 mg Docusate Sodium (Docusate Sodium 100 Mg Capsule) 100 mg PO BEDTIME ALFONSO Last Admin: 05/29/25 22:45 Dose: 100 mg Hydrocortisone (Hydrocortisone 1 % Ointment 28.35 Gm Tube) 1 appl TOPICAL BID [facility]; Protocol Last Admin: 05/29/25 22:26 Dose: Not Given Hydroxyzine HCl (Hydroxyzine Hcl 25 Mg Tablet) 25 mg PO Q6H PRN PRN Reason: mild anxiety Lamotrigine (Lamotrigine 100 Mg Tablet) 100 mg PO BID [facility] Last Admin: 05/29/25 22:24 Dose: 100 mg [place] Carbonate ([place] Carbonate Er 450 Mg Tablet.Er) 900 mg PO BEDTIME ALFONSO Last Admin: 05/29/25 22:22 Dose: 900 mg Magnesium Hydroxide (Milk Of Magnesia 30 Ml Oral.Susp) 30 ml PO DAILY PRN PRN Reason: Constipation Metoprolol Succinate (Metoprolol Succinate Er 100 Mg Tab.Er.24h) 100 mg PO DAILY [facility]; Protocol Last Admin: 05/29/25 08:10 Dose: 100 mg Nicotine (Nicotine 21 Mg Patch.Td24) 21 mg TRANSDERMA DAILY PRN PRN Reason: nicotine craving Nicotine Polacrilex (Nicotine Polacrilex 2 Mg Gum) 2 mg BUCCAL Q2H PRN PRN Reason: Nicotine Cravings Olanzapine (Olanzapine 5 Mg Tablet) 5 mg PO BID PRN PRN Reason: agitation Risperidone (Risperidone 2 Mg Tablet) 2 mg PO DAILY [facility] Last Admin: 05/29/25 08:11 Dose: 2 mg Risperidone (Risperidone 2 Mg Tablet) 4 mg PO BEDTIME ALFONSO Last Admin: 05/29/25 22:24 Dose: 4 mg Senna (Sennosides 8.6 Mg Tablet) 8.6 mg PO BEDTIME ALFONSO Last Admin: 05/29/25 22:45 Dose: 8.6 mg Sertraline HCl (Sertraline Hcl 50 Mg Tablet) 50 mg PO DAILY [facility] Last Admin: 05/29/25 08:10 Dose: 50 mg Trazodone HCl (Trazodone Hcl 50 Mg Tablet) 50 mg PO BEDTIME MRX1 PRN PRN Reason: Insomnia Allergies Allergies Allergy/AdvReac Type Severity Reaction Status Date / Time latex Allergy Unknown swelling Verified 05/25/25 15:07 in lips penicillin V Allergy Unknown unknown Verified 05/25/25 15:07 Assessment & Plan Assessment & Plan (1) Schizoaffective disorder, depressive type: Status: Acute Code(s): F25.1 - Schizoaffective disorder, depressive type (2) Essential hypertension: Status: Acute Code(s): I10 - Essential (primary) hypertension (3) Hypertriglyceridemia: Status: Acute Code(s): E78.1 - Pure hyperglyceridemia Plan HPI: patient is a 50 years old single male with history of schizoaffective who was assessed by [facility] crisis increasing in experience hallucinations and paranoid, reports his psychiatric symptoms have been increased over the past few months. Reports his sister have stroke 2 months ago. 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 Reports increase anxiety and paranoid in relation to his upcoming court date and feeling as if his seating and mobility technologist's is trying to frame him Formulation/clinical reasoning: Increase in stress, depression, increase in suicidal thoughts-which is new presentation/behavior, increase in command hallucination telling him to kill himself, increasing stress due to housing issues which need to confirm with the care home. Given history of schizoaffective, with many history of inpatient admissions included [facility] hospitalization. Given the above information, patient would be benefit in restrictive environment, not be safe at a care home for medication management/adjustment, therapeutic environment for coping skills, refer patient back to care home with outpatient services. Hospital course: 05/26/25: Continue with home medications included Clozaril total of 500 mg in divided dose. Nursing staff confirmed with the care home, patient has been compliant with medications. He currently feeling overwhelmed, anxious. Would not be appropriate to address any medication change today. We will revisit tomorrow. 05/27/25: Patient reports slept well, appetite good. He said he feel better today as he was able to contact his sister. She is doing okay. Denies suicidal thoughts but reports he still have suicidal thought as up to last night. Denies hearing voices but also reports Latuda was last time he seeing voices. Reports severe and 99/10 and depression 05/09. Encourage him to be out and attended groups for coping skills. He said he will try later on. He does not want to have medication changes, and he believes his current medication working. He isolated in room this morning, pleasant upon approach. Appeared to be anxious, depressed, isolated himself. No chagnes today. Continue iw current tx plan. Continue to monitor rash on front chest if it is side effects from Lamictal. 05/28/25: Patient slept for 8 hours, was medication compliant, no side effects. However he reports feeling dizzy and weak. He thinks he he has blood sugar issues-diabetes. Inform patient that blood pressure runs low, encouraged to ambulates, increase p.o. fluid intake. He requests to having some labs work done which was ordered. Also he preferred to get blood sugar checked twice a day for a couple of days. His plan of the day is I may go to groups today patient encourage to do so which he observed attended OT groups eating snack. He asked when he will be discharged. Informed him that potential next week. Reports anxiety and depression in moderate to severe. Denies hearing bad voices, only hear good voices to talk to you, and they advised me what to do in a good way . Denies suicidal thoughts. Less paranoid, anxious, depressed, but pleasant and cooperative. Small area of rash on front chest which he reports has been there for couple of weeks. Denies any rashes from other parts of the body. Advised patient to apply hydrocortisone. Lab works included Clozaril level ordered for 05/29/25: The follow-up over the weekends. Part of care b.i.d. for couple of days per patient request. Can discontinue on Saturday if not necessary. 05/29:Keeping to self. Patient reports feeling anxious and depressed d/t upcoming court date. Patient stated, I'm depressed about my situation and that my sister had a stroke 2 months ago . Pt reports auditory hallucinations that are being positive. denies SI/HI/VH. Continue current tx plan. 05/30: Keeping to self. in room most of day. Patient believes his depression is improving but his anxiety is high.He reports sleeping well. Patient reports he will try to attend groups today. Auditory hallucinations continue to be positive. denies SI/HI/VH. Continue current tx plan. Plan Patient on 15 minute checks for safety. Admitted to [facility]. CV. Work with treatment team to do collateral with care home staff. Medication changes/adjustment Patient educated on: diagnosis, medication risk/benefits and therapeutic strategies Reason for continued inpatient stay Substantial Risk for: med/psych decompensation Time Spent With Patient Time: Total time managing care of this patient today _20___ minutes.
[2025-05-30] MEDS: Metoprolol Succinate ER 100 MG TAB.ER.24H PO (08:42)
[2025-05-30 19:28] VITALS: BP 98/62; PULSE 75; RESP 16; TEMP 36.8; O2SAT 98
[2025-05-31 07:20] VITALS: BP 89/56; PULSE 73; RESP 14; TEMP 36.7; O2SAT 99
--- NOTE | 2025-05-31 13:24 | HO.PSYCHPN ---
Subjective Subjective Date of Service: 05/31/25 Reason For Visit: SI with plan to cut wrist Interim History: Continues to lay in bed. Patient reports having lots of anxiety d/t too many stressors . He reports auditory hallucinations are telling me to do stupid things like take my room mates sugar . denies SI/HI/VH. He reports sleeping well. Encouraged to leave room and attend groups. Continue current tx plan. Medication Compliance: Yes Side effects from medications: No Attending Groups: No Mental Status Exam Mental Status Exam Patient Appearance: Appropriate Patient Orientation: Person, Place, Time and Situation Level of Consciousness: Awake and Alert Patient Behavior: Appropriate and Cooperative Mood Description: Depressed and Anxious Affect Description: Blunted Ability to Follow Directions: Good Speech Pattern: Clear Memory Description: Intact Hallucinations: Auditory Thought Process: Intact Thought Content: positive for Intact Diagnostics Vital Signs (24Hr): Vital Signs - 24 hr 05/30/25 19:28 05/31/25 07:20 Temperature 98.2 F 98.0 F Pulse Rate 75 73 Respiratory Rate 16 14 Blood Pressure 98/62 89/56 L Pulse Oximetry 98 99 Oxygen Delivery Method Room Air Room Air BMI result Body Mass Index 25.1 Labs 05/25/25 15:48 05/29/25 08:33 Medications Medications Current Medications Acetaminophen (Acetaminophen 325 Mg Tablet) 650 mg PO Q6H PRN PRN Reason: Headache/Pain, Scale 1-10 Al Hydroxide/Mg Hydroxide (Magnesium Hydrox/Alum Hydrox 30 Ml Oral.Susp) 30 ml PO Q6H PRN PRN Reason: Heartburn/Nausea Clonazepam (Clonazepam 0.5 Mg Tablet) 0.5 mg PO DAILY PRN PRN Reason: Anxiety Last Admin: 05/27/25 21:08 Dose: 0.5 mg Clozapine (Clozapine 100 Mg Tablet) 400 mg PO BEDTIME ALFONSO Last Admin: 05/30/25 22:13 Dose: 400 mg Clozapine (Clozapine 100 Mg Tablet) 100 mg PO DAILY [facility] Last Admin: 05/31/25 08:52 Dose: 100 mg Docusate Sodium (Docusate Sodium 100 Mg Capsule) 100 mg PO BEDTIME ALFONSO Last Admin: 05/30/25 22:12 Dose: 100 mg Hydrocortisone (Hydrocortisone 1 % Ointment 28.35 Gm Tube) 1 appl TOPICAL BID AL[facility]; Protocol Last Admin: 05/31/25 08:54 Dose: Not Given Hydroxyzine HCl (Hydroxyzine Hcl 25 Mg Tablet) 25 mg PO Q6H PRN PRN Reason: mild anxiety Last Admin: 05/30/25 22:17 Dose: 25 mg Lamotrigine (Lamotrigine 100 Mg Tablet) 100 mg PO BID [facility] Last Admin: 05/31/25 08:52 Dose: 100 mg [place] Carbonate ([place] Carbonate Er 450 Mg Tablet.Er) 900 mg PO BEDTIME [facility] Last Admin: 05/30/25 22:13 Dose: 900 mg Magnesium Hydroxide (Milk Of Magnesia 30 Ml Oral.Susp) 30 ml PO DAILY PRN PRN Reason: Constipation Metoprolol Succinate (Metoprolol Succinate Er 100 Mg Tab.Er.24h) 100 mg PO DAILY [facility]; Protocol Last Admin: 05/31/25 08:54 Dose: Not Given Nicotine (Nicotine 21 Mg Patch.Td24) 21 mg TRANSDERMA DAILY PRN PRN Reason: nicotine craving Nicotine Polacrilex (Nicotine Polacrilex 2 Mg Gum) 2 mg BUCCAL Q2H PRN PRN Reason: Nicotine Cravings Olanzapine (Olanzapine 5 Mg Tablet) 5 mg PO BID PRN PRN Reason: agitation Risperidone (Risperidone 2 Mg Tablet) 2 mg PO DAILY [facility] Last Admin: 05/31/25 08:52 Dose: 2 mg Risperidone (Risperidone 2 Mg Tablet) 4 mg PO BEDTIME [facility] Last Admin: 05/30/25 22:13 Dose: 4 mg Senna (Sennosides 8.6 Mg Tablet) 8.6 mg PO BEDTIME [facility] Last Admin: 05/30/25 22:12 Dose: 8.6 mg Sertraline HCl (Sertraline Hcl 50 Mg Tablet) 50 mg PO DAILY [facility] Last Admin: 05/31/25 08:52 Dose: 50 mg Trazodone HCl (Trazodone Hcl 50 Mg Tablet) 50 mg PO BEDTIME MRX1 PRN PRN Reason: Insomnia Last Admin: 05/30/25 22:17 Dose: 50 mg Allergies Allergies Allergy/AdvReac Type Severity Reaction Status Date / Time latex Allergy Unknown swelling Verified 05/25/25 15:07 in lips penicillin V Allergy Unknown unknown Verified 05/25/25 15:07 Assessment & Plan Assessment & Plan (1) Schizoaffective disorder, depressive type: Status: Acute Code(s): F25.1 - Schizoaffective disorder, depressive type (2) Essential hypertension: Status: Acute Code(s): I10 - Essential (primary) hypertension (3) Hypertriglyceridemia: Status: Acute Code(s): E78.1 - Pure hyperglyceridemia Plan HPI: patient is a 50 years old single male with history of schizoaffective who was assessed by [facility] increasing in experience hallucinations and paranoid, reports his psychiatric symptoms have been increased over the past few months. Reports his sister have stroke 2 months ago. 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 Reports increase anxiety and paranoid in relation to his upcoming court date and feeling as if his tax attorney's is trying to frame him Formulation/clinical reasoning: Increase in stress, depression, increase in suicidal thoughts-which is new presentation/behavior, increase in command hallucination telling him to kill himself, increasing stress due to housing issues which need to confirm with the nursing home. Given history of schizoaffective, with many history of inpatient admissions included [facility] hospitalization. Given the above information, patient would be benefit in restrictive environment, not be safe at a nursing home for medication management/adjustment, therapeutic environment for coping skills, refer patient back to nursing home with outpatient services. Hospital course: 05/26/25: Continue with home medications included Clozaril total of 500 mg in divided dose. Nursing staff confirmed with the nursing home, patient has been compliant with medications. He currently feeling overwhelmed, anxious. Would not be appropriate to address any medication change today. We will revisit tomorrow. 05/27/25: Patient reports slept well, appetite good. He said he feel better today as he was able to contact his sister. She is doing okay. Denies suicidal thoughts but reports he still have suicidal thought as up to last night. Denies hearing voices but also reports Latuda was last time he seeing voices. Reports severe and 99/10 and depression /. Encourage him to be out and attended groups for coping skills. He said he will try later on. He does not want to have medication changes, and he believes his current medication working. He isolated in room this morning, pleasant upon approach. Appeared to be anxious, depressed, isolated himself. No chagnes today. Continue iw current tx plan. Continue to monitor rash on front chest if it is side effects from Lamictal. 05/28/25: Patient slept for 8 hours, was medication compliant, no side effects. However he reports feeling dizzy and weak. He thinks he he has blood sugar issues-diabetes. Inform patient that blood pressure runs low, encouraged to ambulates, increase p.o. fluid intake. He requests to having some labs work done which was ordered. Also he preferred to get blood sugar checked twice a day for a couple of days. His plan of the day is I may go to groups today patient encourage to do so which he observed attended OT groups eating snack. He asked when he will be discharged. Informed him that potential next week. Reports anxiety and depression in moderate to severe. Denies hearing bad voices, only hear good voices to talk to you, and they advised me what to do in a good way . Denies suicidal thoughts. Less paranoid, anxious, depressed, but pleasant and cooperative. Small area of rash on front chest which he reports has been there for couple of weeks. Denies any rashes from other parts of the body. Advised patient to apply hydrocortisone. Lab works included Clozaril level ordered for 05/29/25: The follow-up over the weekends. Part of care b.i.d. for couple of days per patient request. Can discontinue on Saturday if not necessary. 05/29:Keeping to self. Patient reports feeling anxious and depressed d/t upcoming court date. Patient stated, I'm depressed about my situation and that my sister had a stroke 2 months ago . Pt reports auditory hallucinations that are being positive. denies SI/HI/VH. Continue current tx plan. 05/30: Keeping to self. in room most of day. Patient believes his depression is improving but his anxiety is high.He reports sleeping well. Patient reports he will try to attend groups today. Auditory hallucinations continue to be positive. denies SI/HI/VH. Continue current tx plan. 05/31: continue current tx plan Plan Patient on 15 minute checks for safety. Admitted to [facility]. CV. Work with treatment team to do collateral with nursing home staff. Medication changes/adjustment Patient educated on: diagnosis, medication risk/benefits and therapeutic strategies Reason for continued inpatient stay Substantial Risk for: med/psych decompensation Time Spent With Patient Time: Total time managing care of this patient today __20__ minutes.
[2025-05-31 20:00] VITALS: BP 111/77; PULSE 80; RESP 16; TEMP 36.7; O2SAT 100
[2025-06-01 07:41] VITALS: BP 102/71; PULSE 90; RESP 16; TEMP 37.1; O2SAT 100
[2025-06-01 07:59] LABS: Neut%MD 62.6 %; WBCANC 7.3 X10*3/uL
[2025-06-01] MEDS: Metoprolol Succinate ER 100 MG TAB.ER.24H PO (08:22)
--- NOTE | 2025-06-01 11:21 | HO.PSYCHPN ---
Subjective Subjective Date of Service: 06/01/25 Reason For Visit: SI with plan to cut wrist Interim History: feels problem is spiritual, not physiologic. believes change in medication will not be helpful. believes he will be sent to [facility] and assaulted there. c/o anxiety, interested in scheduling klonopin. per staff, paranoid, AH. blunted. taking meds. believes he will be sacrificed in [facility]. slept 8 hours. med-compliant. saturday AH became derogatory. Mental Status Exam Mental Status Exam Narrative: Patient is alert and oriented; behavior is cooperative, moderate to severe anxiety and depression, patient is not in distress; dressed in hospital attire with kempt hair, adequate hygiene; mood is described as anxious and affect congruent; eye contact appropriate; Speech is normal rate, volume and prosody and not pressured; no psychomotor agitation/retardation present; thought process is organized and goal directed; Thought content is on treatment, pertinent to relevant topics and with paranoid delusions of being assaulted at [facility]; no SI/HI/VH expressed. Report intermittently AH but not now. Patient's insight and judgment poor. Diagnostics Vital Signs (24Hr): Vital Signs - 24 hr 05/31/25 20:00 06/01/25 07:41 Temperature 98.1 F 98.8 F Pulse Rate 80 90 Respiratory Rate 16 16 Blood Pressure 111/77 102/71 Pulse Oximetry 100 100 Oxygen Delivery Method Room Air Room Air BMI result Body Mass Index 25.1 Labs 05/25/25 15:48 05/29/25 08:33 Labs: Laboratory Results - last 48 hr 06/01/25 07:46 Absolute Neuts (auto) 4.6 Medications Medications Current Medications Acetaminophen (Acetaminophen 325 Mg Tablet) 650 mg PO Q6H PRN PRN Reason: Headache/Pain, Scale 1-10 Al Hydroxide/Mg Hydroxide (Magnesium Hydrox/Alum Hydrox 30 Ml Oral.Susp) 30 ml PO Q6H PRN PRN Reason: Heartburn/Nausea Clonazepam (Clonazepam 0.5 Mg Tablet) 0.5 mg PO BID [facility] Clozapine (Clozapine 100 Mg Tablet) 400 mg PO BEDTIME [facility] Last Admin: 05/31/25 20:15 Dose: 400 mg Clozapine (Clozapine 100 Mg Tablet) 100 mg PO DAILY [facility] Last Admin: 06/01/25 08:23 Dose: 100 mg Docusate Sodium (Docusate Sodium 100 Mg Capsule) 100 mg PO BEDTIME [facility] Last Admin: 05/31/25 20:20 Dose: Not Given Hydrocortisone (Hydrocortisone 1 % Ointment 28.35 Gm Tube) 1 appl TOPICAL BID [facility]; Protocol Last Admin: 06/01/25 08:24 Dose: Not Given Hydroxyzine HCl (Hydroxyzine Hcl 25 Mg Tablet) 25 mg PO Q6H PRN PRN Reason: mild anxiety Last Admin: 05/30/25 22:17 Dose: 25 mg Lamotrigine (Lamotrigine 100 Mg Tablet) 100 mg PO BID [facility] Last Admin: 06/01/25 08:23 Dose: 100 mg Altha Carbonate (Altha Carbonate Er 450 Mg Tablet.Er) 900 mg PO BEDTIME [facility] Last Admin: 05/31/25 20:14 Dose: 900 mg Magnesium Hydroxide (Milk Of Magnesia 30 Ml Oral.Susp) 30 ml PO DAILY PRN PRN Reason: Constipation Metoprolol Succinate (Metoprolol Succinate Er 100 Mg Tab.Er.24h) 100 mg PO DAILY [facility]; Protocol Last Admin: 06/01/25 08:22 Dose: 100 mg Nicotine (Nicotine 21 Mg Patch.Td24) 21 mg TRANSDERMA DAILY PRN PRN Reason: nicotine craving Nicotine Polacrilex (Nicotine Polacrilex 2 Mg Gum) 2 mg BUCCAL Q2H PRN PRN Reason: Nicotine Cravings Olanzapine (Olanzapine 5 Mg Tablet) 5 mg PO BID PRN PRN Reason: agitation Risperidone (Risperidone 2 Mg Tablet) 2 mg PO DAILY [facility] Last Admin: 06/01/25 08:23 Dose: 2 mg Risperidone (Risperidone 2 Mg Tablet) 4 mg PO BEDTIME [facility] Last Admin: 05/31/25 20:16 Dose: 4 mg Senna (Sennosides 8.6 Mg Tablet) 8.6 mg PO BEDTIME [facility] Last Admin: 05/31/25 20:21 Dose: Not Given Sertraline HCl (Sertraline Hcl 50 Mg Tablet) 50 mg PO DAILY [facility] Last Admin: 06/01/25 08:22 Dose: 50 mg Trazodone HCl (Trazodone Hcl 50 Mg Tablet) 50 mg PO BEDTIME MRX1 PRN PRN Reason: Insomnia Last Admin: 05/30/25 22:17 Dose: 50 mg Allergies Allergies Allergy/AdvReac Type Severity Reaction Status Date / Time latex Allergy Unknown swelling Verified 05/25/25 15:07 in lips penicillin V Allergy Unknown unknown Verified 05/25/25 15:07 Assessment & Plan Assessment & Plan (1) Schizoaffective disorder, depressive type: Status: Acute Code(s): F25.1 - Schizoaffective disorder, depressive type (2) Essential hypertension: Status: Acute Code(s): I10 - Essential (primary) hypertension (3) Hypertriglyceridemia: Status: Acute Code(s): E78.1 - Pure hyperglyceridemia Plan Formulation/clinical reasoning: Increase in stress, depression, increase in suicidal thoughts-which is new presentation/behavior, increase in command hallucination telling him to kill himself, increasing stress due to housing issues which need to confirm with the residential. Given history of schizoaffective, with many history of inpatient admissions included [facility] hospitalization. Given the above information, patient would be benefit in restrictive environment, not be safe at a residential for medication management/adjustment, therapeutic environment for coping skills, refer patient back to residential with outpatient services. Hospital course: 05/26/25: Continue with home medications included Clozaril total of 500 mg in divided dose. Nursing staff confirmed with the residential, patient has been compliant with medications. He currently feeling overwhelmed, anxious. Would not be appropriate to address any medication change today. We will revisit tomorrow. 05/27/25: Patient reports slept well, appetite good. He said he feel better today as he was able to contact his sister. She is doing okay. Denies suicidal thoughts but reports he still have suicidal thought as up to last night. Denies hearing voices but also reports Latuda was last time he seeing voices. Reports severe and 99/10 and depression 8/10. Encourage him to be out and attended groups for coping skills. He said he will try later on. He does not want to have medication changes, and he believes his current medication working. He isolated in room this morning, pleasant upon approach. Appeared to be anxious, depressed, isolated himself. No chagnes today. Continue iw current tx plan. Continue to monitor rash on front chest if it is side effects from Lamictal. 05/28/25: Patient slept for 8 hours, was medication compliant, no side effects. However he reports feeling dizzy and weak. He thinks he he has blood sugar issues-diabetes. Inform patient that blood pressure runs low, encouraged to ambulates, increase p.o. fluid intake. He requests to having some labs work done which was ordered. Also he preferred to get blood sugar checked twice a day for a couple of days. His plan of the day is I may go to groups today patient encourage to do so which he observed attended OT groups eating snack. He asked when he will be discharged. Informed him that potential next week. Reports anxiety and depression in moderate to severe. Denies hearing bad voices, only hear good voices to talk to you, and they advised me what to do in a good way . Denies suicidal thoughts. Less paranoid, anxious, depressed, but pleasant and cooperative. Small area of rash on front chest which he reports has been there for couple of weeks. Denies any rashes from other parts of the body. Advised patient to apply hydrocortisone. Lab works included Clozaril level ordered for 05/29/25: The follow-up over the weekends. Part of care b.i.d. for couple of days per patient request. Can discontinue on Saturday if not necessary. 05/29:Keeping to self. Patient reports feeling anxious and depressed d/t upcoming court date. Patient stated, I'm depressed about my situation and that my sister had a stroke 2 months ago . Pt reports auditory hallucinations that are being positive. denies SI/HI/VH. Continue current tx plan. 05/30: Keeping to self. in room most of day. Patient believes his depression is improving but his anxiety is high.He reports sleeping well. Patient reports he will try to attend groups today. Auditory hallucinations continue to be positive. denies SI/HI/VH. Continue current tx plan. 05/31: continue current tx plan 06/01: clozaril level pending. schedule klonopin 0.5 BID for anxiety. otherwise continue current mgmt for now. Tx refractory psychosis, appears usual presentation. Reason for continued inpatient stay Substantial Risk for: inability to function and rapid decompensation Time Spent With Patient Time: Total time managing care of this patient today __25__ minutes.
[2025-06-01 20:00] VITALS: BP 107/82; PULSE 82; RESP 16; TEMP 37.1; O2SAT 99
[2025-06-02 07:20] VITALS: BP 116/74; PULSE 71; RESP 14; TEMP 36.4; O2SAT 97
[2025-06-02 08:22] VITALS: BP 116/74; PULSE 71
[2025-06-02] MEDS: Metoprolol Succinate ER 100 MG TAB.ER.24H PO (08:22)
[2025-06-02 20:00] VITALS: BP 101/68; PULSE 60; RESP 16; TEMP 37.1; O2SAT 99
--- NOTE | 2025-06-02 22:13 | P.PNPSI_ITS ---
Subjective Subjective Date of Service: 06/02/25 Reason For Visit: SI with plan to cut wrist Subjective Notes: Conditional Voluntary Healthcare Proxy: No Guardianship: No Medical Problems Affecting Mental Status: No Interim History: Medical record and nursing notes reviewed; case discussed during rounds with team/nursing staff, and met with patient for supportive therapy/psychoeducation, as well as medication management. Slept for 8 hours, was medication compliant, denies side effects. Continued to encourage fluid intake, active in groups. Reports voices at baseline, no negative voices. No suicidal thoughts. Depression is low but anxiety still on the high end . Reported that he has been taking a lot of medications, therefore he could not tell the Klonopin is working or not. However patient reports to nursing that it has been helpful with Klonopin started a day or 2 before. Patient also reports that attended groups therapeutic which help him distract himself from hearing voices. He is aware of Clozaril level is pending. He agrees with plan of discharge this Saturday or early next week if Clozaril level is within normal limits, no more medication change needed. Observed visible, attended groups, making phone calls, appeared to be depressed, knowing his baseline/and chronic conditions. Medication Compliance: Yes Side effects from medications: No Attending Groups: Yes Review of Systems Acute medical concerns: No Medical Review of Systems: unchanged Review of Systems Review of Systems Constitutional: Denies fatigue and Denies fever(s) Cardiovascular: Denies chest pain and Denies dyspnea Respiratory: Denies dyspnea Gastrointestinal: Denies abdominal pain Psychiatric: denies suicidal ideation Endocrine: Denies fatigue Yes all other systems are reviewed and are negative Mental Status Exam Mental Status Exam Narrative: Patient is alert and oriented; behavior is cooperative, moderate to severe anxiety. improving in depression, patient is not in distress; dressed in hospital attire with kempt hair, adequate hygiene; mood is described as anxious and affect congruent; eye contact appropriate; Speech is normal rate, volume and prosody and not pressured; no psychomotor agitation/retardation present; thought process is organized and goal directed; Thought content is on treatment, pertinent to relevant topics; no SI/HI/VH expressed. Report intermittently AH but no negative voices. Patient's insight and judgment improving. Diagnostics Vital Signs (24Hr): Vital Signs - 24 hr 06/02/25 07:20 06/02/25 08:22 06/02/25 20:00 Temperature 97.5 F 98.7 F Pulse Rate 71 71 60 Respiratory Rate 14 16 Blood Pressure 116/74 116/74 101/68 Pulse Oximetry 97 99 Oxygen Delivery Method Room Air Room Air BMI result Body Mass Index 25.1 Labs 05/25/25 15:48 05/29/25 08:33 Labs: Laboratory Results - last 48 hr 06/01/25 07:46 Absolute Neuts (auto) 4.6 Medications Medications Current Medications Acetaminophen (Acetaminophen 325 Mg Tablet) 650 mg PO Q6H PRN PRN Reason: Headache/Pain, Scale 1-10 Al Hydroxide/Mg Hydroxide (Magnesium Hydrox/Alum Hydrox 30 Ml Oral.Susp) 30 ml PO Q6H PRN PRN Reason: Heartburn/Nausea Clonazepam (Clonazepam 0.5 Mg Tablet) 0.5 mg PO BID [facility] Last Admin: 06/02/25 20:39 Dose: 0.5 mg Clozapine (Clozapine 100 Mg Tablet) 400 mg PO BEDTIME [facility] Last Admin: 06/02/25 20:39 Dose: 400 mg Clozapine (Clozapine 100 Mg Tablet) 100 mg PO DAILY [facility] Last Admin: 06/02/25 08:21 Dose: 100 mg Docusate Sodium (Docusate Sodium 100 Mg Capsule) 100 mg PO BEDTIME [facility] Last Admin: 06/02/25 20:39 Dose: 100 mg Hydrocortisone (Hydrocortisone 1 % Ointment 28.35 Gm Tube) 1 appl TOPICAL BID [facility]; Protocol Last Admin: 06/02/25 20:43 Dose: Not Given Hydroxyzine HCl (Hydroxyzine Hcl 25 Mg Tablet) 25 mg PO Q6H PRN PRN Reason: mild anxiety Last Admin: 05/30/25 22:17 Dose: 25 mg Lamotrigine (Lamotrigine 100 Mg Tablet) 100 mg PO BID [facility] Last Admin: 06/02/25 20:39 Dose: 100 mg E. Lopez Carbonate (E. Lopez Carbonate Er 450 Mg Tablet.Er) 900 mg PO BEDTIME [facility] Last Admin: 06/02/25 20:39 Dose: 900 mg Magnesium Hydroxide (Milk Of Magnesia 30 Ml Oral.Susp) 30 ml PO DAILY PRN PRN Reason: Constipation Metoprolol Succinate (Metoprolol Succinate Er 100 Mg Tab.Er.24h) 100 mg PO DAILY [facility]; Protocol Last Admin: 06/02/25 08:22 Dose: 100 mg Nicotine (Nicotine 21 Mg Patch.Td24) 21 mg TRANSDERMA DAILY PRN PRN Reason: nicotine craving Nicotine Polacrilex (Nicotine Polacrilex 2 Mg Gum) 2 mg BUCCAL Q2H PRN PRN Reason: Nicotine Cravings Olanzapine (Olanzapine 5 Mg Tablet) 5 mg PO BID PRN PRN Reason: agitation Risperidone (Risperidone 2 Mg Tablet) 2 mg PO DAILY [facility] Last Admin: 06/02/25 08:21 Dose: 2 mg Risperidone (Risperidone 2 Mg Tablet) 4 mg PO BEDTIME [facility] Last Admin: 06/02/25 20:40 Dose: 4 mg Senna (Sennosides 8.6 Mg Tablet) 8.6 mg PO BEDTIME [facility] Last Admin: 06/02/25 20:40 Dose: 8.6 mg Sertraline HCl (Sertraline Hcl 50 Mg Tablet) 50 mg PO DAILY [facility] Last Admin: 06/02/25 08:20 Dose: 50 mg Trazodone HCl (Trazodone Hcl 50 Mg Tablet) 50 mg PO BEDTIME MRX1 PRN PRN Reason: Insomnia Last Admin: 05/30/25 22:17 Dose: 50 mg Allergies Allergies Allergy/AdvReac Type Severity Reaction Status Date / Time latex Allergy Unknown swelling Verified 05/25/25 15:07 in lips penicillin V Allergy Unknown unknown Verified 05/25/25 15:07 Assessment & Plan Assessment & Plan (1) Schizoaffective disorder, depressive type: Status: Acute Code(s): F25.1 - Schizoaffective disorder, depressive type (2) Essential hypertension: Status: Acute Code(s): I10 - Essential (primary) hypertension (3) Hypertriglyceridemia: Status: Acute Code(s): E78.1 - Pure hyperglyceridemia Plan Formulation/clinical reasoning: Increase in stress, depression, increase in suicidal thoughts-which is new presentation/behavior, increase in command hallucination telling him to kill himself, increasing stress due to housing issues which [facility] with the [facility]. Given history of schizoaffective, with many history of inpatient admissions included [facility] hospitalization. Given the above information, patient would be benefit in restrictive environment, not be safe at a [facility] for medication management/adjustment, therapeutic environment for coping skills, refer [facility] back to [facility] with outpatient services. Hospital course: 05/26/25: Continue with home medications included Clozaril total of 500 mg in divided dose. Nursing staff confirmed with the [facility], patient has been compliant with medications. He currently feeling overwhelmed, anxious. Would not be appropriate to address any medication change today. We will revisit tomorrow. 05/27/25: Patient reports slept well, appetite good. He said he feel better today as he was able to contact his sister. She is doing okay. Denies suicidal thoughts but reports he still have suicidal thought as up to last night. Denies hearing voices but also reports Latuda was last time he seeing voices. Reports severe and /10 and depression 05/09. Encourage him to be out and attended groups for coping skills. He said he will try later on. He does not want to have medication changes, and he believes his current medication working. He isolated in room this morning, pleasant upon approach. Appeared to be anxious, depressed, isolated himself. No chagnes today. Continue iwth current tx plan. Continue to monitor rash on front chest if it is side effects from Lamictal. 05/28/25: Patient slept for 8 hours, was medication compliant, no side effects. However he reports feeling dizzy and weak. He thinks he he has blood sugar issues-diabetes. Inform patient that blood pressure runs low, encouraged to ambulates, increase p.o. fluid intake. He requests to having some labs work done which was ordered. Also he preferred to get blood sugar checked twice a day for a couple of days. His plan of the day is I may go to groups today patient encourage to do so which he observed attended OT groups eating snack. He asked when he will be discharged. Informed him that potential next week. Reports anxiety and depression in moderate to severe. Denies hearing bad voices, only hear good voices to talk to you, and they advised me what to do in a good way . Denies suicidal thoughts. Less paranoid, anxious, depressed, but pleasant and cooperative. Small area of rash on front chest which he reports has been there for couple of weeks. Denies any rashes from other parts of the body. Advised patient to apply hydrocortisone. Lab works included Clozaril level ordered for 05/29/25: The follow-up over the weekends. Part of care b.i.d. for couple of days per patient request. Can discontinue on Saturday if not necessary. 05/29:Keeping to self. Patient reports feeling anxious and depressed d/t upcoming court date. Patient stated, I'm depressed about my situation and that my sister had a stroke 2 months ago . Pt reports auditory hallucinations that are being positive. denies SI/HI/VH. Continue current tx plan. 05/30: Keeping to self. in room most of day. Patient believes his depression is improving but his anxiety is high.He reports sleeping well. Patient reports he will try to attend groups today. Auditory hallucinations continue to be positive. denies SI/HI/VH. Continue current tx plan. 05/31: continue current tx plan 06/01: clozaril level pending. schedule klonopin 0.5 BID for anxiety. otherwise continue current mgmt for now. Tx refractory psychosis, appears usual presentation. 06/02/25: Slept for 8 hours, was medication compliant, denies side effects. Continued to encourage fluid intake, active in groups. Reports voices at baseline, no negative voices. No suicidal thoughts. Depression is low but anxiety still on the high end -06/09. Reported that he has been taking a lot of medications, therefore he could not tell the Klonopin is working or not. However patient reports to nursing that it has been helpful with Klonopin started a day or 2 before. Patient also reports that attended groups therapeutic which help him distract himself from hearing voices. He is aware of Clozaril level is pending. He agrees with plan of discharge this Saturday or early next week if Clozaril level is within normal limits, no more medication change needed. Observed visible, attended groups, making phone calls, appeared to be depressed, knowing his baseline/and chronic conditions. Patient educated on: diagnosis, medication risk/benefits and therapeutic strategies Informed Consent: understands Reason for continued inpatient stay Substantial Risk for: med/psych decompensation Time Spent With Patient Time: Total time managing care of this patient today ____ minutes.
[2025-06-03 08:25] VITALS: BP 103/69; PULSE 80; RESP 20; TEMP 36.8; O2SAT 99
[2025-06-03] MEDS: Metoprolol Succinate ER 100 MG TAB.ER.24H PO (08:40)
--- NOTE | 2025-06-03 14:12 | HO.PSYCHPN ---
Subjective Subjective Date of Service: 06/03/25 Reason For Visit: SI with plan to cut wrist Interim History: reports AH more positive in past day or two, which has risen his mood. asking about lamictal, stating he does not recall being on it prior to admission. med rec and Hx reviewed, pt informed as per records he was on it at last discharge 4 months ago as well as at the time of the present admission. expresses concern for the number of medications he is taking. per staff, dep 5 anx 9. +AH. generally supportive. wants HS seroquel to be PRN. brighter, laughing, joking around. Mental Status Exam Mental Status Exam Narrative: Patient is alert and oriented; behavior is cooperative, patient is not in distress; dressed in own attire with kempt hair, adequate hygiene; mood is described as lightened and affect congruent; eye contact appropriate; Speech is normal rate, volume and prosody and not pressured; no psychomotor agitation/retardation present; thought process is organized and goal directed; Thought content is on treatment, pertinent to relevant topics and without expressed paranoid delusions; no SI/HI/AVH expressed. Patient's insight and judgment poor. Diagnostics Vital Signs (24Hr): Vital Signs - 24 hr 06/02/25 20:00 06/03/25 08:25 Temperature 98.7 F 98.2 F Pulse Rate 60 80 Respiratory Rate 16 20 Blood Pressure 101/68 103/69 Pulse Oximetry 99 99 Oxygen Delivery Method Room Air Room Air BMI result Body Mass Index 25.1 Labs 05/25/25 15:48 05/29/25 08:33 Medications Medications Current Medications Acetaminophen (Acetaminophen 325 Mg Tablet) 650 mg PO Q6H PRN PRN Reason: Headache/Pain, Scale 1-10 Al Hydroxide/Mg Hydroxide (Magnesium Hydrox/Alum Hydrox 30 Ml Oral.Susp) 30 ml PO Q6H PRN PRN Reason: Heartburn/Nausea Clonazepam (Clonazepam 0.5 Mg Tablet) 0.5 mg PO BID [facility] Last Admin: 06/03/25 08:41 Dose: 0.5 mg Clozapine (Clozapine 100 Mg Tablet) 400 mg PO BEDTIME [facility] Last Admin: 06/02/25 20:39 Dose: 400 mg Clozapine (Clozapine 100 Mg Tablet) 100 mg PO DAILY [facility] Last Admin: 06/03/25 08:41 Dose: 100 mg Docusate Sodium (Docusate Sodium 100 Mg Capsule) 100 mg PO BEDTIME [facility] Last Admin: 06/02/25 20:39 Dose: 100 mg Hydrocortisone (Hydrocortisone 1 % Ointment 28.35 Gm Tube) 1 appl TOPICAL BID [facility]; Protocol Last Admin: 06/03/25 08:41 Dose: Not Given Hydroxyzine HCl (Hydroxyzine Hcl 25 Mg Tablet) 25 mg PO Q6H PRN PRN Reason: mild anxiety Last Admin: 05/30/25 22:17 Dose: 25 mg Lamotrigine (Lamotrigine 100 Mg Tablet) 100 mg PO BID [facility] Last Admin: 06/03/25 08:41 Dose: 100 mg [place] Carbonate ([place] Carbonate Er 450 Mg Tablet.Er) 900 mg PO BEDTIME [facility] Last Admin: 06/02/25 20:39 Dose: 900 mg Magnesium Hydroxide (Milk Of Magnesia 30 Ml Oral.Susp) 30 ml PO DAILY PRN PRN Reason: Constipation Metoprolol Succinate (Metoprolol Succinate Er 100 Mg Tab.Er.24h) 100 mg PO DAILY [facility]; Protocol Last Admin: 06/03/25 08:40 Dose: 100 mg Nicotine (Nicotine 21 Mg Patch.Td24) 21 mg TRANSDERMA DAILY PRN PRN Reason: nicotine craving Nicotine Polacrilex (Nicotine Polacrilex 2 Mg Gum) 2 mg BUCCAL Q2H PRN PRN Reason: Nicotine Cravings Olanzapine (Olanzapine 5 Mg Tablet) 5 mg PO BID PRN PRN Reason: agitation Risperidone (Risperidone 2 Mg Tablet) 2 mg PO DAILY [facility] Last Admin: 06/03/25 08:40 Dose: 2 mg Risperidone (Risperidone 2 Mg Tablet) 4 mg PO BEDTIME [facility] Last Admin: 06/02/25 20:40 Dose: 4 mg Senna (Sennosides 8.6 Mg Tablet) 8.6 mg PO BEDTIME [facility] Last Admin: 06/02/25 20:40 Dose: 8.6 mg Sertraline HCl (Sertraline Hcl 50 Mg Tablet) 50 mg PO DAILY [facility] Last Admin: 06/03/25 08:41 Dose: 50 mg Trazodone HCl (Trazodone Hcl 50 Mg Tablet) 50 mg PO BEDTIME MRX1 PRN PRN Reason: Insomnia Last Admin: 05/30/25 22:17 Dose: 50 mg Allergies Allergies Allergy/AdvReac Type Severity Reaction Status Date / Time latex Allergy Unknown swelling Verified 05/25/25 15:07 in lips penicillin V Allergy Unknown unknown Verified 05/25/25 15:07 Assessment & Plan Assessment & Plan (1) Schizoaffective disorder, depressive type: Status: Acute Code(s): F25.1 - Schizoaffective disorder, depressive type (2) Essential hypertension: Status: Acute Code(s): I10 - Essential (primary) hypertension (3) Hypertriglyceridemia: Status: Acute Code(s): E78.1 - Pure hyperglyceridemia Plan Formulation/clinical reasoning: Increase in stress, depression, increase in suicidal thoughts-which is new presentation/behavior, increase in command hallucination telling him to kill himself, increasing stress due to housing issues which need to confirm with the jail. Given history of schizoaffective, with many history of inpatient admissions included [facility] hospitalization. Given the above information, patient would be benefit in restrictive environment, not be safe at a jail for medication management/adjustment, therapeutic environment for coping skills, refer patient back to jail with outpatient services. Hospital course: 05/26/25: Continue with home medications included Clozaril total of 500 mg in divided dose. Nursing staff confirmed with the jail, patient has been compliant with medications. He currently feeling overwhelmed, anxious. Would not be appropriate to address any medication change today. We will revisit tomorrow. 05/27/25: Patient reports slept well, appetite good. He said he feel better today as he was able to contact his sister. She is doing okay. Denies suicidal thoughts but reports he still have suicidal thought as up to last night. Denies hearing voices but also reports Latuda was last time he seeing voices. Reports severe and 99/10 and depression 8/10. Encourage him to be out and attended groups for coping skills. He said he will try later on. He does not want to have medication changes, and he believes his current medication working. He isolated in room this morning, pleasant upon approach. Appeared to be anxious, depressed, isolated himself. No chagnes today. Continue [facility] current tx plan. Continue to monitor rash on front chest if it is side effects from Lamictal. 05/28/25: Patient slept for 8 hours, was medication compliant, no side effects. However he reports feeling dizzy and weak. He thinks he he has blood sugar issues-diabetes. Inform patient that blood pressure runs low, encouraged to ambulates, increase p.o. fluid intake. He requests to having some labs work done which was ordered. Also he preferred to get blood sugar checked twice a day for a couple of days. His plan of the day is I may go to groups today patient encourage to do so which he observed attended OT groups eating snack. He asked when he will be discharged. Informed him that potential next week. Reports anxiety and depression in moderate to severe. Denies hearing bad voices, only hear good voices to talk to you, and they advised me what to do in a good way . Denies suicidal thoughts. Less paranoid, anxious, depressed, but pleasant and cooperative. Small area of rash on front chest which he reports has been there for couple of weeks. Denies any rashes from other parts of the body. Advised patient to apply hydrocortisone. Lab works included Clozaril level ordered for 05/29/25: The follow-up over the weekends. Part of care b.i.d. for couple of days per patient request. Can discontinue on Saturday if not necessary. 05/29:Keeping to self. Patient reports feeling anxious and depressed d/t upcoming court date. Patient stated, I'm depressed about my situation and that my sister had a stroke 2 months ago . Pt reports auditory hallucinations that are being positive. denies SI/HI/VH. Continue current tx plan. 05/30: Keeping to self. in room most of day. Patient believes his depression is improving but his anxiety is high.He reports sleeping well. Patient reports he will try to attend groups today. Auditory hallucinations continue to be positive. denies SI/HI/VH. Continue current tx plan. 05/31: continue current tx plan 06/01: clozaril level pending. schedule klonopin 0.5 BID for anxiety. otherwise continue current mgmt for now. Tx refractory psychosis, appears usual presentation. 06/02/25: Slept for 8 hours, was medication compliant, denies side effects. Continued to encourage fluid intake, active in groups. Reports voices at baseline, no negative voices. No suicidal thoughts. Depression is low but anxiety still on the high end . Reported that he has been taking a lot of medications, therefore he could not tell the Klonopin is working or not. However patient reports to nursing that it has been helpful with Klonopin started a day or 2 before. Patient also reports that attended groups therapeutic which help him distract himself from hearing voices. He is aware of Clozaril level is pending. He agrees with plan of discharge this Saturday or early next week if Clozaril level is within normal limits, no more medication change needed. Observed visible, attended groups, making phone calls, appeared to be depressed, knowing his baseline/and chronic conditions. 06/03: improved mood, less anxiety; concurrent with improvement in AH content; concurrent with start of klonopin 0.5 BID. awaiting clozapine level. continue current mgmt. Reason for continued inpatient stay Substantial Risk for: harm to others, inability to function and rapid decompensation Time Spent With Patient Time: Total time managing care of this patient today __25__ minutes.
[2025-06-03 14:53] VITALS: BMI 24.0
[2025-06-03 19:30] VITALS: BP 81/51; PULSE 81; RESP 16; TEMP 37.3; O2SAT 100
[2025-06-03 20:03] LABS: Clozapine (Clozaril) 551 mcg/L
[2025-06-03 21:28] VITALS: BP 97/60; PULSE 86; TEMP 37.1
[2025-06-04 08:00] VITALS: BP 106/67; PULSE 75; RESP 18; TEMP 36.9; O2SAT 100
[2025-06-04 08:13] VITALS: BP 106/67; PULSE 75
[2025-06-04] MEDS: Metoprolol Succinate ER 100 MG TAB.ER.24H PO (08:13)
--- NOTE | 2025-06-04 11:00 | HO.PSYCHPN ---
Subjective Subjective Date of Service: 06/04/25 Reason For Visit: SI with plan to cut wrist Interim History: calm, cooperative. quite sleepy. informed of lab results and plan for [place] saturday. no complaints, requests to stop risperidone. was told to work with his outpt provider on that score. per staff, dep 5 anx 9. blunted. asked staff if we'd contacted [facility], claimed himself to be an illegal alien and suggesting they should come for him and he should be deported. planning to [place] saturday. Mental Status Exam Mental Status Exam Narrative: Patient is alert and oriented; behavior is cooperative, patient is not in distress; dressed in own attire with kempt hair, adequate hygiene; mood is described as lightened and affect congruent; eye contact appropriate; Speech is normal rate, volume and prosody and not pressured; no psychomotor agitation/retardation present; thought process is organized and goal directed; Thought content is on treatment, pertinent to relevant topics and without expressed paranoid delusions; no SI/HI/AVH expressed. Patient's insight and judgment poor. Diagnostics Vital Signs (24Hr): Vital Signs - 24 hr 06/03/25 19:30 06/03/25 21:28 06/04/25 08:00 Temperature 99.2 F 98.8 F 98.5 F Pulse Rate 81 86 75 Respiratory Rate 16 18 Blood Pressure 81/51 L 97/60 106/67 Pulse Oximetry 100 100 Oxygen Delivery Method Room Air Room Air 06/04/25 08:13 Temperature Pulse Rate 75 Respiratory Rate Blood Pressure 106/67 Pulse Oximetry Oxygen Delivery Method BMI result Body Mass Index 24.0 Labs 05/25/25 15:48 05/29/25 08:33 Labs: Laboratory Results - last 48 hr 05/29/25 08:33 Clozapine 551 Norclozapine 285 Medications Medications Current Medications Acetaminophen (Acetaminophen 325 Mg Tablet) 650 mg PO Q6H PRN PRN Reason: Headache/Pain, Scale 1-10 Al Hydroxide/Mg Hydroxide (Magnesium Hydrox/Alum Hydrox 30 Ml Oral.Susp) 30 ml PO Q6H PRN PRN Reason: Heartburn/Nausea Clonazepam (Clonazepam 0.5 Mg Tablet) 0.5 mg PO BID [facility] Last Admin: 06/04/25 08:13 Dose: 0.5 mg Clozapine (Clozapine 100 Mg Tablet) 400 mg PO BEDTIME [facility] Last Admin: 06/03/25 21:32 Dose: 400 mg Clozapine (Clozapine 100 Mg Tablet) 100 mg PO DAILY [facility] Last Admin: 06/04/25 08:13 Dose: 100 mg Docusate Sodium (Docusate Sodium 100 Mg Capsule) 100 mg PO BEDTIME [facility] Last Admin: 06/03/25 21:31 Dose: 100 mg Hydrocortisone (Hydrocortisone 1 % Ointment 28.35 Gm Tube) 1 appl TOPICAL BID [facility]; Protocol Last Admin: 06/04/25 08:16 Dose: Not Given Hydroxyzine HCl (Hydroxyzine Hcl 25 Mg Tablet) 25 mg PO Q6H PRN PRN Reason: mild anxiety Last Admin: 05/30/25 22:17 Dose: 25 mg Lamotrigine (Lamotrigine 100 Mg Tablet) 100 mg PO BID [facility] Last Admin: 06/04/25 08:13 Dose: 100 mg [place] Carbonate ([place] Carbonate Er 450 Mg Tablet.Er) 900 mg PO BEDTIME [facility] Last Admin: 06/03/25 21:31 Dose: 900 mg Magnesium Hydroxide (Milk Of Magnesia 30 Ml Oral.Susp) 30 ml PO DAILY PRN PRN Reason: Constipation Metoprolol Succinate (Metoprolol Succinate Er 100 Mg Tab.Er.24h) 100 mg PO DAILY [facility]; Protocol Last Admin: 06/04/25 08:13 Dose: 100 mg Nicotine (Nicotine 21 Mg Patch.Td24) 21 mg TRANSDERMA DAILY PRN PRN Reason: nicotine craving Nicotine Polacrilex (Nicotine Polacrilex 2 Mg Gum) 2 mg BUCCAL Q2H PRN PRN Reason: Nicotine Cravings Olanzapine (Olanzapine 5 Mg Tablet) 5 mg PO BID PRN PRN Reason: agitation Risperidone (Risperidone 2 Mg Tablet) 2 mg PO DAILY [facility] Last Admin: 06/04/25 08:13 Dose: 2 mg Risperidone (Risperidone 2 Mg Tablet) 4 mg PO BEDTIME [facility] Last Admin: 06/03/25 21:31 Dose: 4 mg Senna (Sennosides 8.6 Mg Tablet) 8.6 mg PO BEDTIME [facility] Last Admin: 06/03/25 21:36 Dose: Not Given Sertraline HCl (Sertraline Hcl 50 Mg Tablet) 50 mg PO DAILY [facility] Last Admin: 06/04/25 08:13 Dose: 50 mg Trazodone HCl (Trazodone Hcl 50 Mg Tablet) 50 mg PO BEDTIME MRX1 PRN PRN Reason: Insomnia Last Admin: 05/30/25 22:17 Dose: 50 mg Allergies Allergies Allergy/AdvReac Type Severity Reaction Status Date / Time latex Allergy Unknown swelling Verified 05/25/25 15:07 in lips penicillin V Allergy Unknown unknown Verified 05/25/25 15:07 Assessment & Plan Assessment & Plan (1) Schizoaffective disorder, depressive type: Status: Acute Code(s): F25.1 - Schizoaffective disorder, depressive type (2) Essential hypertension: Status: Acute Code(s): I10 - Essential (primary) hypertension (3) Hypertriglyceridemia: Status: Acute Code(s): E78.1 - Pure hyperglyceridemia Plan Formulation/clinical reasoning: Increase in stress, depression, increase in suicidal thoughts-which is new presentation/behavior, increase in command hallucination telling him to kill himself, increasing stress due to housing issues which need to confirm with the [place] [facility]. Given history of schizoaffective, with many history of inpatient admissions included [facility] hospitalization. Given the above information, patient would be benefit in restrictive environment, not be safe at a [place] [facility] for medication management/adjustment, therapeutic environment for coping skills, refer patient back to [place] [facility] with outpatient services. Hospital course: 05/26/25: Continue with home medications included Clozaril total of 500 mg in divided dose. Nursing staff confirmed with the [place] [facility], patient has been compliant with medications. He currently feeling overwhelmed, anxious. Would not be appropriate to address any medication change today. We will revisit tomorrow. 05/27/25: Patient reports slept well, appetite good. He said he feel better today as he was able to contact his sister. She is doing okay. Denies suicidal thoughts but reports he still have suicidal thought as up to last night. Denies hearing voices but also reports Latuda was last time he seeing voices. Reports severe and 99/10 and depression 8/10. Encourage him to be out and attended groups for coping skills. He said he will try later on. He does not want to have medication changes, and he believes his current medication working. He isolated in room this morning, pleasant upon approach. Appeared to be anxious, depressed, isolated himself. No chagnes today. Continue iwth current tx plan. Continue to monitor rash on front chest if it is side effects from Lamictal. 05/28/25: Patient slept for 8 hours, was medication compliant, no side effects. However he reports feeling dizzy and weak. He thinks he he has blood sugar issues-diabetes. Inform patient that blood pressure runs low, encouraged to ambulates, increase p.o. fluid intake. He requests to having some labs work done which was ordered. Also he preferred to get blood sugar checked twice a day for a couple of days. His plan of the day is I may go to groups today patient encourage to do so which he observed attended OT groups eating snack. He asked when he will be discharged. Informed him that potential next week. Reports anxiety and depression in moderate to severe. Denies hearing bad voices, only hear good voices to talk to you, and they advised me what to do in a good way . Denies suicidal thoughts. Less paranoid, anxious, depressed, but pleasant and cooperative. Small area of rash on front chest which he reports has been there for couple of weeks. Denies any rashes from other parts of the body. Advised patient to apply hydrocortisone. Lab works included Clozaril level ordered for 05/29/25: The follow-up over the weekends. Part of care b.i.d. for couple of days per patient request. Can discontinue on Saturday if not necessary. 05/29:Keeping to self. Patient reports feeling anxious and depressed d/t upcoming court date. Patient stated, I'm depressed about my situation and that my sister had a stroke 2 months ago . Pt reports auditory hallucinations that are being positive. denies SI/HI/VH. Continue current tx plan. 05/30: Keeping to self. in room most of day. Patient believes his depression is improving but his anxiety is high.He reports sleeping well. Patient reports he will try to attend groups today. Auditory hallucinations continue to be positive. denies SI/HI/VH. Continue current tx plan. 05/31: continue current tx plan 06/01: clozaril level pending. schedule klonopin 0.5 BID for anxiety. otherwise continue current mgmt for now. Tx refractory psychosis, appears usual presentation. 06/02/25: Slept for 8 hours, was medication compliant, denies side effects. Continued to encourage fluid intake, active in groups. Reports voices at baseline, no negative voices. No suicidal thoughts. Depression is low but anxiety still on the high end -06/09. Reported that he has been taking a lot of medications, therefore he could not tell the Klonopin is working or not. However patient reports to nursing that it has been helpful with Klonopin started a day or 2 before. Patient also reports that attended groups therapeutic which help him distract himself from hearing voices. He is aware of Clozaril level is pending. He agrees with plan of discharge this Saturday or early next week if Clozaril level is within normal limits, no more medication change needed. Observed visible, attended groups, making phone calls, appeared to be depressed, knowing his baseline/and chronic conditions. 06/03: improved mood, less anxiety; concurrent with improvement in AH content; concurrent with start of klonopin 0.5 BID. awaiting clozapine level. continue current mgmt. 06/04: clozapine and norclozapine levels WNL. discharge saturday. remains with paranoid delusions, but at baseline. Reason for continued inpatient stay Substantial Risk for: inability to function and rapid decompensation Time Spent With Patient Time: Total time managing care of this patient today __25__ minutes.
[2025-06-04 20:40] VITALS: BP 85/57; PULSE 71; RESP 16; TEMP 36.3; O2SAT 100
--- NOTE | 2025-06-05 07:49 | HO.PSYCHPN ---
Subjective Subjective Date of Service: 06/05/25 Reason For Visit: SI with plan to cut wrist Subjective Notes: Conditional Voluntary Interim History: no management issues. Med adherent. Ongoing chronic baseline hallucinations that he reports are positive in nature. Reports mood is okay. Looking forward to discharge after the weekend. Was asking around Risperdal being discontinued as he is on clozapine. Redirected to primary team around further discussion. Otherwise sleeping okay and reports appetite is good. Feeling safe on the unit. Medication Compliance: Yes Side effects from medications: No Attending Groups: Intermittent Review of Systems Acute medical concerns: No Review of Systems Review of Systems Unremarkable Mental Status Exam Mental Status Exam Narrative: Patient is alert and oriented; behavior is cooperative, patient is not in distress; dressed in own attire with kempt hair, adequate hygiene; mood is described as lightened and affect congruent; eye contact appropriate; Speech is normal rate, volume and prosody and not pressured; no psychomotor agitation/retardation present; thought process is organized and goal directed; Thought content is on treatment, pertinent to relevant topics and without expressed paranoid delusions; no SI/HI. Endorses chronic auditory hallucinations that are positive in nature and non command. Patient's insight and judgment Is limited. Diagnostics Vital Signs (24Hr): Vital Signs - 24 hr 06/04/25 08:00 06/04/25 08:13 06/04/25 20:40 Temperature 98.5 F 97.4 F Pulse Rate 75 75 71 Respiratory Rate 18 16 Blood Pressure 106/67 106/67 85/57 L Pulse Oximetry 100 100 Oxygen Delivery Method Room Air Room Air BMI result Body Mass Index 24.0 Labs 05/25/25 15:48 05/29/25 08:33 Labs: Laboratory Results - last 48 hr 05/29/25 08:33 Clozapine 551 Norclozapine 285 Medications Medications Current Medications Acetaminophen (Acetaminophen 325 Mg Tablet) 650 mg PO Q6H PRN PRN Reason: Headache/Pain, Scale 1-10 Al Hydroxide/Mg Hydroxide (Magnesium Hydrox/Alum Hydrox 30 Ml Oral.Susp) 30 ml PO Q6H PRN PRN Reason: Heartburn/Nausea Clonazepam (Clonazepam 0.5 Mg Tablet) 0.5 mg PO BID [facility] Last Admin: 06/04/25 22:01 Dose: 0.5 mg Clozapine (Clozapine 100 Mg Tablet) 400 mg PO BEDTIME [facility] Last Admin: 06/04/25 22:01 Dose: 400 mg Clozapine (Clozapine 100 Mg Tablet) 100 mg PO DAILY [facility] Last Admin: 06/04/25 08:13 Dose: 100 mg Docusate Sodium (Docusate Sodium 100 Mg Capsule) 100 mg PO BEDTIME AL[facility]ON[facility] Last Admin: 06/04/25 22:02 Dose: 100 mg Hydrocortisone (Hydrocortisone 1 % Ointment 28.35 Gm Tube) 1 appl TOPICAL BID [facility]; Protocol Last Admin: 06/04/25 22:04 Dose: Not Given Hydroxyzine HCl (Hydroxyzine Hcl 25 Mg Tablet) 25 mg PO Q6H PRN PRN Reason: mild anxiety Last Admin: 05/30/25 22:17 Dose: 25 mg Lamotrigine (Lamotrigine 100 Mg Tablet) 100 mg PO BID [facility] Last Admin: 06/04/25 22:03 Dose: 100 mg [employer] Carbonate ([employer] Carbonate Er 450 Mg Tablet.Er) 900 mg PO BEDTIME ALFONSO Last Admin: 06/04/25 22:02 Dose: 900 mg Magnesium Hydroxide (Milk Of Magnesia 30 Ml Oral.Susp) 30 ml PO DAILY PRN PRN Reason: Constipation Metoprolol Succinate (Metoprolol Succinate Er 100 Mg Tab.Er.24h) 100 mg PO DAILY [facility]; Protocol Last Admin: 06/04/25 08:13 Dose: 100 mg Nicotine (Nicotine 21 Mg Patch.Td24) 21 mg TRANSDERMA DAILY PRN PRN Reason: nicotine craving Nicotine Polacrilex (Nicotine Polacrilex 2 Mg Gum) 2 mg BUCCAL Q2H PRN PRN Reason: Nicotine Cravings Olanzapine (Olanzapine 5 Mg Tablet) 5 mg PO BID PRN PRN Reason: agitation Risperidone (Risperidone 2 Mg Tablet) 2 mg PO DAILY [facility] Last Admin: 06/04/25 08:13 Dose: 2 mg Risperidone (Risperidone 2 Mg Tablet) 4 mg PO BEDTIME ALFONSO Last Admin: 06/04/25 22:01 Dose: 4 mg Senna (Sennosides 8.6 Mg Tablet) 8.6 mg PO BEDTIME [facility] Last Admin: 06/04/25 22:04 Dose: Not Given Sertraline HCl (Sertraline Hcl 50 Mg Tablet) 50 mg PO DAILY [facility] Last Admin: 06/04/25 08:13 Dose: 50 mg Trazodone HCl (Trazodone Hcl 50 Mg Tablet) 50 mg PO BEDTIME MRX1 PRN PRN Reason: Insomnia Last Admin: 05/30/25 22:17 Dose: 50 mg Allergies Allergies Allergy/AdvReac Type Severity Reaction Status Date / Time latex Allergy Unknown swelling Verified 05/25/25 15:07 in lips penicillin V Allergy Unknown unknown Verified 05/25/25 15:07 Assessment & Plan Assessment & Plan (1) Schizoaffective disorder, depressive type: Status: Acute Code(s): F25.1 - Schizoaffective disorder, depressive type (2) Essential hypertension: Status: Acute Code(s): I10 - Essential (primary) hypertension (3) Hypertriglyceridemia: Status: Acute Code(s): E78.1 - Pure hyperglyceridemia Plan Formulation/clinical reasoning: Increase in stress, depression, increase in suicidal thoughts-which is new presentation/behavior, increase in command hallucination telling him to kill himself, increasing stress due to housing issues which need to confirm with the retirement. Given history of schizoaffective, with many history of inpatient admissions included [facility] hospitalization. Given the above information, patient would be benefit in restrictive environment, not be safe at a retirement for medication management/adjustment, therapeutic environment for coping skills, refer patient back to retirement with outpatient services. Hospital course: 05/26/25: Continue with home medications included Clozaril total of 500 mg in divided dose. Nursing staff confirmed with the retirement, patient has been compliant with medications. He currently feeling overwhelmed, anxious. Would not be appropriate to address any medication change today. We will revisit tomorrow. 05/27/25: Patient reports slept well, appetite good. He said he feel better today as he was able to contact his sister. She is doing okay. Denies suicidal thoughts but reports he still have suicidal thought as up to last night. Denies hearing voices but also reports Latuda was last time he seeing voices. Reports severe and 99/10 and depression 8/10. Encourage him to be out and attended groups for coping skills. He said he will try later on. He does not want to have medication changes, and he believes his current medication working. He isolated in room this morning, pleasant upon approach. Appeared to be anxious, depressed, isolated himself. No chagnes today. Continue iwth current tx plan. Continue to monitor rash on front chest if it is side effects from Lamictal. 05/28/25: Patient slept for 8 hours, was medication compliant, no side effects. However he reports feeling dizzy and weak. He thinks he he has blood sugar issues-diabetes. Inform patient that blood pressure runs low, encouraged to ambulates, increase p.o. fluid intake. He requests to having some labs work done which was ordered. Also he preferred to get blood sugar checked twice a day for a couple of days. His plan of the day is I may go to groups today patient encourage to do so which he observed attended OT groups eating snack. He asked when he will be discharged. Informed him that potential next week. Reports anxiety and depression in moderate to severe. Denies hearing bad voices, only hear good voices to talk to you, and they advised me what to do in a good way . Denies suicidal thoughts. Less paranoid, anxious, depressed, but pleasant and cooperative. Small area of rash on front chest which he reports has been there for couple of weeks. Denies any rashes from other parts of the body. Advised patient to apply hydrocortisone. Lab works included Clozaril level ordered for 05/29/25: The follow-up over the weekends. Part of care b.i.d. for couple of days per patient request. Can discontinue on Saturday if not necessary. 05/29:Keeping to self. Patient reports feeling anxious and depressed d/t upcoming court date. Patient stated, I'm depressed about my situation and that my sister had a stroke 2 months ago . Pt reports auditory hallucinations that are being positive. denies SI/HI/VH. Continue current tx plan. 05/30: Keeping to self. in room most of day. Patient believes his depression is improving but his anxiety is high.He reports sleeping well. Patient reports he will try to attend groups today. Auditory hallucinations continue to be positive. denies SI/HI/VH. Continue current tx plan. 05/31: continue current tx plan 06/01: clozaril level pending. schedule klonopin 0.5 BID for anxiety. otherwise continue current mgmt for now. Tx refractory psychosis, appears usual presentation. 06/02/25: Slept for 8 hours, was medication compliant, denies side effects. Continued to encourage fluid intake, active in groups. Reports voices at baseline, no negative voices. No suicidal thoughts. Depression is low but anxiety still on the high end . Reported that he has been taking a lot of medications, therefore he could not tell the Klonopin is working or not. However patient reports to nursing that it has been helpful with Klonopin started a day or 2 before. Patient also reports that attended groups therapeutic which help him distract himself from hearing voices. He is aware of Clozaril level is pending. He agrees with plan of discharge this Saturday or early next week if Clozaril level is within normal limits, no more medication change needed. Observed visible, attended groups, making phone calls, appeared to be depressed, knowing his baseline/and chronic conditions. 06/03: improved mood, less anxiety; concurrent with improvement in AH content; concurrent with start of klonopin 0.5 BID. awaiting clozapine level. continue current mgmt. 06/04: clozapine and norclozapine levels WNL. discharge saturday. remains with paranoid delusions, but at baseline. 06/05: NO changes to current plan. Was asking around Risperdal being discontinued as he is on clozapine. Redirected to primary team around further discussion. Reason for continued inpatient stay Substantial Risk for: rapid decompensation Time Spent With Patient Time: Total time managing care of this patient today ____ minutes.
[2025-06-05 08:16] VITALS: BP 110/62; PULSE 60; RESP 16; TEMP 36.9; O2SAT 98
[2025-06-05] MEDS: Metoprolol Succinate ER 100 MG TAB.ER.24H PO (08:38)
[2025-06-05 20:00] VITALS: BP 123/60; PULSE 63; RESP 16; TEMP 37.4; O2SAT 97
[2025-06-06 08:01] VITALS: BP 97/65; PULSE 89; RESP 18; TEMP 36.7; O2SAT 98
[2025-06-06] MEDS: Metoprolol Succinate ER 100 MG TAB.ER.24H PO (08:27)
--- NOTE | 2025-06-06 11:40 | P.PNPSI_ITS ---
Subjective Subjective Date of Service: 06/06/25 Reason For Visit: SI with plan to cut wrist Interim History: no management issues. Med adherent. Ongoing chronic baseline hallucinations that he reports are positive in nature. Mood okay. Sleeping okay and reports appetite is good. Feeling safe on the unit. Looking forward to discharge after the weekend. Medication Compliance: Yes Side effects from medications: No Attending Groups: No Review of Systems Acute medical concerns: No Review of Systems Review of Systems Unremarkable Mental Status Exam Mental Status Exam Narrative: Patient is alert and oriented; behavior is cooperative, patient is not in distress; dressed in own attire with kempt hair, adequate hygiene; mood is described as lightened and affect congruent; eye contact appropriate; Speech is normal rate, volume and prosody and not pressured; no psychomotor agitation/retardation present; thought process is organized and goal directed; Thought content is on treatment, pertinent to relevant topics and without expressed paranoid delusions; no SI/HI. Endorses chronic auditory hallucinations that are positive in nature and non command. Patient's insight and judgment Is limited. Diagnostics Vital Signs (24Hr): Vital Signs - 24 hr 06/05/25 20:00 06/06/25 08:01 Temperature 99.3 F 98.1 F Pulse Rate 63 89 Respiratory Rate 16 18 Blood Pressure 123/60 97/65 Pulse Oximetry 97 98 Oxygen Delivery Method Room Air Room Air BMI result Body Mass Index 24.0 Labs 05/25/25 15:48 05/29/25 08:33 Medications Medications Current Medications Acetaminophen (Acetaminophen 325 Mg Tablet) 650 mg PO Q6H PRN PRN Reason: Headache/Pain, Scale 1-10 Al Hydroxide/Mg Hydroxide (Magnesium Hydrox/Alum Hydrox 30 Ml Oral.Susp) 30 ml PO Q6H PRN PRN Reason: Heartburn/Nausea Clonazepam (Clonazepam 0.5 Mg Tablet) 0.5 mg PO BID [facility] Last Admin: 06/06/25 08:27 Dose: 0.5 mg Clozapine (Clozapine 100 Mg Tablet) 400 mg PO BEDTIME [facility] Last Admin: 06/05/25 22:02 Dose: 400 mg Clozapine (Clozapine 100 Mg Tablet) 100 mg PO DAILY [facility] Last Admin: 06/06/25 08:27 Dose: 100 mg Docusate Sodium (Docusate Sodium 100 Mg Capsule) 100 mg PO BEDTIME [facility] Last Admin: 06/05/25 22:02 Dose: 100 mg Hydrocortisone (Hydrocortisone 1 % Ointment 28.35 Gm Tube) 1 appl TOPICAL BID [facility]; Protocol Last Admin: 06/06/25 08:27 Dose: Not Given Hydroxyzine HCl (Hydroxyzine Hcl 25 Mg Tablet) 25 mg PO Q6H PRN PRN Reason: mild anxiety Last Admin: 05/30/25 22:17 Dose: 25 mg Lamotrigine (Lamotrigine 100 Mg Tablet) 100 mg PO BID [facility] Last Admin: 06/06/25 08:27 Dose: 100 mg [place] Carbonate ([place] Carbonate Er 450 Mg Tablet.Er) 900 mg PO BEDTIME [facility] Last Admin: 06/05/25 22:01 Dose: 900 mg Magnesium Hydroxide (Milk Of Magnesia 30 Ml Oral.Susp) 30 ml PO DAILY PRN PRN Reason: Constipation Metoprolol Succinate (Metoprolol Succinate Er 100 Mg Tab.Er.24h) 100 mg PO DAILY [facility]; Protocol Last Admin: 06/06/25 08:27 Dose: 100 mg Nicotine (Nicotine 21 Mg Patch.Td24) 21 mg TRANSDERMA DAILY PRN PRN Reason: nicotine craving Nicotine Polacrilex (Nicotine Polacrilex 2 Mg Gum) 2 mg BUCCAL Q2H PRN PRN Reason: Nicotine Cravings Olanzapine (Olanzapine 5 Mg Tablet) 5 mg PO BID PRN PRN Reason: agitation Risperidone (Risperidone 2 Mg Tablet) 2 mg PO DAILY [facility] Last Admin: 06/06/25 08:27 Dose: 2 mg Risperidone (Risperidone 2 Mg Tablet) 4 mg PO BEDTIME [facility]ON[facility] Last Admin: 06/05/25 22:03 Dose: 4 mg Senna (Sennosides 8.6 Mg Tablet) 8.6 mg PO BEDTIME [facility] Last Admin: 06/05/25 22:05 Dose: Not Given Sertraline HCl (Sertraline Hcl 50 Mg Tablet) 50 mg PO DAILY [facility] Last Admin: 06/06/25 08:27 Dose: 50 mg Trazodone HCl (Trazodone Hcl 50 Mg Tablet) 50 mg PO BEDTIME MRX1 PRN PRN Reason: Insomnia Last Admin: 05/30/25 22:17 Dose: 50 mg Allergies Allergies Allergy/AdvReac Type Severity Reaction Status Date / Time latex Allergy Unknown swelling Verified 05/25/25 15:07 in lips penicillin V Allergy Unknown unknown Verified 05/25/25 15:07 Assessment & Plan Assessment & Plan (1) Schizoaffective disorder, depressive type: Status: Acute Code(s): F25.1 - Schizoaffective disorder, depressive type (2) Essential hypertension: Status: Acute Code(s): I10 - Essential (primary) hypertension (3) Hypertriglyceridemia: Status: Acute Code(s): E78.1 - Pure hyperglyceridemia Plan Formulation/clinical reasoning: Increase in stress, depression, increase in suicidal thoughts-which is new presentation/behavior, increase in command hallucination telling him to kill himself, increasing stress due to housing issues which need to confirm with the jail. Given history of schizoaffective, with many history of inpatient admissions included [facility] hospitalization. Given the above information, patient would be benefit in restrictive environment, not be safe at a jail for medication management/adjustment, therapeutic environment for coping skills, refer patient back to jail with outpatient services. Hospital course: 05/26/25: Continue with home medications included Clozaril total of 500 mg in divided dose. Nursing staff confirmed with the jail, patient has been compliant with medications. He currently feeling overwhelmed, anxious. Would not be appropriate to address any medication change today. We will revisit tomorrow. 05/27/25: Patient reports slept well, appetite good. He said he feel better today as he was able to contact his sister. She is doing okay. Denies suicidal thoughts but reports he still have suicidal thought as up to last night. Denies hearing voices but also reports Latuda was last time he seeing voices. Reports severe and 99/10 and depression 8/10. Encourage him to be out and attended groups for coping skills. He said he will try later on. He does not want to have medication changes, and he believes his current medication working. He isolated in room this morning, pleasant upon approach. Appeared to be anxious, depressed, isolated himself. No chagnes today. Continue iwth current tx plan. Continue to monitor rash on front chest if it is side effects from Lamictal. 05/28/25: Patient slept for 8 hours, was medication compliant, no side effects. However he reports feeling dizzy and weak. He thinks he he has blood sugar issues-diabetes. Inform patient that blood pressure runs low, encouraged to ambulates, increase p.o. fluid intake. He requests to having some labs work done which was ordered. Also he preferred to get blood sugar checked twice a day for a couple of days. His plan of the day is I may go to groups today patient encourage to do so which he observed attended OT groups eating snack. He asked when he will be discharged. Informed him that potential next week. Reports anxiety and depression in moderate to severe. Denies hearing bad voices, only hear good voices to talk to you, and they advised me what to do in a good way . Denies suicidal thoughts. Less paranoid, anxious, depressed, but pleasant and cooperative. Small area of rash on front chest which he reports has been there for couple of weeks. Denies any rashes from other parts of the body. Advised patient to apply hydrocortisone. Lab works included Clozaril level ordered for 05/29/25: The follow-up over the weekends. Part of care b.i.d. for couple of days per patient request. Can discontinue on Saturday if not necessary. 05/29:Keeping to self. Patient reports feeling anxious and depressed d/t upcoming court date. Patient stated, I'm depressed about my situation and that my sister had a stroke 2 months ago . Pt reports auditory hallucinations that are being positive. denies SI/HI/VH. Continue current tx plan. 05/30: Keeping to self. in room most of day. Patient believes his depression is improving but his anxiety is high.He reports sleeping well. Patient reports he will try to attend groups today. Auditory hallucinations continue to be positive. denies SI/HI/VH. Continue current tx plan. 05/31: continue current tx plan 06/01: clozaril level pending. schedule klonopin 0.5 BID for anxiety. otherwise continue current mgmt for now. Tx refractory psychosis, appears usual presentation. 06/02/25: Slept for 8 hours, was medication compliant, denies side effects. Continued to encourage fluid intake, active in groups. Reports voices at baseline, no negative voices. No suicidal thoughts. Depression is low but anxiety still on the high end . Reported that he has been taking a lot of medications, therefore he could not tell the Klonopin is working or not. However patient reports to nursing that it has been helpful with Klonopin started a day or 2 before. Patient also reports that attended groups therapeutic which help him distract himself from hearing voices. He is aware of Clozaril level is pending. He agrees with plan of discharge this Saturday or early next week if Clozaril level is within normal limits, no more medication change needed. Observed visible, attended groups, making phone calls, appeared to be depressed, knowing his baseline/and chronic conditions. 06/03: improved mood, less anxiety; concurrent with improvement in AH content; concurrent with start of klonopin 0.5 BID. awaiting clozapine level. continue current mgmt. 06/04: clozapine and norclozapine levels WNL. discharge saturday. remains with paranoid delusions, but at baseline. 06/05: NO changes to current plan. Was asking around Risperdal being discontinued as he is on clozapine. Redirected to primary team around further discussion. 06/06: no changes Reason for continued inpatient stay Substantial Risk for: rapid decompensation Time Spent With Patient Time: Total time managing care of this patient today ____ minutes.
[2025-06-06 20:05] VITALS: BP 115/74; PULSE 83; RESP 16; TEMP 36.8; O2SAT 98
[2025-06-07 07:53] VITALS: BP 109/67; PULSE 83; RESP 16; TEMP 36.9; O2SAT 96
[2025-06-07] MEDS: Metoprolol Succinate ER 100 MG TAB.ER.24H PO (08:16)
[2025-06-07 10:16] LABS: Lithium 1.30 mmol/L (0.60-1.20)
[2025-06-07 10:23] LABS: Anion Gap 12 (12-20); Blood Urea Nitrogen 10 mg/dL (9-16); Calcium 9.3 mg/dL (8.4-10.2); Carbon Dioxide 24 mmol/L (22-29); Chloride 110 mmol/L (96-108); Creatinine Clr Calc Pharmacy 95.8; Estimated Glomerular Filt Rate > 60; Potassium 3.8 mmol/L (3.3-5.1); Sodium 142 mmol/L (135-145)
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
== END 2025-06-07 11:03 | disposition home or self-care (01) | DRG 885 ==
LOC: HO.ED 17:33 → HO.PADLT16 05-26 12:04
PROVIDERS: Physician Assistant Medical; Admitting Provider Nurse Practitioner Psychiatric/Mental Health; Emergency Provider Emergency Medicine Emergency Medical Services; Visit Provider Psychiatry & Neurology Psychiatry
DX: F25.1 Schizoaffective disorder, depressive type (principal); R45.851 Suicidal ideations; I10 Essential (primary) hypertension; E78.1 Pure hyperglyceridemia; Z20.822 Contact with and (suspected) exposure to COVID-19; Z79.899 Other long term (current) drug therapy
CPT/HCPCS: 36415; 80048; 80053; 80143; 80159; 80178; 80179; 80307; 81003; 82607; 82746; 82947; 83036; 84439; 84443; 85025; 85048; 87635; 93005; 99285

== ENCOUNTER → 2025-05-25 15:04 | Outpatient (BNV) | payer MEDICARE, MEDICAID, SELFPAY | PROVIDERS: Admitting Provider Nurse Practitioner Psychiatric/Mental Health; Emergency Provider Emergency Medicine Emergency Medical Services; Visit Provider Internal Medicine | DX: I49.3 Ventricular premature depolarization (principal) | CPT/HCPCS: 93010 ==

== ENCOUNTER → 2025-05-26 10:06 | Outpatient (BNV) | payer MEDICARE, MEDICAID, SELFPAY | PROVIDERS: Admitting Provider Nurse Practitioner Psychiatric/Mental Health; Emergency Provider Emergency Medicine Emergency Medical Services; Visit Provider Nurse Practitioner Psychiatric/Mental Health | DX: F25.1 Schizoaffective disorder, depressive type (principal); I10 Essential (primary) hypertension; E78.1 Pure hyperglyceridemia | CPT/HCPCS: 90792 ==

== ENCOUNTER 2025-08-24 15:55 | Outpatient (REF) | payer MEDICARE, SELFPAY ==
--- OUTSIDE RECORDS SUMMARY | 2025-08-24 14:15 | XMS_ITS | Encounter Summary ---
Author Organization [employer] Address [address] [facility] 7[address] [place] [address] Care Team Providers Care Application Development Liaison Name Role Phone Delgado Ross MD Primary Care Prov ider Encounter Details Date Type Department Care Team (Latest Contact Info) Description 08/24/2025 2:15 PM EST Office Visit [facility] MED & PEDS [address], [place] [phone] Ja Pompa MD [address] [place], [place] [phone] Other schizophrenia (HCC) (Primary Dx); Primary hypertension; Drug-induced constipation Social History Tobacco Use Types Packs/Day Years [...] AM EDT documented as of this encounter Last Filed Vital Signs Vital Sign Reading Time Taken Comments Blood Pressure 144/92 08/24/2025 2:29 PM EST Pulse 99 08/24/2025 2:29 PM EST Temperature - - Respiratory Rate 20 08/24/2025 2:29 PM EST Oxygen Saturation 99% 08/24/2025 2:29 PM EST Inhaled Oxygen Concentration - - Weight 77.6 kg (171 lb) 08/24/2025 2:29 PM EST Height - - Body Mass Index - - documented in this encounter Progress Notes * Ja Pompa MD - 08/24/2025 2:15 PM EST SUBJECTIVE Kishan Macias is a 50 y.o. male who presents for No chief complaint on file.. Note from our clinical pharmacist reviewed: [facility] [place]07[place]07/12/25) Patient with PMH of schizoaffective disorder, bipolar type presented from [facility] due to frequent falls. Patient found to have ROXANE and lithium toxicity. ROXANE likely in the setting of poor oral intake leading to lithium buildup. Received continuous IV hydration until normalization of ROXANE and lithium levels. [place] restarted and levels therapeutic at discharge. PT recommended rehab however patient preferred to return to [facility]. ?? No Medication Changes [facility] (07/14/2025-07/28/2025) Patient presented to [facility] [place] [facility] with vague SI and auditory hallucinations, found to have lithium toxicity, ROXANE and orthostatic hypotension. Dizziness/Orthostatic hypotension treated with IV fluids, midodrine dose optimized to 10 mg po TID, and discontinuation of metoprolol. Patient startedon fludrocortisone due to possible lithium induced distal collecting tubule injury. Clozapine dose split up into 3 doses a day. ROXANE resolved after holding lithium and IV fluids. [place] restarted in regular release formulation at 300 mg po TID. Severe malnutrition addressed with prescription for oral nutritional supplement. Supine hypertension addressed with recommendation for sleeping in proppedup position. Patient discharged to short term rehabilitation. History obtained from Mr Kishan Macias, - History of depression, on psychotropic medications for approximately 25 years - Hospitalized last year in September 2023 for medication-related issues - Reports high blood pressure - Reports constipation and intermittent diarrhea over the past few days - Denies depression and insomnia Problem List[1] Allergies[2] Medications Ordered Prior to Encounter[3] Review of Systems Constitutional: Negative for appetite change, chills, diaphoresis and fatigue. Respiratory: Negative for cough, choking and shortness of breath. Cardiovascular: Negative for leg swelling. Gastrointestinal: Negative for anal bleeding, blood in stool and constipation. Musculoskeletal: Negative for gait problem, joint swelling and myalgias. Skin: Negative for rash. OBJECTIVE Vitals: 08/24/25 1429 BP: (!) 144/92 BP Location: Left arm Patient Position: Sitting BP Cuff Size: Adult long Pulse: 99 Resp: 20 SpO2: 99% Weight: 171 lb (77.6 kg) Physical Exam Constitutional: General: He is not in acute distress. Appearance: Normal appearance. He is not ill-appearing, toxic-appearing or diaphoretic. Cardiovascular: Rate and Rhythm: Normal rate. Pulmonary: Effort: Pulmonary effort is normal. Abdominal: General: There is no distension. Palpations: Abdomen is soft. There is no mass. Neurological: General: No focal deficit present. Mental Status: He is alert. Psychiatric: Mood and Affect: Mood normal. Assessment/Plan Assessment/Plan Diagnoses and all orders for this visit: Other schizophrenia (HCC) - Niantic; Future - ECG 12 lead Primary hypertension - ECG 12 lead Drug-induced constipation - senna (Senokot) 8.6 MG tablet; Take 2 tablets (17.2 mg) by mouth at bedtime. May take 1 tablet daily as needed. Other schizophrenia (HCC): - Schizophrenia managed with lithium, risperidone, sertraline, and trazodone. No current psychiatric symptoms reported. No changes to psychiatric medications at this time. - Continue current psychiatric medications. Monitor for side effects, including QT prolongation. Next appointment with psychiatrist scheduled for next month. Ordered lithium level for monitoring. Advised to wait for psychiatrist before making any changes to lithium. - Risks and side effects: Discussed risk of QT prolongation with current psychotropic medications. Primary hypertension: - Hypertension with recent episodes of hypotension and medication adjustments. Blood pressure to beclosely monitored. - Discontinued midodrine. Instructed to monitor blood pressure at home and keep a diary. Advised toreport if blood pressure consistently above 140 mmHg. Will consider reintroducing medication if blood pressure does not rise. Provided blood pressure parameters and instructions for follow-up communication in 2 weeks. EKG performed and found to be normal. - Risks and side effects: Discussed risks of hypotension and hypoperfusion, including inadequate perfusion to heart, brain, and kidneys. Drug-induced constipation: - Constipation attributed to medication use. - Prescribed Colace and Senna for constipation management. This note was drafted using Ambient (AI) technology. The patient/patient's guardian has been informed and has consented to the use of this technology: Yes [1] Patient Active Problem List Diagnosis Encounter for medical examination to establish care Other schizophrenia (HCC) Primary hypertension [2] Allergies Allergen Reactions Latex Penicillin G [3] Current Outpatient Medications on File Prior to Visit Medication Sig Dispense Refill acetaminophen (Tylenol) 325 MG tablet Take 325 mg by mouth every 6 (six) hours if needed for mild pain. cholecalciferol VITAMIN D (Vitamin D-3) 50 MCG (2000 UT) capsule Take 1 capsule by mouth Once per day. clonazePAM (KlonoPIN) 0.5 MG tablet Take 1 tablet by mouth if needed in the morning and at bedtime for anxiety. cloZAPine (Clozaril) 100 MG tablet Take 100 mg by mouth in the morning and 100 mg at noon. And [id number] mg at bedtime. fludrocortisone (Florinef) 0.1 MG tablet Take 0.1 mg by mouth Once per day. lamoTRIgine (LaMICtal) 100 MG tablet Take 100 mg by mouth 2 times daily. lithium 300 MG capsule Take 300 mg by mouth with breakfast, with lunch, and with evening meal. midodrine (Proamatine) 5 MG tablet Take 10 mg by mouth 3 times daily. Multiple Vitamin (Daily-Sade) tablet Take 1 tablet by mouth Once per day. risperiDONE (RisperDAL) 2 MG tablet Take 2 mg by mouth in the morning. risperiDONE (RisperDAL) 4 MG tablet Take 4 mg by mouth in the evening. senna (Senokot) 8.6 MG tablet Take 2 tablets by mouth at bedtime. May take 1 tablet daily as needed. sertraline (Zoloft) 50 MG tablet Take 1 tablet by mouth Once per day. thiamine (Vitamin B-1) 100 MG tablet Take 100 mg by mouth Once per day. traZODone (Desyrel) 50 MG tablet Take 1 tablet by mouth at bedtime. No current facility-administered medications on file prior to visit. documented in this encounter Plan of Treatment Upcoming Encounters Date Type Department Care Team ([facility] st Contact Info) Description 09/09/2025 1:00 PM EST Telemedicine [facility] PEDS [address] [place] [address] Delgado Ross MD [address], [place] [phone] documented as of this encounter Procedures Procedure Name Priority Date/Time Associated Diagnosis Comments LITHIUM Routine 08/24/2025 3:57 PM EST Other schizophrenia (HCC) ECG 12-LEAD Routine 08/24/2025 3:31 PM EST Other schizophrenia (HCC) Primary hypertension documented in this encounter Results * [place] (08/24/2025 3:57 PM EST) [place] 1.00 0.60 - 1.20 mmol/L [facility] Blood Venous blood specimen / Unknown 08/24/2025 3:57 PM EST 08/24/2025 6:14 PM EST us Ja Pompa MD LAB BLOOD ORDERABLES Final Result [facility] [address] [place] [address] [phone] * ECG 12 lead (08/24/2025 3:31 PM EST) Ja Tirado MD - 08/24/2025 3:31 PM EST - EKG on August 24, 2025: normal sinus rhythm; QTc interval within normal limits - Prior EKG: QTc interval [address] elevation or depression, no sign of hypertrophy us Ja Pompa MD ECG ORDERABLES Final Resul t documented in this encounter Visit Diagnoses Diagnosis Other schizophrenia (HCC)- Primary Primary hypertension Unspecified essential hypertension Drug-induced constipation Other constipation documented in this encounter Additional Health Concerns Assessment Noted Time PHQ-9 Depression Total Score: 0 12/12/19 9:14 AM EDT documented as of this encounter Care Teams Application Development Liaison Relationship Specialty Start Date End Date Delgado Ross MD [address] [place] [phone] PCP - General Internal Medicine 12/11/24 documented as of this encounter
[2025-08-24 18:57] LABS: Lithium 1.00 mmol/L (0.60-1.20)
--- OUTSIDE RECORDS SUMMARY | 2025-08-24 19:22 | XMS_ITS | Clinical Summary ---
Author Organization [facility] Address [address] [facility] [place] [phone] Phone Care Team Providers Care Curbing Stonecutter Name Role Phone Diana Beavers MD Primary Care Provider [phone] Encounters Date Type Department Care Team Description 08/02/2025 Lab Requisition [facility] Lab Main [address] [place] [address] Diana Beavers MD Acute kidney failure, unspecified; Unspecified severe protein-calorie malnutrition; Auditory hallucinations 07/29/2025 10:56 AM EDT - 07/29/2025 11:59 PM EDT Hospital Encounter [facility] Laboratory [address] [place] [address] Diana Beavers MD Discharge Disposition: Home or Self Care 07/29/2025 Transcribe Orders [facility] Specimen Processing [address] [place] [address] Diana Beavers MD New patient screening performed (Primary Dx) from Last 3 Months Social History Tobacco Use Types Packs/Day Years Used Date Smoking Tobacco: Never Assessed Education Answer Date Recorded Are you interested in more education? Not on juanito e 07/29/2025 Are you concerned about learning? Not on file 07/29/2025 No 07/29/2025 No 07/29/2025 Digital Access Answer Date Recorded No 07/29/2025 No 07/29/2025 Reliable internet access at home? Not on file 07/29/2025 Device with a working camera? Not on file Sex and Gender Information Value Date Recorded Sex Assigned at Not on file Legal Sex Male 10:19 AM EDT Gender Identity Not on file Sexual Orientation Not on file Plan of Treatment Not on file Medical Devices Not on file Procedures Procedure Name Priority Date/Time Associated Diagnosis Comments LITHIUM LEVEL Today 08/02/2025 12:19 PM EST Acute kidney failure, unspecified Unspecified severe protein-calorie malnutrition Auditory hallucinations CBC Today 08/02/2025 12:19 PM EST Acute kidney failure, unspecified Unspecified severe protein-calorie malnutrition Auditory hallucinations COMPREHENSIVE METABOLIC PANEL (CMP) Today 08/02/2025 12:19 PM EST Acute kidney failure, unspecified Unspecified severe protein-calorie malnutrition Auditory hallucinations COMPREHENSIVE METABOLIC PANEL (CMP) Routine 07/29/2025 6:46 AM EDT New patient screening performed CBC Routine 07/29/2025 6:46 AM EDT New patient screening performed from Last 3 Months Results * (ABNORMAL) Comprehensive Metabolic Panel (CMP) (08/02/2025 12:19 PM EST) Only the most recent of2 resultswithin the time period is included. Sodium 142 136 - 145 mmol/L 08/02/2025 4:17 PM [facility] Potassium 4.7 3.4 - 5.1 mmol/L 08/02/2025 4:17 PM [facility] Chloride 107 98 - 107 mmol/L 08/02/2025 4:17 PM [facility] CO2 25 20 - 31 mmol/L 08/02/2025 4:17 PM [facility] Anion Gap 10 3 - 17 mmol/L 08/02/2025 4:17 PM [facility] BUN 12 6 - 23 mg/dL 08/02/2025 4:17 PM [facility] Creatinine 0.90 0.60 - 1.30 mg/dL 08/02/2025 4:17 PM [facility] eGFR 103 >59 mL/min/1.7 3m2 08/02/2025 4:17 PM [facility] Comment:Estimated glomerular filtration rate calculated using the CKD-EPI refit equation. Glucose 112(H) 70 - 99 mg/dL 08/02/2025 4:17 PM [facility] Calcium 9.9 8.5 - 10.5 mg/dL 08/02/2025 4:17 PM [facility] AST 16 <40 U/L 08/02/2025 4:17 PM [facility] ALT 15 <50 U/L 08/02/2025 4:17 PM [facility] Alkaline Phosphatase 84 40 - 130 U/L 08/02/2025 4:17 PM [facility] Bilirubin, Total 0.3 0.0 - 1.2 mg/dL 08/02/2025 4:17 PM [facility] Total Protein 7.2 6.4 - 8.3 g/dL 08/02/2025 4:17 PM [facility] Albumin 4.7 3.5 - 5.2 g/dL 08/02/2025 4:17 PM [facility] Globulin 2.5 1.9 - 4.1 g/dL 08/02/2025 4:17 PM [facility] Blood (Blood) 08/02/2025 12: 19 PM EST 08/02/2025 1:09 PM EST us Diana Beavers MD LAB BLOOD BKR ORDERABLES Final Result Performing Organization Address City/State/[facility] Co de Phone Number [address] [phone] * (ABNORMAL) CBC (08/02/2025 12:19 PM EST) Only the most recent of2 resultswithin the time period is included. WBC 9.22 4.00 - 11.00 K/uL 08/02/2025 3:27 PM [facility] RBC 4.94 4.50 - 5.90 M/uL 08/02/2025 3:27 PM [facility] Hemoglobin 13.8 13.5 - 17.5 g/dL 08/02/2025 3:27 PM [facility] Hematocrit 44.4 41.0 - 53.0 % 08/02/2025 3:27 PM [facility] MCV 89.9 80.0 - 100.0 fL 08/02/2025 3:27 PM [facility] MCH 27.9 27.0 - 31.0 pg 08/02/2025 3:27 PM [facility] MCHC 31.1(L) 32.0 - 36.0 g/dL 08/02/2025 3:27 PM [facility] PLT 276 150 - 450 K/uL 08/02/2025 3:27 PM [facility] MPV 10.1 8.4 - 12.0 fL 08/02/2025 3:27 PM [facility] RDW-CV 14.4 11.5 - 14.5 % 08/02/2025 3:27 PM [facility] Absolute NRBC 0.00 <=0.00 K cells/uL 08/02/2025 3:27 PM [facility] NRBC 0.0 <=0.0 /100 WBCs 08/02/2025 3:27 PM [facility] Blood (Blood) 08/02/2025 12: 19 PM EST 08/02/2025 1:09 PM EST Diana Beavers MD LAB BLOOD BKR ORDERABLES Final Result Performing Organization Address [facility]/ZIP Co de Phone Number [address] [phone] * LITHIUM LEVEL (08/02/2025 12:19 PM EST) [place] 0.73 0.50 - 1.20 mmol/L 08/02/2025 5:25 PM [facility] Blood (Blood) 08/02/2025 12: 19 PM EST 08/02/2025 1:09 PM EST us Diana Beavers MD LAB BLOOD BKR ORDERABLES Final Result Performing Organization Address City/[facility]/ZIP Co de Phone Number [address] [phone] from Last 3 Months Insurance MEDICARE PART A & B [facility] PARTIAL MEDICARE PART A & B [employer] PARTIAL MEDICARE PART A & B [employer] [facility] SAFETY NET PARTIAL MEDICARE PART A & B [facility] PARTIAL MEDICARE PART A & B [employer] LIMITED PARTIAL MEDICARE PART A [place] [id number] [employer] [facility] NET PARTIAL Care Teams Curbing Stonecutter Relationship Specialty Start Date End Date Diana Beavers MD [address] [place] [phone] [email or web address] PCP - General Internal Medicine 07/29/25 Additional Source Comments The information contained in this document represents components of the legal health record. It is not the complete legal health record.[facility]
--- OUTSIDE RECORDS SUMMARY | 2025-08-24 19:22 | XMS_ITS | Clinical Summary ---
Author Organization [employer] Address [address] [facility] [address] [place] [address] Care Team Providers Care Supervisor Beam Department Name Role Phone Delgado Ross MD Primary Care Prov ider Allergies Active Allergy Reactions Criticality Noted Date Comments Latex 12/11/2024 Penicillin G 12/11/2024 Medications lamoTRIgine (LaMICtal) 100 MG tablet Take 100 mg by mouth 2 times daily. 11/12/19 25 Active risperiDONE (RisperDAL) 2 MG tablet Take 2 mg by mouth in the morning. 12/02/19 25 Active risperiDONE (RisperDAL) 4 MG tablet Take 4 mg by mouth in the evening. 12/02/19 25 Active traZODone (Desyrel) 50 MG tablet Take 1 tablet by mouth at bedtime. 06/28/20 25 Active sertraline (Zoloft) 50 MG tablet Take 1 tablet by mouth Once per day. 06/16/20 25 Active Multiple Vitamin (Daily-Sade) tablet Take 1 tablet by mouth Once per day. 05/07/20 25 Active clonazePAM (KlonoPIN) 0.5 MG tablet Take 1 tablet by mouth if needed in the morning and at bedtime for anxiety. 04/03/20 25 Active cholecalciferol VITAMIN D (Vitamin D-3) 50 MCG (1999 UT) capsule Take 1 capsule by mouth Once per day. 06/29/20 25 Active cloZAPine (Clozaril) 100 MG tablet Take 100 mg by mouth in the morning and 100 mg at noon. And take 300 mg at bedtime. Active lithium 300 MG capsule Take 300 mg by mouth with breakfast, with lunch, and with evening meal. Active fludrocortisone (Florinef) 0.1 MG tablet Take 0.1 mg by mouth Once per day. Active midodrine (Proamatine) 5 MG tablet Take 10 mg by mouth 3 times daily. Active thiamine (Vitamin B-1) 100 MG tablet Take 100 mg by mouth Once per day. Active acetaminophen (Tylenol) 325 MG tablet Take 325 mg by mouth every 6 (six) hours if needed for mild pain. Active senna (Senokot) 8.6 MG tabletIndication s:Drug-induced constipation Take 2 tablets (17.2 mg) by mouth at bedtime. May take 1 tablet daily as needed. 120 tablet 3 08/24/20 Active metoprolol succinate XL (Toprol-XL) 100 MG 24 hr tablet Take 1 tablet (100 mg) by mouth Once per day. 90 tablet 12/12/19 025 Discontinued(Di scontinued by another clinician) lithium ER (Eskalith) 450 MG 12 hr tablet Take 2 tablets by mouth Once per day. 02/05/20 025 Discontinued(Di scontinued by another clinician) cloZAPine (Clozaril) 200 MG tablet Take 2 tablets by mouth Once per day. 02/06/20 025 Discontinued(Di scontinued by another clinician) cloZAPine (Clozaril) 100 MG tablet Take 1 tablet by mouth Once per day. 06/25/20 025 Discontinued(Di scontinued by another clinician) senna (Senokot) 8.6 MG tablet Take 2 tablets by mouth at bedtime. May take 1 tablet daily as needed. 025 Discontinued(Re order (will not trigger notification to Pharmacy)) Active Problems Problem Noted Date Diagnosed Date Encounter for medical examination to establish c are 12/11/2024 Assessment & Plan (12/11/2024 10:28 AM EDT): Last PCP visit >5 yrs ER: psych unit October 2023/December 2023 Hospitalization: PMHx: HTN, shcizophrenia, IBS-C, Pshx:- All: PNC/latex Meds: as above Other schizophrenia 12/11/2024 Assessment & Plan (12/11/2024 10:19 AM EDT): Patient currently living in a [facility], he had 2 admissions on 2023 due to schizophrenia, followed by psych, no suicidal/homicidal ideas Primary hypertension 12/11/2024 Assessment & Plan (12/11/2024 10:20 AM EDT): On amlodipine and metoprolol, encouraged low sodium diet and exercise as tolerated, follow up in 3 months Encounters Date Type Department Care Team Description 08/24/2025 2:15 PM EST Office Visit [facility] MED & PEDS [address] [place] [address] Ja Pompa MD Other schizophrenia (HCC) (Primary Dx); Primary hypertension; Drug-induced constipation 08/24/2025 Travel 08/12/2025 Patient Outreach [address] [phone] Delgado Ross MD Transition Of Care (Tcm) (HDF scheduled) 08/02/2025 Patient Outreach [address] [phone] Delgado Ross MD Transition Of Care (Tcm) (HDF- scheduled (direct)) 07/13/2025 Patient Outreach [facility] [address] [place] [address] Delgado Ross MD Transition Of Care (Tcm) (HDF scheduled.) 07/13/2025 Telephone [facility] [address] [place] [address] Delgado Ross MD Hospital Follow-up 06/21/[address] [address] Delgado Ross MD No Show 06/18/2025 Telephone [facility] [address] [place] [address] Delgado Ross MD CHART PREP 06/14/2025 Patient Outreach [address] [phone] Delgado Ross MD Pre-visit Planning (SDOH screening completed on 12/11/24 ) from Last 3 Months Family History Medical [...] Orientation Straight 12/11/2024 8: 43 AM EDT Last Filed Vital Signs Vital Sign Reading Time Taken Comments Blood Pressure 144/92 08/24/2025 2:29 PM EST Pulse 99 08/24/2025 2:29 PM EST Temperature - - Respiratory Rate 20 08/24/2025 2:29 PM EST Oxygen Saturation 99% 08/24/2025 2:29 PM EST Inhaled Oxygen Concentration - - Weight 77.6 kg (171 lb) 08/24/2025 2:29 PM EST Height - - Body Mass Index - - Plan of Treatment Upcoming Encounters Date Type Department Care Team ([facility] st Contact Info) Description 09/09/2025 1:00 PM EST Telemedicine [facility] MED & PEDS [address] [place] [address] Delgado Ross MD [address] [place] [address] Health Maintenance Due Date Last Done Comments [...] of 2) 2023 COVID-19 Vaccine (3 - 2024-2 6 season) 2025 11/16/2020, 10/26/2020 Influenza Vaccine (#1) 2025 Alcohol/Substance [...] PM EST Other schizophrenia (HCC) Primary hypertension from Last 3 Months Results * [place] (08/24/2025 3:57 PM EST) [place] 1.00 0.60 - 1.20 mmol/L [facility] Blood Venous blood specimen / Unknown 08/24/2025 3:57 PM EST 08/24/2025 6:14 PM EST us Ja Pompa MD LAB BLOOD ORDERABLES Final Result [facility] [address] [place] [phone] * ECG 12 lead (08/24/2025 3:31 PM EST) Narrative Ja Pompa MD - 08/24/2025 3:31 PM EST - EKG on August 24, 2025: normal sinus rhythm; QTc interval within normal limits - Prior EKG: QTc interval [address] elevation or depression, no sign of hypertrophy us Ja Pompa MD ECG ORDERABLES Final Resul t from Last [address] [facility] HSN PARTIAL HSN FULL Care Teams Supervisor Beam Department Relationship Specialty Start Date End Date Delgado Ross MD [address] [place] [phone] PCP - General Internal Medicine 12/11/24
--- OUTSIDE RECORDS SUMMARY | 2025-08-24 19:22 | XMS_ITS | Encounter Summary ---
Author Organization [employer] Address [address] [facility] 7t [place] [address] Care Team Providers Care Motor Coach Tour Operator Name Role Phone Delgado Ross MD Primary Care Prov ider Reason for Visit * Reason Onset Date Comments Appointment Request 12/07/2024 Encounter Details Date Type Department Care Team (Late st Contact Info) Description 12/07/2024 Telephone [facility] MEDICINE [address] [place], [place] [phone] Petros Quintana MD [address] [place], [place] [phone] Appointment Request Social History Tobacco Use Types [...] AM EDT Outgoing call to Kristine with [facility] to book RETAIL SALES CLERK appt. Pt currently residing at residential program ([facility]) and is out of Meds. Patient booked for 12/10/[address] Miramontes. DX : Social Anxiety [place]itzo Affective Disorder Bipolar Reflux Hyperlipoidemia Please contact Kristine for Appt at [phone]. * Telephone Encounter - Dioni Lawrence - 12/07/2024 8:55 AM EDT TC from caller requesting NEW PATIENT visit . DX : Social Anxiety Scitzo Affective Disorder Bipolar Reflux Hyperlipoidemia Medical Concern: Almost out of Medication Insurance name : [employer] ([employer]) Location : [place] Demographic information updated Contact pt at [phone] documented in this encounter Plan of Treatment Upcoming Encounters Date Type Department Care Team (Late st Contact Info) Description 09/09/2025 1:00 PM EST Telemedicine [facility] MED & PEDS [address] [place], [place] [phone] Delgado Ross MD [address] [place] [address] documented as of this encounter Visit Diagnoses Not on filedocumented in this encounter Care Teams Motor Coach Tour Operator Relationship Specialty Start Date End Date MiramontesDelgado Edwards MD [address] [place] [phone] PCP - General Internal Medicine 12/11/24 documented as of this encounter
--- OUTSIDE RECORDS SUMMARY | 2025-08-24 19:22 | XMS_ITS | Encounter Summary ---
Author Organization [employer] Address [address] [facility] 7t [place] [address] Care Team Providers Care Machine Hose Cutter Name Role Phone Delgado Ross MD Primary Care Prov ider Encounter Details Date Type Department Care Team (Latest Contact Info) Description 08/24/2025 Travel Social History Tobacco Use Types Packs/Day Years [...] your housing situation today? I have frankie henry 12/11/[address] you li [...] Info) Description 09/09/2025 1:00 PM EST Telemedicine [facility] MED & PEDS [address] [place] [address] Delgado Ross MD [address] [place] [address] documented as of this encounter Visit Diagnoses Not on filedocumented in this encounter Additional Health Concerns Assessment Noted Time PHQ-9 Depression Total Score: 0 12/12/19 9:14 AM EDT documented as of this encounter Care Teams Machine Hose Cutter Relationship Specialty Start Date End Date Delgado Ross MD [address] [place] [address] PCP - General Internal Medicine 12/11/24 documented as of this encounter
--- OUTSIDE RECORDS SUMMARY | 2025-08-24 19:22 | XMS_ITS | Encounter Summary ---
Author Organization [employer] Address [address] [facility] 7t [place] [address] Care Team Providers Care Analytical Lab Technician Name Role Phone Delgado Ross MD Primary Care Prov ider Encounter Details Date Type Department Care Team (Late st Contact Info) Description 02/08/2025 Telephone [facility] MEDICINE [address] [place], [place] [phone] Kristine Cabrera, PharmD [address] [place], [place] [phone] Social History Tobacco Use Types Packs/Day Years [...] t he electric, gas, oil or water [employer] threatened to shut off services in your [...] Info) Description 09/09/2025 1:00 PM EST Telemedicine [facility] MED & PEDS [address] [place] [address] Delgado Ross MD [address] [place] [address] documented as of this encounter Visit Diagnoses Not on filedocumented in this encounter Additional Health Concerns Assessment Noted Time PHQ-9 Depression Total Score: 0 12/12/19 9:14 AM EDT documented as of this encounter Care Teams Analytical Lab Technician Relationship Specialty Start Date End Date Delgado Ross MD [address] [place] [address] PCP - General Internal Medicine 12/11/24 documented as of this encounter
--- OUTSIDE RECORDS SUMMARY | 2025-08-24 19:22 | XMS_ITS | Encounter Summary ---
Author Organization [facility] Address [address] [facility] [address] [place] [address] Phone Care Team Providers Care Soda Worker Name Role Phone Diana Beavers MD Primary Care Provider [phone] Encounter Details Date Type Department Care Team (Latest Contact Info) Description 08/02/2025 Lab Requisition [facility] Main [address] [place] [address] Diana Beavers MD [address] [place] [phone] [email or web address] Acute kidney failure, unspecified; Unspecified severe protein-calorie malnutrition; Auditory hallucinations Social History Tobacco Use Types Packs/Day Years [...] on file documented as of this encounter Procedures Procedure Name Priority Date/Time Associated Diagnosis Comments COMPREHENSIVE METABOLIC PANEL (CMP) Today 08/02/2025 12:19 PM EST Acute kidney failure, unspecified Unspecified severe protein-calorie malnutrition Auditory hallucinations CBC Today 08/02/2025 12:19 PM EST Acute kidney failure, unspecified Unspecified severe protein-calorie malnutrition Auditory hallucinations LITHIUM LEVEL Today 08/02/2025 12:19 PM EST Acute kidney failure, unspecified Unspecified severe protein-calorie malnutrition Auditory hallucinations documented in this encounter Results * LITHIUM LEVEL (08/02/2025 12:19 PM EST) [place] 0.73 0.50 - 1.20 mmol/L 08/02/2025 5:25 PM [facility] Blood (Blood) 08/02/2025 12: 19 PM EST 08/02/2025 1:09 PM EST us Diana Beavers MD LAB BLOOD BKR ORDERABLES Final Result Performing Organization Address City/State/[facility] Co de Phone Number [address] [address] * (ABNORMAL) CBC (08/02/2025 12:19 PM EST) WBC 9.22 4.00 - 11.00 K/uL 08/02/2025 3:27 PM [facility] RBC 4.94 4.50 - 5.90 M/uL 08/02/2025 3:27 PM [facility] Hemoglobin 13.8 13.5 - 17.5 g/dL 08/02/2025 3:27 PM [facility] Hematocrit 44.4 41.0 - 53.0 % 08/02/2025 3:27 PM [facility] MCV 89.9 80.0 - 100.0 fL 08/02/2025 3:27 PM [facility] MCH 27.9 27.0 - 31.0 pg 08/02/2025 3:27 PM [facility] MCHC 31.1(L) 32.0 - 36.0 g/dL 08/02/2025 3:27 PM [facility] PLT 276 150 - 450 K/uL 08/02/2025 3:27 PM [facility] MPV 10.1 8.4 - 12.0 fL 08/02/2025 3:27 PM [facility] RDW-CV 14.4 11.5 - 14.5 % 08/02/2025 3:27 PM [facility] Absolute NRBC 0.00 <=0.00 K cells/uL 08/02/2025 3:27 PM [facility] NRBC 0.0 <=0.0 /100 WBCs 08/02/2025 3:27 PM [facility] Blood (Blood) 08/02/2025 12: 19 PM EST 08/02/2025 1:09 PM EST Diana Beavers MD LAB BLOOD BKR ORDERABLES Final Result [facility] [address] [place] [address] * (ABNORMAL) Comprehensive Metabolic Panel (CMP) (08/02/2025 12:19 PM EST) Sodium 142 136 - 145 mmol/L 08/02/2025 4:17 PM [facility] Potassium 4.7 3.4 - 5.1 mmol/L 08/02/2025 4:17 PM [facility] Chloride 107 98 - 107 mmol/L 08/02/2025 4:17 PM [facility] CO2 25 20 - 31 mmol/L 08/02/2025 4:17 PM [facility] Anion Gap 10 3 - 17 mmol/L 08/02/2025 4:17 PM [facility] BUN 12 6 - 23 mg/dL 08/02/2025 4:17 PM [facility] Creatinine 0.90 0.60 - 1.30 mg/dL 08/02/2025 4:17 PM [facility] eGFR 103 >59 mL/min/1.7 3m2 08/02/2025 4:17 PM [facility] Comment:Estimated glomerular filtration rate calculated using the CKD-EPI refit equation. Glucose 112(H) 70 - 99 mg/dL 08/02/2025 4:17 PM [facility] Calcium 9.9 8.5 - 10.5 mg/dL 08/02/2025 4:17 PM [facility] AST 16 <40 U/L 08/02/2025 4:17 PM [facility] ALT 15 <50 U/L 08/02/2025 4:17 PM [facility] Alkaline Phosphatase 84 40 - 130 U/L 08/02/2025 4:17 PM [facility] Bilirubin, Total 0.3 0.0 - 1.2 mg/dL 08/02/2025 4:17 PM [facility] Total Protein 7.2 6.4 - 8.3 g/dL 08/02/2025 4:17 PM [facility] Albumin 4.7 3.5 - 5.2 g/dL 08/02/2025 4:17 PM [facility] Globulin 2.5 1.9 - 4.1 g/dL 08/02/2025 4:17 PM [facility] Blood (Blood) 08/02/2025 12: 19 PM EST 08/02/2025 1:09 PM EST us Diana Beavers MD LAB BLOOD BKR ORDERABLES Final Result Performing Organization Address City/State/[facility] Co de Phone Number [facility] [address] [place] [address] documented in this encounter Visit Diagnoses Diagnosis Acute kidney failure, unspecified Unspecified severe protein-calorie malnutrition Auditory hallucinations Hallucinations documented in this encounter Care Teams Soda Worker Relationship Specialty Start Date End Date Diana Beavers MD [address] [place] [phone] [email or web address] PCP - General Internal Medicine 07/29/25 documented as of this encounter Additional Source Comments The information contained in this document represents components of the legal health record. It is not the complete legal health record.[facility]
--- OUTSIDE RECORDS SUMMARY | 2025-08-24 19:22 | XMS_ITS | Encounter Summary ---
Author Organization [employer] Address [address] [facility] [address] [place] [address] Care Team Providers Care Terrazzo Polisher Helper Name Role Phone Delgado Ross MD Primary Care Prov ider Reason for Visit * Reason Onset Date Comments Hospital Follow-up 07/13/2025 Encounter Details Date Type Department Care Team (Late st Contact Info) Description 07/13/2025 Telephone [facility] [address] [place], [place] [phone] Delgado Ross MD [address] [place], [place] [phone] Hospital Follow-up Social History Tobacco Use Types Packs/Day Years [...] encounter Miscellaneous Notes * Telephone Encounter - Argelia Bain - 07/13/2025 10:16 AM EDT Tc from pt requesting a HDF appt. Hospital: [facility] Date of admission: 07/07 Discharge date: 07/12 Diagnosed: prolong qt syndrome , schizophrenia , kidney function levels *Send message to [place] Clinical Care Coordinators Contact Holly Nagy at [phone] documented in this encounter Plan of Treatment Upcoming Encounters Date Type Department Care Team (Late st Contact Info) Description 09/09/2025 1:00 PM EST Telemedicine [facility] MED & PEDS [address] [place] [address] Delgado Ross MD [address] [place] [address] documented as of this encounter Visit Diagnoses Not on filedocumented in this encounter Additional Health Concerns Assessment Noted Time PHQ-9 Depression Total Score: 0 12/12/19 9:14 AM EDT documented as of this encounter Care Teams Terrazzo Polisher Helper Relationship Specialty Start Date End Date Delgado Ross MD [address] [place] [address] PCP - General Internal Medicine 12/11/24 documented as of this encounter
== END 2025-08-24 15:56 | disposition home or self-care (01) ==
LOC: HO.CHCLDS 15:55
PROVIDERS: Visit Provider Internal Medicine
DX: F20.89 Other schizophrenia (principal)
CPT/HCPCS: 36415; 80178